=== PATIENT | male | born 1930 | race Caucasian/White ===

== ENCOUNTER → 2017-01-28 | Outpatient (CLI) | payer OTHER ==
[~2017-01-28] MED LIST: BND25X PO; CMD5 PO; FRRS300 PO; LATA0.009 OPR; METH4PAK4 PO; OMEG10007 PO; SENN-61 PO; TIMO0.2528 OPR; [UNRECOGNIZED DRUG - CODE] PO
[2017-01-28 18:03] LABS: BLOOD UREA NITROGEN 17 mg/dl (7-18); BUN/CREATININE RATIO 17.7 (10-20); CALCIUM 9.1 mg/dl (8.5-10.1); CARBON DIOXIDE 27 mmol/L (21-32); CHLORIDE 106 mmol/L (98-107); CREATININE 0.94 mg/dl (0.60-1.40); GLUCOSE 117 mg/dl (70-99); POTASSIUM 4.5 mmol/L (3.5-5.1); SODIUM 138 mmol/L (136-145)
== END | disposition home or self-care (01) ==
LOC: C.LABPVFM 12:06
PROVIDERS: ATTEND Family Medicine
DX: I10 Essential (primary) hypertension (principal)

== ENCOUNTER → 2017-08-04 | Outpatient (CLI) | payer OTHER ==
[2017-08-04 13:16] LABS: BLOOD UREA NITROGEN 14 mg/dl (7-18); BUN/CREATININE RATIO 16.2 (10-20); CALCIUM 8.8 mg/dl (8.5-10.1); CARBON DIOXIDE 26 mmol/L (21-32); CHLORIDE 106 mmol/L (98-107); CHOLESTEROL 198 mg/dl (0-200); CREATININE 0.88 mg/dl (0.60-1.40); GLUCOSE 117 mg/dl (70-99); POTASSIUM 4.1 mmol/L (3.5-5.1); SODIUM 140 mmol/L (136-145)
[2017-08-04 13:19] LABS: CHOLESTEROL/HDL RATIO 4.7; HDL CHOLESTEROL 42 mg/dl; LDL CHOLESTEROL CALCULATED 134 mg/dl; TRIGLYCERIDES 110 mg/dl (0-150); VERY LOW DENSITY LIPOPROT CALC 22 mg/dl
== END | disposition home or self-care (01) ==
LOC: C.LABPVFM 08:01
PROVIDERS: ATTEND Family Medicine
DX: Z00.00 Encounter for general adult medical examination without abnormal findings (principal); I10 Essential (primary) hypertension

== ENCOUNTER 2021-03-07 18:46 | Inpatient (IN) ==
[2021-03-07] MEDS ORDERED: OPTIRAY 350 500ml IV ONE (18:53)
--- NOTE | 2021-03-07 18:53 | Emergency Department Note ---
Impression & Plan CVA (cerebrovascular accident), Occlusion of posterior cerebral artery, High serum chloride, Elevated troponin, A-fib ED Provider Note NAME: Micah BROWN AGE: 89 SEX: M : 1930 ARRIVES VIA: Ambulance INFORMANT: Patient, ED PROVIDER(S): Ignacio Mclean DO CHIEF COMPLAINT: Altered mental status HPI: Patient is an 89-year-old male brought in by EMS. He was confused yesterday but this cleared up. [place] He came into the house and the had to help drag him up the steps. He became nearly unresponsive at the table and EMS was called. He was confused and altered. When EMS arrived he was unresponsive with questionable agonal breathing and eventually improved. He denies any pain but is unable to really talk other than answer some intermittent yes/no questions. ROS: See above HPI for pertinent positives & negatives. A total of 10 systems reviewed and were otherwise negative. PAST MEDICAL HISTORY:See Below PAST SURGICAL HISTORY:See Below FAMILY HISTORY:See Below SOCIAL HISTORY:See Below HOME MEDICATIONS:See Below ALLERGIES:See Below VITALS:See Below PHYSICAL EXAMINATION: GENERAL: alert, well appearing, well nourished, no distress, non-toxic HEAD: normal cephalic, atraumatic EYE EXAM: normal conjunctiva, PERRL and EOM's grossly intact OROPHARYNX: no exudate, no erythema, lips, buccal mucosa, and tongue normal and mucous membranes are moist EARS: TMs clear b/l NECK: supple, no nuchal rigidity, no adenopathy, non-tender CHEST: stable to compression anteriorly and posteriorly LUNGS: clear to auscultation. Normal chest wall mechanics HEART: no murmurs, S1 normal and S2 normal ABDOMEN: abdomen soft, non-tender, normo-active bowel sounds, no masses, no rebound or guarding. PELVIS: stable to compression anteriorly and posteriorly UPPER EXTREMITIES: full active and passive range of motion of all joints without tenderness to palpation LOWER EXTREMITIES: full active and passive range of motion of all joints without tenderness to palpation. Abrasions over bilateral shins NEURO EXAM: Awake with a rightward gaze and right-sided facial droop able to answer intermittent yes/no questions, slightly slurred speech, mild weakness with flexion of the left upper extremity. Unable to assess grasp of right extremity due to deformity of hand. Unable to perform drift and [id number]. MEDICAL DECISION MAKING: Patient is an 89-year-old male with a past medical history of A. fib that presents the ER for weakness and confusion. He remembers walking up to the [place] and his legs not working. His drove him up the steps. Upstairs he became unresponsive. EMS brought him in. There is no seizure activity for EMS. IV was established blood work was obtained. Stroke alert was called on my initial evaluation as he did have right-sided facial droop and some slurred speech with confusion. Labs show no significant leukocytosis or anemia. INR was unremarkable. BMP with slightly elevated chloride. Magnesium was elevated. Troponin was elevated 0.071. Covid was negative. CT as well as angios of the head and neck showed an occlusion of the THREAD LASTER with an age-indeterminate infarct as well. CT of the chest abdomen pelvis as he did have bruising on bilateral lower extremities. After discussion on [address] Kaleb Dickson from [facility]. As this gentleman symptoms improved significantly and he was nearly back to baseline able to walk with throughout the room without difficulty elected to hold on giving TPA. Patient was updated bedside. He was admitted to the hospital for further work-up. Triage Nursing notes reviewed. Limited review of prior medical records performed Vital Signs: reviewed and remarkable for no significant abnormalities Differential diagnosis: Differential Diagnosis includes but is not limited to ischemic Stroke, hemorrhagic stroke, bells palsy, mass, neoplasm, migraine headache, seizure, subarachnoid hemorrhage, TIA, and transient global amnesia. ER treatment provided: See below Diagnostics interpreted by me: ECG: A. fib rate of 72 Left axis T wave inversion in lead aVL QTC 427 Cardiac Monitoring: An order was placed for continuous cardiac monitoring. The monitor shows a rate of 70 with sinus rhythm. Laboratory studies: As stated above and show below. Imaging studies: CTs as well as CT angios as discussed above with the THREAD LASTER occlusion and remote infarct Consultation(s): Discussed with Dr. Cardona from [facility] and we elected to hold on TPA This is the hospitalist for further evaluation Procedures: none Critical Care: I have personally spent 40 minutes of critical care time in the direct management of this patient. This includes bedside care, interpretation of diagnostic studies, and testing, discussion with consultants, patient, and family members, and other required patient management activities. This 40 minutes is in excess of all separately billable procedures. Past Med/Surg History Medical History (Updated 03/07/21 @ 22:24 by Ignacio Mclean DO) Ambulatory dysfunction Aortic root dilatation Ataxia Blind left eye Brain aneurysm Brain aneurysm Chronic arterial ischemic stroke, multifocal, multiple vascular territories Chronic diastolic CHF (congestive heart failure) Dizziness Fall Hypertension Hypertensive urgency Prediabetes Surgical History (Updated 04/29/20 @ 09:06 by ANGELICA Herrera) Hx of total knee replacement S/P hernia repair Family History (Updated 04/29/20 @ 09:07 by ANGELICA Herrera) Other Breast cancer Denies family history of Ovarian cancer Prostate cancer Myocardial infarction Colorectal cancer Social History (Updated 04/29/20 @ 09:08 by ANGELICA Herrera) Smoking Status: Never smoker Second Hand Exposure: No; Hx Alcohol Use: No Hx Substance Use: No Preferred Language: Cameroonian Communication Ability: Effective Visual Impairment: No Limitations Manager Life Insurance Required: Yes Beliefs That Will Affect Care: None marital status: Current Living Situation: Spouse current occupational status: retired Feels Safe at Home: Yes caffeine: Yes during the past year weight has: remained stable Dental Care, Regularly: Yes Physical Activity Frequency: 1-2 Times per Week Seatbelt Use: always Sunscreen Use: Yes Assistive Devices: Walker Allergies Allergies Allergy/AdvReac Type Severity Reaction Status Date / Time Penicillins Allergy Unknown UNKNOWN Verified 03/07/21 19:06 morphine AdvReac Severe HALLICINATIONS, Verified 03/07/21 19:06 BEHAVIOR CHANGES Home Meds Home Medications Medication Instructions Recorded Confirmed latanoprost [Xalatan] 1 drp OPR HS 08/02/18 03/07/21 timolol maleate 1 drp OPR QAM 08/02/18 03/07/21 cholecalciferol (vitamin D3) 1,000 unit PO DAILY 08/05/18 03/07/21 [Vitamin D3] Herbal Prostate Suppliment 1 tab PO DAILY 05/18/20 03/07/21 Previous Rx's Medication Instructions Recorded losartan 50 mg tablet 50 mg PO BID #180 tab 03/06/21 ciprofloxacin HCl 500 mg tablet 500 mg PO BID #14 tab 03/07/21 Results & Data (ED) Vital Signs Vital Signs - 24 hr 03/07/21 18:51 03/07/21 19:00 03/07/21 19:16 Temperature 36.6 C Temperature Source Oral Pulse Rate 75 73 Pulse Rate [Right Brachial] Pulse Rate from SpO2 Sensor 75 Pulse Rhythm [Right Brachial] Respiratory Rate 20 14 Respiratory Effort / Characteristics Spontaneous Blood Pressure 159/81 H 144/82 H Blood Pressure [Right Arm] Blood Pressure Mean 107 102 Blood Pressure Mean [Right Arm] Blood Pressure Position [Right Arm] Pulse Oximetry 92 93 94 Oxygen Delivery Method Room Air Room Air Sepsis Recent Fever Within 48 Hours No Sepsis New/Unexplained Change in Mental Status N/A Sepsis Action Taken by Nursing No Action Required 03/07/21 19:20 03/07/21 19:25 03/07/21 19:30 Temperature Temperature Source Pulse Rate 73 74 75 Pulse Rate [Right Brachial] Pulse Rate from SpO2 Sensor 73 75 79 Pulse Rhythm [Right Brachial] Respiratory Rate 25 H 32 H 23 Respiratory Effort / Characteristics Blood Pressure 171/75 H 135/78 122/70 Blood Pressure [Right Arm] Blood Pressure Mean 107 97 87 Blood Pressure Mean [Right Arm] Blood Pressure Position [Right Arm] Pulse Oximetry 94 92 93 Oxygen Delivery Method Sepsis Recent Fever Within 48 Hours Sepsis New/Unexplained Change in Mental Status Sepsis Action Taken by Nursing 03/07/21 19:31 03/07/21 19:41 03/07/21 19:51 Temperature 37 C Temperature Source Oral Pulse Rate 83 76 Pulse Rate [Right Brachial] 75 Pulse Rate from SpO2 Sensor 90 79 Pulse Rhythm [Right Brachial] Irregular Respiratory Rate 16 22 23 Respiratory Effort / Characteristics Blood Pressure 117/91 183/82 H Blood Pressure [Right Arm] 122/70 Blood Pressure Mean 99 115 Blood Pressure Mean [Right Arm] 87 Blood Pressure Position [Right Arm] Pulse Oximetry 92 94 94 Oxygen Delivery Method Room Air Sepsis Recent Fever Within 48 Hours Sepsis New/Unexplained Change in Mental Status Sepsis Action Taken by Nursing 03/07/21 19:56 03/07/21 20:00 03/07/21 21:00 Temperature Temperature Source Pulse Rate 71 75 Pulse Rate [Right Brachial] 69 Pulse Rate from SpO2 Sensor 77 73 Pulse Rhythm [Right Brachial] Irregular Respiratory Rate 26 H 27 H 16 Respiratory Effort / Characteristics Blood Pressure 156/81 H 157/101 H Blood Pressure [Right Arm] 137/65 Blood Pressure Mean 106 119 Blood Pressure Mean [Right Arm] 89 Blood Pressure Position [Right Arm] Lying Pulse Oximetry 94 92 93 Oxygen Delivery Method Room Air Sepsis Recent Fever Within 48 Hours Sepsis New/Unexplained Change in Mental Status Sepsis Action Taken by Nursing Laboratory Data Result diagrams: 03/07/21 18:52 03/07/21 18:52 Lab Results 03/07/21 03/07/21 03/07/21 Range/Units 18:52 18:52 18:52 WBC 9.95 (4.8-10.8) K/uL RBC 4.70 (4.7-6.1) M/uL Hgb 14.1 (14.0-18.0) g/dL Hct 41.0 L (42-52) % MCV 87.2 (80-100) fL MCH 30.0 (25-34) pg MCHC 34.4 (32-36) g/dL RDW Std Deviation 43.7 (36.4-46.3) fL RDW Coeff of Josh 13.5 (11.5-14.5) % Plt Count 147 (130-400) K/uL MPV 9.7 (7.4-10.4) fL Immature Gran % (Auto) 0.4 % Neut % (Auto) 77.9 % Lymph % (Auto) 11.8 % [place] % (Auto) 9.7 % Eos % (Auto) 0.1 % Baso % (Auto) 0.1 % Neut # (Auto) 7.75 H (1.4-6.5) K/uL Lymph # (Auto) 1.17 L (1.2-3.4) K/uL [place] # (Auto) 0.97 H (0.11-0.59) K/uL Eos # (Auto) 0.01 (0-0.5) K/uL Baso # (Auto) 0.01 (0-0.2) K/uL Immature Gran # (Auto) 0.04 H (0.00-0.02) K/uL PT 10.8 (9.0-12.0) Seconds INR 1.1 (0.9-1.1) APTT 21.8 (21.0-31.0) Seconds PTT Ratio 0.8 Sodium (136-145) mmol/L Potassium (3.5-5.1) mmol/L Chloride (98-107) mmol/L Carbon Dioxide (21-32) mmol/L Anion Gap (3-11) BUN (7-18) mg/dl Creatinine (0.6-1.4) mg/dl Est Cr Clr Drug Dosing ml/min Est GFR ( Amer) ml/min Est GFR (Non-Af Amer) ml/min BUN/Creatinine Ratio (10-20) Glucose (70-99) mg/dl POC Glucose (70-99) mg/dl Calcium (8.5-10.1) mg/dl Magnesium (1.8-2.4) mg/dl Total Bilirubin (0.2-1) mg/dl AST (15-37) U/L ALT (12-78) U/L Alkaline Phosphatase (45-117) U/L Troponin I (0-0.045) ng/ml Total Protein (6.4-8.2) gm/dl Albumin (3.4-5.0) gm/dl Globulin (2.5-4.0) gm/dl Albumin/Globulin Ratio (0.9-2) COVID-19 Eval Order SARS-CoV-2 (PCR) (Negative) Blood Type O Positive Antibody Screen NEGATIVE 03/07/21 03/07/21 03/07/21 Range/Units 18:52 19:29 19:44 WBC (4.8-10.8) K/uL RBC (4.7-6.1) M/uL Hgb (14.0-18.0) g/dL Hct (42-52) % MCV (80-100) fL MCH (25-34) pg MCHC (32-36) g/dL RDW Std Deviation (36.4-46.3) fL RDW Coeff of Josh (11.5-14.5) % Plt Count (130-400) K/uL MPV (7.4-10.4) fL Immature Gran % (Auto) % Neut % (Auto) % Lymph % (Auto) % [place] % (Auto) % Eos % (Auto) % Baso % (Auto) % Neut # (Auto) (1.4-6.5) K/uL Lymph # (Auto) (1.2-3.4) K/uL [place] # (Auto) (0.11-0.59) K/uL Eos # (Auto) (0-0.5) K/uL Baso # (Auto) (0-0.2) K/uL Immature Gran # (Auto) (0.00-0.02) K/uL PT (9.0-12.0) Seconds INR (0.9-1.1) APTT (21.0-31.0) Seconds PTT Ratio Sodium 142 (136-145) mmol/L Potassium 3.9 (3.5-5.1) mmol/L Chloride 110 H (98-107) mmol/L Carbon Dioxide 22 (21-32) mmol/L Anion Gap 10.0 (3-11) BUN 17 (7-18) mg/dl Creatinine 1.50 H (0.6-1.4) mg/dl Est Cr Clr Drug Dosing 32.3 ml/min Est GFR ( Amer) 47.2 ml/min Est GFR (Non-Af Amer) 40.7 ml/min BUN/Creatinine Ratio 11.0 (10-20) Glucose 211 H (70-99) mg/dl POC Glucose 182 H (70-99) mg/dl Calcium 8.7 (8.5-10.1) mg/dl Magnesium 2.5 H (1.8-2.4) mg/dl Total Bilirubin 0.6 (0.2-1) mg/dl AST 21 (15-37) U/L ALT 27 (12-78) U/L Alkaline Phosphatase 85 (45-117) U/L Troponin I 0.071 H* (0-0.045) ng/ml Total Protein 6.4 (6.4-8.2) gm/dl Albumin 3.2 L (3.4-5.0) gm/dl Globulin 3.2 (2.5-4.0) gm/dl Albumin/Globulin Ratio 1.0 (0.9-2) COVID-19 Eval Order Covid19 at [facility] SARS-CoV-2 (PCR) (Negative) Blood Type Antibody Screen 03/07/21 Range/Units 19:44 WBC (4.8-10.8) K/uL RBC (4.7-6.1) M/uL Hgb (14.0-18.0) g/dL Hct (42-52) % MCV (80-100) fL MCH (25-34) pg MCHC (32-36) g/dL RDW Std Deviation (36.4-46.3) fL RDW Coeff of Josh (11.5-14.5) % Plt Count (130-400) K/uL MPV (7.4-10.4) fL Immature Gran % (Auto) % Neut % (Auto) % Lymph % (Auto) % [place] % (Auto) % Eos % (Auto) % Baso % (Auto) % Neut # (Auto) (1.4-6.5) K/uL Lymph # (Auto) (1.2-3.4) K/uL [place] # (Auto) (0.11-0.59) K/uL Eos # (Auto) (0-0.5) K/uL Baso # (Auto) (0-0.2) K/uL Immature Gran # (Auto) (0.00-0.02) K/uL PT (9.0-12.0) Seconds INR (0.9-1.1) APTT (21.0-31.0) Seconds PTT Ratio Sodium (136-145) mmol/L Potassium (3.5-5.1) mmol/L Chloride (98-107) mmol/L Carbon Dioxide (21-32) mmol/L Anion Gap (3-11) BUN (7-18) mg/dl Creatinine (0.6-1.4) mg/dl Est Cr Clr Drug Dosing ml/min Est GFR ( Amer) ml/min Est GFR (Non-Af Amer) ml/min BUN/Creatinine Ratio (10-20) Glucose (70-99) mg/dl POC Glucose (70-99) mg/dl Calcium (8.5-10.1) mg/dl Magnesium (1.8-2.4) mg/dl Total Bilirubin (0.2-1) mg/dl AST (15-37) U/L ALT (12-78) U/L Alkaline Phosphatase (45-117) U/L Troponin I (0-0.045) ng/ml Total Protein (6.4-8.2) gm/dl Albumin (3.4-5.0) gm/dl Globulin (2.5-4.0) gm/dl Albumin/Globulin Ratio (0.9-2) COVID-19 Eval Order SARS-CoV-2 (PCR) NEGATIVE (Negative) Blood Type Antibody Screen Administered Medications Discontinued Medications Aspirin (Aspirin Chew 324 Mg) 324 mg PO NOW STA Stop: 03/07/21 20:33 Last Admin: 03/07/21 20:38 Dose: 324 mg Documented by: [id number] Levetiracetam 500 mg/ Sodium (Chloride) 105 mls @ 440 mls/hr IV NOW STA Stop: 03/07/21 20:46 Last Admin: 03/07/21 20:49 Dose: 440 mls/hr Documented by: [id number] Ioversol (Optiray 350 500ml) 105 ml IV ONCE ONE Stop: 03/07/21 18:54 Last Admin: 03/07/21 18:53 Dose: 105 ml Documented by: [id number] Imaging Data Radiologist's Impression: Chest X-Ray 03/07/21 18:50 XR chest 1V portable CLINICAL HISTORY: Stroke Like Symptoms COMPARISON STUDY: Chest radiograph May 18, 2020. FINDINGS: Cardiomegaly is noted. Dilatation of the descending thoracic aorta is noted. There is no pneumothorax or pleural effusion. Old bilateral rib fractures are noted. There is mild interstitial thickening. IMPRESSION: Cardiomegaly with pulmonary vascular congestion. ACT 112: Negative or not required by law. Electronically signed by: Tiago Powell M.D. 03/07/2021 7:[address] 03/07/21 18:50 CT OF THE HEAD WITHOUT CONTRAST CLINICAL HISTORY: Stroke Like Symptoms COMPARISON STUDY: Head CT August 03, 2018. CT DOSE: 614.27 mGy.cm TECHNIQUE: Helical axial images of the head were obtained without IV contrast. Automated exposure control was utilized for the study. A dose lowering technique was utilized adhering to the principles of ALARA. FINDINGS: No acute intracranial hemorrhage is present. Multiple foci of encephalomalacia are unchanged since head CT of August 03, 2018. A 1.3 cm hypodensity within the left insular cortex is new since prior exam but probably old. There is an age indeterminate 1.6 cm hypodensity within the right mendoza radiata/basal ganglia. Otherwise, the appearance of the brain is unchanged. Ventricular system is stable. Right frontal craniotomy is noted. This NASAL bone deformity. No acute calvarial fracture is present. A clip within the right supraclinoid region is noted. IMPRESSION: 1. No acute intracranial hemorrhage. 2. Multiple foci of encephalomalacia which are similar to prior exam. 3. 1.3 cm hypodensity within the right mendoza radiata/basal ganglia. This is new since prior exam. This represents age indeterminate ischemic change. ACT 112: Negative or not required by law. Electronically signed by: Tiago Powell M.D. 03/07/2021 7:05 PM Head CTA 03/07/21 18:50 CTA ANGIOGRAPHY OF THE HEAD CLINICAL HISTORY: Stroke Like Symptoms COMPARISON STUDY: CTA of the head August 12, 2018. TECHNIQUE: Helical axial images of the head were obtained following uneventful intravenous administration of 105 cc of Optiray. Sagittal and coronal reconstructions were viewed as well as maximal intensity projections on an independent 3-D workstation. Automated exposure control was utilized for the study. A dose lowering technique was utilized adhering to the principles of ALARA. FINDINGS: No acute intracranial hemorrhage, midline shift or mass effect is present. Multiple areas of encephalomalacia are again noted. There is a right frontal craniotomy. There is an aneurysm clip within the region of the right clinoid. No intracranial aneurysm is identified on this examination. Moderate multifocal intracranial stenoses are noted. There is occlusion of the right T1 segment. This is new since prior CTA. No additional sites of vessel occlusion are identified on this exam. Moderate atherosclerotic plaque is noted within the intracranial vessels. IMPRESSION: 1. 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 No additional sites of vascular occlusion. 2. Moderate multifocal stenoses within the intracranial vessels. Previous aneurysm clipping. 3. Multifocal encephalomalacia. ACT 112: Negative or not required by law. Electronically signed by: Tiago Powell M.D. 03/07/2021 7:27 PM Neck CTA 03/07/21 18:50 CT ANGIOGRAPHY OF THE NECK WITH CONTRAST CLINICAL HISTORY: Stroke Like Symptoms COMPARISON STUDY: Carotid ultrasound August 03, 2018. Technique: CT angiography of the carotid and vertebral arteries was obtained using Optiray and 3D reconstruction on an independent workstation. NASCET criteria was utilized. Automated exposure control was utilized for the study. A dose lowering technique was utilized adhering to the principles of ALARA. Findings: Bilateral vertebral arteries are patent. There is no significant stenosis within the vertebral arteries. There is moderate plaque within the bilateral carotid bifurcations without significant stenosis. No aneurysm within the neck is noted. Chest CT will be reported separately. There is no acute ce rvical spine fracture. There is no cervical lymphadenopathy. IMPRESSION: Moderate plaque within the bilateral carotid bifurcations without significant stenosis. ACT 112: Negative or not required by law. Electronically signed by: Tiago Powell M.D. 03/07/2021 7:35 PM Abdomen/Pelvis CT 03/07/21 18:55 CT OF THE ABDOMEN AND PELVIS WITH CONTRAST CLINICAL HISTORY: ams ? trauma COMPARISON STUDY: CT of the chest, abdomen and pelvis 04/06/2007. TECHNIQUE: Following IV administration of 105 mL of Optiray, axial images of the abdomen and pelvis were obtained from the lung bases to the proximal femurs. Images were reviewed in the axial, sagittal, and coronal planes. IV contrast was administered without complication. Automated exposure control was utilized for the study. A dose lowering technique was utilized adhering to the principles of ALARA. FINDINGS: No hemoperitoneum or pneumoperitoneum is noted. A few hepatic cysts are noted. There is no evidence for traumatic injury to the liver, spleen, adrenal glands, kidneys or pancreas. Abdominal aorta is ectatic. Prostate is enlarged. There is no hydronephrosis. Note is made of sigmoid diverticulosis without evidence for acute diverticulitis. There is no evidence for a bowel obstruction. No acute lumbar spine or pelvic fractures identified. Mild loss of height of the superior endplate of T12 is chronic. No peripancreatic or pericholecystic infiltration is present. This exam is mildly compromised by motion artifact. IMPRESSION: No acute traumatic findings within the abdomen or pelvis. ACT 112: Negative or not required by law. Electronically signed by: Taigo Powell M.D. 03/07/2021 7:[address] 03/07/21 18:55 CT OF THE CHEST WITH IV CONTRAST CLINICAL HISTORY: trauma COMPARISON STUDY: CT November 19, 2011 and chest radiograph May 18, 2020. TECHNIQUE: Following IV administration of 105 mL of Optiray, helical axial i mages of the chest were obtained. Sagittal and coronal reconstructions were viewed as well as maximal intensity projections on an independent 3-D workstation. Automated exposure control was utilized for the study. A dose lowering technique was utilized adhering to the principles of ALARA. CT DOSE: 1376.53 mGy.cm FINDINGS: There is no evidence for traumatic injury to the thoracic aorta. Descending thoracic aorta is dilated, measuring 3.9 cm. Note is made of moderate cardiomegaly. There is no pericardial effusion. Moderate coronary artery calcification is present. There is no pneumothorax or pulmonary contusion. Lungs are suboptimally assessed due to respiratory motion. Subpleural opacities favor atelectasis. There are multiple old bilateral rib fractures. Mild loss of height of the superior endplate of T12 is likely chronic. IMPRESSION: 1. No acute traumatic findings within the chest. 2. Multiple old bilateral rib fractures. ACT 112: Negative or not required by law. Electronically signed by: Tiago Powell M.D. 03/07/2021 7:39 PM Discharge Plan Visit Data Chief Complaint: Altered Mental Status ED Provider: Ignacio Mclean Discharge Problem: CVA (cerebrovascular accident), Occlusion of posterior cerebral artery, High serum chloride, Elevated troponin, A-fib Forms Stand Alone Forms: [facility] Prescriptions Prescriptions: No Action ciprofloxacin HCl [Cipro] 500 mg tablet 500 mg PO BID Qty: 14 RF: 0 losartan 50 mg tablet 50 mg PO BID Qty: 180 RF: 1 Herbal Prostate Suppliment 1 tab PO DAILY RF: 0 latanoprost [Xalatan] 0.005 % Drops 1 drp OPR HS RF: 0 timolol maleate 0.5 % Drops, Once Daily 1 drp OPR QAM RF: 0 cholecalciferol (vitamin D3) [Vitamin D3] 1,000 unit Capsule 1,000 unit PO DAILY RF: 0 Discharge Problem: CVA (cerebrovascular accident) Qualifiers: CVA mechanism: unspecified Qualified Code(s): I63.9 - Cerebral infarction, unspecified A-fib Qualifiers: Atrial fibrillation type: unspecified Qualified Code(s): I48.91 - Unspecified atrial fibrillation
[2021-03-07 19:05] LABS: Basophils # (auto) 0.01 K/uL (0-0.2); Basophils % (auto) 0.1 %; Eosinophils # (auto) 0.01 K/uL (0-0.5); Eosinophils % (auto) 0.1 %; Hemoglobin 14.1 g/dL (14.0-18.0); Immature Granulocytes # (auto) 0.04 K/uL (0.00-0.02); Immature Granulocytes % (auto) 0.4 %; Lymphocytes # (auto) 1.17 K/uL (1.2-3.4); Lymphocytes % (auto) 11.8 %; Mean Corpuscular Hgb Conc 34.4 g/dL (32-36); Mean Corpuscular Volume 87.2 fL (80-100); Mean Platelet Volume 9.7 fL (7.4-10.4); Monocytes # (auto) 0.97 K/uL (0.11-0.59); Monocytes % (auto) 9.7 %; Neutrophils # (auto) 7.75 K/uL (1.4-6.5); Neutrophils % (auto) 77.9 %; Platelet Count 147 K/uL (130-400); RDW Coefficient of Variation 13.5 % (11.5-14.5); RDW Standard Deviation 43.7 fL (36.4-46.3); White Blood Count 9.95 K/uL (4.8-10.8)
--- NOTE | 2021-03-07 19:07 | CT Scan Report ---
CT OF THE HEAD WITHOUT CONTRAST CLINICAL HISTORY: Stroke Like Symptoms COMPARISON STUDY: Head CT August 03, 2018. CT DOSE: 614.27 mGy.cm TECHNIQUE: Helical axial images of the head were obtained without IV contrast. Automated exposure con trol was utilized for the study. A dose lowering technique was utilized adhering to the principles o f ALARA. FINDINGS: No acute intracranial hemorrhage is present. Multiple foci of encephalomalacia are unchange d since head CT of August 03, 2018. A 1.3 cm hypodensity within the left insular cortex is new since prior exam but probably old. There is an age indeterminate 1.6 cm hypodensity within the right coron a radiata/basal ganglia. Otherwise, the appearance of the brain is unchanged. Ventricular system is s table. Right frontal craniotomy is noted. This NASAL bone deformity. No acute calvarial fracture is p resent. A clip within the right supraclinoid region is noted. IMPRESSION: 1. No acute intracranial hemorrhage. 2. Multiple foci of encephalomalacia which are similar to prior exam. 3. 1.3 cm hypodensity within the right mendoza radiata/basal ganglia. This is new since prior exam. Th is represents age indeterminate ischemic change. ACT 112: Negative or not required by law. Electronically signed by: Tiago Powell M.D. 03/07/2021 7:05 PM
[2021-03-07 19:18] LABS: INR 1.1 (0.9-1.1); Partial Thromboplastin Ratio 0.8; Partial Thromboplastin Time 21.8 Seconds (21.0-31.0); Prothrombin Time 10.8 Seconds (9.0-12.0)
[2021-03-07 19:27] LABS: Albumin Level 3.2 gm/dl (3.4-5.0); Calcium 8.7 mg/dl (8.5-10.1); Creatinine Clr Calc Pharmacy 32.3 ml/min; Est GFR (African American) 47.2 ml/min; Est GFR (Non-African American) 40.7 ml/min; Magnesium 2.5 mg/dl (1.8-2.4); Potassium 3.9 mmol/L (3.5-5.1)
--- NOTE | 2021-03-07 19:29 | CT Scan Report ---
CTA ANGIOGRAPHY OF THE HEAD CLINICAL HISTORY: Stroke Like Symptoms COMPARISON STUDY: CTA of the head August 12, 2018. TECHNIQUE: Helical axial images of the head were obtained following uneventful intravenous administr ation of 105 cc of Optiray. Sagittal and coronal reconstructions were viewed as well as maximal inten sity projections on an independent 3-D workstation. Automated exposure control was utilized for the study. A dose lowering technique was utilized adhering to the principles of ALARA. FINDINGS: No acute intracranial hemorrhage, midline shift or mass effect is present. Multiple areas o f encephalomalacia are again noted. There is a right frontal craniotomy. There is an aneurysm clip wi thin the region of the right clinoid. No intracranial aneurysm is identified on this examination. Mod erate multifocal intracranial stenoses are noted. There is occlusion of the right T1 segment. This is new since prior CTA. No additional sites of vessel occlusion are identified on this exam. Moderate a therosclerotic plaque is noted within the intracranial vessels. IMPRESSION: 1. 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 No additional sites of vascular occlusi on. 2. Moderate multifocal stenoses within the intracranial vessels. Previous aneurysm clipping. 3. Multifocal encephalomalacia. ACT 112: Negative or not required by law. Electronically signed by: Tiago Powell M.D. 03/07/2021 7:27 PM
--- NOTE | 2021-03-07 19:36 | CT Scan Report ---
CT ANGIOGRAPHY OF THE NECK WITH CONTRAST CLINICAL HISTORY: Stroke Like Symptoms COMPARISON STUDY: Carotid ultrasound August 03, 2018. Technique: CT angiography of the carotid and vertebral arteries was obtained using Optiray and 3D rec onstruction on an independent workstation. NASCET criteria was utilized. Automated exposure control was utilized for the study. A dose lowering technique was utilized adhering to the principles of ALA RA. Findings: Bilateral vertebral arteries are patent. There is no significant stenosis within the verteb ral arteries. There is moderate plaque within the bilateral carotid bifurcations without significant stenosis. No aneurysm within the neck is noted. Chest CT will be reported separately. There is no acu te cervical spine fracture. There is no cervical lymphadenopathy. IMPRESSION: Moderate plaque within the bilateral carotid bifurcations without significant stenosis. ACT 112: Negative or not required by law. Electronically signed by: Tiago Powell M.D. 03/07/2021 7:35 PM
--- NOTE | 2021-03-07 19:40 | CT Scan Report ---
CT OF THE CHEST WITH IV CONTRAST CLINICAL HISTORY: trauma COMPARISON STUDY: CT November 19, 2011 and chest radiograph May 18, 2020. TECHNIQUE: Following IV administration of 105 mL of Optiray, helical axial images of the chest were obtained. Sagittal and coronal reconstructions were viewed as well as maximal intensity projections on an independent 3-D workstation. Automated exposure control was utilized for the study. A dose lo wering technique was utilized adhering to the principles of ALARA. CT DOSE: 1376.53 mGy.cm FINDINGS: There is no evidence for traumatic injury to the thoracic aorta. Descending thoracic aorta is dilated, measuring 3.9 cm. Note is made of moderate cardiomegaly. There is no pericardial effusio n. Moderate coronary artery calcification is present. There is no pneumothorax or pulmonary contusion . Lungs are suboptimally assessed due to respiratory motion. Subpleural opacities favor atelectasis. There are multiple old bilateral rib fractures. Mild loss of height of the superior endplate of T12 i s likely chronic. IMPRESSION: 1. No acute traumatic findings within the chest. 2. Multiple old bilateral rib fractures. ACT 112: Negative or not required by law. Electronically signed by: Tiago Powell M.D. 03/07/2021 7:39 PM
--- NOTE | 2021-03-07 19:45 | CT Scan Report ---
CT OF THE ABDOMEN AND PELVIS WITH CONTRAST CLINICAL HISTORY: ams ? trauma COMPARISON STUDY: CT of the chest, abdomen and pelvis 04/06/2007. TECHNIQUE: Following IV administration of 105 mL of Optiray, axial images of the abdomen and pelvis w ere obtained from the lung bases to the proximal femurs. Images were reviewed in the axial, sagittal, and coronal planes. IV contrast was administered without complication. Automated exposure control w as utilized for the study. A dose lowering technique was utilized adhering to the principles of BONY Bowman. FINDINGS: No hemoperitoneum or pneumoperitoneum is noted. A few hepatic cysts are noted. There is no evidence for traumatic injury to the liver, spleen, adrenal glands, kidneys or pancreas. Abdominal ao rta is ectatic. Prostate is enlarged. There is no hydronephrosis. Note is made of sigmoid diverticulo sis without evidence for acute diverticulitis. There is no evidence for a bowel obstruction. No acute lumbar spine or pelvic fractures identified. Mild loss of height of the superior endplate of T12 is chronic. No peripancreatic or pericholecystic infiltration is present. This exam is mildly compromise d by motion artifact. IMPRESSION: No acute traumatic findings within the abdomen or pelvis. ACT 112: Negative or not required by law. Electronically signed by: Tiago Powell M.D. 03/07/2021 7:43 PM
--- NOTE | 2021-03-07 19:50 | XRay Report ---
XR chest 1V portable CLINICAL HISTORY: Stroke Like Symptoms COMPARISON STUDY: Chest radiograph May 18, 2020. FINDINGS: Cardiomegaly is noted. Dilatation of the descending thoracic aorta is noted. There is no pn eumothorax or pleural effusion. Old bilateral rib fractures are noted. There is mild interstitial thi ckening. IMPRESSION: Cardiomegaly with pulmonary vascular congestion. ACT 112: Negative or not required by law. Electronically signed by: Tiago Powell M.D. 03/07/2021 7:49 PM
[2021-03-07 20:00] LABS: Bilirubin,Total 0.6 mg/dl (0.2-1); Globulin 3.2 gm/dl (2.5-4.0); Total Protein 6.4 gm/dl (6.4-8.2); Troponin I 0.071 ng/ml (0-0.045)
[2021-03-07] MEDS ORDERED: ASPIRIN CHEW 324 MG PO STA (20:32)
[2021-03-07] MEDS ORDERED: levETIRAcetam 500 MG in 0.9 % SODIUM CHLORIDE 100 ML IV STA (20:32)
--- NOTE | 2021-03-07 21:38 | History & Physical Report ---
Date of Service March 07, 2021 Assessment & Plan (1) CVA (cerebrovascular accident): 1.3 cm right mendoza radiata and basal ganglia indeterminate age infarct/occlusion proximal right posterior cerebral artery- The patient will be admitted to telemetry for serial cardiac enzymes, serial EKG's, cardiac rhythm monitoring and a 2-D echocardiogram with Dopplers. Stroke without TPA order set Patient was given aspirin 325 mg p.o. in the ED Permissive hypertension Unable to order MRI due to presence of aneurysm clip Consider repeat CT of head in 24 to 48 hours to follow possible evolution of age-indeterminate infarct Consult PT/OT/psychotherapist social worker/neurology Present on Admission?: Yes (2) Occlusion of posterior cerebral artery: See above Present on Admission?: Yes (3) Elevated troponin: Elevated troponin/atrial fibrillation/hypertension- Troponin 0.071 upon admission The patient will be admitted to telemetry for serial cardiac enzymes, serial EKG's, cardiac rhythm monitoring and a 2-D echocardiogram with Dopplers. Continue losartan Present on Admission?: Yes (4) A-fib: See above Present on Admission?: Yes (5) Hyperlipidemia: Place on high-dose atorvastatin 80 mg daily Present on Admission?: Yes (6) Brain aneurysm: Status post clipping negates use of MRI Present on Admission?: Yes (7) Chronic arterial ischemic stroke, multifocal, multiple vascular territories: Given aspirin in the ED, will continue aspirin 81 mg every morning Present on Admission?: Yes (8) Hypertension: See above Present on Admission?: Yes History of Present Illness Chief Complaint: The Patient presents to the emergency department via EMS with complaint of a self-limited episode of confusion that occurred yesterday, and then around 5 PM this evening an episode of weakness and confusion that occurred while at the table Primary Care Provider: Radha Leon MD The patient is an 89-year-old male with a past medical history including atrial fibrillation, diabetes mellitus, hyperlipidemia, hypertensive urgency, aortic root dilatation, chronic HFrEF, chronic multifocal arterial ischemic strokes involving multiple vascular territories, hypertension, and brain aneurysm status post clipping. He presents to the emergency department with symptoms as noted above. Work-up in the emergency department included the following abnormal laboratories: Troponin 0.071, creatinine 1.50, glucose 211 and albumin 3.2 Imaging studies: CT of chest showed old bilateral rib fractures. CT abdomen and pelvis was negative CT of head showed old encephalomalacia, status post right frontal craniotomy. Right mendoza radiata/basal ganglia with 1.3 cm indeterminate age infarct. CTA of head showed occluded proximal right posterior cerebral artery. Moderate multifocal stenoses. Aneurysm clipping. CTA of neck showed no significant stenoses. Allergies Allergy/AdvReac Type Severity Reaction Status Date / Time Penicillins Allergy Unknown UNKNOWN Verified 03/07/21 19:06 morphine AdvReac Severe HALLICINATIONS, Verified 03/07/21 19:06 BEHAVIOR CHANGES Home Medications Medication Instructions Recorded Confirmed Type latanoprost [Xalatan] 1 drp OPR HS 08/02/18 03/07/21 History timolol maleate 1 drp OPR QAM 08/02/18 03/07/21 History cholecalciferol (vitamin D3) 1,000 unit PO DAILY 08/05/18 03/07/21 History [Vitamin D3] Herbal Prostate Suppliment 1 tab PO DAILY 05/18/20 03/07/21 History losartan 50 mg tablet 50 mg PO BID #180 tab 03/06/21 03/07/21 Rx ciprofloxacin HCl 500 mg tablet 500 mg PO BID #14 tab 03/07/21 03/07/21 Rx Past Med/Surg History Medical History (Updated 03/07/21 @ 22:24 by Ignacio Mclean DO) Ambulatory dysfunction Aortic root dilatation Ataxia Blind left eye Brain aneurysm Brain aneurysm Chronic arterial ischemic stroke, multifocal, multiple vascular territories Chronic diastolic CHF (congestive heart failure) Dizziness Fall Hypertension Hypertensive urgency Prediabetes Surgical History (Updated 04/29/20 @ 09:06 by ANGELICA Herrera) Hx of total knee replacement S/P hernia repair Family History (Updated 04/29/20 @ 09:07 by ANGELICA Herrera) Other Breast cancer Denies family history of Ovarian cancer Prostate cancer Myocardial infarction Colorectal cancer Social History (Updated 04/29/20 @ 09:08 by ANGELICA Herrera) Smoking Status: Never smoker Second Hand Exposure: No; Do You Dip or Chew Tobacco: No; Hx Alcohol Use: No Hx Substance Use: No Preferred Language: Lithuanian Communication Ability: Effective Visual Impairment: No Limitations Industrial Arts Teacher Required: No Beliefs That Will Affect Care: None marital status: Current Living Situation: Spouse current occupational status: retired Feels Safe at Home: Yes Safety Concerns: Feels Safe At This Time caffeine: Yes during the past year weight has: remained stable Dental Care, Regularly: Yes Physical Activity Frequency: 1-2 Times per Week Seatbelt Use: always Sunscreen Use: Yes Assistive Devices: Glasses and Hearing Aid - Bilateral Review of Systems Review of Systems: The patient denies chest pain, palpitations, shortness of breath, dyspnea on exertion, cough, lower extremity swelling, sore throat, fevers, chills, sweats, weight change, fatigue, nausea, vomiting, diarrhea , constipation, abdominal pain, pelvic pain, blood in urine or stool, dysuria, urinary frequency or urgency, light rash, abnormal bruising or bleeding, imbalance, focal or generalized weakness, numbness or tingling in arms or legs, generalized arthralgias or myalgias, back or neck pain, or night sweats. The review of systems is otherwise negative other than for that already noted above, and at least 10 systems have been reviewed. Physical Exam Physical Exam: The patient is awake, alert, well developed and well nourished, normocephalic and atraumatic, lying in bed and in no acute distress. HEENT--PERRL, EOMI, mucous membranes and oropharynx normal. Neck--supple. No JVD. No bruits. Thyroid normal, trachea midline, no adenopathy. Heart--normal S1 and S2. No murmurs, rubs or gallops. Lungs--clear bilaterally, no respiratory distress, no accessory muscle use. Abdomen--normal bowel sounds and soft. Nontender. Nondistended, no hernias or masses, no organomegaly. Extremities--no cyanosis or clubbing. No edema. Dermatologic--normal skin turgor, normal color, no abnormal lymph nodes, no rash. Neurologic--cranial nerves II through XII grossly intact. Rheumatologic--normal range of motion. Psychiatric--normal affect. Results & Data Results & Data ([facility]) Vital Signs (Past 12 Hours) Vital Signs Temp Pulse Pulse Resp BP BP Pulse Ox 03/07/21 21:00 69 16 137/65 93 03/07/21 20:00 75 27 H 157/101 H 92 03/07/21 19:56 71 26 H 156/81 H 94 03/07/21 19:51 76 23 183/82 H 94 03/07/21 19:41 83 22 117/91 94 03/07/21 19:31 98.6 F 75 16 122/70 92 03/07/21 19:30 75 23 122/70 93 03/07/21 19:25 74 32 H 135/78 92 03/07/21 19:20 73 25 H 171/75 H 94 03/07/21 19:16 73 14 144/82 H 94 03/07/21 19:00 93 03/07/21 18:51 97.9 F 75 20 159/81 H 92 Laboratory Results Laboratory Results WBC 9.95 K/uL (4.8-10.8) 03/07/21 18:52 RBC 4.70 M/uL (4.7-6.1) 03/07/21 18:52 Hgb 14.1 g/dL (14.0-18.0) 03/07/21 18:52 Hct 41.0 % (42-52) L 03/07/21 18:52 MCV 87.2 fL (80-100) 03/07/21 18:52 MCH 30.0 pg (25-34) 03/07/21 18:52 MCHC 34.4 g/dL (32-36) 03/07/21 18:52 RDW Std Deviation 43.7 fL (36.4-46.3) 03/07/21 18:52 RDW Coeff of Josh 13.5 % (11.5-14.5) 03/07/21 18:52 Plt Count 147 K/uL (130-400) 03/07/21 18:52 MPV 9.7 fL (7.4-10.4) 03/07/21 18:52 Immature Gran % (Auto) 0.4 % 03/07/21 18:52 Neut % (Auto) 77.9 % 03/07/21 18:52 Lymph % (Auto) 11.8 % 03/07/21 18:52 [place] % (Auto) 9.7 % 03/07/21 18:52 Eos % (Auto) 0.1 % 03/07/21 18:52 Baso % (Auto) 0.1 % 03/07/21 18:52 Neut # (Auto) 7.75 K/uL (1.4-6.5) H 03/07/21 18:52 Lymph # (Auto) 1.17 K/uL (1.2-3.4) L 03/07/21 18:52 [place] # (Auto) 0.97 K/uL (0.11-0.59) H 03/07/21 18:52 Eos # (Auto) 0.01 K/uL (0-0.5) 03/07/21 18:52 Baso # (Auto) 0.01 K/uL (0-0.2) 03/07/21 18:52 Immature Gran # (Auto) 0.04 K/uL (0.00-0.02) H 03/07/21 18:52 PT 10.8 Seconds (9.0-12.0) 03/07/21 18:52 INR 1.1 (0.9-1.1) 03/07/21 18:52 APTT 21.8 Seconds (21.0-31.0) 03/07/21 18:52 PTT Ratio 0.8 03/07/21 18:52 Sodium 142 mmol/L (136-145) 03/07/21 18:52 Potassium 3.9 mmol/L (3.5-5.1) 03/07/21 18:52 Chloride 110 mmol/L (98-107) H 03/07/21 18:52 Carbon Dioxide 22 mmol/L (21-32) 03/07/21 18:52 Anion Gap 10.0 (3-11) 03/07/21 18:52 BUN 17 mg/dl (7-18) 03/07/21 18:52 Creatinine 1.50 mg/dl (0.6-1.4) H 03/07/21 18:52 Est Cr Clr Drug Dosing 32.3 ml/min 03/07/21 18:52 Est GFR ( Amer) 47.2 ml/min 03/07/21 18:52 Est GFR (Non-Af Amer) 40.7 ml/min 03/07/21 18:52 BUN/Creatinine Ratio 11.0 (10-20) 03/07/21 18:52 Glucose 211 mg/dl (70-99) H 03/07/21 18:52 POC Glucose 182 mg/dl (70-99) H 03/07/21 19:29 Calcium 8.7 mg/dl (8.5-10.1) 03/07/21 18:52 Magnesium 2.5 mg/dl (1.8-2.4) H 03/07/21 18:52 Total Bilirubin 0.6 mg/dl (0.2-1) 03/07/21 18:52 AST 21 U/L (15-37) 03/07/21 18:52 ALT 27 U/L (12-78) 03/07/21 18:52 Alkaline Phosphatase 85 U/L (45-117) 03/07/21 18:52 Troponin I 0.071 ng/ml (0-0.045) H* 03/07/21 18:52 Total Protein 6.4 gm/dl (6.4-8.2) 03/07/21 18:52 Albumin 3.2 gm/dl (3.4-5.0) L 03/07/21 18:52 Globulin 3.2 gm/dl (2.5-4.0) 03/07/21 18:52 Albumin/Globulin Ratio 1.0 (0.9-2) 03/07/21 18:52 COVID-19 Eval Order Covid19 at [facility] 03/07/21 19:44 SARS-CoV-2 (PCR) NEGATIVE (Negative) 03/07/21 19:44 Blood Type O Positive 03/07/21 18:52 Antibody Screen NEGATIVE 03/07/21 18:52 Impressions Chest X-Ray 03/07/21 18:50 XR chest 1V portable CLINICAL HISTORY: Stroke Like Symptoms COMPARISON STUDY: Chest radiograph May 18, 2020. FINDINGS: Cardiomegaly is noted. Dilatation of the descending thoracic aorta is noted. There is no pneumothorax or pleural effusion. Old bilateral rib fractures are noted. There is mild interstitial thickening. IMPRESSION: Cardiomegaly with pulmonary vascular congestion. ACT 112: Negative or not required by law. Electronically signed by: Tiago Powell M.D. 03/07/2021 7:[address] 03/07/21 18:50 CT OF THE HEAD WITHOUT CONTRAST CLINICAL HISTORY: Stroke Like Symptoms COMPARISON STUDY: Head CT August 03, 2018. CT DOSE: 614.27 mGy.cm TECHNIQUE: Helical axial images of the head were obtained without IV contrast. Automated exposure control was utilized for the study. A dose lowering technique was utilized adhering to the principles of ALARA. FINDINGS: No acute intracranial hemorrhage is present. Multiple foci of encephalomalacia are unchanged since head CT of August 03, 2018. A 1.3 cm hypodensity within the left insular cortex is new since prior exam but probably old. There is an age indeterminate 1.6 cm hypodensity within the right mendoza radiata/basal ganglia. Otherwise, the appearance of the brain is unchanged. Ventricular system is stable. Right frontal craniotomy is noted. This NASAL bone deformity. No acute calvarial fracture is present. A clip within the right supraclinoid region is noted. IMPRESSION: 1. No acute intracranial hemorrhage. 2. Multiple foci of encephalomalacia which are similar to prior exam. 3. 1.3 cm hypodensity within the right mendoza radiata/basal ganglia. This is new since prior exam. This represents age indeterminate ischemic change. ACT 112: Negative or not required by law. Electronically signed by: Tiago Powell M.D. 03/07/2021 7:05 PM Head CTA 03/07/21 18:50 CTA ANGIOGRAPHY OF THE HEAD CLINICAL HISTORY: Stroke Like Symptoms COMPARISON STUDY: CTA of the head August 12, 2018. TECHNIQUE: Helical axial images of the head were obtained following uneventful intravenous administration of 105 cc of Optiray. Sagittal and coronal reconstructions were viewed as well as maximal intensity projections on an independent 3-D workstation. Automated exposure control was utilized for the study. A dose lowering technique was utilized adhering to the principles of ALARA. FINDINGS: No acute intracranial hemorrhage, midline shift or mass effect is present. Multiple areas of encephalomalacia are again noted. There is a right frontal craniotomy. There is an aneurysm clip within the region of the right clinoid. No intracranial aneurysm is identified on this examination. Moderate multifocal intracranial stenoses are noted. There is occlusion of the right T1 segment. This is new since prior CTA. No additional sites of vessel occlusion are identified on this exam. Moderate atherosclerotic plaque is noted within the intracranial vessels. IMPRESSION: 1. 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 No additional sites of vascular occlusion. 2. Moderate multifocal stenoses within the intracranial vessels. Previous aneurysm clipping. 3. Multifocal encephalomalacia. ACT 112: Negative or not required by law. Electronically signed by: Tiago Powell M.D. 03/07/2021 7:27 PM Neck CTA 03/07/21 18:50 CT ANGIOGRAPHY OF THE NECK WITH CONTRAST CLINICAL HISTORY: Stroke Like Symptoms COMPARISON STUDY: Carotid ultrasound August 03, 2018. Technique: CT angiography of the carotid and vertebral arteries was obtained using Optiray and 3D reconstruction on an independent workstation. NASCET criteria was utilized. Automated exposure control was utilized for the study. A dose lowering technique was utilized adhering to the principles of ALARA. Findings: Bilateral vertebral arteries are patent. There is no significant stenosis within the vertebral arteries. There is moderate plaque within the bilateral carotid bifurcations without significant stenosis. No aneurysm within the neck is noted. Chest CT will be reported separately. There is no acute cervical spine fracture. There is no cervical lymphadenopathy. IMPRESSION: Moderate plaque within the bilateral carotid bifurcations without significant stenosis. ACT 112: Negative or not required by law. Electronically signed by: Tiago Powell M.D. 03/07/2021 7:35 PM Abdomen/Pelvis CT 03/07/21 18:55 CT OF THE ABDOMEN AND PELVIS WITH CONTRAST CLINICAL HISTORY: ams ? trauma COMPARISON STUDY: CT of the chest, abdomen and pelvis 04/06/2007. TECHNIQUE: Following IV administration of 105 mL of Optiray, axial images of the abdomen and pelvis were obtained from the lung bases to the proximal femurs. Images were reviewed in the axial, sagittal, and coronal planes. IV contrast was administered without complication. Automated exposure control was utilized for the study. A dose lowering technique was utilized adhering to the principles of ALARA. FINDINGS: No hemoperitoneum or pneumoperitoneum is noted. A few hepatic cysts are noted. There is no evidence for traumatic injury to the liver, spleen, adrenal glands, kidneys or pancreas. Abdominal aorta is ectatic. Prostate is enlarged. There is no hydronephrosis. Note is made of sigmoid diverticulosis without evidence for acute diverticulitis. There is no evidence for a bowel obstruction. No acute lumbar spine or pelvic fractures identified. Mild loss of height of the superior endplate of T12 is chronic. No peripancreatic or pericholecystic infiltration is present. This exam is mildly compromised by motion artifact. IMPRESSION: No acute traumatic findings within the abdomen or pelvis. ACT 112: Negative or not required by law. Electronically signed by: Tiago Powell M.D. 03/07/2021 7:[address] 03/07/21 18:55 CT OF THE CHEST WITH IV CONTRAST CLINICAL HISTORY: trauma COMPARISON STUDY: CT November 19, 2011 and chest radiograph May 18, 2020. TECHNIQUE: Following IV administration of 105 mL of Optiray, helical axial images of the chest were obtained. Sagittal and coronal reconstructions were viewed as well as maximal intensity projections on an independent 3-D workstation. Automated exposure control was utilized for the study. A dose lowering technique was utilized adhering to the principles of ALARA. CT DOSE: 1376.53 mGy.cm FINDINGS: There is no evidence for traumatic injury to the thoracic aorta. Descending thoracic aorta is dilated, measuring 3.9 cm. Note is made of moderate cardiomegaly. There is no pericardial effusion. Moderate coronary artery calcification is present. There is no pneumothorax or pulmonary contusion. Lungs are suboptimally assessed due to respiratory motion. Subpleural opacities favor atelectasis. There are multiple old bilateral rib fractures. Mild loss of height of the superior endplate of T12 is likely chronic. IMPRESSION: 1. No acute traumatic findings within the chest. 2. Multiple old bilateral rib fractures. ACT 112: Negative or not required by law. Electronically signed by: Tiago Powell M.D. 03/07/2021 7:39 PM Code Status & VTE Plan Code Status Full code VTE Prophylaxis Plan VTE Prophylaxis will be ordered: Yes PG Care Time/CCT Total # of Minutes Spent Total Time Spent with Patient: Total time spent is greater than 50% in coordination of care (as documented) at patient's floor/unit and/or counseling patient: Coding Level of Care Code 10868 Initial Inpt Care Lvl 3 Diagnoses CVA (cerebrovascular accident) I63.9 CVA mechanism: unspecified Occlusion of posterior cerebral artery I66.29 Elevated troponin R77.8 A-fib I48.91 Atrial fibrillation type: unspecified Hyperlipidemia E78.5 Brain aneurysm I67.1 Chronic arterial ischemic stroke, multifocal, multiple vascular territories I69.30 Hypertension I10 Hypertension type: essential hypertension (1) CVA (cerebrovascular accident) CVA mechanism: unspecified Qualified Code(s): I63.9 - Cerebral infarction, unspecified (2) A-fib Atrial fibrillation type: unspecified Qualified Code(s): I48.91 - Unspecified atrial fibrillation (3) Hypertension Hypertension type: essential hypertension Qualified Code(s): I10 - Essential (primary) hypertension
[2021-03-08] MEDS ORDERED: ONDANSETRON INJ 2 MG/ML 2 ML VIAL IV PRN (00:49)
[2021-03-08] MEDS ORDERED: GLUCOSE 40% GEL 15 GM TUBE PO PRN (00:49)
[2021-03-08] MEDS ORDERED: GLUCOSE 10 TABS/TUBE PO PRN (00:49)
[2021-03-08] MEDS ORDERED: GLUCAGON FOR INJ 1 MG VIAL SQ PRN (00:49)
[2021-03-08] MEDS ORDERED: DEXTROSE 50% 50 ML SYRINGE IV PRN (00:49)
[2021-03-08] MEDS ORDERED: PHARMACIST DISCHARGE MED REC CONSULT PRN (00:49)
[2021-03-08] MEDS ORDERED: SODIUM CHLORIDE 0.9% 1000ML 1,000 ML IV SCH (00:49)
[2021-03-08] MEDS ORDERED: ACETAMINOPHEN 325 MG TAB PO PRN (00:49)
[2021-03-08] MEDS ORDERED: CARBOHYDRATES FOR HYPOGLYCEMIA PO PRN (00:49)
[2021-03-08] MEDS: INSULIN ASPART 100 UNITS/ML 3 ML PEN SC SCH ×5 (01:31→20:47)
[2021-03-08 06:34] LABS: Basophils # (auto) 0.01 K/uL (0-0.2); Basophils % (auto) 0.1 %; Eosinophils # (auto) 0.01 K/uL (0-0.5); Eosinophils % (auto) 0.1 %; Hematocrit (blood only) 42.5 % (42-52); Hemoglobin 14.8 g/dL (14.0-18.0); Immature Granulocytes # (auto) 0.02 K/uL (0.00-0.02); Immature Granulocytes % (auto) 0.2 %; Lymphocytes # (auto) 1.51 K/uL (1.2-3.4); Lymphocytes % (auto) 14.8 %; Mean Corpuscular Hemoglobin 29.7 pg (25-34); Mean Corpuscular Hgb Conc 34.8 g/dL (32-36); Mean Corpuscular Volume 85.2 fL (80-100); Mean Platelet Volume 9.5 fL (7.4-10.4); Monocytes # (auto) 1.16 K/uL (0.11-0.59); Monocytes % (auto) 11.3 %; Neutrophils # (auto) 7.52 K/uL (1.4-6.5); Neutrophils % (auto) 73.5 %; Platelet Count 149 K/uL (130-400); RDW Coefficient of Variation 13.7 % (11.5-14.5); RDW Standard Deviation 42.3 fL (36.4-46.3); Red Blood Count 4.99 M/uL (4.7-6.1); White Blood Count 10.23 K/uL (4.8-10.8)
[2021-03-08 07:05] LABS: Estimated Average Glucose 128 mg/dl; Hemoglobin A1C 6.1 % (4.5-5.6)
[2021-03-08 07:18] LABS: Albumin Globulin Ratio 1.1 (0.9-2); Albumin Level 3.5 gm/dl (3.4-5.0); BUN Creatinine Ratio 16.8 (10-20); Bilirubin,Total 0.7 mg/dl (0.2-1); Calcium 8.5 mg/dl (8.5-10.1); Creatinine Clr Calc Pharmacy 53.8 ml/min; Est GFR (African American) 87.5 ml/min; Est GFR (Non-African American) 75.5 ml/min; Globulin 3.1 gm/dl (2.5-4.0); Magnesium 2.6 mg/dl (1.8-2.4); Potassium 3.9 mmol/L (3.5-5.1); Total Protein 6.6 gm/dl (6.4-8.2); Troponin I 4.47 ng/ml (0-0.045)
[2021-03-08] MEDS: CHOLECALCIFEROL 1,000 UNITS 25 MCG TAB PO SCH (08:18)
[2021-03-08] MEDS: ATORVASTATIN 40 MG TAB PO SCH (08:18)
[2021-03-08] MEDS: LOSARTAN POTASSIUM 50 MG TAB PO SCH ×2 (08:18→20:48)
[2021-03-08] MEDS: ASPIRIN 81 MG ECTAB PO SCH (08:18)
[2021-03-08] MEDS: TIMOLOL MALEATE 0.5% OP SOLN 5 ML BTL OPR SCH (08:19)
[2021-03-08] MEDS: HEPARIN SOD 5,000 UNIT/0.5 ML VIAL SQ SCH ×2 (08:19→20:46)
--- NOTE | 2021-03-08 09:47 | Neurology Consultation ---
Date of Consultation March 08, 2021 Assessment & Plan (1) CVA (cerebrovascular accident): Age indeterminate infarct within the right mendoza radiata/basal ganglia. Multifocal chronic cerebral infarcts. 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 Multifocal stenoses within the intracranial vessels. No significant occlusive lesion within either internal carotid artery. History of aneurysm clipping within the region of the right clinoid. Reported history of intolerance to aspirin and statins. Patient refuses to take any type of blood thinner, anticoagulant, or statin. Stroke risk factors for this patient include atrial fibrillation, hypertension, and borderline diabetes mellitus. He does not have an obvious hemiplegia at this point in time. However, he did have difficulty with visual field testing and I think he should have an outpatient ophthalmology assessment. I am unable to exclude a visual field deficit, especially in light of the occluded posterior cerebral artery. Unfortunately, he is unable to have an MRI due to remote cerebral aneurysm clipping. Obtain follow-up noncontrast CT of the head tonight or tomorrow morning to further evaluate for possible evolving infarct. 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 Furthermore, he refuses anticoagulation. Also, given his advanced age and probable fall risk, the potential long-term benefit of anticoagulation may be low in this individual. Follow-up with echocardiogram. Continue management of hypertension. Systolic blood pressure goal range 140 to 160 mmHg acutely. PT/OT. Outpatient ophthalmology evaluation for visual mclain as above. History of Present Illness Reason for Consultation: Stroke Requesting Physician: Bakari Herrera MD Attending Physician: Mark Lino MD History of Present Illness The patient is an 89-year-old male who was brought to the emergency department yesterday for further evaluation of confusion and weakness following an unresponsive episode. The patient is extremely hard of hearing and is a difficult historian. There was no witnessed seizure activity. He was observed to have a right facial droop and slurred speech during his assessment in the emergency department. He did have a CT of the head as well as CT angiography of the head and neck completed. The studies revealed multiple chronic infarcts as well as an age indeterminate infarct within the right mendoza radiata/basal ganglia. There is moderate plaque within the bilateral carotid bifurcations. There is occlusion of the proximal right posterior cerebral artery and moderate multifocal stenoses within the intracranial vessels. There is evidence of a previous aneurysm clip within the region of the right clinoid. Patient's blood pressure was 201/74 at the time of presentation, 174/82 this morning. He does not have any specific complaint at this point in time. Past medical history notable for atrial fibrillation, hypertension, prediabetic condition, and remote cerebral aneurysm clipping. I had previously evaluated this patient during a hospitalization in July 2018 for dizziness. He was started on daily low-dose aspirin and atorvastatin at that time although he no longer continues with these medications due to poor tolerance. He also indicates that he will not take an anticoagulant. He was evaluated by his PCP 2 days ago for symptoms potentially suggestive of UTI. It looks like he was started on Cipro at that time. Allergies Allergy/AdvReac Type Severity Reaction Status Date / Time Penicillins Allergy Unknown UNKNOWN Verified 03/07/21 19:06 morphine AdvReac Severe HALLICINATIONS, Verified 03/07/21 19:06 BEHAVIOR CHANGES Home Medications Medication Instructions Recorded Confirmed Type latanoprost [Xalatan] 1 drp OPR HS 08/02/18 03/07/21 History timolol maleate 1 drp OPR QAM 08/02/18 03/07/21 History cholecalciferol (vitamin D3) 1,000 unit PO DAILY 08/05/18 03/07/21 History [Vitamin D3] Herbal Prostate Suppliment 1 tab PO DAILY 05/18/20 03/07/21 History losartan 50 mg tablet 50 mg PO BID #180 tab 03/06/21 03/07/21 Rx ciprofloxacin HCl 500 mg tablet 500 mg PO BID #14 tab 03/07/21 03/07/21 Rx Patient History Medical History Ambulatory dysfunction Aortic root dilatation Ataxia Blind left eye Brain aneurysm Brain aneurysm Chronic arterial ischemic stroke, multifocal, multiple vascular territories Chronic diastolic CHF (congestive heart failure) Dizziness Fall Hypertension Hypertensive urgency Prediabetes Surgical History Hx of total knee replacement S/P hernia repair Family History Other Breast cancer Denies family history of Ovarian cancer Prostate cancer Myocardial infarction Colorectal cancer Social History Smoking Status: Never smoker Second Hand Exposure: No; Do You Dip or Chew Tobacco: No; Hx Alcohol Use: No Hx Substance Use: No Preferred Language: Citizen Of [place] Communication Ability: Effective Visual Impairment: No Limitations 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 Beliefs That Will Affect Care: None marital status: Current Living Situation: Spouse current occupational status: retired Feels Safe at Home: Yes Safety Concerns: Feels Safe At This Time caffeine: Yes during the past year weight has: remained stable Dental Care, Regularly: Yes Physical Activity Frequency: 1-2 Times per Week Seatbelt Use: always Sunscreen Use: Yes Assistive Devices: Glasses and Hearing Aid - Bilateral Review of Systems Constitutional: no fever and no chills Eyes: + worsening vision Ear, Nose, Mouth, Throat: + hearing loss Respiratory: no cough and no dyspnea Cardiovascular: no chest pain and no palpitations Gastrointestinal: no nausea and no vomiting Genitourinary: + dysuria Musculoskeletal: no myalgia Integumentary: no rash and no lesions Neurologic: as per Subjective / HPI, + unsteadiness, + headache(s) and + confusion Psychiatric: no depression and no anxiety Hematologic / Lymphatic: no easy bleeding and no easy bruising Exam (Neuro) Constitutional: well developed and well nourished; no acute distress Eyes: normal visual mclain by confrontation, PERRL, normal accommodation and EOM intact bilaterally; no fundoscopic abnormality, no nystagmus and no papilledema Cardiovascular: Vessels: normal carotid upstroke; no carotid bruit Neurologic: Oriented to:: Person, Place and Time Memory: Short Term Intact and Remote Intact Attention: Span Intact and Concentration Intact Language: Naming Objects and Repeating Phrases Speech Fluency: negative Dysarthria Speech Aphasia: negative Aphasia Fund of Knowledge: Current Events, Past History and Vocabulary Cranial Nerves: Normal III, IV, (Pupils equal round reactive to light and accommodation, eye movements normal), V (Facial sensation intact), VII (There is no facial droop or weakness), VIII (Hearing intact), IX, X (Palate elevates to midline), XI (Shoulder shrug intact) and XII (Tongue protrudes to midline); Abnorm II (Visual mclain full to confrontation, visual acuity reduced. Confrontation testing limited due to poor patient comprehension/cooperation.) Motor Strength: Normal Lower Extremities and Normal Upper Extremities; negative Pronator Drift Motor Tone: Normal Lower Extremities and Normal Upper Extremities Muscle Bulk/Involuntary Movements: No Involuntary Movements; negative Muscle Atrophy Sensation: Light Touch Intact, Pain/Temperature Intact, Vibration Intact and Proprioception Intact Coordination: Normal; negative Limited Balance, Dysdiadochokinesia, Finger-Nose Abnormal and Heel-Macedo Abnormal Deep Tendon Reflexes: Rt Triceps: 2+, Lt Triceps: 2+, Rt Biceps: 2+, Lt Biceps: 2+, Rt Brachioradialis: 2+, Lt Brachioradialis: 2+, Rt Patellar: 2+, Lt Patellar: 2+, Rt Ankle: 1+ and Lt Ankle: 1+ Special Tests: negative Babinski Present Details: 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 Results & Data ([facility]) Vital Signs (Past 12 Hours) Vital Signs Temp Pulse Pulse Pulse Resp BP BP 03/08/21 07:30 36.9 C 60 20 174/82 H 03/08/21 03:39 36.7 C 16 159/71 H 03/08/21 00:50 59 L 03/08/21 00:49 36.3 C L 66 16 189/82 H 03/08/21 00:36 36.3 C L 66 16 03/08/21 00:10 67 16 160/89 H 03/07/21 23:00 78 16 BP Pulse Ox Pulse Ox 03/08/21 07:30 96 03/08/21 03:39 96 03/08/21 00:50 03/08/21 00:49 96 96 03/08/21 00:36 189/82 H 100 03/08/21 00:10 99 03/07/21 23:00 156/78 H 99 Laboratory Results WBC 10.23, hemoglobin 14.8, hematocrit 42.5, platelet count 149, sodium 143, potassium 3.9, BUN 15, creatinine 0.90, glucose 111, hemoglobin A1c 6.1, troponin IV 0.470, triglycerides 61, cholesterol 168, LDL 110, VLDL 12, HDL [address] of the head and CT angiogram of the head and neck reviewed and as described in the history of present illness. I reviewed the images as well as the radiologist's interpretation of these tests. Unable to have MRI given history of remote aneurysm clipping. An electrocardiogram reveals atrial fibrillation, 72 bpm. Coding Level of Care Code 68300 Initial Inpt Care Lvl 3 Diagnoses CVA (cerebrovascular accident) I63.9 CVA mechanism: unspecified (1) CVA (cerebrovascular accident) CVA mechanism: unspecified Qualified Code(s): I63.9 - Cerebral infarction, unspecified
[2021-03-08] MEDS ORDERED: PNEUMOCOCCAL POLYSACCHARIDES 25 MCG/0.5 ML VIAL/SYR IM ONE (15:00)
--- NOTE | 2021-03-08 15:33 | Hospitalist Progress Note ---
Date of Service March 08, 2021 Assessment & Plan (1) CVA (cerebrovascular accident): CT head on admission showed 1.3 cm right mendoza radiata and basal ganglia indeterminate age infarct. - Stroke without TPA order set - Repeat CT head tomorrow morning - Declines ASA, clopidogrel, other anticoagulation, and statin per neurology, though presently on both ASA and statin - Ordered echo - A1c was 6.1%, LDL was 110, total cholesterol was 170. - Consulted PT/OT (2) Occlusion of posterior cerebral artery: CTA head/neck on admission showed occlusion of the proximal right posterior cerebral artery and multifocal stenoses within the intracranial vessels. - As above (3) Elevated troponin: Elevated troponin on admission to 0.071. - Repeat up to 4.4, then down to 3.5. The patient's refusal to take ASA, Plavix, or other anticoagulation makes treatment essentially impossible as he would be ineligible for any stent. - Continue losartan - Will get echo to look for changes. (4) A-fib: In atrial fibrillation on admission. Last EKG in 04/2020 was sinus, so unclear to me when he went into afib. Not mentioned in any prior notes that I see. - Presently rate-controlled (even bradycardic) without any AV cristofer blockade - No anticoagulation as above (5) Brain aneurysm: Status post clipping negates use of MRI. This was done about 20 years ago. - Monitor (6) Hypertension: BP today is 145/75. - Continue home losartan (7) DVT prophylaxis: Heparin 5,000 units SQ Q12h Spoke with daughter and son-in-law on the phone today. Admission and Anticipated Discharge Date Admission Date: March 07, 2021 Subjective Doing well today. No major issues. Specifically asked about any chest pain, chest discomfort, chest soreness, and he replied no to all of them. Reports no fevers/chills, chest pain, shortness of breath, abdominal pain, nausea, or vomiting. Physical Exam Constitutional: WD/WN, vitals as above Eyes: EOM intact bilaterally; no conjunctival abnormality ENMT: external ear and nose normal, oropharynx normal Neck: trachea midline, no thyromegaly normal visual inspection Respiratory: normal respiratory effort, lungs clear to auscultation no respiratory distress Cardiovascular: RRR, no murmur, no edema Gastrointestinal (Abdomen): Inspection/Auscultation: abdomen normal to inspection; abdomen not distended Musculoskeletal: no cyanosis or clubbing, extremities motor strength 5/5 Skin: no rashes, warm and dry Neurologic: moves all extremities and awake Psychiatric: Orientation: alert, oriented to person and cooperative Results & Data Results & Data ([facility]) Vital Signs (Past 12 Hours) Vital Signs Temp Pulse Resp BP Pulse Ox 03/08/21 13:55 97 03/08/21 11:33 36.6 C 57 L 20 144/75 H 97 03/08/21 07:30 36.9 C 60 20 174/82 H 96 03/08/21 03:39 36.7 C 16 159/71 H 96 PG Care Time/CCT Total # of Minutes Spent Total Time Spent with Patient: Total time spent is greater than 50% in coordination of care (as documented) at patient's floor/unit and/or counseling patient: Coding Level of Care Code 99422 Subseq Hosp Care Lvl 3 Diagnoses CVA (cerebrovascular accident) I63.9 CVA mechanism: unspecified Occlusion of posterior cerebral artery I66.29 Elevated troponin R77.8 A-fib I48.91 Atrial fibrillation type: unspecified Brain aneurysm I67.1 Hypertension I10 Hypertension type: essential hypertension DVT prophylaxis Z29.9 (1) A-fib Atrial fibrillation type: unspecified Qualified Code(s): I48.91 - Unspecified atrial fibrillation (2) Hypertension Hypertension type: essential hypertension Qualified Code(s): I10 - Essential (primary) hypertension (3) CVA (cerebrovascular accident) CVA mechanism: unspecified Qualified Code(s): I63.9 - Cerebral infarction, unspecified
--- NOTE | 2021-03-08 16:28 | Electrocardiogram Report ---
Test Reason : Blood Pressure : / mmHG Vent. Rate : 072 BPM Atrial Rate : 057 BPM P-R Int : 000 ms QRS Dur : 092 ms QT Int : 390 ms P-R-T Axes : 000 -13 086 degrees QTc Int : 427 ms Poor data quality, interpretation may be adversely affected Probably atrial fibrillation Minimal voltage criteria for LVH, may be normal variant Possible Anterior infarct (cited on or before 18-MAY-2020) Abnormal ECG When compared with ECG of 18-MAY-2020 19:27, Atrial fibrillation has replaced Sinus rhythm Criteria for Inferior infarct are no longer Present Confirmed by Domingo Fonseca ([id number]) on 03/08/2021 4:27:51 PM Referred By: REFERRED SELF Confirmed By:Raman Fonseca
[2021-03-08] MEDS: LATANOPROST 0.005% OP SOLN 2.5 ML BTL OPR SCH (20:48)
--- NOTE | 2021-03-09 07:33 | CT Scan Report ---
CT OF THE HEAD WITHOUT CONTRAST CLINICAL HISTORY: Cerebrovascular accident. COMPARISON STUDY: Head CT and CTA of the head March 07, 2021. CT DOSE: 994.86 mGycm TECHNIQUE: Helical axial images of the head were obtained without IV contrast. Automated exposure con trol was utilized for the study. A dose lowering technique was utilized adhering to the principles o f ALARA. FINDINGS: Note is made of interval development of hypodensity with loss of bradford-white differentiation within the right occipital lobe since head CT of March 07, 2021. This is consistent with acute infarct . No acute hemorrhage is present. There is no significant mass effect. Multiple old infarcts are agai n noted. Ventricular system is stable. Basilar cisterns are patent. There are no extra-axial collecti ons. Right frontotemporal craniotomy is noted with previous aneurysm clipping. 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 No acute calvarial fracture is present. IMPRESSION: 1. 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 No hemorrhage. No significant mass effect. 2. Numerous old infarcts. ACT 112: Negative or not required by law. Electronically signed by: Tiago Powell M.D. 03/09/2021 7:32 AM
[2021-03-09] MEDS: INSULIN ASPART 100 UNITS/ML 3 ML PEN SC SCH ×4 (07:50→20:31)
[2021-03-09] MEDS: LOSARTAN POTASSIUM 50 MG TAB PO SCH (07:51)
[2021-03-09] MEDS: ASPIRIN 81 MG ECTAB PO SCH (07:51)
[2021-03-09] MEDS: HEPARIN SOD 5,000 UNIT/0.5 ML VIAL SQ SCH ×2 (07:51→20:31)
[2021-03-09] MEDS: ATORVASTATIN 40 MG TAB PO SCH (07:51)
[2021-03-09] MEDS: CHOLECALCIFEROL 1,000 UNITS 25 MCG TAB PO SCH (07:52)
[2021-03-09] MEDS: TIMOLOL MALEATE 0.5% OP SOLN 5 ML BTL OPR SCH (07:52)
[2021-03-09 08:37] LABS: Basophils # (auto) 0.02 K/uL (0-0.2); Basophils % (auto) 0.2 %; Eosinophils # (auto) 0.01 K/uL (0-0.5); Eosinophils % (auto) 0.1 %; Hematocrit (blood only) 43.3 % (42-52); Hemoglobin 15.1 g/dL (14.0-18.0); Immature Granulocytes # (auto) 0.01 K/uL (0.00-0.02); Immature Granulocytes % (auto) 0.1 %; Lymphocytes # (auto) 1.19 K/uL (1.2-3.4); Lymphocytes % (auto) 13.8 %; Mean Corpuscular Hemoglobin 30.8 pg (25-34); Mean Corpuscular Hgb Conc 34.9 g/dL (32-36); Mean Corpuscular Volume 88.2 fL (80-100); Mean Platelet Volume 9.7 fL (7.4-10.4); Monocytes # (auto) 1.06 K/uL (0.11-0.59); Monocytes % (auto) 12.3 %; Neutrophils # (auto) 6.35 K/uL (1.4-6.5); Neutrophils % (auto) 73.5 %; Platelet Count 143 K/uL (130-400); RDW Coefficient of Variation 13.8 % (11.5-14.5); RDW Standard Deviation 44.9 fL (36.4-46.3); Red Blood Count 4.91 M/uL (4.7-6.1); White Blood Count 8.64 K/uL (4.8-10.8)
[2021-03-09 09:11] LABS: Albumin Level 3.2 gm/dl (3.4-5.0); Bilirubin,Total 1.6 mg/dl (0.2-1); Calcium 9.2 mg/dl (8.5-10.1); Creatinine Clr Calc Pharmacy 24.8 ml/min; Est GFR (African American) 34.6 ml/min; Est GFR (Non-African American) 29.8 ml/min; Globulin 3.3 gm/dl (2.5-4.0); Magnesium 2.4 mg/dl (1.8-2.4); Potassium 4.3 mmol/L (3.5-5.1); Total Protein 6.5 gm/dl (6.4-8.2); Troponin I 1.38 ng/ml (0-0.045)
--- NOTE | 2021-03-09 13:08 | Cardiology Progress Note ---
Date of Service March 09, 2021 Assessment & Plan (1) Elevated troponin: Possibly related to an acute coronary syndrome, although his presentation would be atypical for an ACS. Sometimes will see elevations of biomarkers in the setting of acute cerebrovascular accidents as well. Undoubtedly, he has some coronary artery disease based on his other comorbidities. There is a suggestion of an apical wall motion abnormality on his echocardiogram, but not definitively so. In most circumstances we would consider coronary angiography. However, he has been quite consistent and declining any anti-platelet agents or anticoagulation. Additionally, he did not present with symptoms suggestive of coronary insufficiency or angina. I do not think there is a role for angiography as we would not be able to perform any specific intervention in that regard. He has been advised to consider aspirin or other anti-platelet agents which would be advisable for his cerebrovascular disease. However, he has refused. (2) A-fib: While an EKG yesterday was suggestive of atrial fibrillation, review of his telemetry and other EKGs leads me to believe that this was likely a sinus rhythm with atrial ectopy. The irregularity occur due to atrial ectopy and AV conduction disease. There did not appear to be any significant alteration in his overall heart rates which again would suggest this was not atrial fibrillation. I do not think we have definitive evidence that he has atrial fibrillation. As such, I do not believe there is a need for anticoagulation in this respect. The point may be moot, as he will not entertain the use anticoagulants in any regard. (3) Aortic root dilatation: This is not appear markedly dilated on his echocardiogram. CT scan of the chest suggested the descending thoracic aorta measures 3.9 cm but no root dilation or at ascending aneurysm. (4) Bradycardia: He does have periods of bradycardia. He also has some AV cristofer conduction disease. He has some sinus node disease as well. 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 He is a difficult historian, but does not endorse symptoms of dizziness, lightheadedness or significant activity intolerance. I do not believe he has atrial fibrillation or tachy-stanley syndrome. While he did present with some unresponsiveness and altered mentation, his vital signs were relatively normal the time of his evaluation I do not believe this is a good correlation between bradycardia and his symptoms. I do not think he has an indication for permanent pacing at this point. Admission and Anticipated Discharge Date Admission Date: March 07, 2021 Subjective The patient is an 89-year-old gentleman with a history of cerebrovascular disease who was admitted to the hospital after experiencing an episode of unresponsiveness and altered mentation. This was preceded by an episode of confusion the day prior. He was suspected of having a cerebrovascular accident and admitted for observation. During the course of his hospitalization he was also noted to have elevated cardiac biomarkers and periods of bradycardia. The patient provides little insight into his admission. He does recall being told that he had a mini-stroke. However, he cannot recall any specific symptoms leading up to his admission. He denies speech difficulty, visual disturbance or weakness in any of the limbs. He did not report symptoms of dizziness or lightheadedness. He has not been aware of any palpitations. He denies chest pains or breathing difficulty. He states that he is an active individual who can ambulate at his residence. He takes care of a horse and has several cats. He does not do strenuous activity. Review of Systems Review of Systems: Per HPI. He did not volunteer any additional symptoms. Did not endorse any other complaints. Physical Exam Physical Exam: The patient is alert and oriented to person and place. Mood and affect appeared normal. He answered all questions appropriately. HEENT: The sclerae are anicteric. Lungs: Clear to auscultation bilaterally. He has good air movement without use of accessory muscles. No rales wheezes or rhonchi. Cardiac: Heart demonstrates a irregular rhythm. Normal S1 and S2. No murmurs on examination. Extremities: There was no evidence of hypoperfusion. There is no cyanosis or clubbing. There is no edema. Missing 4 digits on the right hand Skin: I did not appreciate any rashes on examination today. Results & Data ([facility]) Vital Signs (Past 12 Hours) Vital Signs Temp Pulse Pulse Resp BP BP Pulse Ox 03/09/21 12:04 36.6 C 50 L 20 163/76 H 94 03/09/21 08:31 202/78 H 03/09/21 08:00 60 03/09/21 07:34 36.4 C L 69 18 204/80 H 220/133 H 97 03/09/21 03:09 37.3 C 84 20 169/91 H 96 Laboratory Results Abnormal Lab Results 03/08/21 03/08/21 03/08/21 12:20 15:59 20:30 WBC RBC Hgb Hct MCV MCH MCHC RDW Std Deviation RDW Coeff of Josh Plt Count MPV Immature Gran % (Auto) Neut % (Auto) Lymph % (Auto) Nicholas % (Auto) Eos % (Auto) Baso % (Auto) Neut # (Auto) Lymph # (Auto) Nicholas # (Auto) Eos # (Auto) Baso # (Auto) Immature Gran # (Auto) Sodium Potassium Chloride Carbon Dioxide Anion Gap BUN Creatinine Est Cr Clr Drug Dosing Est GFR ( Amer) Est GFR (Non-Af Amer) BUN/Creatinine Ratio Glucose POC Glucose 136 H Calcium Magnesium Total Bilirubin AST ALT Alkaline Phosphatase Troponin I 3.450 H* 2.390 H* Total Protein Albumin Globulin Albumin/Globulin Ratio 03/08/21 03/09/21 03/09/21 20:45 07:08 08:20 WBC 8.64 RBC 4.91 Hgb 15.1 Hct 43.3 MCV 88.2 MCH 30.8 MCHC 34.9 RDW Std Deviation 44.9 RDW Coeff of Josh 13.8 Plt Count 143 MPV 9.7 Immature Gran % (Auto) 0.1 Neut % (Auto) 73.5 Lymph % (Auto) 13.8 Nicholas % (Auto) 12.3 Eos % (Auto) 0.1 Baso % (Auto) 0.2 Neut # (Auto) 6.35 Lymph # (Auto) 1.19 L Nicholas # (Auto) 1.06 H Eos # (Auto) 0.01 Baso # (Auto) 0.02 Immature Gran # (Auto) 0.01 Sodium Potassium Chloride Carbon Dioxide Anion Gap BUN Creatinine Est Cr Clr Drug Dosing Est GFR ( Amer) Est GFR (Non-Af Amer) BUN/Creatinine Ratio Glucose POC Glucose 112 H 100 H Calcium Magnesium Total Bilirubin AST ALT Alkaline Phosphatase Troponin I Total Protein Albumin Globulin Albumin/Globulin Ratio 03/09/21 03/09/21 08:20 11:40 WBC RBC Hgb Hct MCV MCH MCHC RDW Std Deviation RDW Coeff of Josh Plt Count MPV Immature Gran % (Auto) Neut % (Auto) Lymph % (Auto) Nicholas % (Auto) Eos % (Auto) Baso % (Auto) Neut # (Auto) Lymph # (Auto) Nicholas # (Auto) Eos # (Auto) Baso # (Auto) Immature Gran # (Auto) Sodium 141 Potassium 4.3 Chloride 111 H Carbon Dioxide 25 Anion Gap 5.0 BUN 25 H D Creatinine 1.94 H D Est Cr Clr Drug Dosing 24.8 Est GFR ( Amer) 34.6 Est GFR (Non-Af Amer) 29.8 BUN/Creatinine Ratio 13.0 Glucose 103 H POC Glucose 115 H Calcium 9.2 Magnesium 2.4 Total Bilirubin 1.6 H D AST 48 H ALT 29 Alkaline Phosphatase 91 Troponin I 1.380 H* Total Protein 6.5 Albumin 3.2 L Globulin 3.3 Albumin/Globulin Ratio 1.0 Diagnostic Findings Echocardiogram performed today revealed overall preserved LV systolic function possible regional wall motion abnormality involving the apical anterior segment. CT scan performed today reveals evidence of an acute infarct involving the right occipital lobe. Chest CT obtained on 03/07/2021 did not reveal any acute fractures or traumatic injury to the chest. There was moderate coronary calcification. PG Care Time/CCT Total # of Minutes Spent Total Time Spent with Patient: Total time spent is greater than 50% in coordination of care (as documented) at patient's floor/unit and/or counseling patient: Coding Level of Care Code 89767 Subseq Hosp Care Lvl 2 Diagnoses Elevated troponin R77.8 A-fib I48.91 Atrial fibrillation type: unspecified Aortic root dilatation I77.810 Bradycardia R00.1 (1) A-fib Atrial fibrillation type: unspecified Qualified Code(s): I48.91 - Unspecified atrial fibrillation
--- NOTE | 2021-03-09 14:01 | Hospitalist Progress Note ---
Date of Service March 09, 2021 Assessment & Plan (1) CVA (cerebrovascular accident): CT head on admission showed 1.3 cm right mendoza radiata and basal ganglia indeterminate age infarct. CTA head showed occlusion of the proximal right posterior cerebral artery which was determined to be acute. - Stroke without TPA order set - Repeat CT head on 03/09 showed a large right occipital infarct which was new from 03/07. - Per reports, he declined ASA, clopidogrel, other anticoagulation, and statin per neurology, though presently on both ASA and statin. For me (on 03/09), he is too tired, but doesn't outright reject the medications. - Echo ordered. - A1c was 6.1%, LDL was 110, total cholesterol was 170. - Consulted PT/OT (2) Occlusion of posterior cerebral artery: CTA head/neck on admission showed occlusion of the proximal right posterior cerebral artery and multifocal stenoses within the intracranial vessels. - As above (3) A-fib: Thought to be in atrial fibrillation on admission. Last EKG in 04/2020 was sinus. EKG on 03/07 read as sinus by computer and confirmed by cardiology, but possibly actually sinus with ectopy. - Presently in sinus bradycardia - No anticoagulation per cardiology (4) Elevated troponin: Elevated troponin on admission to 0.071. - Repeat up to 4.4, then down to 3.5. Per report, he refused to take ASA, Plavix, or other anticoagulation to the neurologist. - Continue losartan - Will get echo to look for changes. - Cardiology consulted -> No indication for coronary catheterization at this time. (5) Brain aneurysm: Status post clipping negates use of MRI. This was done about 20 years ago. - Monitor (6) Hypertension: BP today is 165/75. - Continue home losartan (7) DVT prophylaxis: Heparin 5,000 units SQ Q12h Spoke with two daughters, and on the phone today. Admission and Anticipated Discharge Date Admission Date: March 07, 2021 Subjective No major concerns today. He is more lethargic today due to having a tough night last night due to urinary retention. Reports no fevers/chills, chest pain, shortness of breath, abdominal pain, nausea, or vomiting. Physical Exam Constitutional: WD/WN, vitals as above Eyes: EOM intact bilaterally; no conjunctival abnormality ENMT: external ear and nose normal, oropharynx normal Neck: trachea midline, no thyromegaly normal visual inspection Respiratory: normal respiratory effort, lungs clear to auscultation no respiratory distress Cardiovascular: RRR, no murmur, no edema Gastrointestinal (Abdomen): Inspection/Auscultation: abdomen normal to inspection; abdomen not distended Musculoskeletal: no cyanosis or clubbing, extremities motor strength 5/5 Skin: no rashes, warm and dry Neurologic: moves all extremities and awake Psychiatric: Orientation: alert, oriented to person and cooperative Results & Data Results & Data ([facility]) Vital Signs (Past 12 Hours) Vital Signs Temp Pulse Pulse Resp BP BP Pulse Ox 03/09/21 12:04 36.6 C 50 L 20 163/76 H 94 03/09/21 08:31 202/78 H 03/09/21 08:00 60 03/09/21 07:34 36.4 C L 69 18 204/80 H 220/133 H 97 03/09/21 03:09 37.3 C 84 20 169/91 H 96 PG Care Time/CCT Total # of Minutes Spent Total Time Spent with Patient: Total time spent is greater than 50% in coordination of care (as documented) at patient's floor/unit and/or counseling patient: Coding Level of Care Code 67431 Subseq Hosp Care Lvl 3 Diagnoses CVA (cerebrovascular accident) I63.9 CVA mechanism: unspecified Occlusion of posterior cerebral artery I66.29 A-fib I48.91 Atrial fibrillation type: unspecified Elevated troponin R77.8 Brain aneurysm I67.1 Hypertension I10 Hypertension type: essential hypertension DVT prophylaxis Z29.9 (1) CVA (cerebrovascular accident) CVA mechanism: unspecified Qualified Code(s): I63.9 - Cerebral infarction, unspecified (2) A-fib Atrial fibrillation type: unspecified Qualified Code(s): I48.91 - Unspecified atrial fibrillation (3) Hypertension Hypertension type: essential hypertension Qualified Code(s): I10 - Essential (primary) hypertension
[2021-03-09] MEDS ORDERED: NORMOSOL-R 1,000 ML IV ONE (14:35)
--- NOTE | 2021-03-09 18:54 | Electrocardiogram Report ---
Test Reason : Blood Pressure : / mmHG Vent. Rate : 048 BPM Atrial Rate : 048 BPM P-R Int : 328 ms QRS Dur : 088 ms QT Int : 444 ms P-R-T Axes : 029 -23 094 degrees QTc Int : 396 ms Sinus bradycardia with marked sinus arrhythmia with 1st degree A-V block vs blocked PACs Minimal voltage criteria for LVH, may be normal variant Anterior infarct (cited on or before 18-MAY-2020) T wave abnormality, consider lateral ischemia Abnormal ECG Confirmed by Domingo Fonseca ([id number]) on 03/09/2021 6:53:38 PM Referred By: REFERRED SELF Confirmed By:Raman Fonseca
[2021-03-09] MEDS: LATANOPROST 0.005% OP SOLN 2.5 ML BTL OPR SCH (20:33)
[2021-03-10 07:27] LABS: Hematocrit (blood only) 39.1 % (42-52); Hemoglobin 13.7 g/dL (14.0-18.0); Mean Corpuscular Volume 85.7 fL (80-100); Mean Platelet Volume 9.6 fL (7.4-10.4); Platelet Count 127 K/uL (130-400); RDW Coefficient of Variation 13.5 % (11.5-14.5); RDW Standard Deviation 42.5 fL (36.4-46.3); Red Blood Count 4.56 M/uL (4.7-6.1); White Blood Count 7.66 K/uL (4.8-10.8)
[2021-03-10] MEDS: CHOLECALCIFEROL 1,000 UNITS 25 MCG TAB PO SCH (08:03)
[2021-03-10] MEDS: ASPIRIN 81 MG ECTAB PO SCH (08:04)
[2021-03-10] MEDS: ATORVASTATIN 40 MG TAB PO SCH (08:04)
[2021-03-10] MEDS: HEPARIN SOD 5,000 UNIT/0.5 ML VIAL SQ SCH ×2 (08:05→20:37)
[2021-03-10] MEDS: TIMOLOL MALEATE 0.5% OP SOLN 5 ML BTL OPR SCH (08:05)
[2021-03-10] MEDS: INSULIN ASPART 100 UNITS/ML 3 ML PEN SC SCH ×4 (08:06→20:37)
[2021-03-10 08:09] LABS: Albumin Globulin Ratio 0.9 (0.9-2); Albumin Level 2.9 gm/dl (3.4-5.0); BUN Creatinine Ratio 23.4 (10-20); Bilirubin,Total 1.5 mg/dl (0.2-1); Calcium 9.2 mg/dl (8.5-10.1); Creatinine Clr Calc Pharmacy 59.4 ml/min; Est GFR (African American) 91.3 ml/min; Est GFR (Non-African American) 78.8 ml/min; Globulin 3.2 gm/dl (2.5-4.0); Potassium 4.1 mmol/L (3.5-5.1); Total Protein 6.1 gm/dl (6.4-8.2)
--- NOTE | 2021-03-10 13:44 | Hospitalist Progress Note ---
Date of Service March 10, 2021 Assessment & Plan (1) CVA (cerebrovascular accident): CT head on admission showed 1.3 cm right mendoza radiata and basal ganglia indeterminate age infarct. CTA head showed occlusion of the proximal right posterior cerebral artery which was determined to be acute. - Stroke without TPA order set - Repeat CT head on 03/09 showed a large right occipital infarct which was new from 03/07. - Per reports, he declined ASA, clopidogrel, other anticoagulation, and statin per neurology, though presently on both ASA and statin. He seemed open to the ASA today (03/10) for me. - Echo showed - A1c was 6.1%, LDL was 110, total cholesterol was 170. - Consulted PT/OT -> Plan for rehab. (2) Occlusion of posterior cerebral artery: CTA head/neck on admission showed occlusion of the proximal right posterior cerebral artery and multifocal stenoses within the intracranial vessels. - As above (3) A-fib: Thought to be in atrial fibrillation on admission. Last EKG in 04/2020 was sinus. EKG on 03/07 read as sinus by computer and confirmed by cardiology, but possibly actually sinus with ectopy. - Presently in sinus rhythm/bradycardia - No anticoagulation per cardiology (4) Elevated troponin: Elevated troponin on admission to 0.071. - Repeat up to 4.4, then down to 3.5. Per report, he refused to take ASA, Plavix, or other anticoagulation to the neurologist. - Hold losartan - Will get echo to look for changes. - Cardiology consulted -> No indication for coronary catheterization at this time. (5) Brain aneurysm: Status post clipping negates use of MRI. This was done about 20 years ago. - Monitor (6) Hypertension: BP today is 135/65. - Hold home losartan (7) DVT prophylaxis: Heparin 5,000 units SQ Q12h Spoke with andrea on the phone today. Admission and Anticipated Discharge Date Admission Date: March 07, 2021 Subjective Doing better today. Still with hematuria today. Feeling better otherwise. Reports no fevers/chills, chest pain, shortness of breath, abdominal pain, nausea, or vomiting. Physical Exam Constitutional: WD/WN, vitals as above Eyes: EOM intact bilaterally; no conjunctival abnormality ENMT: external ear and nose normal, oropharynx normal Neck: trachea midline, no thyromegaly normal visual inspection Respiratory: normal respiratory effort, lungs clear to auscultation no respiratory distress Cardiovascular: RRR, no murmur, no edema Gastrointestinal (Abdomen): Inspection/Auscultation: abdomen normal to inspection; abdomen not distended Musculoskeletal: no cyanosis or clubbing, extremities motor strength 5/5 Skin: no rashes, warm and dry Neurologic: moves all extremities and awake Psychiatric: Orientation: alert, oriented to person and cooperative Results & Data Results & Data ([facility]) Vital Signs (Past 12 Hours) Vital Signs Temp Pulse Pulse Resp BP Pulse Ox 03/10/21 11:31 36.3 C L 50 L 18 128/66 95 03/10/21 10:39 71 03/10/21 07:05 36.7 C 66 19 149/75 H 96 PG Care Time/CCT Total # of Minutes Spent Total Time Spent with Patient: Total time spent is greater than 50% in coordinat ion of care (as documented) at patient's floor/unit and/or counseling patient: Coding Level of Care Code 15065 Subseq Hosp Care Lvl 2 Diagnoses CVA (cerebrovascular accident) I63.9 CVA mechanism: unspecified Occlusion of posterior cerebral artery I66.29 A-fib I48.91 Atrial fibrillation type: unspecified Elevated troponin R77.8 Brain aneurysm I67.1 Hypertension I10 Hypertension type: essential hypertension DVT prophylaxis Z29.9 (1) CVA (cerebrovascular accident) CVA mechanism: unspecified Qualified Code(s): I63.9 - Cerebral infarction, unspecified (2) A-fib Atrial fibrillation type: unspecified Qualified Code(s): I48.91 - Unspecified atrial fibrillation (3) Hypertension Hypertension type: essential hypertension Qualified Code(s): I10 - Essential (primary) hypertension
[2021-03-10] MEDS: LATANOPROST 0.005% OP SOLN 2.5 ML BTL OPR SCH (20:38)
[2021-03-11 07:44] LABS: Hematocrit (blood only) 37.9 % (42-52); Hemoglobin 13.3 g/dL (14.0-18.0); Mean Corpuscular Hgb Conc 35.1 g/dL (32-36); Mean Corpuscular Volume 85.4 fL (80-100); Mean Platelet Volume 9.6 fL (7.4-10.4); Platelet Count 125 K/uL (130-400); RDW Coefficient of Variation 13.3 % (11.5-14.5); RDW Standard Deviation 41.5 fL (36.4-46.3); Red Blood Count 4.44 M/uL (4.7-6.1); White Blood Count 6.17 K/uL (4.8-10.8)
[2021-03-11 08:12] LABS: Calcium 8.8 mg/dl (8.5-10.1); Creatinine Clr Calc Pharmacy 65.2 ml/min; Est GFR (Non-African American) 83.7 ml/min; Potassium 3.9 mmol/L (3.5-5.1)
[2021-03-11] MEDS: HEPARIN SOD 5,000 UNIT/0.5 ML VIAL SQ SCH (08:23)
[2021-03-11] MEDS: INSULIN ASPART 100 UNITS/ML 3 ML PEN SC SCH ×2 (08:23→12:20)
[2021-03-11] MEDS: ASPIRIN 81 MG ECTAB PO SCH (08:24)
[2021-03-11] MEDS: ATORVASTATIN 40 MG TAB PO SCH (08:24)
[2021-03-11] MEDS: CHOLECALCIFEROL 1,000 UNITS 25 MCG TAB PO SCH (08:24)
[2021-03-11] MEDS: TIMOLOL MALEATE 0.5% OP SOLN 5 ML BTL OPR SCH (08:25)
[2021-03-11] MEDS ORDERED: STROKE PATIENT DISCHARGE STA (14:47)
[2021-03-11 15:50] LABS: Albumin Level 2.9 gm/dl (3.4-5.0); Bilirubin Direct 0.3 mg/dl (0-0.2); Bilirubin,Total 1.1 mg/dl (0.2-1)
--- NOTE | 2021-03-11 16:46 | Discharge Summary ---
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 He presents to the emergency department with symptoms as noted above. Work-up in the emergency department included the following abnormal laboratories: Troponin 0.071, creatinine 1.50, glucose 211 and albumin 3.2 Imaging studies: CT of chest showed old bilateral rib fractures. CT abdomen and pelvis was negative CT of head showed old encephalomalacia, status post right frontal craniotomy. Right mendoza radiata/basal ganglia with 1.3 cm indeterminate age infarct. CTA of head showed occluded proximal right posterior cerebral artery. Moderate multifocal stenoses. Aneurysm clipping. CTA of neck showed no significant stenoses. Principal Diagnosis Left posterior/occipital lobe stroke Discharge Exam Constitutional WD/WN, vitals as above Eyes EOM intact bilaterally; no conjunctival abnormality ENMT external ear and nose normal, oropharynx normal Neck trachea midline, no thyromegaly normal visual inspection Respiratory normal respiratory effort, lungs clear to auscultation no respiratory distress Cardiovascular RRR, no murmur, no edema Gastrointestinal (Abdomen) Inspection/Auscultation: abdomen normal to inspection; abdomen not distended Musculoskeletal no cyanosis or clubbing, extremities motor strength 5/5 Skin no rashes, warm and dry Neurologic moves all extremities and awake Psychiatric Orientation: alert, oriented to person and cooperative Discharge Data Allergies Allergy/AdvReac Type Severity Reaction Status Date / Time Penicillins Allergy Unknown UNKNOWN Verified 03/07/21 19:06 morphine AdvReac Severe HALLICINATIONS, Verified 03/07/21 19:06 BEHAVIOR CHANGES Consultations 03/07/21 20:29 ED Decision to Admit Stat 03/08/21 00:49 Consult Neurology Routine 03/09/21 10:02 Consult Cardiology Routine Ordered Studies 03/07/21 18:50 CT angio head w con Stat CT angio neck with con Stat CT head/brain wo con Stat 03/07/21 18:55 CT abd pelvis IV con only Stat CT chest diagnostic w con Stat 03/09/21 07:00 CT head/brain wo con Routine Hospital Course (1) CVA (cerebrovascular accident): CT head on admission showed 1.3 cm right mendoza radiata and basal ganglia indeterminate age infarct. CTA head showed occlusion of the proximal right posterior cerebral artery which was determined to be acute. - Stroke without TPA order set - Repeat CT head on 03/09 showed a large right occipital infarct which was new from 03/07. - Per reports, he declined ASA, clopidogrel, other anticoagulation, and statin to neurology, though presently on both ASA and statin. He seemed open to the ASA today (03/10) for me. - Echo showed normal LV function and no PFO. - A1c was 6.1%, LDL was 110, total cholesterol was 170. - Consulted PT/OT -> Plan for rehab. - He was willing to take ASA and statin for me after family encouragement. Discharged to [facility] for rehab. (2) Occlusion of posterior cerebral artery: CTA head/neck on admission showed occlusion of the proximal right posterior cerebral artery and multifocal stenoses within the intracranial vessels. - As above (3) A-fib: Thought to be in atrial fibrillation on admission. Last EKG in 04/2020 was sinus. EKG on 03/07 read as sinus by computer and confirmed by cardiology, but possibly actually sinus with ectopy. - Presently in sinus rhythm/bradycardia - No anticoagulation per cardiology - Did hold timolol on discharge as he had significant bradycardia, though he was always able to bring his rate up with activity and never had low blood pressure. (4) Urinary retention: Had >1L of urinary retention while in the hospital. Unfortunately had a traumatic straight cath with resulting bleeding. - Mancuso placed when he re-retained another liter. Discharged with Mancuso in place. Still having some hematuria, but improving daily. - Can do voiding trial at [facility] vs. allow time to heal and send to [facility] for follow-up. (5) Elevated troponin: Elevated troponin on admission to 0.071. - Repeat up to 4.4, then down to 3.5. He was not interested in catheterization in discussion with the musical instrument maker or repairer. - Echo showed normal LV function with possible anterior apical wall motion abnormality that was only seen with some views. - Given desire to avoid procedures and the known brain aneurysm with clips, went with conservative medical management with ASA 81 mg and statin. (6) Brain aneurysm: Status post clipping negates use of MRI. This was done about 20 years ago. - Monitor (7) Hypertension: BP today is 135/65. - Continue home losartan on discharge. (8) DVT prophylaxis: Heparin 5,000 units SQ Q12h Total Time Total Time Spent Total Time Spent (In Minutes): 35 Discharge Plan Discharge Items Patient Disposition: Transfer Inpatient Rehab Fac Reason For Visit: CVA, INCREASED TROPONIN Discharge Diagnosis: Stroke Activity: Resume your previous activity Non-emergency contact: Primary Care Provider and Neurologist Call non-emergency contact if: your symptoms worsen Follow-up/Referrals: Dave Rubin MD [Physician] - (Please see Dr. Rubin or another neurology provider in 2-3 weeks.) Radha Leon MD [Primary Care Provider] - Mariana Brewster CRNP [Nurse Practitioner] - (Please see a provider at [facility] if [facility] is not able to remove the Mancuso or it needs to be replaced while at [facility].) Diet: Heart Healthy Addtl Attending Provider Instructions: Mr. Madrid, You were admitted to the hospital for a fall at home. This was a result of a stroke that occurred in the posterior part of your brain. Initially, we were concerned that an abnormal heart rhythm had caused this, but the musical instrument maker or repairer didn't feel this was the case after all. We are sending you out on aspirin and a cholesterol medication to try to prevent this from occurring again. We are holding your glaucoma drop (timolol) as it can sometimes play a role in slow heart rates. You had significant urinary retention (>1L), and we placed a Mancuso catheter. Please follow up with the [facility] team to follow up on this. [facility] could also do a "voiding trial," though we want to be careful because the Mancuso caused some injury to your prostate and we want to allow that to heal. We started a medication called tamsulosin which can help you void more easily. Pending Studies at Discharge: No Stand-Alone Forms: My [facility] Skilled Items Patient informed of condition?: Yes DNR: No Discharge Level of Care: Acute rehab Communicable Disease: No Discharge Prognosis: Improving Lines: None Urinary Catheter: Yes Medications and DC Order Prescriptions: New atorvastatin 40 mg Tablet 80 mg PO QAM Qty: 0 RF: 0 aspirin 81 mg Tablet,Delayed Release (Dr/Ec) 81 mg PO QAM Qty: 0 RF: 0 tamsulosin 0.4 mg capsule 0.4 mg PO HS Qty: 1 RF: 0 Continued losartan 50 mg tablet 50 mg PO BID Qty: 180 RF: 1 Herbal Prostate Suppliment 1 tab PO DAILY RF: 0 latanoprost [Xalatan] 0.005 % Drops 1 drp OPR HS RF: 0 cholecalciferol (vitamin D3) [Vitamin D3] 1,000 unit Capsule 1,000 unit PO DAILY RF: 0 Discontinued ciprofloxacin HCl [Cipro] 500 mg tablet 500 mg PO BID Qty: 14 RF: 0 timolol maleate 0.5 % Drops, Once Daily 1 drp OPR QAM RF: 0 Discharge Orders: Discharge Order (Routine); Ordered 03/11/21 Ordered By: Mark Gupta/Other Patient Handouts: A1C Admission Data Admit Date/Time: 03/07/21 22:06 Attending Provider: Mark Lino Admit Provider: Bakari Herrera Primary Care Provider: Radha Leon Other Providers: Dave Rubin ; Ian Fonseca ; [facility] Other Interventions: Discharge Summary Assessment (RN) Last Done: 03/11/21 17:05 Coding Level of Care Code D/C Day Management >30 mins Diagnoses CVA (cerebrovascular accident) I63.9 CVA mechanism: unspecified Occlusion of posterior cerebral artery I66.29 A-fib I48.91 Atrial fibrillation type: unspecified Urinary retention R33.9 Elevated troponin R77.8 Brain aneurysm I67.1 Hypertension I10 Hypertension type: essential hypertension DVT prophylaxis Z29.9
== END 2021-03-11 17:15 | DRG 65 ==
LOC: ED 18:46 → 2S 22:06 → SUATTDRO 22:06 → 2S 03-08 00:10

== ENCOUNTER 2021-03-26 16:26 | Inpatient (IN) ==
[2021-03-26 17:11] LABS: Basophils # (auto) 0.01 K/uL (0-0.2); Basophils % (auto) 0.1 %; Eosinophils # (auto) 0.01 K/uL (0-0.5); Eosinophils % (auto) 0.1 %; Hematocrit (blood only) 39.6 % (42-52); Hemoglobin 13.7 g/dL (14.0-18.0); Immature Granulocytes # (auto) 0.03 K/uL (0.00-0.02); Immature Granulocytes % (auto) 0.3 %; Lymphocytes # (auto) 0.97 K/uL (1.2-3.4); Lymphocytes % (auto) 10.8 %; Mean Corpuscular Hemoglobin 29.9 pg (25-34); Mean Corpuscular Hgb Conc 34.6 g/dL (32-36); Mean Corpuscular Volume 86.5 fL (80-100); Mean Platelet Volume 9.7 fL (7.4-10.4); Monocytes # (auto) 0.99 K/uL (0.11-0.59); Neutrophils # (auto) 7.01 K/uL (1.4-6.5); Neutrophils % (auto) 77.7 %; Platelet Count 212 K/uL (130-400); RDW Coefficient of Variation 13.4 % (11.5-14.5); RDW Standard Deviation 42.3 fL (36.4-46.3); Red Blood Count 4.58 M/uL (4.7-6.1); White Blood Count 9.02 K/uL (4.8-10.8)
[2021-03-26 17:17] LABS: iSTAT Creatinine 1.1 mg/dl (0.6-1.3); iSTAT Hemoglobin 13.3 g/dl (14.0-18.0); iSTAT Ionized Calcium 1.23 mmol/l (1.12-1.32); iSTAT Potassium 4.7 mmol/L (3.3-5.0)
[2021-03-26 17:21] LABS: INR 1.1 (0.9-1.1); Partial Thromboplastin Ratio 1.1; Partial Thromboplastin Time 29.1 Seconds (21.0-31.0); Prothrombin Time 10.8 Seconds (9.0-12.0)
[2021-03-26 17:29] LABS: Alanine Aminotransferase 60 U/L (12-78); Albumin Level 3.1 gm/dl (3.4-5.0); Aspartate Aminotransferase 38 U/L (15-37); BUN Creatinine Ratio 32.2 (10-20); Bilirubin Direct 0.2 mg/dl (0-0.2); Blood Urea Nitrogen 33 mg/dl (7-18); Calcium 9.2 mg/dl (8.5-10.1); Carbon Dioxide 24 mmol/L (21-32); Chloride 104 mmol/L (98-107); Est GFR (African American) 74.3 ml/min; Est GFR (Non-African American) 64.1 ml/min; Glucose 109 mg/dl (70-99); Lipase 193 U/L (73-393); Magnesium 2.3 mg/dl (1.8-2.4); Potassium 4.6 mmol/L (3.5-5.1); Sodium 135 mmol/L (136-145)
--- NOTE | 2021-03-26 17:30 | XRay Report ---
XR chest 1V portable HISTORY: 89 years-old Male sob syncope acute shortness of breath with syncope COMPARISON: None TECHNIQUE: Portable AP view the chest FINDINGS: Cardiac silhouette is enlarged. Calcified plaque the thoracic aorta. No pneumothorax, large pleural e ffusion or overt pulmonary edema. Moderate hemidiaphragmatic elevation. Extrapulmonary opacity of the lateral mid right hemithorax measures up to approximately 6.5 cm in length.. Degenerative changes of the shoulders and spine. IMPRESSION: 1. Cardiomegaly without acute process. 2. 6.5 cm opacity of the lateral right hemithorax may be projectional or represent a pleural-based le russell. Correlation with the ordered CTA chest study of same day recommended. ACT 112: Negative or not required by law. The above report was generated using voice recognition software. It may contain grammatical, syntax o r spelling errors. Electronically signed by: Rashid Vu M.D. 03/26/2021 5:29 PM
[2021-03-26 17:34] LABS: Alkaline Phosphatase 87 U/L (45-117); Bilirubin,Total 0.6 mg/dl (0.2-1); NT Pro B Type Natriuretic Pept 234 pg/ml (0-1800); Total Protein 6.8 gm/dl (6.4-8.2); Troponin I < 0.015 ng/ml (0-0.045)
[2021-03-26 17:36] LABS: Base Excess VBG 2.4 mEq/L; HCO3 VBG 29 mmol/L; Oxygen Saturation VBG < 60.0 %; PCO2 VBG 50 mmHg (38-50); PO2 VBG 19 mmHg; pH VBG 7.37 (7.36-7.41)
--- NOTE | 2021-03-26 18:15 | Emergency Department Note ---
History of Present Illness General Chief complaint: Confusion Stated complaint: Unresponsive episode now lethargic Time Seen by Provider: 03/26/21 16:57 Source: patient and family History of Present Illness Provider complaint: Syncope and lethargy Onset (ago): day(s) 1 Associated symptoms: + syncope and + weakness; no chest pain, no cough, no headaches and no nausea/vomiting 89-year-old male presents emergency department with his for syncope and unresponsiveness. Per the she went to go visit the patient [facility] rehab and the patient became unresponsive. She states he has been increasingly weak. Patient reports no pain at this time. He states he does not remember the episode. Patient is in [facility] for rehab for recent stroke. Home Medications Medication Instructions Recorded Confirmed Type latanoprost [Xalatan] 1 drp OPR HS 08/02/18 03/07/21 History cholecalciferol (vitamin D3) 1,000 unit PO DAILY 08/05/18 03/07/21 History [Vitamin D3] Herbal Prostate Suppliment 1 tab PO DAILY 05/18/20 03/07/21 History losartan 50 mg tablet 50 mg PO BID #180 tab 03/06/21 03/07/21 Rx aspirin 81 mg PO QAM #0 tab 03/11/21 Rx atorvastatin 80 mg PO QAM #0 tab 03/11/21 Rx tamsulosin 0.4 mg PO HS #1 cap 03/11/21 Rx acetaminophen 650 mg PO Q4 PRN 03/26/21 03/26/21 History aspirin [Aspirin Low Dose] 81 mg PO DAILY 03/26/21 03/26/21 History atorvastatin 80 mg PO QAM 03/26/21 03/26/21 History cholecalciferol (vitamin D3) 25 mcg PO DAILY 03/26/21 03/26/21 History [Vitamin D3] docusate sodium 100 mg PO BID 03/26/21 03/26/21 History escitalopram oxalate [Lexapro] 5 mg PO DAILY 03/26/21 03/26/21 History fluticasone propionate [Flonase] 2 spray INTRANASAL DAILY 03/26/21 03/26/21 History heparin (porcine) 5,000 unit SUBCUT Q12H 03/26/21 03/26/21 History latanoprost 1 drp OPR HS 03/26/21 03/26/21 History losartan 50 mg PO Q12 03/26/21 03/26/21 History polyethylene glycol 3350 [Miralax] 17 g PO . Q LUNCH PRN 03/26/21 03/26/21 History sennosides-docusate sodium 1 tab-cap PO .Q LUNCH PRN 03/26/21 03/26/21 History [Senokot-S] tamsulosin 0.4 mg PO HS 03/26/21 03/26/21 History Allergies Allergy/AdvReac Type Severity Reaction Status Date / Time Penicillins Allergy Unknown UNKNOWN Verified 03/26/21 18:17 morphine AdvReac Severe HALLICINATIONS, Verified 03/26/21 18:17 BEHAVIOR CHANGES Past Med/Surg History Medical History Ambulatory dysfunction Aortic root dilatation Ataxia Blind left eye Brain aneurysm Brain aneurysm Chronic arterial ischemic stroke, multifocal, multiple vascular territories Chronic diastolic CHF (congestive heart failure) Dizziness Fall Hypertension Hypertensive urgency Prediabetes Surgical History Hx of total knee replacement S/P hernia repair Family History Other Breast cancer Denies family history of Ovarian cancer Prostate cancer Myocardial infarction Colorectal cancer Social History Smoking Status: Never smoker Second Hand Exposure: No; Hx Alcohol Use: No Hx Substance Use: No Preferred Language: Thai Communication Ability: Effective Visual Impairment: No Limitations Top Icer Required: No Beliefs That Will Affect Care: None marital status: Current Living Situation: Spouse current occupational status: retired Feels Safe at Home: Yes caffeine: Yes during the past year weight has: remained stable Dental Care, Regularly: Yes Physical Activity Frequency: 1-2 Times per Week Seatbelt Use: always Sunscreen Use: Yes Assistive Devices: Walker Review of Systems A total of 10 systems reviewed and were otherwise negative Physical Exam Vital Signs Vital Signs - 24 hr 03/26/21 16:34 03/26/21 18:35 03/26/21 19:30 Temperature 36.5 C Temperature Source Oral Pulse Rate 40 L 41 L Pulse Rate [Left Apical] 43 L Pulse Rate from SpO2 Sensor 55 L Respiratory Rate 16 20 14 Respiratory Effort / Characteristics Non-Labored Spontaneous Non-Labored Spontaneous Respiratory Depth Normal Normal Respiratory Pattern Regular Regular Blood Pressure 149/57 H Blood Pressure [Right Arm] 149/57 H Blood Pressure Mean 87 Blood Pressure Mean [Right Arm] 87 Blood Pressure Position [Right Arm] Lying Pulse Oximetry 88 L 93 95 Oxygen Delivery Method Room Air Room Air Sepsis Recent Fever Within 48 Hours No Sepsis New/Unexplained Change in Mental Status N/A Sepsis Action Taken by Nursing No Action Required Physical Exam GENERAL: He is oriented to person, place, and time. He appears well-developed and well-nourished. He does not appear distressed. HENT: Exam performed. - Head: Normocephalic and atraumatic. - Right Ear: External ear normal. No mastoid tenderness. - Left Ear: External ear normal. No mastoid tenderness. - Mouth/Throat: The oropharynx is clear and moist. No trismus in the jaw. No dental abscesses or uvula swelling. No oropharyngeal exudate or tonsillar absces ses. EYES: Conjunctivae and EOM are normal. Pupils are equal, round, and reactive to light. Right eye exhibits no discharge. Left eye exhibits no discharge. No scleral icterus. NECK: Normal range of motion. Neck supple. No JVD present. No spinous process tenderness present. No carotid bruit present. No rigidity. No tracheal deviation and normal range of motion present. No Brudzinski's sign and no Kernig's sign noted. CV: Bradycardic rate, regular rhythm, normal heart sounds and intact distal pul ses. There is no peripheral edema. Palpable radial pulses bue. PULM/CHEST: Effort normal and breath sounds normal. No respiratory distress. No stridor. He has no wheezes. He has no rales. - Chest Wall: He exhibits no tenderness. ABD: The abdomen is soft. Bowel sounds are normal. He has no distension. No mass is present. There is no tenderness. There is no rebound, no guarding, no Giles's sign and no tenderness at McBurney's point. Rovsig negative. MUSC/SKEL: Normal range of motion. There is no peripheral edema, tenderness or deformity. LYMPH: No cervical adenopathy. NEURO: Right-sided weakness at baseline. Patient missing fingers on the right upper extremity baseline. PSYCH: He has a normal mood and affect. Behavior is normal. Judgment and thought content normal. Course Course 1656: The patient was evaluated in room B2. A complete history and physical exam was performed Cardiac monitoring: An order was placed for continuous cardiac monitoring. The monitor shows a rate of 50 with sinus rhythm Paperwork from rehab center reviewed. 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 Patient has been reluctant to use anticoagulation. Patient does have a history of atrial fibrillation. Mancuso catheter was placed due to patient's urinary retention. 1859: Vital signs stable. Labs and imaging are at baseline. There is no history of the patient having an echo done recently. Given the patient's history of syncope and recent stroke [facility]. Administered Medications Discontinued Medications Ioversol (Optiray 320 150ml) 120 ml IV ONCE ONE Stop: 03/26/21 18:17 Last Admin: 03/26/21 18:16 Dose: 120 ml Documented by: [id number] Medical Decision Making Laboratory Data Result diagrams: 03/26/21 16:55 03/26/21 16:55 Lab Results 03/26/21 03/26/21 03/26/21 Range/Units 16:55 16:55 16:55 WBC 9.02 (4.8-10.8) K/uL RBC 4.58 L (4.7-6.1) M/uL Hgb 13.7 L (14.0-18.0) g/dL POC Hgb (14.0-18.0) g/dl Hct 39.6 L (42-52) % POC Hct (42-52) % MCV 86.5 (80-100) fL MCH 29.9 (25-34) pg MCHC 34.6 (32-36) g/dL RDW Std Deviation 42.3 (36.4-46.3) fL RDW Coeff of Josh 13.4 (11.5-14.5) % Plt Count 212 (130-400) K/uL MPV 9.7 (7.4-10.4) fL Immature Gran % (Auto) 0.3 % Neut % (Auto) 77.7 % Lymph % (Auto) 10.8 % [place] % (Auto) 11.0 % Eos % (Auto) 0.1 % Baso % (Auto) 0.1 % Neut # (Auto) 7.01 H (1.4-6.5) K/uL Lymph # (Auto) 0.97 L (1.2-3.4) K/uL [place] # (Auto) 0.99 H (0.11-0.59) K/uL Eos # (Auto) 0.01 (0-0.5) K/uL Baso # (Auto) 0.01 (0-0.2) K/uL Immature Gran # (Auto) 0.03 H (0.00-0.02) K/uL PT 10.8 (9.0-12.0) Seconds INR 1.1 (0.9-1.1) APTT 29.1 (21.0-31.0) Seconds PTT Ratio 1.1 VBG pH (7.36-7.41) VBG pCO2 (38-50) mmHg VBG pO2 mmHg VBG HCO3 mmol/L VBG O2 Saturation % VBG Base Excess mEq/L Barometric Pressure mm/Hg POC Sodium (135-144) mmol/L Sodium 135 L (136-145) mmol/L POC Potassium (3.3-5.0) mmol/L Potassium 4.6 (3.5-5.1) mmol/L POC Chloride (101-112) mmol/L Chloride 104 (98-107) mmol/L Carbon Dioxide 24 (21-32) mmol/L POC Total CO2 (24-31) mmol/L Anion Gap 7.0 (3-11) POC Anion Gap (16-25) mmol/L POC BUN (7-18) mg/dl BUN 33 H (7-18) mg/dl Creatinine 1.03 (0.6-1.4) mg/dl POC Creatinine (0.6-1.3) mg/dl Est Cr Clr Drug Dosing 47.0 ml/min Est GFR ( Amer) 74.3 ml/min Est GFR (Non-Af Amer) 64.1 ml/min BUN/Creatinine Ratio 32.2 H (10-20) Glucose 109 H (70-99) mg/dl POC Glucose (other) (70-99) mg/dl Lactate (0.4-2.0) mmol/L Calcium 9.2 (8.5-10.1) mg/dl POC Ioniz Calcium Marlyn (1.12-1.32) mmol/l Magnesium 2.3 (1.8-2.4) mg/dl Total Bilirubin 0.6 (0.2-1) mg/dl Direct Bilirubin 0.2 (0-0.2) mg/dl AST 38 H (15-37) U/L ALT 60 (12-78) U/L Alkaline Phosphatase 87 (45-117) U/L Troponin I < 0.015 (0-0.045) ng/ml NT-Pro-B Natriuret Pep 234 (0-1800) pg/ml Total Protein 6.8 (6.4-8.2) gm/dl Albumin 3.1 L (3.4-5.0) gm/dl Lipase 193 (73-393) U/L Urine Color Urine Appearance (Clear) Urine pH (4.5-7.5) Ur Specific [place] (1.000-1.030) Urine Protein (Negative) Urine Glucose (UA) (Negative) Urine Ketones (Negative) Urine Blood (Negative) Urine Nitrite (Negative) Urine Bilirubin (Negative) Urine Urobilinogen (Negative) Ur Leukocyte Esterase (Negative) Urine WBC (Auto) (0-5) /hpf Urine RBC (Auto) (0-4) /hpf U Hyaline Cast (Auto) (0-5) /lpf U Epithel Cells (Auto) (0-5) /lpf Urine Bacteria (Auto) (Negative) COVID-19 Eval Order SARS-CoV-2 (PCR) (Negative) 03/26/21 03/26/21 03/26/21 Range/Units 17:04 17:14 17:14 WBC (4.8-10.8) K/uL RBC (4.7-6.1) M/uL Hgb (14.0-18.0) g/dL POC Hgb 13.3 L (14.0-18.0) g/dl Hct (42-52) % POC Hct 39 L (42-52) % MCV (80-100) fL MCH (25-34) pg MCHC (32-36) g/dL RDW Std Deviation (36.4-46.3) fL RDW Coeff of Josh (11.5-14.5) % Plt Count (130-400) K/uL MPV (7.4-10.4) fL Immature Gran % (Auto) % Neut % (Auto) % Lymph % (Auto) % [place] % (Auto) % Eos % (Auto) % Baso % (Auto) % Neut # (Auto) (1.4-6.5) K/uL Lymph # (Auto) (1.2-3.4) K/uL [place] # (Auto) (0.11-0.59) K/uL Eos # (Auto) (0-0.5) K/uL Baso # (Auto) (0-0.2) K/uL Immature Gran # (Auto) (0.00-0.02) K/uL PT (9.0-12.0) Seconds INR (0.9-1.1) APTT (21.0-31.0) Seconds PTT Ratio VBG pH (7.36-7.41) VBG pCO2 (38-50) mmHg VBG pO2 mmHg VBG HCO3 mmol/L VBG O2 Saturation % VBG Base Excess mEq/L Barometric Pressure mm/Hg POC Sodium 136 (135-144) mmol/L Sodium (136-145) mmol/L POC Potassium 4.7 (3.3-5.0) mmol/L Potassium (3.5-5.1) mmol/L POC Chloride 101 (101-112) mmol/L Chloride (98-107) mmol/L Carbon Dioxide (21-32) mmol/L POC Total CO2 25 (24-31) mmol/L Anion Gap (3-11) POC Anion Gap 16.0 (16-25) mmol/L POC BUN 30 H (7-18) mg/dl BUN (7-18) mg/dl Creatinine (0.6-1.4) mg/dl POC Creatinine 1.1 (0.6-1.3) mg/dl Est Cr Clr Drug Dosing ml/min Est GFR ( Amer) ml/min Est GFR (Non-Af Amer) ml/min BUN/Creatinine Ratio (10-20) Glucose (70-99) mg/dl POC Glucose (other) 108 H (70-99) mg/dl Lactate (0.4-2.0) mmol/L Calcium (8.5-10.1) mg/dl POC Ioniz Calcium Marlyn 1.23 (1.12-1.32) mmol/l Magnesium (1.8-2.4) mg/dl Total Bilirubin (0.2-1) mg/dl Direct Bilirubin (0-0.2) mg/dl AST (15-37) U/L ALT (12-78) U/L Alkaline Phosphatase (45-117) U/L Troponin I (0-0.045) ng/ml NT-Pro-B Natriuret Pep (0-1800) pg/ml Total Protein (6.4-8.2) gm/dl Albumin (3.4-5.0) gm/dl Lipase (73-393) U/L Urine Color Urine Appearance (Clear) Urine pH (4.5-7.5) Ur Specific [place] (1.000-1.030) Urine Protein (Negative) Urine Glucose (UA) (Negative) Urine Ketones (Negative) Urine Blood (Negative) Urine Nitrite (Negative) Urine Bilirubin (Negative) Urine Urobilinogen (Negative) Ur Leukocyte Esterase (Negative) Urine WBC (Auto) (0-5) /hpf Urine RBC (Auto) (0-4) /hpf U Hyaline Cast (Auto) (0-5) /lpf U Epithel Cells (Auto) (0-5) /lpf Urine Bacteria (Auto) (Negative) COVID-19 Eval Order Covid19 at [facility] SARS-CoV-2 (PCR) NEGATIVE (Negative) 03/26/21 03/26/21 03/26/21 Range/Units 17:16 17:16 18:30 WBC (4.8-10.8) K/uL RBC (4.7-6.1) M/uL Hgb (14.0-18.0) g/dL POC Hgb (14.0-18.0) g/dl Hct (42-52) % POC Hct (42-52) % MCV (80-100) fL MCH (25-34) pg MCHC (32-36) g/dL RDW Std Deviation (36.4-46.3) fL RDW Coeff of Josh (11.5-14.5) % Plt Count (130-400) K/uL MPV (7.4-10.4) fL Immature Gran % (Auto) % Neut % (Auto) % Lymph % (Auto) % [place] % (Auto) % Eos % (Auto) % Baso % (Auto) % Neut # (Auto) (1.4-6.5) K/uL Lymph # (Auto) (1.2-3.4) K/uL [place] # (Auto) (0.11-0.59) K/uL Eos # (Auto) (0-0.5) K/uL Baso # (Auto) (0-0.2) K/uL Immature Gran # (Auto) (0.00-0.02) K/uL PT (9.0-12.0) Seconds INR (0.9-1.1) APTT (21.0-31.0) Seconds PTT Ratio VBG pH 7.37 (7.36-7.41) VBG pCO2 50 (38-50) mmHg VBG pO2 19 mmHg VBG HCO3 29 mmol/L VBG O2 Saturation < 60.0 % VBG Base Excess 2.4 mEq/L Barometric Pressure 734.8 mm/Hg POC Sodium (135-144) mmol/L Sodium (136-145) mmol/L POC Potassium (3.3-5.0) mmol/L Potassium (3.5-5.1) mmol/L POC Chloride (101-112) mmol/L Chloride (98-107) mmol/L Carbon Dioxide (21-32) mmol/L POC Total CO2 (24-31) mmol/L Anion Gap (3-11) POC Anion Gap (16-25) mmol/L POC BUN (7-18) mg/dl BUN (7-18) mg/dl Creatinine (0.6-1.4) mg/dl POC Creatinine (0.6-1.3) mg/dl Est Cr Clr Drug Dosing ml/min Est GFR ( Amer) ml/min Est GFR (Non-Af Amer) ml/min BUN/Creatinine Ratio (10-20) Glucose (70-99) mg/dl POC Glucose (other) (70-99) mg/dl Lactate 1.3 (0.4-2.0) mmol/L Calcium (8.5-10.1) mg/dl POC Ioniz Calcium Marlyn (1.12-1.32) mmol/l Magnesium (1.8-2.4) mg/dl Total Bilirubin (0.2-1) mg/dl Direct Bilirubin (0-0.2) mg/dl AST (15-37) U/L ALT (12-78) U/L Alkaline Phosphatase (45-117) U/L Troponin I (0-0.045) ng/ml NT-Pro-B Natriuret Pep (0-1800) pg/ml Total Protein (6.4-8.2) gm/dl Albumin (3.4-5.0) gm/dl Lipase (73-393) U/L Urine Color Dark Yellow Urine Appearance Clear (Clear) Urine pH 5.0 (4.5-7.5) Ur Specific [place] 1.023 (1.000-1.030) Urine Protein Trace H (Negative) Urine Glucose (UA) Negative (Negative) Urine Ketones Trace H (Negative) Urine Blood 3+ H (Negative) Urine Nitrite Negative (Negative) Urine Bilirubin Negative (Negative) Urine Urobilinogen Negative (Negative) Ur Leukocyte Esterase Trace H (Negative) Urine WBC (Auto) 10-30 H (0-5) /hpf Urine RBC (Auto) >30 H (0-4) /hpf U Hyaline Cast (Auto) >30 H (0-5) /lpf U Epithel Cells (Auto) 10-20 H (0-5) /lpf Urine Bacteria (Auto) Negative (Negative) COVID-19 Eval Order SARS-CoV-2 (PCR) (Negative) Imaging Data Radiologist's Impression: Chest CTA 03/26/21 16:58 CT ANGIOGRAM OF THE CHEST CLINICAL HISTORY: Syncope. Hypoxia. COMPARISON STUDY: Chest x-ray dated 03/26/2021. Chest CT dated 03/07/2021. TECHNIQUE: Following the IV administration of 120 cc of Optiray 320, CT a ngiogram of the chest was performed from the upper abdomen to the thoracic inlet utilizing the pulmonary embolus protocol. Images are reviewed in the axial, sagittal, and coronal planes. 3-D MIPS images are created and assessed. IV contrast was administered without complication. A dose lowering technique was utilized adhering to the principles of ALARA. There is motion artifact, as well as streak artifact from the arms which could not be elevated above the chest. FINDINGS: Thyroid: Imaged portions of the thyroid gland are normal in size and attenuation. Thoracic aorta: There is advanced atherosclerotic calcification of the thoracic aorta. There is aneurysmal dilatation of the descending thoracic aorta just above the esophageal hiatus. This measures up to 4.2 cm seen on image #32. The remainder of the thoracic aorta Is normal in caliber, and the arch demonstrates bovine variant anatomy. No dissection is seen. Pulmonary vasculature: The pulmonary trunk is normal in caliber. There are no filling defects identified in main, lobar, or proximal segmental pulmonary branches to suggest pulmonary embolus. Evaluation of the peripheral branches is degraded by motion artifact. Foci of parenchymal scarring are scattered throughout both lungs. Heart: The heart is enlarged and and without pericardial effusion. The coronary arteries are densely calcified. Lungs and pleural spaces: Evaluation of the lung parenchyma is compromised by motion artifact. Secretions are noted in the trachea. There is no airspace consolidation typical for pneumonia or pleural effusion. Scattered calcified granulomas are observed. Mediastinum: There is no mediastinal lymphadenopathy. There are calcified subcarinal nodes. Evelin: Clear. Axillae: There is no axillary lymphadenopathy. Upper abdomen: There is a 1.4 cm right lobe hepatic cyst. A tiny hiatal hernia is noted. Skeletal structures: The skeletal structures are osteopenic. Degenerative change is noted in the shoulders and thoracic spine. There are numerous healed bi lateral rib fractures. No lytic or blastic bony lesions are seen. There is a chronic compression deformity of T12. IMPRESSION: 1. Streak and motion degraded examination. 2. There is no evidence of pulmonary embolus in the main, lobar, or proximal segmental pulmonary arteries. 3. Cardiomegaly. 4. There is no airspace consolidation or pleural effusion. 5. Additional findings as above. ACT 112: Negative or not required by law. Electronically signed by: Vinay Castillo M.D. 03/26/2021 6:44 PM Chest X-Ray 03/26/21 16:58 XR chest 1V portable HISTORY: 89 years-old Male sob syncope acute shortness of breath with syncope COMPARISON: None TECHNIQUE: Portable AP view the chest FINDINGS: Cardiac silhouette is enlarged. Calcified plaque the thoracic aorta. No pneumothorax, large pleural effusion or overt pulmonary edema. Moderate hemidiaphragmatic elevation. Extrapulmonary opacity of the lateral mid right hemithorax measures up to approximately 6.5 cm in length.. Degenerative changes of the shoulders and spine. IMPRESSION: 1. Cardiomegaly without acute process. 2. 6.5 cm opacity of the lateral right hemithorax may be projectional or represent a pleural-based lesion. Correlation with the ordered CTA chest study of same day recommended. ACT 112: Negative or not required by law. The above report was generated using voice recognition software. It may contain grammatical, syntax or spelling errors. Electronically signed by: Rashid Vu M.D. 03/26/2021 5:[address] 03/26/21 16:58 CT SCAN OF THE BRAIN WITHOUT IV CONTRAST CLINICAL HISTORY: Syncope. COMPARISON STUDY: CT of the brain dated 03/09/2021. TECHNIQUE: Unenhanced axial CT scan of the brain is performed from the vertex to the skull base. A dose lowering technique was utilized adhering to the principles of ALARA. CT DOSE: 1108.93 mGy.cm FINDINGS: Brain parenchyma: Loss of bradford-white matter differentiation is again seen in the right occipital lobe consistent with an evolving infarct. There are age-related involutional changes noting moderate to advanced subcortical and periventricular microangiopathic change. Foci of bifrontal and right parieto- occipital encephalomalacia are unchanged and consistent with remote insults. A chronic lacunar infarct is noted in the right basal ganglia. Chronic infarcts are also noted in both cerebellar hemispheres. Postoperative change is noted in the anterior right temporal fossa. There is no hemorrhage, mass effect, or evidence of acute territorial ischemia by CT criteria. No extra-axial fluid collection is seen. Ventricles, sulci, cisterns: Prominent secondary to involutional change. Intracranial vasculature: There is atherosclerotic calcification of the cavernous carotid and vertebral arteries. Calvarium: There is postoperative change from right-sided craniotomy. No destructive calvarial lesion is identified. Sinuses and mastoids: The paranasal sinuses are clear. The mastoid air cells are well pneumatized. Orbits: The bony orbits are grossly intact. IMPRESSION: 1. There is a subacute/evolving right occipital lobe infarct. This was also seen on 03/09/2021 2. Additional chronic and postoperative changes as above with no hemorrhage, mass effect, or evidence of acute territorial ischemia by CT criteria. ACT 112: Negative or not required by law. Electronically signed by: Vinay Castillo M.D. 03/26/2021 6:35 PM ECG Data Indication: + syncope Rate (beats per minute): 46 Rhythm: + sinus bradycardia ECG Intervals/blocks: + First degree AV block and + Normal QRS ECG ST segments: + Normal ST segments ECG Findings: + [facility] Narrative 1657: The patient was evaluated in room B2. A complete history and physical exam was performed Cardiac monitoring: An order was placed for continuous cardiac monitoring. The monitor shows a rate of 50 with sinus rhythm Paperwork from rehab center reviewed. 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 Patient has been reluctant to use antico agulation. Patient does have a history of atrial fibrillation. Mancuso catheter was placed due to patient's urinary retention. 1859: Vital signs stable. Labs and imaging are at baseline. There is no history of the patient having an echo done recently. Given the patient's history of syncope and recent stroke will admit to the [facility] hospitalist team for syncope work-up. Impression & Plan Syncope Discharge Plan Visit Data Chief Complaint: Confusion Stated Complaint: Unresponsive episode now lethargic ED Provider: Gabe Calderón Discharge Problem: Syncope Patient Disposition: Being Evaluated by Hospitalist Forms Stand Alone Forms: [facility] Prescriptions Prescriptions: No Action losartan 50 mg tablet 50 mg PO BID Qty: 180 RF: 1 Herbal Prostate Suppliment 1 tab PO DAILY RF: 0 latanoprost [Xalatan] 0.005 % Drops 1 drp OPR HS RF: 0 cholecalciferol (vitamin D3) [Vitamin D3] 1,000 unit Capsule 1,000 unit PO DAILY RF: 0 atorvastatin 40 mg Tablet 80 mg PO QAM Qty: 0 RF: 0 aspirin 81 mg Tablet,Delayed Release (Dr/Ec) 81 mg PO QAM Qty: 0 RF: 0 tamsulosin 0.4 mg capsule 0.4 mg PO HS Qty: 1 RF: 0 losartan 50 mg tablet 50 mg PO Q12 RF: 0 latanoprost 0.005 % Drops 1 drp OPR HS RF: 0 atorvastatin 80 mg Tablet 80 mg PO QAM RF: 0 aspirin [Aspirin Low Dose] 81 mg Tablet,Delayed Release (Dr/Ec) 81 mg PO DAILY RF: 0 tamsulosin 0.4 mg Capsule 0.4 mg PO HS RF: 0 cholecalciferol (vitamin D3) [Vitamin D3] 25 mcg (1,000 unit) Tablet 25 mcg PO DAILY RF: 0 acetaminophen 325 mg Tablet 650 mg PO Q4 PRN (Reason: Pain) RF: 0 sennosides-docusate sodium [Senokot-S] 8.6-50 mg Tablet 1 tab-cap PO .Q LUNCH PRN (Reason: Constipation) RF: 0 docusate sodium 100 mg Capsule 100 mg PO BID RF: 0 polyethylene glycol 3350 [Miralax] 17 gram/dose Powder 17 g PO . Q LUNCH PRN (Reason: Constipation) RF: 0 fluticasone propionate [Flonase] 50 mcg/actuation [place],Suspension 2 spray INTRANASAL DAILY RF: 0 heparin (porcine) 5,000 unit/mL Solution 5,000 unit SUBCUT Q12H RF: 0 escitalopram oxalate [Lexapro] 5 mg Tablet 5 mg PO DAILY RF: 0 Referrals Referrals: Radha Leon MD [Primary Care Provider] - Discharge Problem: Syncope Qualifiers: Syncope type: unspecified Qualified Code(s): R55 - Syncope and collapse
[2021-03-26] MEDS ORDERED: OPTIRAY 320 150ml IV ONE (18:16)
--- NOTE | 2021-03-26 18:36 | CT Scan Report ---
CT SCAN OF THE BRAIN WITHOUT IV CONTRAST CLINICAL HISTORY: Syncope. COMPARISON STUDY: CT of the brain dated 03/09/2021. TECHNIQUE: Unenhanced axial CT scan of the brain is performed from the vertex to the skull base. A do se lowering technique was utilized adhering to the principles of ALARA. CT DOSE: 1108.93 mGy.cm FINDINGS: Brain parenchyma: Loss of bradford-white matter differentiation is again seen in the right occipital lobe consistent with an evolving infarct. There are age-related involutional changes noting moderate to advanced subcortical and periventricular microangiopathic change. Foci of bifrontal and right parieto -occipital encephalomalacia are unchanged and consistent with remote insults. A chronic lacunar infar ct is noted in the right basal ganglia. Chronic infarcts are also noted in both cerebellar hemisphere s. Postoperative change is noted in the anterior right temporal fossa. There is no hemorrhage, mass e ffect, or evidence of acute territorial ischemia by CT criteria. No extra-axial fluid collection is s een. Ventricles, sulci, cisterns: Prominent secondary to involutional change. Intracranial vasculature: There is atherosclerotic calcification of the cavernous carotid and vertebr al arteries. Calvarium: There is postoperative change from right-sided craniotomy. No destructive calvarial lesion is identified. Sinuses and mastoids: The paranasal sinuses are clear. The mastoid air cells are well pneumatized. Orbits: The bony orbits are grossly intact. IMPRESSION: 1. There is a subacute/evolving right occipital lobe infarct. This was also seen on 03/09/2021 2. Additional chronic and postoperative changes as above with no hemorrhage, mass effect, or evidence of acute territorial ischemia by CT criteria. ACT 112: Negative or not required by law. Electronically signed by: Vinay Castillo M.D. 03/26/2021 6:35 PM
[2021-03-26 18:44] LABS: Appearance Urine Clear (Clear); Bacteria Urine Automated Negative (Negative); Bilirubin Urine Negative (Negative); Blood Urine 3+ (Negative); Color Urine Dark Yellow; Glucose Urine UA Negative (Negative); Ketones Urine Trace (Negative); Leukocyte Esterase Urine Trace (Negative); Nitrite Urine Negative (Negative); Protein Urine Trace (Negative); RBC Urine Automated >30 /hpf (0-4); Specific Gravity Urine 1.023 (1.000-1.030); Urobilinogen Urine Negative (Negative)
--- NOTE | 2021-03-26 18:45 | CT Scan Report ---
CT ANGIOGRAM OF THE CHEST CLINICAL HISTORY: Syncope. Hypoxia. COMPARISON STUDY: Chest x-ray dated 03/26/2021. Chest CT dated 03/07/2021. TECHNIQUE: Following the IV administration of 120 cc of Optiray 320, CT angiogram of the chest was pe rformed from the upper abdomen to the thoracic inlet utilizing the pulmonary embolus protocol. Images are reviewed in the axial, sagittal, and coronal planes. 3-D MIPS images are created and assessed. I V contrast was administered without complication. A dose lowering technique was utilized adhering to the principles of ALARA. There is motion artifact, as well as streak artifact from the arms which co uld not be elevated above the chest. FINDINGS: Thyroid: Imaged portions of the thyroid gland are normal in size and attenuation. Thoracic aorta: There is advanced atherosclerotic calcification of the thoracic aorta. There is aneur ysmal dilatation of the descending thoracic aorta just above the esophageal hiatus. This measures up to 4.2 cm seen on image #32. The remainder of the thoracic aorta Is normal in caliber, and the arch d emonstrates bovine variant anatomy. No dissection is seen. Pulmonary vasculature: The pulmonary trunk is normal in caliber. There are no filling defects identif ied in main, lobar, or proximal segmental pulmonary branches to suggest pulmonary embolus. Evaluation of the peripheral branches is degraded by motion artifact. Foci of parenchymal scarring are scattere d throughout both lungs. Heart: The heart is enlarged and and without pericardial effusion. The coronary arteries are densely calcified. Lungs and pleural spaces: Evaluation of the lung parenchyma is compromised by motion artifact. Secret ions are noted in the trachea. There is no airspace consolidation typical for pneumonia or pleural ef fusion. Scattered calcified granulomas are observed. Mediastinum: There is no mediastinal lymphadenopathy. There are calcified subcarinal nodes. Evelin: Clear. Axillae: There is no axillary lymphadenopathy. Upper abdomen: There is a 1.4 cm right lobe hepatic cyst. A tiny hiatal hernia is noted. Skeletal structures: The skeletal structures are osteopenic. Degenerative change is noted in the shou lders and thoracic spine. There are numerous healed bilateral rib fractures. No lytic or blastic bony lesions are seen. There is a chronic compression deformity of T12. IMPRESSION: 1. Streak and motion degraded examination. 2. There is no evidence of pulmonary embolus in the main, lobar, or proximal segmental pulmonary shania bryant. 3. Cardiomegaly. 4. There is no airspace consolidation or pleural effusion. 5. Additional findings as above. ACT 112: Negative or not required by law. Electronically signed by: Vinay Castillo M.D. 03/26/2021 6:44 PM
[2021-03-26 18:54] LABS: Cast Urine Automated >30 /lpf (0-5)
--- NOTE | 2021-03-26 19:15 | History & Physical Report ---
Date of Service March 26, 2021 Assessment & Plan (1) Syncope: Stevan Madrid is an 89 yo male with PMHx significant for recent R MAP COMPILER CVA (admitted from 03/07-03/11 at [facility] for this), h/o brain aneurysm (s/p clipping ~20 years ago), chronic diastolic CHF, atrial fibrillation (was on Timolol but held at discharge on 03/11 for bradycardia, no anti-coagulation), urinary retention (discharged with henry in place), HTN and HLD who presented to [facility] on 03/26 for syncope. Syncope Unresponsive for several seconds, reportedly had irregular rhythm before presentation at ED, bradycardic to 40s, EKG showed sinus bradycardia with 1st degree AV block --> suspect cardiogenic syncope 11/26 bradycardia +/- dysrhythmia. - admitted to tele, TTE ordered - consulted Cardiology - appreciate recs - TSH ordered in the AM Right Occipital CVA - subacute, occurred earlier in February with admission from 03/07 - 03/11, patient appears to be at chronic baseline - continue home baby Aspirin and Atorvastatin 80mg PO QAM Atrial Fibrillation - Timolol held at discharge on 03/11 due to bradycardia, Cardiology consult as mentioned above HTN - continue home Losartan 50mg PO Q12H Constipation - continue home Colace 100mg PO BID and PRN regimen BPH/Chronic Urinary Retention - continue home Flomax 0.4mg PO QHS Depression - continue home Escitalopram 5mg PO daily FEN/GI: heart-healthy, NSS @80cc/hr x1 bag DVT Prophylaxis: Heparin 5000 units SQ Q12H Code Status: Full code Disposition: med/surg with tele (2) Bradycardia: (3) A-fib: (4) Chronic diastolic CHF (congestive heart failure): (5) Urinary retention: (6) CVA (cerebrovascular accident): (7) Hyperlipidemia: (8) Hypertension: History of Present Illness Chief Complaint: unresponsiveness Primary Care Provider: Radha Leon MD Stevan Madrid is an 89 yo male with PMHx significant for recent R MAP COMPILER CVA (admitted from 03/07-03/11 at [facility] for this), h/o brain aneurysm (s/p clipping ~20 years ago), chronic diastolic CHF, atrial fibrillation (was on Timolol but held at discharge on 03/11 for bradycardia, no anti-coagulation), urinary retention (discharged with henry in place), HTN and HLD who presented to [facility] on 03/26 for unresponsiveness for several seconds. Patient's came to visit him at [facility] and reports that he became confused and lethargic, and then "passed out" for a few seconds. I spoke with the patient's daughter, Geovanna Rucker, who was also present during the patient's event - she reports that the patient has been at baseline confusion since his CVA and was not more confused before today's event. She says that he closed his eyes and remained unresponsive to name or touch for several minutes, and his extremities became cold. Nursing staff came in and, per patient's daughter's report, found that the patient had an irregular heart beat. Patient's daughter denies seizure-like activity and says patient had quick return to baseline after event. In the ED, the patient was bradycardic to the 40s but otherwise hemodynamically stable on RA. Laboratory evaluation with CBC, CMP, Troponin, Lipase and D-dimer was largely unremarkable other than elevated D-dimer at 1600 - f/u CTA chest without evidence for PE or pulmonary abnormalities. CT head w/o contrast showed subacute/evolving right occipital lobe infarct which was also seen on 03/09/2021 (consistent with recent CVA). Allergies Allergy/AdvReac Type Severity Reaction Status Date / Time Penicillins Allergy Unknown UNKNOWN Verified 03/26/21 18:17 morphine AdvReac Severe HALLICINATIONS, Verified 03/26/21 18:17 BEHAVIOR CHANGES Home Medications Medication Instructions Recorded Confirmed Type latanoprost [Xalatan] 1 drp OPR HS 08/02/18 03/07/21 History cholecalciferol (vitamin D3) 1,000 unit PO DAILY 08/05/18 03/07/21 History [Vitamin D3] Herbal Prostate Suppliment 1 tab PO DAILY 05/18/20 03/07/21 History losartan 50 mg tablet 50 mg PO BID #180 tab 03/06/21 03/07/21 Rx aspirin 81 mg PO QAM #0 tab 03/11/21 Rx atorvastatin 80 mg PO QAM #0 tab 03/11/21 Rx tamsulosin 0.4 mg PO HS #1 cap 03/11/21 Rx acetaminophen 650 mg PO Q4 PRN 03/26/21 03/26/21 History aspirin [Aspirin Low Dose] 81 mg PO DAILY 03/26/21 03/26/21 History atorvastatin 80 mg PO QAM 03/26/21 03/26/21 History cholecalciferol (vitamin D3) 25 mcg PO DAILY 03/26/21 03/26/21 History [Vitamin D3] docusate sodium 100 mg PO BID 03/26/21 03/26/21 History escitalopram oxalate [Lexapro] 5 mg PO DAILY 03/26/21 03/26/21 History fluticasone propionate [Flonase] 2 spray INTRANASAL DAILY 03/26/21 03/26/21 History heparin (porcine) 5,000 unit SUBCUT Q12H 03/26/21 03/26/21 History latanoprost 1 drp OPR HS 03/26/21 03/26/21 History losartan 50 mg PO Q12 03/26/21 03/26/21 History polyethylene glycol 3350 [Miralax] 17 g PO . Q LUNCH PRN 03/26/21 03/26/21 History sennosides-docusate sodium 1 tab-cap PO .Q LUNCH PRN 03/26/21 03/26/21 History [Senokot-S] tamsulosin 0.4 mg PO HS 03/26/21 03/26/21 History Past Med/Surg History Medical History Ambulatory dysfunction Aortic root dilatation Ataxia Blind left eye Brain aneurysm Chronic arterial ischemic stroke, multifocal, multiple vascular territories Chronic diastolic CHF (congestive heart failure) Dizziness Fall Hypertension Hypertensive urgency Prediabetes Surgical History Hx of total knee replacement S/P hernia repair Family History Other Breast cancer Denies family history of Ovarian cancer Prostate cancer Myocardial infarction Colorectal cancer Social History Smoking Status: Never smoker Second Hand Exposure: No; Do You Dip or Chew Tobacco: No; Tobacco Cessation Education Requested by Patient: No Hx Alcohol Use: No Hx Substance Use: No Preferred Language: Bulgarian Communication Ability: Effective Visual Impairment: No Limitations Waxer Floor Required: No Beliefs That Will Affect Care: None marital status: Current Living Situation: Spouse current occupational status: retired Other Information That Helps Us Care for You: No Feels Safe at Home: Yes Safety Concerns: Feels Safe At This Time caffeine: Yes during the past year weight has: remained stable Dental Care, Regularly: Yes Physical Activity Frequency: 1-2 Times per Week Seatbelt Use: always Sunscreen Use: Yes Assistive Devices: Glasses and Hearing Aid - Bilateral Review of Systems Review of Systems: All systems reviewed & are unremarkable except as noted in HPI & below Physical Exam Constitutional: WD/WN, vitals as above Eyes: PERRL, left homonomous hemianopsia Neck: trachea midline, no thyromegaly Respiratory: normal respiratory effort, lungs clear to auscultation Cardiovascular: Rate/Rhythm: regular rhythm and + bradycardic Heart Sounds: normal S1 and normal S2; no murmur Extremities: no edema lower extremities cold but capillary refill <2 seconds, appears well perfused Gastrointestinal (Abdomen): normal bowel sounds, soft, nontender, no hepatosplenomegaly Musculoskeletal: no cyanosis or clubbing, extremities motor strength 5/5 Skin: no rashes, warm and dry Neurologic: patellar DTR's 2+ bilat, sensation intact normal touch/pain/proprioception Speech / Cognition: normal speech Motor/Sensory: no tremor and normal movement Coordination: normal [id number] test Psychiatric: Orientation: alert and oriented to person; + not oriented to place and + not oriented to time appears slightly confused and slow to respond, although hard of hearing Results & Data Results & Data ([facility]) Vital Signs (Past 12 Hours) Vital Signs Temp Pulse Pulse Resp BP BP Pulse Ox 03/26/21 18:35 43 L 20 149/57 H 93 03/26/21 16:34 36.5 C 40 L 16 149/57 H 88 L Code Status & VTE Plan Code Status Full code VTE Prophylaxis Plan VTE Prophylaxis will be ordered: Yes Supervising Physician Co-Signing Physician Notes Patient seen and examined, chart reviewed, case discussed with Dr. Matthews and I agree with his assessment and plan as above. Briefly, patient is an 89yo male with prior CVA presenting with episode of unresponsiveness, ?syncope. Patient noted to have cold extremities as well as irregular heart rhythm during the event. In ER he is bradycardic with 1st degree AV block No complaints Bradycardic, hypertensive AA&O x 3, answering questions appropriately and following commands Skin - no rash HEENT - NC/AT, PERRL, MMM, Neck supple, no JVD Heart- + S1/S2, regular, no m/r/g Lungs -CTA Abd - +BS, soft, NT/ND Ext - No edema, cool to touch with palpable pulses Labs and images reviewed. Of note, admission EKG is in MUSE, however under WRONG (Listed as 08/31/21 rather than 08/28/21). SR with 1st degree AV block, ?dropped beat, rate 46 Assessment/Plan - concern for symptomatic bradycardia, cardiac syncope as cause for event -Check Lyme, TSH -Telemetry monitoring -Check 2D echo -Cardiology consultation appreciated -Remainder of plan as above Resident Activity Tracking Resident Involvement: Resident Care Provided Care Provided: Adult Hospital Medicine (1) A-fib Atrial fibrillation type: unspecified Qualified Code(s): I48.91 - Unspecified atrial fibrillation (2) Syncope Syncope type: unspecified Qualified Code(s): R55 - Syncope and collapse (3) Hypertension Hypertension type: essential hypertension Qualified Code(s): I10 - Essential (primary) hypertension (4) CVA (cerebrovascular accident) CVA mechanism: unspecified Qualified Code(s): I63.9 - Cerebral infarction, unspecified
[2021-03-26] MEDS ORDERED: SODIUM CHLORIDE 0.9% 1000ML 1,000 ML IV SCH (20:34)
[2021-03-26] MEDS ORDERED: POLYETHYLENE (MIRALAX) 17 GM PACK PO PRN (23:56)
[2021-03-26] MEDS ORDERED: ACETAMINOPHEN 325 MG TAB PO PRN (23:56)
[2021-03-26] MEDS ORDERED: DOCUSATE SODIUM/SENNA 50/8.6MG TAB PO PRN (23:56)
[2021-03-27] MEDS: LOSARTAN POTASSIUM 50 MG TAB PO SCH ×3 (00:43→20:49)
[2021-03-27] MEDS: HEPARIN SOD 5,000 UNIT/0.5 ML VIAL SQ SCH ×3 (00:43→20:50)
[2021-03-27] MEDS: TAMSULOSIN HCL 0.4 MG CAP PO SCH ×2 (00:44→20:49)
[2021-03-27] MEDS: DOCUSATE SODIUM 100 MG CAP PO SCH ×3 (00:45→20:49)
--- NOTE | 2021-03-27 04:33 | Billing Data ---
Date of Service March 26, 2021 Coding Level of Care Code 66664 OBS Care - Level 3
[2021-03-27 07:57] LABS: Basophils # (auto) 0.01 K/uL (0-0.2); Basophils % (auto) 0.1 %; Eosinophils # (auto) 0.03 K/uL (0-0.5); Eosinophils % (auto) 0.4 %; Hematocrit (blood only) 40.9 % (42-52); Hemoglobin 14.3 g/dL (14.0-18.0); Immature Granulocytes # (auto) 0.03 K/uL (0.00-0.02); Immature Granulocytes % (auto) 0.4 %; Lymphocytes # (auto) 1.27 K/uL (1.2-3.4); Lymphocytes % (auto) 17.3 %; Mean Corpuscular Hemoglobin 30.3 pg (25-34); Mean Corpuscular Volume 86.7 fL (80-100); Mean Platelet Volume 9.4 fL (7.4-10.4); Monocytes # (auto) 0.75 K/uL (0.11-0.59); Monocytes % (auto) 10.2 %; Neutrophils # (auto) 5.23 K/uL (1.4-6.5); Neutrophils % (auto) 71.6 %; Platelet Count 194 K/uL (130-400); RDW Coefficient of Variation 13.2 % (11.5-14.5); RDW Standard Deviation 42.2 fL (36.4-46.3); Red Blood Count 4.72 M/uL (4.7-6.1); White Blood Count 7.32 K/uL (4.8-10.8)
[2021-03-27] MEDS ORDERED: PNEUMOCOCCAL POLYSACCHARIDES 25 MCG/0.5 ML VIAL/SYR IM ONE (08:00)
[2021-03-27 08:41] LABS: Lyme Ab IgG w/WB Rflx Negative (Negative)
[2021-03-27 08:42] LABS: BUN Creatinine Ratio 30.6 (10-20); Calcium 8.9 mg/dl (8.5-10.1); Creatinine Clr Calc Pharmacy 61.6 ml/min; Est GFR (African American) 92.8 ml/min; Magnesium 2.3 mg/dl (1.8-2.4); Potassium 4.3 mmol/L (3.5-5.1)
[2021-03-27 08:43] LABS: Lyme Ab IgM w/WB Rflx Negative (Negative)
[2021-03-27 08:50] LABS: Albumin Globulin Ratio 0.8 (0.9-2); Bilirubin,Total 0.7 mg/dl (0.2-1); Globulin 3.9 gm/dl (2.5-4.0); Phosphorus 3.1 mg/dl (2.5-4.9); T4 Free Thyroxine 1.13 ng/dl (0.8-1.6); Thyroid Stimulating Hormone 7.94 uIu/ml (0.300-4.500); Total Protein 6.9 gm/dl (6.4-8.2)
[2021-03-27] MEDS: ATORVASTATIN 40 MG TAB PO SCH (10:19)
[2021-03-27] MEDS: ESCITALOPRAM OXALATE 10 MG TAB PO SCH (10:19)
[2021-03-27] MEDS: CHOLECALCIFEROL 1,000 UNITS 25 MCG TAB PO SCH (10:19)
[2021-03-27] MEDS: FLUTICASONE PROPIONATE NA SPR 16 GM BTL SCH (10:20)
[2021-03-27] MEDS: ASPIRIN 81 MG ECTAB PO SCH (10:20)
[2021-03-27] MEDS: LEVOTHYROXINE SODIUM 25 MCG TABLET PO SCH (11:26)
--- NOTE | 2021-03-27 12:23 | Cardiology Consultation ---
Date of Consultation March 27, 2021 Assessment & Plan (1) Bradycardia: He certainly has bradycardia with 1st degree AV block. No evidence of higher degree AV block. Possibly blocked PACs resulting in brief periods of ventricular asystole or sinus node dysfunction. The correlation between his bradycardia and episodes is not well established. He would certainly be plausible given the description of his event. I did have an extensive discussion with the patient and his daughter over the course of the day and we discussed the potential benefit of a pacemaker. However, I was very clear that a correlation between the episodes and bradycardia has not been well established and he certainly could have additional episodes subsequent to pacemaker implant if the 2 are not related. 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 I did discuss the risks associated with the procedure with the patient and his daughter. (2) Syncope: Unclear if this was syncope or neurologic event. It seems that the patient was in bed at the time. He was unresponsive. There is no documentation of vital signs at that time. This seems similar to the episode he had in February. It is plausible this is related to symptomatic bradycardia. Other etiologies would include neurologic event especially given his history of cerebral infarction. As noted above it seems reasonable to implant a pacemaker given the documented bradycardia, conduction disease and the presence of these episodes. History of Present Illness Reason for Consultation: Bradycardia, syncope Requesting Physician: Renny Attending Physician: Felice Lawson History of Present Illness The patient is an 89-year-old gentleman with a known history of conduction d isease and bradycardia who had been admitted last month with symptoms concerning for stroke. At that time he was noted to have had an episode of unresponsiveness. The etiology was unclear but likely related to a cerebrovascular accident. The patient had been discharged to a rehabilitation facility and was noted yesterday to have another episode of unresponsiveness. According to the nursing staff this also involved an element of irregularity in his pulse and perhaps bradycardia. When he was transported to the emergency room he was noted to be bradycardic. The patient does not have any recollection of the event. He claims to be participating in rehab and ambulating without difficulty. He denies symptoms of dizziness or lightheadedness. He has not been aware of any palpitations. He did not recall having an episode of unresponsiveness yesterday. Allergies Allergy/AdvReac Type Severity Reaction Status Date / Time Penicillins Allergy Unknown UNKNOWN Verified 03/26/21 18:17 morphine AdvReac Severe HALLICINATIONS, Verified 03/26/21 18:17 BEHAVIOR CHANGES Home Medications Medication Instructions Recorded Confirmed Type latanoprost [Xalatan] 1 drp OPR HS 08/02/18 03/07/21 History cholecalciferol (vitamin D3) 1,000 unit PO DAILY 08/05/18 03/07/21 History [Vitamin D3] Herbal Prostate Suppliment 1 tab PO DAILY 05/18/20 03/07/21 History losartan 50 mg tablet 50 mg PO BID #180 tab 03/06/21 03/07/21 Rx aspirin 81 mg PO QAM #0 tab 03/11/21 Rx atorvastatin 80 mg PO QAM #0 tab 03/11/21 Rx tamsulosin 0.4 mg PO HS #1 cap 03/11/21 Rx acetaminophen 650 mg PO Q4 PRN 03/26/21 03/26/21 History aspirin [Aspirin Low Dose] 81 mg PO DAILY 03/26/21 03/26/21 History atorvastatin 80 mg PO QAM 03/26/21 03/26/21 History cholecalciferol (vitamin D3) 25 mcg PO DAILY 03/26/21 03/26/21 History [Vitamin D3] docusate sodium 100 mg PO BID 03/26/21 03/26/21 History escitalopram oxalate [Lexapro] 5 mg PO DAILY 03/26/21 03/26/21 History fluticasone propionate [Flonase] 2 spray INTRANASAL DAILY 03/26/21 03/26/21 Hi story heparin (porcine) 5,000 unit SUBCUT Q12H 03/26/21 03/26/21 History latanoprost 1 drp OPR HS 03/26/21 03/26/21 History losartan 50 mg PO Q12 03/26/21 03/26/21 History polyethylene glycol 3350 [Miralax] 17 g PO . Q LUNCH PRN 03/26/21 03/26/21 History sennosides-docusate sodium 1 tab-cap PO .Q LUNCH PRN 03/26/21 03/26/21 History [Senokot-S] tamsulosin 0.4 mg PO HS 03/26/21 03/26/21 History Patient History Medical History Ambulatory dysfunction Aortic root dilatation Ataxia Blind left eye Brain aneurysm Chronic arterial ischemic stroke, multifocal, multiple vascular territories Chronic diastolic CHF (congestive heart failure) Dizziness Fall Hypertension Hypertensive urgency Prediabetes Surgical History Hx of total knee replacement S/P hernia repair Family History Other Breast cancer Denies family history of Ovarian cancer Prostate cancer Myocardial infarction Colorectal cancer Social History Smoking Status: Never smoker Second Hand Exposure: No; Do You Dip or Chew Tobacco: No; Tobacco Cessation Education Requested by Patient: No Hx Alcohol Use: No Hx Substance Use: No Preferred Language: Armenian Communication Ability: Effective Visual Impairment: No Limitations Slubber Frame Changer Required: No Beliefs That Will Affect Care: None marital status: Current Living Situation: Spouse current occupational status: retired Other Information That Helps Us Care for You: No Feels Safe at Home: Yes Safety Concerns: Feels Safe At This Time caffeine: Yes during the past year weight has: remained stable Dental Care, Regularly: Yes Physical Activity Frequency: 1-2 Times per Week Seatbelt Use: always Sunscreen Use: Yes Assistive Devices: Hearing Aid - Bilateral Review of Systems Review of Systems: Per HPI. No recent symptoms of dyspnea or chest discomfort. Physical Exam Physical Exam: The patient is alert and oriented. Mood and affect appeared normal. He answered all questions appropriately. Mildly hard of hearing HEENT: Left pupil slightly more dilated than the right. Extraocular movements are intact. The sclerae are anicteric. Neuro: Cranial nerves intact Neck: Patient's neck is supple. He has palpable carotid pulses bilaterally without bruits on auscultation. There is no evidence of jugular venous distention. The thyroid is not enlarged. Lungs: Clear to auscultation bilaterally. He has good air movement without use of accessory muscles. No rales wheezes or rhonchi. Cardiac: Heart demonstrates a normal rate with some irregularity. Normal S1 and S2. No murmurs on examination. Pulses: The patient has palpable radial pulses bilaterally that are equal in intensity Extremities: There was no evidence of hypoperfusion. There is no cyanosis or clubbing. There is no edema. 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 Atrial fibrillation Results & Data ([facility]) Vital Signs (Past 12 Hours) Vital Signs Temp Pulse Pulse Resp BP Pulse Ox 03/27/21 11:02 36.5 C 51 L 26 H 139/69 94 03/27/21 10:34 39 L 03/27/21 07:42 36.7 C 49 L 15 159/78 H 95 03/27/21 04:10 49 L Laboratory Results Abnormal Lab Results 03/26/21 03/26/21 03/26/21 16:55 16:55 16:55 WBC 9.02 RBC 4.58 L Hgb 13.7 L POC Hgb Hct 39.6 L POC Hct MCV 86.5 MCH 29.9 MCHC 34.6 RDW Std Deviation 42.3 RDW Coeff of Josh 13.4 Plt Count 212 MPV 9.7 Immature Gran % (Auto) 0.3 Neut % (Auto) 77.7 Lymph % (Auto) 10.8 [place] % (Auto) 11.0 Eos % (Auto) 0.1 Baso % (Auto) 0.1 Neut # (Auto) 7.01 H Lymph # (Auto) 0.97 L [place] # (Auto) 0.99 H Eos # (Auto) 0.01 Baso # (Auto) 0.01 Immature Gran # (Auto) 0.03 H PT 10.8 INR 1.1 APTT 29.1 PTT Ratio 1.1 VBG pH VBG pCO2 VBG pO2 VBG HCO3 VBG O2 Saturation VBG Base Excess Barometric Pressure POC Sodium Sodium 135 L POC Potassium Potassium 4.6 POC Chloride Chloride 104 Carbon Dioxide 24 POC Total CO2 Anion Gap 7.0 POC Anion Gap POC BUN BUN 33 H Creatinine 1.03 POC Creatinine Est Cr Clr Drug Dosing 47.0 Est GFR ( Amer) 74.3 Est GFR (Non-Af Amer) 64.1 BUN/Creatinine Ratio 32.2 H Glucose 109 H POC Glucose (other) Lactate Calcium 9.2 POC Ioniz Calcium Marlyn Phosphorus Magnesium 2.3 Total Bilirubin 0.6 Direct Bilirubin 0.2 AST 38 H ALT 60 Alkaline Phosphatase 87 Troponin I < 0.015 NT-Pro-B Natriuret Pep 234 Total Protein 6.8 Albumin 3.1 L Globulin Albumin/Globulin Ratio Lipase 193 TSH Free T4 Urine Color Urine Appearance Urine pH Ur Specific [place] Urine Protein Urine Glucose (UA) Urine Ketones Urine Blood Urine Nitrite Urine Bilirubin Urine Urobilinogen Ur Leukocyte Esterase Urine WBC (Auto) Urine RBC (Auto) U Hyaline Cast (Auto) U Epithel Cells (Auto) Urine Bacteria (Auto) Lyme Disease IgG Ab Lyme Disease IgM Ab COVID-19 Eval Order SARS-CoV-2 (PCR) 03/26/21 03/26/21 03/26/21 17:04 17:14 17:14 WBC RBC Hgb POC Hgb 13.3 L Hct POC Hct 39 L MCV MCH MCHC RDW Std Deviation RDW Coeff of Josh Plt Count MPV Immature Gran % (Auto) Neut % (Auto) Lymph % (Auto) [place] % (Auto) Eos % (Auto) Baso % (Auto) Neut # (Auto) Lymph # (Auto) [place] # (Auto) Eos # (Auto) Baso # (Auto) Immature Gran # (Auto) PT INR APTT PTT Ratio VBG pH VBG pCO2 VBG pO2 VBG HCO3 VBG O2 Saturation VBG Base Excess Barometric Pressure POC Sodium 136 Sodium POC Potassium 4.7 Potassium POC Chloride 101 Chloride Carbon Dioxide POC Total CO2 25 Anion Gap POC Anion Gap 16.0 POC BUN 30 H BUN Creatinine POC Creatinine 1.1 Est Cr Clr Drug Dosing Est GFR ( Amer) Est GFR (Non-Af Amer) BUN/Creatinine Ratio Glucose POC Glucose (other) 108 H Lactate Calcium POC Ioniz Calcium Marlyn 1.23 Phosphorus Magnesium Total Bilirubin Direct Bilirubin AST ALT Alkaline Phosphatase Troponin I NT-Pro-B Natriuret Pep Total Protein Albumin Globulin Albumin/Globulin Ratio Lipase TSH Free T4 Urine Color Urine Appearance Urine pH Ur Specific [place] Urine Protein Urine Glucose (UA) Urine Ketones Urine Blood Urine Nitrite Urine Bilirubin Urine Urobilinogen Ur Leukocyte Esterase Urine WBC (Auto) Urine RBC (Auto) U Hyaline Cast (Auto) U Epithel Cells (Auto) Urine Bacteria (Auto) Lyme Disease IgG Ab Lyme Disease IgM Ab COVID-19 Eval Order Covid19 at [facility] SARS-CoV-2 (PCR) NEGATIVE 03/26/21 03/26/21 03/26/21 17:16 17:16 18:30 WBC RBC Hgb POC Hgb Hct POC Hct MCV MCH MCHC RDW Std Deviation RDW Coeff of Josh Plt Count MPV Immature Gran % (Auto) Neut % (Auto) Lymph % (Auto) [place] % (Auto) Eos % (Auto) Baso % (Auto) Neut # (Auto) Lymph # (Auto) [place] # (Auto) Eos # (Auto) Baso # (Auto) Immature Gran # (Auto) PT INR APTT PTT Ratio VBG pH 7.37 VBG pCO2 50 VBG pO2 19 VBG HCO3 29 VBG O2 Saturation < 60.0 VBG Base Excess 2.4 Barometric Pressure 734.8 POC Sodium Sodium POC Potassium Potassium POC Chloride Chloride Carbon Dioxide POC Total CO2 Anion Gap POC Anion Gap POC BUN BUN Creatinine POC Creatinine Est Cr Clr Drug Dosing Est GFR ( Amer) Est GFR (Non-Af Amer) BUN/Creatinine Ratio Glucose POC Glucose (other) Lactate 1.3 Calcium POC Ioniz Calcium Marlyn Phosphorus Magnesium Total Bilirubin Direct Bilirubin AST ALT Alkaline Phosphatase Troponin I NT-Pro-B Natriuret Pep Total Protein Albumin Globulin Albumin/Globulin Ratio Lipase TSH Free T4 Urine Color Dark Yellow Urine Appearance Clear Urine pH 5.0 Ur Specific [place] 1.023 Urine Protein Trace H Urine Glucose (UA) Negative Urine Ketones Trace H Urine Blood 3+ H Urine Nitrite Negative Urine Bilirubin Negative Urine Urobilinogen Negative Ur Leukocyte Esterase Trace H Urine WBC (Auto) 10-30 H Urine RBC (Auto) >30 H U Hyaline Cast (Auto) >30 H U Epithel Cells (Auto) 10-20 H Urine Bacteria (Auto) Negative Lyme Disease IgG Ab Lyme Disease IgM Ab COVID-19 Eval Order SARS-CoV-2 (PCR) 03/27/21 03/27/21 03/27/21 07:35 07:35 07:35 WBC 7.32 RBC 4.72 Hgb 14.3 POC Hgb Hct 40.9 L POC Hct MCV 86.7 MCH 30.3 MCHC 35.0 RDW Std Deviation 42.2 RDW Coeff of Josh 13.2 Plt Count 194 MPV 9.4 Immature Gran % (Auto) 0.4 Neut % (Auto) 71.6 Lymph % (Auto) 17.3 [place] % (Auto) 10.2 Eos % (Auto) 0.4 Baso % (Auto) 0.1 Neut # (Auto) 5.23 Lymph # (Auto) 1.27 [place] # (Auto) 0.75 H Eos # (Auto) 0.03 Baso # (Auto) 0.01 Immature Gran # (Auto) 0.03 H PT INR APTT PTT Ratio VBG pH VBG pCO2 VBG pO2 VBG HCO3 VBG O2 Saturation VBG Base Excess Barometric Pressure POC Sodium Sodium 138 POC Potassium Potassium 4.3 POC Chloride Chloride 105 Carbon Dioxide 27 POC Total CO2 Anion Gap 6.0 POC Anion Gap POC BUN BUN 24 H Creatinine 0.78 POC Creatinine Est Cr Clr Drug Dosing 61.6 Est GFR ( Amer) 92.8 Est GFR (Non-Af Amer) 80.0 BUN/Creatinine Ratio 30.6 H Glucose 94 POC Glucose (other) Lactate Calcium 8.9 POC Ioniz Calcium Marlyn Phosphorus 3.1 Magnesium 2.3 Total Bilirubin 0.7 Direct Bilirubin AST 34 ALT 55 Alkaline Phosphatase 92 Troponin I NT-Pro-B Natriuret Pep Total Protein 6.9 Albumin 3.0 L Globulin 3.9 Albumin/Globulin Ratio 0.8 L Lipase TSH 7.940 H Free T4 1.13 Urine Color Urine Appearance Urine pH Ur Specific [place] Urine Protein Urine Glucose (UA) Urine Ketones Urine Blood Urine Nitrite Urine Bilirubin Urine Urobilinogen Ur Leukocyte Esterase Urine WBC (Auto) Urine RBC (Auto) U Hyaline Cast (Auto) U Epithel Cells (Auto) Urine Bacteria (Auto) Lyme Disease IgG Ab Negative Lyme Disease IgM Ab Negative COVID-19 Eval Order SARS-CoV-2 (PCR) Diagnostic Findings Echocardiogram performed in February 2021 revealed preserved LV systolic function. Head CT obtained the time admission revealed involving occipital infarct, previously documented Chest x-ray demonstrated cardiomegaly but no acute process. No evidence lung lesion on CTA. No pulmonary embolus. Incidental note of a hepatic cyst. ECG Additional Comments: EKG obtained at the time of admission revealed sinus bradycardia with first-degree AV block and sinus arrhythmia. No evidence of higher degree AV block. PG Care Time/CCT Total # of Minutes Spent Total Time Spent with Patient: Total time spent is greater than 50% in coordination of care (as documented) at patient's floor/unit and/or counseling patient: Coding Level of Care Code 04341 Initial Inpt Care Lvl 3 Diagnoses Bradycardia R00.1 Syncope R55 Syncope type: unspecified (1) Syncope Syncope type: unspecified Qualified Code(s): R55 - Syncope and collapse
[2021-03-27] MEDS ORDERED: LIDOCAINE 1% LOCAL 20 ML VIAL ONE (12:36)
[2021-03-27] MEDS ORDERED: MIDAZOLAM HCL 5 MG/ML 1 ML VIAL ONE (12:36)
[2021-03-27] MEDS ORDERED: fentaNYL citrate 100 MCG/2 ML VIAL ONE (12:37)
[2021-03-27] MEDS ORDERED: CLINDAMYCIN PHOS 300 MG/2 ML VIAL ONE (12:38)
--- NOTE | 2021-03-27 12:42 | Electrocardiogram Report ---
Test Reason : Blood Pressure : / mmHG Vent. Rate : 046 BPM Atrial Rate : 046 BPM P-R Int : 342 ms QRS Dur : 092 ms QT Int : 468 ms P-R-T Axes : 026 -27 032 degrees QTc Int : 409 ms Poor data quality, interpretation may be adversely affected Sinus bradycardia with 1st degree A-V block with blocked PAC Left ventricular hypertrophy Nonspecific T wave abnormality Lateral leads Abnormal ECG When compared with ECG of 09-MAR-2021 11:10, Criteria for Anterior infarct no longer present Otherwise no significant change Confirmed by Charles Alejandre ([id number]) on 03/27/2021 12:41:38 PM Referred By: REFERRED SELF Confirmed By:Charles Alejandre
[2021-03-27] MEDS ORDERED: VANCOMYCIN HCL 1000MG/20ML VIAL ONE (12:53)
[2021-03-27] MEDS ORDERED: BUPIVACAINE 0.25% 30 ML VIAL ONE (12:53)
[2021-03-27] MEDS ORDERED: WATER, STERILE FOR INJ 10 ML VIAL ONE (12:53)
--- NOTE | 2021-03-27 13:41 | Pre Anesthesia Assessment ---
Date of Service March 27, 2021 Pre Sedation Assessment Vital Signs Temp Pulse Pulse Resp BP BP Pulse Ox 03/27/21 11:02 36.5 C 51 L 26 H 139/69 94 03/27/21 10:34 39 L 03/27/21 07:42 36.7 C 49 L 15 159/78 H 95 03/27/21 04:10 49 L 03/26/21 23:56 36.7 C 40 L 18 190/76 H 98 03/26/21 23:53 36.7 C 44 L 16 185/87 H 99 03/26/21 23:02 45 L 21 152/72 H 94 03/26/21 22:30 18 177/74 H 94 03/26/21 22:00 45 L 18 184/65 H 96 03/26/21 21:30 46 L 19 163/73 H 97 03/26/21 21:00 50 L 32 H 177/72 H 96 03/26/21 20:30 42 L 17 195/70 H 95 03/26/21 20:00 49 L 19 177/74 H 92 03/26/21 19:54 49 L 4 L 177/64 H 96 03/26/21 19:30 41 L 14 95 03/26/21 18:35 43 L 20 149/57 H 93 03/26/21 16:34 36.5 C 40 L 16 149/57 H 88 L Cardiovascular + regular rate and + regular rhythm Respiratory + respiratory effort normal Pre-Sedation Airway Assessment Smoking Status: Never smoker Hx Sleep Apnea: No Hx Difficult Intubation: No Short, Thick Neck: No Thyromental Distance: > or= 3.5 Finger Breadths Oral Cavity: + Dentures Mallampati Class: III ASA: ASA3 NPO Status Date of Last Intake of Fluids: 03/27/21 Time of Last Intake of Fluids: 08:00 Date of Last Intake of Solid Food: 03/27/21 Time of Last Intake of Solid Foods: 08:00 Procedure Planning Contraindications for Sedation: none Current Medications Reviewed: Yes Notes The planned sedation has been discussed with the patient. Informed Consent was obtained. I have identified the patient, determined the appropriateness of sedation and have assessed the patient immediately prior to the procedure. All medicine(s) and interventions are by my order.
[2021-03-27] MEDS ORDERED: oxyCODONE HCL IR 5 MG TAB (IMMEDIATE RELEASE) PO PRN (14:35)
--- NOTE | 2021-03-27 14:35 | Post Anesthesia Assessment ---
Date of Service March 27, 2021 Post Sedation Assessment Vital Signs Temp Pulse Pulse Resp BP BP Pulse Ox 03/27/21 11:02 36.5 C 51 L 26 H 139/69 94 03/27/21 10:34 39 L 03/27/21 07:42 36.7 C 49 L 15 159/78 H 95 03/27/21 04:10 49 L 03/26/21 23:56 36.7 C 40 L 18 190/76 H 98 03/26/21 23:53 36.7 C 44 L 16 185/87 H 99 03/26/21 23:02 45 L 21 152/72 H 94 03/26/21 22:30 18 177/74 H 94 03/26/21 22:00 45 L 18 184/65 H 96 03/26/21 21:30 46 L 19 163/73 H 97 03/26/21 21:00 50 L 32 H 177/72 H 96 03/26/21 20:30 42 L 17 195/70 H 95 03/26/21 20:00 49 L 19 177/74 H 92 03/26/21 19:54 49 L 4 L 177/64 H 96 03/26/21 19:30 41 L 14 95 03/26/21 18:35 43 L 20 149/57 H 93 03/26/21 16:34 36.5 C 40 L 16 149/57 H 88 L Recovery Score Activity: Moves 4 extremities Respiration: Deep Breath/Cough Circulation: +/-20% PreAnes Value Consciousness: Arouseable (by name) Oxygen Saturation: > 92% On Room Air Discharge Sedation Level of Care: Fast Track Phase II Post Sedation Plan On clinical assessment, the patient appears to have tolerated the sedation without complications. Patient is recovering as anticipated. Patient will continue to be monitored by nursing and may be discharged when sedation discharge criteria are met per below protocol. Upon Completions of procedure up to 15 minutes continue every 5 minute vital signs and the P.A.R. score; then discharge to a Phase I or Fast Track to Phase II per the following guidelines: * Discharge Patient to appropriate Phase II area if PAR is 8 or greater or return to pre- procedure baseline. The post - procedure orders will be as directed. * If PAR score is less than 8 or not return to pre-procedure baseline then patient will follow Phase I monitoring till PAR is reached for Phase II. The Phase I may be done in procedure room or may call to secure a Phase I area. * If naloxone or flumazenil are used for reversal, hold in Phase I for continued monitoring from when last reversal dose was given for a minimum of 60 minutes or longer pending the nurse and/or physician discretion of patient condition before discharge to Phase II. Please call the Sedation Physician to re-evaluate and complete post-note for discharge to Phase II area. Do NOT discharge from procedure sedation or Phase 1 until post- sedation eval uation note is complete by procedure /sedation MD Sedation Discharge Instructions to be given to the patient at discharge to home.
--- NOTE | 2021-03-27 14:35 | Electrophysiology Report ---
Date of Service March 27, 2021 Electrophysiology Procedure Electrophysiology Procedure Report Procedure performed: Implantation of dual-chamber permanent pacemaker Staff husbandry person: Domingo Fonseca MD Indication: The patient is an 89-year-old gentleman with a history of syncope and conduction disease who presented to the hospital with bradycardia. Based on his symptoms and conduction disease is felt to be a good candidate for a pacemaker due to symptomatic nonreversible sinus node dysfunction. Dual-chamber device was selected as the patient is currently in sinus rhythm and wished to maintain AV synchrony. Procedure in detail: The patient was informed of the risks benefits and alternatives to the intended procedure and she wished to proceed. He was taken to the electrophysiology suite in a fasting state. A preoperative antibiotic had been administered. The patient was monitored electrocardiographically throughout today's procedure and conscious sedation was administered per protocol. The left upper pectoral area is prepped and draped in usual sterile fashion. This area was anesthetized using subcutaneous administration of a xylocaine solution. An incision was made at this site and carried down to the prepectoralis fascia using sharp dissection. Electrocautery was also employed for dissection as well as for hemostasis. A device pocket was fashioned tissues above the pectoralis muscle. Subsequent to this maneuver the left axillary vein was accessed using modified Seldinger technique. Sheaths were placed over guidewires at this site and used to facilitate passage of the pacing leads to the respective chambers under fluoroscopic guidance. This included right atrial and right ventricular leads. Adequate sensing and threshold parameters were obtained prior to Active fixation of the leads to the endocardial surface. The proximal portion leads were then sutured the prepectoral fascia using nonabsorbable suture. The device pocket was irrigated with antibiotic solution. The leads were then attached to the device. The device and leads were then placed in the pocket and pocket was closed in 3 layers of absorbable suture. Steri-Strips and sterile dressing were applied. The device was tested noninvasively prior to conclusion the procedure. The patient tolerated procedure well there no immediate complications. Equipment used: New pulse generator: Photovoltaic Solar Cell [employer]. Model number: [id number] serial number [id number] Right atrial lead: Photovoltaic Solar Cell [employer]er [employer]. Model number: 5076 serial number [id number] Right ventricular lead: Photovoltaic Solar Cell Designer [employer]. Model number: 5076 serial number [id number] Measured data: Right atrial lead: P waves measured 2.5 mV. Pacing threshold 1.5 V at 0.4 ms with a pacing impedance of 680 ohms Right ventricular lead: R waves measured 15 mV. Pacing threshold was 0.7 V at 0.4 ms with a pacing impedance of 1294 ohms Impression: Successful implantation of dual-chamber permanent pacemaker [facility] Electrophysiology codes Pacing Procedure 1: Pacin Insert/Replace Pacer A & V PG Moderate Sedation Codes Moderate Sedation Codes Procedure 1: Sedation/Anesthesia: 46871 Mod Sedation by the same physician;Init15 Min Child Age 5 & Up Procedure 2: Sedation/Anesthesia: 49959 Mod Sedation by the same physician; Ea [id number] Minutes
[2021-03-27] MEDS: ceFAZolin 1000MG 1,000 MG/7.5 ML SYR IV SCH (21:53)
--- NOTE | 2021-03-27 22:41 | Hospitalist Progress Note ---
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 Significant bradycardia at [facility] when episode happened, and additional bradycardia on tele overnight. Dr Fonseca saw in consult - plan is permanent pacemaker placement. TSH mildly high but not the cause of bradycardia. Lyme test negative. (2) Syncope: Likely due to above. (3) Bradycardia: SA node dysfunction. Plan - pacer today. (4) A-fib: During hospital stay in February there was concern for PAF. However, Dr Fonseca consulted then and felt he was having sinus bradycardia with atrial ectopy. Thus, anticoagulation deferred. Continue telemetry. (5) Chronic diastolic CHF (congestive heart failure): Compensated at this time. 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 on today's exam also right basal ganglia CVA during same admission left-sided weakness 2nd to such PT, OT cont asa for secondary prevention (8) Hyperlipidemia: cont statin (9) Hypertension: acceptable readings at this time (10) Hypothyroidism: TSH 04/2020 and this admission both high c/w hypothyroidism in light of bradycardia, his age, etc he would benefit from replacement start 25mcg of synthroid recheck TSH 6 weeks (11) DVT prophylaxis: heparin 5000 BID updated pt's daughter by phone this evening questions answered Admission and Anticipated Discharge Date Admission Date: March 26, 2021 Subjective patient resting comfortably in bed during the visit he offered no symptoms or complaints of dizziness at rest or pre-syncope tele overnight - HR dropped to as low as 29 he denies palpitations no dyspnea no chest pain he initially told me he was not having any visual issues, but on exam he has a dense left-sided homonymous hemianopsia Review of Systems Constitutional: + weakness Respiratory: no cough Gastrointestinal: no abdominal pain, no nausea and no vomiting Physical Exam Constitutional: + altered mental status and + frail appearing; no acute distress Eyes: with direct confrontation visual field testing - left sided homonymous hemianopsia ENMT: external ear and nose normal, oropharynx normal Respiratory: normal respiratory effort, lungs clear to auscultation Cardiovascular: Rate/Rhythm: + bradycardic Heart Sounds: normal S1 and normal S2; no murmur Vessels: posterior tibial pulses present and dorsalis pedis pulses present; no JVD Extremities: no edema Gastrointestinal (Abdomen): normal bowel sounds, soft, nontender, no hepatosplenomegaly Musculoskeletal: hand deformity right - chronic, congenital Neurologic: slight weakness left arm/leg leg vs right arm/leg Psychiatric: Orientation: alert, oriented to person and oriented to place Results & Data Results & Data ([facility]) Vital Signs (Past 12 Hours) Vital Signs Temp Pulse Resp BP BP Pulse Ox 03/27/21 20:06 36.6 C 58 L 18 143/67 H 96 03/27/21 18:21 36.4 C L 59 L 18 144/67 H 95 03/27/21 17:00 67 18 128/94 97 03/27/21 16:30 61 18 145/76 H 96 03/27/21 16:21 60 18 96/53 L 94 03/27/21 15:51 60 18 132/65 94 03/27/21 15:19 36.4 C L 60 19 139/68 92 03/27/21 15:06 36.4 C L 60 18 132/64 92 03/27/21 14:48 60 16 144/78 H 98 03/27/21 14:33 60 16 143/84 H 98 03/27/21 11:02 36.5 C 51 L 26 H 139/69 94 Laboratory Results Laboratory Results - last 24 hr 03/27/21 03/27/21 03/27/21 07:35 07:35 07:35 WBC 7.32 RBC 4.72 Hgb 14.3 Hct 40.9 L MCV 86.7 MCH 30.3 MCHC 35.0 RDW Std Deviation 42.2 RDW Coeff of Josh 13.2 Plt Count 194 MPV 9.4 Immature Gran % (Auto) 0.4 Neut % (Auto) 71.6 Lymph % (Auto) 17.3 Howard % (Auto) 10.2 Eos % (Auto) 0.4 Baso % (Auto) 0.1 Neut # (Auto) 5.23 Lymph # (Auto) 1.27 Howard # (Auto) 0.75 H Eos # (Auto) 0.03 Baso # (Auto) 0.01 Immature Gran # (Auto) 0.03 H Sodium 138 Potassium 4.3 Chloride 105 Carbon Dioxide 27 Anion Gap 6.0 BUN 24 H Creatinine 0.78 Est Cr Clr Drug Dosing 61.6 Est GFR ( Amer) 92.8 Est GFR (Non-Af Amer) 80.0 BUN/Creatinine Ratio 30.6 H Glucose 94 Calcium 8.9 Phosphorus 3.1 Magnesium 2.3 Total Bilirubin 0.7 AST 34 ALT 55 Alkaline Phosphatase 92 Total Protein 6.9 Albumin 3.0 L Globulin 3.9 Albumin/Globulin Ratio 0.8 L TSH 7.940 H Free T4 1.13 Lyme Disease IgG Ab Negative Lyme Disease IgM Ab Negative PG Care Time/CCT Total # of Minutes Spent Total Time Spent with Patient: Total time spent is greater than 50% in coordination of care (as documented) at patient's floor/unit and/or counseling patient: Coding Level of Care Code 98935 Subseq Hosp Care Lvl 3 Diagnoses 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 I49.5 Syncope R55 Syncope type: unspecified Bradycardia R00.1 A-fib I48.91 Atrial fibrillation type: unspecified Chronic diastolic CHF (congestive heart failure) I50.32 Urinary retention R33.9 CVA (cerebrovascular accident) I63.9 CVA mechanism: unspecified Hyperlipidemia E78.5 Hypertension I10 Hypertension type: essential hypertension Hypothyroidism E03.9 DVT prophylaxis Z29.9 (1) A-fib Atrial fibrillation type: unspecified Qualified Code(s): I48.91 - Unspecified atrial fibrillation (2) Syncope Syncope type: unspecified Qualified Code(s): R55 - Syncope and collapse (3) Hypertension Hypertension type: essential hypertension Qualified Code(s): I10 - Essential (primary) hypertension (4) CVA (cerebrovascular accident) CVA mechanism: unspecified Qualified Code(s): I63.9 - Cerebral infarction, unspecified
[2021-03-28] MEDS: ceFAZolin 1000MG 1,000 MG/7.5 ML SYR IV SCH ×2 (06:08→14:56)
[2021-03-28] MEDS: LEVOTHYROXINE SODIUM 25 MCG TABLET PO SCH (06:13)
[2021-03-28 07:06] LABS: BUN Creatinine Ratio 29.5 (10-20); Calcium 8.4 mg/dl (8.5-10.1); Creatinine Clr Calc Pharmacy 67.8 ml/min; Est GFR (Non-African American) 83.7 ml/min; Potassium 4.4 mmol/L (3.5-5.1)
[2021-03-28 07:16] LABS: Lyme Ab IgG w/WB Rflx Negative (Negative); Lyme Ab IgM w/WB Rflx Negative (Negative)
[2021-03-28] MEDS: DOCUSATE SODIUM 100 MG CAP PO SCH ×2 (08:14→21:13)
[2021-03-28] MEDS: ATORVASTATIN 40 MG TAB PO SCH (08:14)
[2021-03-28] MEDS: ASPIRIN 81 MG ECTAB PO SCH (08:14)
[2021-03-28] MEDS: CHOLECALCIFEROL 1,000 UNITS 25 MCG TAB PO SCH (08:14)
[2021-03-28] MEDS: ESCITALOPRAM OXALATE 10 MG TAB PO SCH (08:15)
[2021-03-28] MEDS: FLUTICASONE PROPIONATE NA SPR 16 GM BTL SCH (08:15)
[2021-03-28] MEDS: LOSARTAN POTASSIUM 50 MG TAB PO SCH ×2 (08:15→21:13)
[2021-03-28] MEDS: HEPARIN SOD 5,000 UNIT/0.5 ML VIAL SQ SCH ×2 (08:15→21:13)
--- NOTE | 2021-03-28 09:19 | Cardiology Progress Note ---
Date of Service March 28, 2021 Assessment & Plan (1) Bradycardia: Successful implantation of dual-chamber permanent pacemaker yesterday without evident complication. From the standpoint he would be stable for discharge. He should keep the wound dry in the Steri-Strips intact for 5 days. I will schedule him an appointment in our clinic for wound evaluation around that time. He should refrain from lifting right arm above the shoulder behind the neck for 6 weeks. Admission and Anticipated Discharge Date Admission Date: March 27, 2021 Subjective This morning the patient claims to be feeling well . He describes minimal discomfort at the implant site. No sense of palpitations. Review of Systems Review of Systems: Per HPI Physical Exam Physical Exam: Evaluation of the device implant site revealed some mild ecchymosis. No significant hematoma. No drainage or significant erythema. Results & Data ([facility]) Vital Signs (Past 12 Hours) Vital Signs Temp Pulse Resp BP Pulse Ox 03/28/21 07:49 36.3 C L 60 18 157/72 H 98 03/28/21 04:00 36.4 C L 62 16 149/91 H 93 03/28/21 00:00 36.6 C 60 18 128/63 97 Laboratory Results Abnormal Lab Results 03/28/21 03/28/21 05:59 05:59 Sodium 137 Potassium 4.4 Chloride 105 Carbon Dioxide 26 Anion Gap 6.0 BUN 21 H Creatinine 0.70 Est Cr Clr Drug Dosing 67.8 Est GFR ( Amer) 97.0 Est GFR (Non-Af Amer) 83.7 BUN/Creatinine Ratio 29.5 H Glucose 83 Calcium 8.4 L Lyme Disease IgG Ab Negative Lyme Disease IgM Ab Negative Diagnostic Findings Chest x-ray demonstrates stable lead position without pneumothorax I performed a complete device interrogation which revealed normal device function on both atrial and ventricular leads.
--- NOTE | 2021-03-28 09:19 | XRay Report ---
TWO VIEW CHEST CLINICAL HISTORY: Pacemaker implantation. FINDINGS: PA and lateral chest radiographs are compared to chest x-ray and chest CT dated 03/26/2021. T he PA view is degraded by patient rotation. A 2-lead cardiac pacemaker has been placed and partially obscures the right upper chest. Leads project over the right atrial appendage and the right ventricle . The heart is enlarged noting atherosclerotic calcification and uncoiling of the thoracic aorta. The pulmonary vasculature is noncongested. Chronic interstitial thickening is similar to previous. There is elevation of the right hemidiaphragm with bibasilar scarring/atelectasis. No airspace consolidati on or large pleural effusion is identified. No pneumothorax is seen. The skeletal structures are oste openic. There are numerous healed bilateral rib fractures. Degenerative change is seen throughout the thoracic spine. IMPRESSION: 1. A 2-lead cardiac pacemaker has been placed as above. No pneumothorax is identified post procedure. 2. Cardiomegaly without radiographic evidence of congestive failure. 3. No airspace consolidation or large pleural effusion is identified. ACT 112: Negative or not required by law. Electronically signed by: Vinay Castillo M.D. 03/28/2021 9:18 AM
--- NOTE | 2021-03-28 20:37 | Hospitalist Progress Note ---
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 SSS / SA node dysfunction likely cause of syncopal episode. TSH mildly high but not the cause of bradycardia. Lyme test negative. No near-syncope or syncope since admission. CXR today w/o pneumothorax or infiltrates. (2) Syncope: Likely due to above. (3) Bradycardia: s/p pacer resolved (4) A-fib: During hospital stay in February there was concern for PAF. However, Dr Fonseca consulted then and felt he was having sinus bradycardia with atrial ectopy. Was not felt to be having a.fib. Thus, anticoagulation deferred. Continue telemetry. (5) Chronic diastolic CHF (congestive heart failure): Compensated at this time. 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 on yesterday's exam also right basal ganglia CVA during same admission left-sided weakness 2nd to such PT, OT cont asa for secondary prevention (8) Hyperlipidemia: cont statin (9) Hypertension: acceptable readings at this time (10) Hypothyroidism: TSH 04/2020 and this admission both high c/w hypothyroidism in light of bradycardia, his age, etc he would benefit from replacement started 25mcg of synthroid recheck TSH 6 weeks (11) DVT prophylaxis: heparin 5000 BID updated pt's daughter by phone this evening again d/c to [facility] tomorrow if stable Admission and Anticipated Discharge Date Admission Date: March 27, 2021 Subjective no events overnight eating well minimal discomfort over pacer site no bleeding from pacer site henry remains in place patient w/o complaints during the visit he recalls having gotten the pacemaker tele overnight - mainly pacing; otherwise NSR or SB Review of Systems Respiratory: no cough and no dyspnea Cardiovascular: no chest pain Gastrointestinal: no abdominal pain, no nausea and no vomiting Physical Exam Constitutional: + altered mental status (mild) and + frail appearing; no acute distress hearing impaired ENMT: external ear and nose normal, oropharynx normal Respiratory: normal respiratory effort, lungs clear to auscultation Cardiovascular: Rate/Rhythm: regular rate and regular rhythm Heart Sounds: normal S1 and normal S2; no murmur Vessels: posterior tibial pulses present and dorsalis pedis pulses present; no JVD Extremities: no edema Gastrointestinal (Abdomen): normal bowel sounds, soft, nontender, no hepatosplenomegaly Musculoskeletal: hand deformity right hand - congenital Neurologic: strength LUE/LLE - about 4-5/5; RUE/RLE - 5/5; speech clear Psychiatric: Orientation: alert, oriented to person and oriented to place; + not oriented to time Results & Data Results & Data ([facility]) Vital Signs (Past 12 Hours) Vital Signs Temp Pulse Resp BP Pulse Ox 03/28/21 19:28 36.4 C L 59 L 19 149/64 H 96 03/28/21 14:59 36.7 C 61 16 137/66 95 03/28/21 11:15 36.4 C L 62 16 131/61 96 Laboratory Results Laboratory Results - last 24 hr 03/28/21 03/28/21 05:59 05:59 Sodium 137 Potassium 4.4 Chloride 105 Carbon Dioxide 26 Anion Gap 6.0 BUN 21 H Creatinine 0.70 Est Cr Clr Drug Dosing 67.8 Est GFR ( Amer) 97.0 Est GFR (Non-Af Amer) 83.7 BUN/Creatinine Ratio 29.5 H Glucose 83 Calcium 8.4 L Lyme Disease IgG Ab Negative Lyme Disease IgM Ab Negative urine cx negative from admission PG Care Time/CCT Total # of Minutes Spent Total Time Spent with Patient: Total time spent is greater than 50% in coordination of care (as documented) at patient's floor/unit and/or counseling patient: Coding Level of Care Code 15461 Subseq Hosp Care Lvl 2 Diagnoses 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 I49.5 Syncope R55 Syncope type: unspecified Bradycardia R00.1 A-fib I48.91 Atrial fibrillation type: unspecified Chronic diastolic CHF (congestive heart failure) I50.32 Urinary retention R33.9 CVA (cerebrovascular accident) I63.9 CVA mechanism: unspecified Hyperlipidemia E78.5 Hypertension I10 Hypertension type: essential hypertension Hypothyroidism E03.9 DVT prophylaxis Z29.9 (1) A-fib Atrial fibrillation type: unspecified Qualified Code(s): I48.91 - Unspecified atrial fibrillation (2) Syncope Syncope type: unspecified Qualified Code(s): R55 - Syncope and collapse (3) Hypertension Hypertension type: essential hypertension Qualified Code(s): I10 - Essential (primary) hypertension (4) CVA (cerebrovascular accident) CVA mechanism: unspecified Qualified Code(s): I63.9 - Cerebral infarction, unspecified
[2021-03-28] MEDS: TAMSULOSIN HCL 0.4 MG CAP PO SCH (21:13)
[2021-03-29] MEDS: LEVOTHYROXINE SODIUM 25 MCG TABLET PO SCH (05:19)
[2021-03-29] MEDS: HEPARIN SOD 5,000 UNIT/0.5 ML VIAL SQ SCH (10:23)
[2021-03-29] MEDS: DOCUSATE SODIUM 100 MG CAP PO SCH (10:24)
[2021-03-29] MEDS: CHOLECALCIFEROL 1,000 UNITS 25 MCG TAB PO SCH (10:25)
[2021-03-29] MEDS: ASPIRIN 81 MG ECTAB PO SCH (10:25)
[2021-03-29] MEDS: FLUTICASONE PROPIONATE NA SPR 16 GM BTL SCH (10:25)
[2021-03-29] MEDS: ESCITALOPRAM OXALATE 10 MG TAB PO SCH (10:25)
[2021-03-29] MEDS: ATORVASTATIN 40 MG TAB PO SCH (10:25)
[2021-03-29] MEDS: LOSARTAN POTASSIUM 50 MG TAB PO SCH (10:26)
--- NOTE | 2021-03-29 13:09 | Discharge Summary ---
Date of Service date of admission - March 27, 2021 date of discharge - March 29, 2021 Admission HPI Per Admitting Provider Stevan Madrid is an 89 yo male with PMHx significant for recent R RHEUMATOLOGY NURSE CVA (admitted from 03/07-03/11 at [facility] for this), h/o brain aneurysm (s/p clipping ~20 years ago), chronic diastolic CHF, atrial fibrillation (was on Timolol but held at discharge on 03/11 for bradycardia, no anti-coagulation), urinary retention (discharged with henry in place), HTN and HLD who presented to [facility] on 03/26 for unresponsiveness for several seconds. Patient's came to visit him at [facility] rehab and reports that he became confused and lethargic, and then "passed out" for a few seconds. I spoke with the patient's daughter, Geovanna Rucker, who was also present during the patient's event - she reports that the patient has been at baseline confusion since his CVA and was not more confused before today's event. She says that he closed his eyes and remained unresponsive to name or touch for several minutes, and his extremities became cold. Nursing staff came in and, per ivette jackson's daughter's report, found that the patient had an irregular heart beat. Patient's daughter denies seizure-like activity and says patient had quick return to baseline after event. In the ED, the patient was bradycardic to the 40s but otherwise hemodynamically stable on RA. Laboratory evaluation with CBC, CMP, Troponin, Lipase and D-dimer was largely unremarkable other than elevated D-dimer at 1600 - f/u CTA chest without evidence for PE or pulmonary abnormalities. CT head w/o contrast showed subacute/evolving right occipital lobe infarct which was also seen on 03/09/2021 (consistent with recent CVA). Principal Diagnosis SSS / Sinoatrial dysfunction leading to syncope - s/p pacemaker placement Discharge Exam Constitutional + altered mental status and + frail appearing; no acute distress ENMT external ear and nose normal, oropharynx normal Respiratory normal respiratory effort, lungs clear to auscultation Cardiovascular Rate/Rhythm: regular rate and regular rhythm Heart Sounds: normal S1 and normal S2; no murmur Vessels: posterior tibial pulses present and dorsalis pedis pulses present; no JVD Extremities: no edema Gastrointestinal (Abdomen) normal bowel sounds, soft, nontender, no hepatosplenomegaly Skin pacemaker site upper chest clean/dry/no pocket hematoma; steri strips intact Neurologic large visual field cut on left; mild left-sided weakness Psychiatric Orientation: alert and oriented to person; + not oriented to place and + not oriented to time Discharge Data Allergies Allergy/AdvReac Type Severity Reaction Status Date / Time Penicillins Allergy Unknown UNKNOWN Verified 03/26/21 18:17 morphine AdvReac Severe HALLICINATIONS, Verified 03/26/21 18:17 BEHAVIOR CHANGES Consultations [facility] Procedures Performed Operation Date: 03/27/21 13:30 Actual Procedures p Pacer with A/V Leads (Dual) - Domingo Fonseca MD Ordered Studies Chest CTA 03/26/21 16:58 CT ANGIOGRAM OF THE CHEST CLINICAL HISTORY: Syncope. Hypoxia. COMPARISON STUDY: Chest x-ray dated 03/26/2021. Chest CT dated 03/07/2021. TECHNIQUE: Following the IV administration of 120 cc of Optiray 320, CT angiogram of the chest was performed from the upper abdomen to the thoracic inlet utilizing the pulmonary embolus protocol. Images are reviewed in the axial, sagittal, and coronal planes. 3-D MIPS images are created and assessed. IV contrast was administered without complication. A dose lowering technique was utilized adhering to the principles of ALARA. There is motion artifact, as well as streak artifact from the arms which could not be elevated above the chest. FINDINGS: Thyroid: Imaged portions of the thyroid gland are normal in size and attenuation. Thoracic aorta: There is advanced atherosclerotic calcification of the thoracic aorta. There is aneurysmal dilatation of the descending thoracic aorta just above the esophageal hiatus. This measures up to 4.2 cm seen on image #32. The remainder of the thoracic aorta Is normal in caliber, and the arch demonstrates bovine variant anatomy. No dissection is seen. Pulmonary vasculature: The pulmonary trunk is normal in caliber. There are no filling defects identified in main, lobar, or proximal segmental pulmonary branches to suggest pulmonary embolus. Evaluation of the peripheral branches is degraded by motion artifact. Foci of parenchymal scarring are scattered throughout both lungs. Heart: The heart is enlarged and and without pericardial effusion. The coronary arteries are densely calcified. Lungs and pleural spaces: Evaluation of the lung parenchyma is compromised by motion artifact. Secretions are noted in the trachea. There is no airspace consolidation typical for pneumonia or pleural effusion. Scattered calcified granulomas are observed. Mediastinum: There is no mediastinal lymphadenopathy. There are calcified subcarinal nodes. Evelin: Clear. Axillae: There is no axillary lymphadenopathy. Upper abdomen: There is a 1.4 cm right lobe hepatic cyst. A tiny hiatal hernia is noted. Skeletal structures: The skeletal structures are osteopenic. Degenerative change is noted in the shoulders and thoracic spine. There are numerous healed bilateral rib fractures. No lytic or blastic bony lesions are seen. There is a chronic compression deformity of T12. IMPRESSION: 1. Streak and motion degraded examination. 2. There is no evidence of pulmonary embolus in the main, lobar, or proximal segmental pulmonary arteries. 3. Cardiomegaly. 4. There is no airspace consolidation or pleural effusion. 5. Additional findings as above. ACT 112: Negative or not required by law. Electronically signed by: Vinay Castillo M.D. 03/26/2021 6:44 PM Chest X-Ray 03/26/21 16:58 XR chest 1V portable HISTORY: 89 years-old Male sob syncope acute shortness of breath with syncope COMPARISON: None TECHNIQUE: Portable AP view the chest FINDINGS: Cardiac silhouette is enlarged. Calcified plaque the thoracic aorta. No pneum othorax, large pleural effusion or overt pulmonary edema. Moderate hemidiaphragmatic elevation. Extrapulmonary opacity of the lateral mid right hemithorax measures up to approximately 6.5 cm in length.. Degenerative changes of the shoulders and spine. IMPRESSION: 1. Cardiomegaly without acute process. 2. 6.5 cm opacity of the lateral right hemithorax may be projectional or represent a pleural-based lesion. Correlation with the ordered CTA chest study of same day recommended. ACT 112: Negative or not required by law. The above report was generated using voice recognition software. It may contain grammatical, syntax or spelling errors. Electronically signed by: Rashid Vu M.D. 03/26/2021 5:[address] 03/26/21 16:58 CT SCAN OF THE BRAIN WITHOUT IV CONTRAST CLINICAL HISTORY: Syncope. COMPARISON STUDY: CT of the brain dated 03/09/2021. TECHNIQUE: Unenhanced axial CT scan of the brain is performed from the vertex to the skull base. A dose lowering technique was utilized adhering to the principles of ALARA. CT DOSE: 1108.93 mGy.cm FINDINGS: Brain parenchyma: Loss of bradford-white matter differentiation is again seen in the right occipital lobe consistent with an evolving infarct. There are age-related involutional changes noting moderate to advanced subcortical and periventricular microangiopathic change. Foci of bifrontal and right parieto- occipital encephalomalacia are unchanged and consistent with remote insults. A chronic lacunar infarct is noted in the right basal ganglia. Chronic infarcts are also noted in both cerebellar hemispheres. Postoperative change is noted in the anterior right temporal fossa. There is no hemorrhage, mass effect, or evidence of acute territorial ischemia by CT criteria. No extra-axial fluid collection is seen. Ventricles, sulci, cisterns: Prominent secondary to involutional change. Intracranial vasculature: There is atherosclerotic calcification of the cavernous carotid and vertebral arteries. Calvarium: There is postoperative change from right-sided craniotomy. No destructive calvarial lesion is identified. Sinuses and mastoids: The paranasal sinuses are clear. The mastoid air cells are well pneumatized. Orbits: The bony orbits are grossly intact. IMPRESSION: 1. There is a subacute/evolving right occipital lobe infarct. This was also seen on 03/09/2021 2. Additional chronic and postoperative changes as above with no hemorrhage, mass effect, or evidence of acute territorial ischemia by CT criteria. ACT 112: Negative or not required by law. Electronically signed by: Vinay Castillo M.D. 03/26/2021 6:35 PM Chest X-Ray 03/28/21 07:00 TWO VIEW CHEST CLINICAL HISTORY: Pacemaker implantation. FINDINGS: PA and lateral chest radiographs are compared to chest x-ray and chest CT dated 03/26/2021. The PA view is degraded by patient rotation. A 2-lead cardiac pacemaker has been placed and partially obscures the right upper chest. Leads project over the right atrial appendage and the right ventricle. The heart is enlarged noting atherosclerotic calcification and uncoiling of the thoracic aorta. The pulmonary vasculature is noncongested. Chronic interstitial thickening is similar to previous. There is elevation of the right hemidiaphragm with bibasilar scarring/atelectasis. No airspace consolidation or large pleural effusion is identified. No pneumothorax is seen. The skeletal structures are osteopenic. There are numerous healed bilateral rib fractures. Degenerative change is seen throughout the thoracic spine. IMPRESSION: 1. A 2-lead cardiac pacemaker has been placed as above. No pneumothorax is identified post procedure. 2. Cardiomegaly without radiographic evidence of congestive failure. 3. No airspace consolidation or large pleural effusion is identified. ACT 112: Negative or not required by law. Electronically signed by: Vinay Castillo M.D. 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 Significant bradycardia was documented at [facility] when the syncopal episode happened, and additional bradycardia was seen on telemetry at [facility] upon admission. Dr Domingo Fonseca saw patient in consult. s/p Permanent pacemaker placement - 03/27/2021. Procedure was completed without pneumothorax or other incident. TSH mildly high but very unlikely to be the cause of his bradycardia. Lyme test was negative. Following pacemaker placement he was paced much of the time on monitoring. Operative site is clean/dry at time of discharge. He will f/u with Dr Fonseca in the EP clinic within a week of hospital discharge for pacer check. (2) Syncope: Likely due to above. (3) Bradycardia: SA node dysfunction. s/p permanent pacemaker placement this admission. See above. (4) A-fib: During hospital stay in February when he had had a stroke there was concern for PAF. However, Dr Domingo Fonseca was consulted then and he felt that he was having sinus bradycardia with atrial ectopy rather than a.fib. Thus, anticoagulation deferred. Telemetry this admission failed to showed a.fib either. (5) Chronic diastolic CHF (congestive heart failure): Compensated during the admission. (6) Urinary retention: no issues while here. patient had had a henry placed in February during his admission for stroke. (henry placed 03/09/21) henry has been in place since then. he remains on flomax certainly flomax can cause orthostasis, but the pt's syncopal episode was at rest; thus, doubt orthostasis (or flomax indirectly) induced his syncope. he will need a spontaneous voiding trial within 2-3 days upon return to [facility]. if voiding is unsuccessful then refer to [facility] [place] for management. 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 for ongoing rehabbing (8) Hyperlipidemia: cont statin (9) Hypertension: acceptable readings during the hospital stay with low-dose losartan (10) Hypothyroidism: TSH 04/2020 and this admission both high c/w hypothyroidism in light of bradycardia, his age, etc he would benefit from replacement started 25mcg of synthroid this admission recheck TSH 6 weeks as outpatient (11) Encephalopathy acute: mild confusion noted intermittently during the hospitalization apparently has had such since his stroke in February continue supportive care Total Time Total Time Spent Total Time Spent (In Minutes): 40 Total Time Includes: Examination of the Patient, Discharge Planning and Medication Reconciliation Discharge Plan Discharge Items Patient Disposition: Transfer Inpatient Rehab Fac Reason For Visit: Episode of syncope Discharge Diagnosis: 1. episode of syncope/passing out/unresponsiveness - likely due to severe bradycardia from sick sinus syndrome/SA node dysfunction s/p pacemaker insertion 03/27/[address] Domingo Fonseca 2. recent stroke x 2 (right occipital lobe, and right mendoza radiata/basal ganglia) 3. left-sided visual field deficits due to his right occipital lobe stroke 4. recent urinary retention during prior hospital stay in February - s/p henry insertion 03/09/21; recommend trial of spontaneous voiding at [facility] within 2- 3 days. If still unable to void spontaneously then place new henry and advise UROLOGY referral with [facility] 5. newly diagnosed mild hypothyroidism Activity: Per Instructions section Non-emergency contact: Primary Care Provider and Test Conductor Call non-emergency contact if: you have any medication questions, your wound has increased redness, your wound has increased drainage and your wound pain has increased Follow-up/Referrals: Dave Rubin MD [Physician] - (2 weeks; Dr Rubin or any of his partners; lamin gnosis - recent multiple strokes) Ian Fonseca MD [Physician] - (see Dr Fonseca in 3-4 days for pacemaker check ) Radha Leon MD [Primary Care Provider] - (within 1 week of discharge from [facility] ) Edwin Finnegan MD [Physician] - (due to the nature of his recent right- sided occipital lobe stroke he needs full eye exam - first available appointment please ) Diet: Heart Healthy Addtl Attending Provider Instructions: 1. CBC, BMP in 2-3 days for stability. 2. TSH in 6 weeks due to newly diagnosed hypothyroidism. 3. see below re: pacemaker instructions. Addtl Template Cutter Provider Instructions: ACTIVITY RECOMMENDATIONS following pacemaker insertion - * Do not raise the RIGHT arm over head, behind the neck, or behind the back for 6 weeks. SPECIAL CARE INSTRUCTIONS: * If bleeding occurs, apply direct pressure to area for 5 minutes. * Call your doctor if you have severe pain, fever, drainage or bleeding at site. * Keep steri strips in place until seen by Dr Fonseca * Keep any scheduled doctor's appointment. * Implant Card - hand held device with website information given. * Sponge baths only until seen by Dr Fonseca; keep pacemaker site area clean, dry SKIN IRRITATION: * You may experience some redness and/or swelling in the area where radiation was administered. If any skin irritation occurs, please contact your family physician. FOLLOW UP VISIT: Keep any scheduled doctor appointments. Pending Studies at Discharge: No Stand-Alone Forms: My [facility] Skilled Items Patient informed of condition?: Yes DNR: No Discharge Level of Care: Acute rehab Communicable Disease: No Discharge Prognosis: Stable Lines: None Urinary Catheter: Yes Medications and DC Order Prescriptions: New levothyroxine [Synthroid] 25 mcg Tablet 25 mcg PO DAILYBB Qty: 30 RF: 2 Continued Herbal Prostate Suppliment 1 tab PO DAILY RF: 0 tamsulosin 0.4 mg capsule 0.4 mg PO HS Qty: 1 RF: 0 losartan 50 mg tablet 50 mg PO Q12 RF: 0 latanoprost 0.005 % Drops 1 drp OPR HS RF: 0 atorvastatin 80 mg Tablet 80 mg PO QAM RF: 0 aspirin [Aspirin Low Dose] 81 mg Tablet,Delayed Release (Dr/Ec) 81 mg PO DAILY RF: 0 cholecalciferol (vitamin D3) [Vitamin D3] 25 mcg (1,000 unit) Tablet 25 mcg PO DAILY RF: 0 acetaminophen 325 mg Tablet 650 mg PO Q4 PRN (Reason: Pain) RF: 0 sennosides-docusate sodium [Senokot-S] 8.6-50 mg Tablet 1 tab-cap PO .Q LUNCH PRN (Reason: Constipation) RF: 0 docusate sodium 100 mg Capsule 100 mg PO BID RF: 0 polyethylene glycol 3350 [Miralax] 17 gram/dose Powder 17 g PO . Q LUNCH PRN (Reason: Constipation) RF: 0 fluticasone propionate 50 mcg/actuation [place],Suspension 2 spray INTRANASAL DAILY RF: 0 heparin (porcine) 5,000 unit/mL Solution 5,000 unit SUBCUT Q12H RF: 0 escitalopram oxalate [Lexapro] 5 mg Tablet 5 mg PO DAILY RF: 0 Discharge Orders: Discharge Order (Routine); Ordered 03/29/21 Ordered By: Felice Lawson Admission Data Admit Date/Time: 03/27/21 16:59 Attending Provider: Felice Lawson Admit Provider: Ry Matthews Primary Care Provider: Radha Leon Other Providers: Bakari Herrera ; Ian Fonseca ; [facility] Other Interventions: Discharge Summary Assessment (RN) Last Done: 03/29/21 13:13 Coding Level of Care Code D/C Day Management >30 mins Diagnoses 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
== END 2021-03-29 13:40 | DRG 243 ==
LOC: EDBD → ED 16:26 → MERGE 16:26 → 2S 16:26 → SUATTDRO 20:39 → 2S 23:02

== ENCOUNTER 2021-04-11 09:03 | Inpatient (IN) ==
--- NOTE | 2021-04-11 09:13 | Emergency Department Note ---
Impression & Plan Syncope, Altered mental status, Acute UTI ED Provider Note NAME: WADE BROWN AGE: 89 SEX: M : 1930 ARRIVES VIA: Ambulance INFORMANT: Patient, EMS, family ED PROVIDER(S): Tyson Moseley MD CHIEF COMPLAINT: syncope, altered mental status HPI: This is an 89-year-old male who presents emergency department complaining of altered mental status. The patient has had a complicated recent medical history of a CVA along with a pacemaker placed approximately 2 weeks ago. EMS reports that the patient was on the toilet today when he had a sudden vasovagal episode. EMS then attempted to ambulate the patient however the patient syncopized yet again. Patient was lowered to the ground by family as well as EMS and everyone denies the patient hitting his head. EMS reports that the patient was originally hypotensive. They gave 500 cc normal saline bolus in route. On arrival to the emergency department the patient arrives on a Duran letter and is in no distress. The patient denies any pain. The syncopal episode was less than 1 h ago. Patient knows that he is in the hospital however does not know the day of the week. ROS: See above HPI for pertinent positives & negatives. A total of 10 systems reviewed and were otherwise negative. PAST MEDICAL HISTORY: See Below PAST SURGICAL HISTORY: See Below FAMILY HISTORY: See Below SOCIAL HISTORY: See Below HOME MEDICATIONS: See Below ALLERGIES: See Below VITALS: See Below PHYSICAL EXAMINATION: VITAL SIGNS - Vital signs and nursing notes were reviewed. GENERAL - 89-year-old male appearing stated age who is in no acute distress. Knows he is in the hospital however does not know the day or the day of the week SKIN - Without rashes. HEAD - NC/AT. EYES - PERRL with EOMI bilaterally. Sclera anicteric. Palpebral conjunctiva pink and moist with no injection noted. EARS - No deformities of external structures noted on gross examination bilaterally. NOSE - Midline and without cyanosis. No epistaxis or purulent drainage noted. Septum midline without deviation or septal hematoma noted. MOUTH/OROPHARYNX - Without perioral cyanosis. Buccal mucosa pink and moist and without leukoplakia. Tongue midline with equal elevation of palate bilaterally. No tonsillar hypertrophy, erythema, or exudates noted. NECK - Neck with FROM. Supple to palpation. No nuchal rigidity. LUNGS - Chest wall symmetric without accessory muscle use, intercostals retractions, or central cyanosis. Normal vesicular breath sounds CTA B/L. No wheezes, rales, or rhonchi appreciated. CARDIAC - RRR with S1/S2. No murmur, rubs, or gallops appreciated. ABDOMEN - Abdominal contour without pulsations or visible masses. BS normoactive all four quadrants. No tenderness, palpable masses, hepatosplenomegaly, or ascites noted. 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 Sensory intact to light touch throughout. MEDICAL DECISION MAKING: Patient was seen and evaluated as above in room A3. Review was performed of nursing notes and vital signs. I did review pertinent previous visits and patient history. After obtaining a thorough history and physical examination the above work up was performed. This is 89-year-old male who passed out multiple times today. In addition the patient is also somewhat hypotensive when he arrives to the emergency department. He was given a normal saline bolus here in the emergency department and started on Rocephin for urinary tract infection. He was sent for CAT scan of the head which is showing multiple old infarcts. Chest x-ray does not show any evidence of pneumonia. Patient himself does not have an elevation in his white blood cell count. Due to the patient's weakness I did discuss the case with the hospitalist service who did agree to admit the patient. An order was placed for continuous cardiac monitoring. The monitor shows a rate of 89 with paced rhythm. The patient was evaluated during a period of high volume and high acuity during the global COVID-19 pandemic, and that diagnosis was suspected/considered upon their initial presentation. Their evaluation, treatment and testing was consistent with current guidelines for patients who present with complaints or symptoms that may be related to COVID-19. Patient was seen while provider was wearing PPE. Triage Nursing notes reviewed. Prior medical records reviewed Vital Signs: reviewed and remarkable for no significant abnormalities Differential diagnosis: Vasovagal event, dehydration, infection, hypoglycemia, electrolyte abnormalities, cardiac sources, intracerebral event, pulmonary embolism, seizure, toxicologic, neurologic, as well as other pathologies. ER treatment provided: See below Diagnostics interpreted by me: ECG: Sinus rhythm with first-degree AV block with occasional PVC possible anterior infarct no ST elevation or depression QTC is 450 ventricular rate of 68 EKG is compared to 03/26/2021 PVCs are now present Laboratory studies: As stated above and show below. Imaging studies: See below Consultation(s): Internal Medicine Past Med/Surg History Medical History Ambulatory dysfunction Aortic root dilatation Ataxia Blind left eye Brain aneurysm Chronic arterial ischemic stroke, multifocal, multiple vascular territories CVA (cerebrovascular accident) Dizziness Fall Hyperlipidemia Hypertension Hypertensive urgency Prediabetes Syncope Surgical History Hx of total knee replacement S/P hernia repair Family History Other Breast cancer Denies family history of Ovarian cancer Prostate cancer Myocardial infarction Colorectal cancer Social History Smoking Status: Never smoker Second Hand Exposure: No; Hx Alcohol Use: No Hx Substance Use: No Preferred Language: Uzbek Communication Ability: Effective Visual Impairment: No Limitations 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 Art Required: No Beliefs That Will Affect Care: None marital status: Current Living Situation: Spouse current occupational status: retired Feels Safe at Home: Yes caffeine: Yes during the past year weight has: remained stable Dental Care, Regularly: Yes Physical Activity Frequency: 1-2 Times per Week Seatbelt Use: always Sunscreen Use: Yes Gender Identity: Male Assistive Devices: Hearing Aid - Bilateral and Walker Allergies Allergies Allergy/AdvReac Type Severity Reaction Status Date / Time Penicillins Allergy Unknown UNKNOWN Verified 04/11/21 10:11 morphine AdvReac Severe HALLICINATIONS, Verified 04/11/21 10:11 BEHAVIOR CHANGES Home Meds Home Medications Medication Instructions Recorded Confirmed acetaminophen 650 mg PO Q4 PRN 03/26/21 04/11/21 aspirin [Aspirin Low Dose] 81 mg PO QAM 03/26/21 04/11/21 atorvastatin 80 mg PO QAM 03/26/21 04/11/21 cholecalciferol (vitamin D3) 25 mcg PO QAM 03/26/21 04/11/21 [Vitamin D3] docusate sodium 100 mg PO BID 03/26/21 04/11/21 escitalopram oxalate [Lexapro] 5 mg PO QAM 03/26/21 04/11/21 fluticasone propionate 2 spray INTRANASAL QAM 03/26/21 04/11/21 latanoprost 1 drp OPR HS 03/26/21 04/11/21 losartan 50 mg PO Q12 03/26/21 04/11/21 nystatin 1 applic TOPICAL DAILY PRN 04/11/21 04/11/21 sulfamethoxazole-trimethoprim 1 tab PO BID 04/11/21 04/11/21 [Bactrim DS] Previous Rx's Medication Instructions Recorded tamsulosin 0.4 mg PO HS #1 cap 03/11/21 levothyroxine [Synthroid] 25 mcg PO DAILYBB #30 tab 03/29/21 Results & Data (ED) Vital Signs Vital Signs - 24 hr 04/11/21 09:03 04/11/21 09:05 04/11/21 09:10 Temperature 36.5 C Temperature Source Oral Pulse Rate 70 Pulse Rate [Right Finger] Pulse Rate from SpO2 Sensor Respiratory Rate 14 Respiratory Effort / Characteristics Non-Labored Respiratory Depth Normal Blood Pressure 145/59 H Blood Pressure [Right Arm] Blood Pressure Mean 87 Blood Pressure Mean [Right Arm] Pulse Oximetry 91 88 L Oxygen Delivery Method Room Air Nasal Cannula Nasal Cannula Oxygen Flow Rate 2 2 Sepsis Recent Fever Within 48 Hours No Sepsis New/Unexplained Change in Mental Status N/A Sepsis Action Taken by Nursing No Action Required Pulse Oximetry Post Tiitration 92 04/11/21 09:13 04/11/21 09:17 04/11/21 09:37 Temperature Temperature Source Pulse Rate 70 60 Pulse Rate [Right Finger] 64 Pulse Rate from SpO2 Sensor 60 Respiratory Rate 14 20 20 Respiratory Effort / Characteristics Respiratory Depth Blood Pressure 141/61 H Blood Pressure [Right Arm] 157/76 H Blood Pressure Mean 87 Blood Pressure Mean [Right Arm] 103 Pulse Oximetry 91 93 96 Oxygen Delivery Method Room Air Nasal Cannula Oxygen Flow Rate 2 Sepsis Recent Fever Within 48 Hours Sepsis New/Unexplained Change in Mental Status Sepsis Action Taken by Nursing Pulse Oximetry Post Tiitration 04/11/21 09:41 04/11/21 09:45 04/11/21 10:01 Temperature Temperature Source Pulse Rate 60 60 60 Pulse Rate [Right Finger] Pulse Rate from SpO2 Sensor 60 60 60 Respiratory Rate 20 19 16 Respiratory Effort / Characteristics Respiratory Depth Blood Pressure 143/75 H 120/51 L 141/63 H Blood Pressure [Right Arm] Blood Pressure Mean 97 74 89 Blood Pressure Mean [Right Arm] Pulse Oximetry 95 96 97 Oxygen Delivery Method Oxygen Flow Rate Sepsis Recent Fever Within 48 Hours Sepsis New/Unexplained Change in Mental Status Sepsis Action Taken by Nursing Pulse Oximetry Post Tiitration 04/11/21 10:15 04/11/21 10:30 04/11/21 10:31 Temperature Temperature Source Pulse Rate 63 61 Pulse Rate [Right Finger] 60 61 Pulse Rate from SpO2 Sensor 66 61 Respiratory Rate 19 14 15 Respiratory Effort / Characteristics Non-Labored Respiratory Depth Normal Normal Blood Pressure 107/56 L 131/51 L Blood Pressure [Right Arm] 107/56 L 131/57 L Blood Pressure Mean 73 77 Blood Pressure Mean [Right Arm] 73 81 Pulse Oximetry 98 96 97 Oxygen Delivery Method Nasal Cannula Nasal Cannula Oxygen Flow Rate 2 2 Sepsis Recent Fever Within 48 Hours Sepsis New/Unexplained Change in Mental Status Sepsis Action Taken by Nursing Pulse Oximetry Post Tiitration 04/11/21 10:45 04/11/21 11:00 04/11/21 11:30 Temperature Temperature Source Pulse Rate 60 60 64 Pulse Rate [Right Finger] Pulse Rate from SpO2 Sensor 60 60 65 Respiratory Rate 18 22 18 Respiratory Effort / Characteristics Respiratory Depth Blood Pressure 153/60 H 139/56 L 109/52 L Blood Pressure [Right Arm] Blood Pressure Mean 91 83 71 Blood Pressure Mean [Right Arm] Pulse Oximetry 98 98 99 Oxygen Delivery Method Oxygen Flow Rate Sepsis Recent Fever Within 48 Hours Sepsis New/Unexplained Change in Mental Status Sepsis Action Taken by Nursing Pulse Oximetry Post Tiitration 04/11/21 11:46 04/11/21 12:01 04/11/21 12:15 Temperature Temperature Source Pulse Rate 64 60 64 Pulse Rate [Right Finger] Pulse Rate from SpO2 Sensor 64 60 64 Respiratory Rate 20 19 19 Respiratory Effort / Characteristics Respiratory Depth Blood Pressure 105/54 L 149/59 H 101/51 L Blood Pressure [Right Arm] Blood Pressure Mean 71 89 67 Blood Pressure Mean [Right Arm] Pulse Oximetry 99 98 99 Oxygen Delivery Method Oxygen Flow Rate Sepsis Recent Fever Within 48 Hours Sepsis New/Unexplained Change in Mental Status Sepsis Action Taken by Nursing Pulse Oximetry Post Tiitration 04/11/21 12:30 Temperature Temperature Source Pulse Rate 63 Pulse Rate [Right Finger] Pulse Rate from SpO2 Sensor 63 Respiratory Rate 19 Respiratory Effort / Characteristics Respiratory Depth Blood Pressure 105/54 L Blood Pressure [Right Arm] Blood Pressure Mean 71 Blood Pressure Mean [Right Arm] Pulse Oximetry 98 Oxygen Delivery Method Oxygen Flow Rate Sepsis Recent Fever Within 48 Hours Sepsis New/Unexplained Change in Mental Status Sepsis Action Taken by Nursing Pulse Oximetry Post Tiitration Home Medications Current Medication List: was personally reviewed by me Laboratory Data Attestation: I reviewed the patient's lab results. Result diagrams: 04/11/21 09:00 04/11/21 09:00 Lab Results 04/11/21 04/11/21 04/11/21 Range/Units 09:00 09:00 09:00 WBC 7.85 (4.8-10.8) K/uL RBC 3.96 L (4.7-6.1) M/uL Hgb 12.2 L (14.0-18.0) g/dL Hct 34.9 L (42-52) % MCV 88.1 (80-100) fL MCH 30.8 (25-34) pg MCHC 35.0 (32-36) g/dL RDW Std Deviation 43.3 (36.4-46.3) fL RDW Coeff of Josh 13.4 (11.5-14.5) % Plt Count 134 (130-400) K/uL MPV 9.1 (7.4-10.4) fL Immature Gran % (Auto) 0.5 % Neut % (Auto) 81.5 % Lymph % (Auto) 8.4 % Hill % (Auto) 8.8 % Eos % (Auto) 0.5 % Baso % (Auto) 0.3 % Neut # (Auto) 6.40 (1.4-6.5) K/uL Lymph # (Auto) 0.66 L (1.2-3.4) K/uL Hill # (Auto) 0.69 H (0.11-0.59) K/uL Eos # (Auto) 0.04 (0-0.5) K/uL Baso # (Auto) 0.02 (0-0.2) K/uL Immature Gran # (Auto) 0.04 H (0.00-0.02) K/uL PT 11.1 (9.0-12.0) Seconds INR 1.1 (0.9-1.1) APTT 26.1 (21.0-31.0) Seconds PTT Ratio 1.0 VBG pH (7.36-7.41) VBG pCO2 (38-50) mmHg VBG pO2 mmHg VBG HCO3 mmol/L VBG O2 Saturation % VBG Base Excess mEq/L Barometric Pressure mm/Hg Sodium 130 L (136-145) mmol/L Potassium 4.2 (3.5-5.1) mmol/L Chloride 99 (98-107) mmol/L Carbon Dioxide 23 (21-32) mmol/L Anion Gap 8.0 (3-11) BUN 30 H (7-18) mg/dl Creatinine 1.38 (0.6-1.4) mg/dl Est Cr Clr Drug Dosing Not Reportable Est GFR ( Amer) 52.2 ml/min Est GFR (Non-Af Amer) 45.0 ml/min BUN/Creatinine Ratio 22.0 H (10-20) Glucose 136 H (70-99) mg/dl Lactate (0.4-2.0) mmol/L Calcium 8.1 L (8.5-10.1) mg/dl Total Bilirubin 0.9 (0.2-1) mg/dl AST 26 (15-37) U/L ALT 43 (12-78) U/L Alkaline Phosphatase 93 (45-117) U/L Total Creatine Kinase 60 (39-308) U/L Troponin I < 0.015 (0-0.045) ng/ml C-Reactive Protein (0-0.29) mg/dl Total Protein 6.4 (6.4-8.2) gm/dl Albumin 3.1 L (3.4-5.0) gm/dl Globulin 3.3 (2.5-4.0) gm/dl Albumin/Globulin Ratio 0.9 (0.9-2) TSH 8.690 H (0.300-4.500) uIu/ml Free T4 1.14 (0.8-1.6) ng/dl Random Cortisol mcg/dl Urine Color Urine Appearance (Clear) Urine pH (4.5-7.5) Ur Specific [place] (1.000-1.030) Urine Protein (Negative) Urine Glucose (UA) (Negative) Urine Ketones (Negative) Urine Blood (Negative) Urine Nitrite (Negative) Urine Bilirubin (Negative) Urine Urobilinogen (Negative) Ur Leukocyte Esterase (Negative) Urine WBC (Auto) (0-5) /hpf Urine RBC (Auto) (0-4) /hpf U Hyaline Cast (Auto) (0-5) /lpf U Epithel Cells (Auto) (0-5) /lpf Urine Bacteria (Auto) (Negative) Urine Yeast (None Prsent) COVID-19 Eval Order SARS-CoV-2 (PCR) (Negative) 04/11/21 04/11/21 04/11/21 Range/Units 09:00 09:39 09:39 WBC (4.8-10.8) K/uL RBC (4.7-6.1) M/uL Hgb (14.0-18.0) g/dL Hct (42-52) % MCV (80-100) fL MCH (25-34) pg MCHC (32-36) g/dL RDW Std Deviation (36.4-46.3) fL RDW Coeff of Josh (11.5-14.5) % Plt Count (130-400) K/uL MPV (7.4-10.4) fL Immature Gran % (Auto) % Neut % (Auto) % Lymph % (Auto) % Hill % (Auto) % Eos % (Auto) % Baso % (Auto) % Neut # (Auto) (1.4-6.5) K/uL Lymph # (Auto) (1.2-3.4) K/uL Hill # (Auto) (0.11-0.59) K/uL Eos # (Auto) (0-0.5) K/uL Baso # (Auto) (0-0.2) K/uL Immature Gran # (Auto) (0.00-0.02) K/uL PT (9.0-12.0) Seconds INR (0.9-1.1) APTT (21.0-31.0) Seconds PTT Ratio VBG pH (7.36-7.41) VBG pCO2 (38-50) mmHg VBG pO2 mmHg VBG HCO3 mmol/L VBG O2 Saturation % VBG Base Excess mEq/L Barometric Pressure mm/Hg Sodium (136-145) mmol/L Potassium (3.5-5.1) mmol/L Chloride (98-107) mmol/L Carbon Dioxide (21-32) mmol/L Anion Gap (3-11) BUN (7-18) mg/dl Creatinine (0.6-1.4) mg/dl Est Cr Clr Drug Dosing Est GFR ( Amer) ml/min Est GFR (Non-Af Amer) ml/min BUN/Creatinine Ratio (10-20) Glucose (70-99) mg/dl Lactate (0.4-2.0) mmol/L Calcium (8.5-10.1) mg/dl Total Bilirubin (0.2-1) mg/dl AST (15-37) U/L ALT (12-78) U/L Alkaline Phosphatase (45-117) U/L Total Creatine Kinase (39-308) U/L Troponin I (0-0.045) ng/ml C-Reactive Protein (0-0.29) mg/dl Total Protein (6.4-8.2) gm/dl Albumin (3.4-5.0) gm/dl Globulin (2.5-4.0) gm/dl Albumin/Globulin Ratio (0.9-2) TSH (0.300-4.500) uIu/ml Free T4 (0.8-1.6) ng/dl Random Cortisol 29.07 mcg/dl Urine Color Urine Appearance (Clear) Urine pH (4.5-7.5) Ur Specific [place] (1.000-1.030) Urine Protein (Negative) Urine Glucose (UA) (Negative) Urine Ketones (Negative) Urine Blood (Negative) Urine Nitrite (Negative) Urine Bilirubin (Negative) Urine Urobilinogen (Negative) Ur Leukocyte Esterase (Negative) Urine WBC (Auto) (0-5) /hpf Urine RBC (Auto) (0-4) /hpf U Hyaline Cast (Auto) (0-5) /lpf U Epithel Cells (Auto) (0-5) /lpf Urine Bacteria (Auto) (Negative) Urine Yeast (None Prsent) COVID-19 Eval Order Covid19 at [facility] SARS-CoV-2 (PCR) NEGATIVE (Negative) 04/11/21 04/11/21 04/11/21 Range/Units 10:35 11:24 11:24 WBC (4.8-10.8) K/uL RBC (4.7-6.1) M/uL Hgb (14.0-18.0) g/dL Hct (42-52) % MCV (80-100) fL MCH (25-34) pg MCHC (32-36) g/dL RDW Std Deviation (36.4-46.3) fL RDW Coeff of Josh (11.5-14.5) % Plt Count (130-400) K/uL MPV (7.4-10.4) fL Immature Gran % (Auto) % Neut % (Auto) % Lymph % (Auto) % Hill % (Auto) % Eos % (Auto) % Baso % (Auto) % Neut # (Auto) (1.4-6.5) K/uL Lymph # (Auto) (1.2-3.4) K/uL Hill # (Auto) (0.11-0.59) K/uL Eos # (Auto) (0-0.5) K/uL Baso # (Auto) (0-0.2) K/uL Immature Gran # (Auto) (0.00-0.02) K/uL PT (9.0-12.0) Seconds INR (0.9-1.1) APTT (21.0-31.0) Seconds PTT Ratio VBG pH (7.36-7.41) VBG pCO2 (38-50) mmHg VBG pO2 mmHg VBG HCO3 mmol/L VBG O2 Saturation % VBG Base Excess mEq/L Barometric Pressure mm/Hg Sodium (136-145) mmol/L Potassium (3.5-5.1) mmol/L Chloride (98-107) mmol/L Carbon Dioxide (21-32) mmol/L Anion Gap (3-11) BUN (7-18) mg/dl Creatinine (0.6-1.4) mg/dl Est Cr Clr Drug Dosing Est GFR ( Amer) ml/min Est GFR (Non-Af Amer) ml/min BUN/Creatinine Ratio (10-20) Glucose (70-99) mg/dl Lactate 1.3 (0.4-2.0) mmol/L Calcium (8.5-10.1) mg/dl Total Bilirubin (0.2-1) mg/dl AST (15-37) U/L ALT (12-78) U/L Alkaline Phosphatase (45-117) U/L Total Creatine Kinase (39-308) U/L Troponin I (0-0.045) ng/ml C-Reactive Protein 1.30 H (0-0.29) mg/dl Total Protein (6.4-8.2) gm/dl Albumin (3.4-5.0) gm/dl Globulin (2.5-4.0) gm/dl Albumin/Globulin Ratio (0.9-2) TSH (0.300-4.500) uIu/ml Free T4 (0.8-1.6) ng/dl Random Cortisol mcg/dl Urine Color Yellow Urine Appearance Clear (Clear) Urine pH 6.5 (4.5-7.5) Ur Specific [place] 1.020 (1.000-1.030) Urine Protein Trace H (Negative) Urine Glucose (UA) Negative (Negative) Urine Ketones Trace H (Negative) Urine Blood 3+ H (Negative) Urine Nitrite Negative (Negative) Urine Bilirubin Negative (Negative) Urine Urobilinogen Negative (Negative) Ur Leukocyte Esterase 2+ H (Negative) Urine WBC (Auto) 10-30 H (0-5) /hpf Urine RBC (Auto) >30 H (0-4) /hpf U Hyaline Cast (Auto) 5-10 H (0-5) /lpf U Epithel Cells (Auto) 20-30 H (0-5) /lpf Urine Bacteria (Auto) Negative (Negative) Urine Yeast Budding A (None Prsent) COVID-19 Eval Order SARS-CoV-2 (PCR) (Negative) 04/11/21 Range/Units 11:36 WBC (4.8-10.8) K/uL RBC (4.7-6.1) M/uL Hgb (14.0-18.0) g/dL Hct (42-52) % MCV (80-100) fL MCH (25-34) pg MCHC (32-36) g/dL RDW Std Deviation (36.4-46.3) fL RDW Coeff of Josh (11.5-14.5) % Plt Count (130-400) K/uL MPV (7.4-10.4) fL Immature Gran % (Auto) % Neut % (Auto) % Lymph % (Auto) % Hill % (Auto) % Eos % (Auto) % Baso % (Auto) % Neut # (Auto) (1.4-6.5) K/uL Lymph # (Auto) (1.2-3.4) K/uL Hill # (Auto) (0.11-0.59) K/uL Eos # (Auto) (0-0.5) K/uL Baso # (Auto) (0-0.2) K/uL Immature Gran # (Auto) (0.00-0.02) K/uL PT (9.0-12.0) Seconds INR (0.9-1.1) APTT (21.0-31.0) Seconds PTT Ratio VBG pH 7.36 (7.36-7.41) VBG pCO2 42 (38-50) mmHg VBG pO2 37 mmHg VBG HCO3 23 mmol/L VBG O2 Saturation 68.6 % VBG Base Excess -2.0 mEq/L Barometric Pressure 732.3 mm/Hg Sodium (136-145) mmol/L Potassium (3.5-5.1) mmol/L Chloride (98-107) mmol/L Carbon Dioxide (21-32) mmol/L Anion Gap (3-11) BUN (7-18) mg/dl Creatinine (0.6-1.4) mg/dl Est Cr Clr Drug Dosing Est GFR ( Amer) ml/min Est GFR (Non-Af Amer) ml/min BUN/Creatinine Ratio (10-20) Glucose (70-99) mg/dl Lactate (0.4-2.0) mmol/L Calcium (8.5-10.1) mg/dl Total Bilirubin (0.2-1) mg/dl AST (15-37) U/L ALT (12-78) U/L Alkaline Phosphatase (45-117) U/L Total Creatine Kinase (39-308) U/L Troponin I (0-0.045) ng/ml C-Reactive Protein (0-0.29) mg/dl Total Protein (6.4-8.2) gm/dl Albumin (3.4-5.0) gm/dl Globulin (2.5-4.0) gm/dl Albumin/Globulin Ratio (0.9-2) TSH (0.300-4.500) uIu/ml Free T4 (0.8-1.6) ng/dl Random Cortisol mcg/dl Urine Color Urine Appearance (Clear) Urine pH (4.5-7.5) Ur Specific [place] (1.000-1.030) Urine Protein (Negative) Urine Glucose (UA) (Negative) Urine Ketones (Negative) Urine Blood (Negative) Urine Nitrite (Negative) Urine Bilirubin (Negative) Urine Urobilinogen (Negative) Ur Leukocyte Esterase (Negative) Urine WBC (Auto) (0-5) /hpf Urine RBC (Auto) (0-4) /hpf U Hyaline Cast (Auto) (0-5) /lpf U Epithel Cells (Auto) (0-5) /lpf Urine Bacteria (Auto) (Negative) Urine Yeast (None Prsent) COVID-19 Eval Order SARS-CoV-2 (PCR) (Negative) Administered Medications Discontinued Medications Sodium Chloride (Nss) 500 mls @ 999 mls/hr IV .[id number] ETHAN Stop: 04/11/21 09:45 Last Infusion: 04/11/21 10:25 Dose: 0 mls/hr Documented by: [id number] Admin: 04/11/21 09:36 Dose: 999 mls/hr Documented by: [id number] Ceftriaxone Sodium (Rocephin) 2,000 mg in 70 mls @ 140 mls/hr IV NOW STA Stop: 04/11/21 10:33 Last Infusion: 04/11/21 11:00 Dose: 0 mls/hr Documented by: [id number] Admin: 04/11/21 10:17 Dose: 140 mls/hr Documented by: [id number] Ceftriaxone Sodium 2 mg/ (Dextrose) 50 mls @ 100 mls/hr IV Q24H ETHAN; Protocol Stop: 04/21/21 11:14 Last Admin: 04/11/21 11:26 Dose: Not Given Documented by: [id number] Ceftriaxone Sodium 2,000 mg/ (Dextrose) 50 mls @ 100 mls/hr IV Q24H ETHAN; Protocol Stop: 04/21/21 11:21 Last Admin: 04/11/21 12:19 Dose: Not Given Documented by: [id number] Ondansetron HCl (Ondansetron Inj 2 Mg/Ml 2 Ml Vial) 4 mg IV NOW STA Stop: 04/11/21 09:44 Last Admin: 04/11/21 10:17 Dose: 4 mg Documented by: [id number] Imaging Data Attestation: I personally reviewed and interpreted this imaging study as follows: Radiologist's Impression: Chest X-Ray 04/11/21 09:05 XR chest 1V portable CLINICAL HISTORY: weakness COMPARISON STUDY: March 28, 2021 FINDINGS: No pneumothorax. No pleural effusion. No large infiltrates or consolidative lesions are seen. Minimal atelectasis at the left base is improved since prior study. Cardiomediastinal silhouette silhouette is within upper limits of normal and stable since prior. No significant pulmonary vascular congestion.. Aorta is tortuous and calcified. Osseous structures: Mild osteopenia, degenerative changes of the spine. Healed fracture deformity of the left clavicle and the right rib cage. IMPRESSION: 1. Interval improvement of small atelectasis at the left base. 2. Atherosclerosis. ACT 112: Negative or not required by law. The above report was generated using voice recognition software. It may contain grammatical, syntax or spelling errors. Electronically signed by: Larissa Rodriguez DO 04/11/2021 9:[address] 04/11/21 09:11 CT OF THE HEAD WITHOUT CONTRAST CLINICAL HISTORY: Altered mental status. COMPARISON STUDY: Head CT March 26, 2021. CT DOSE: 537.48 mGy.cm TECHNIQUE: Helical axial images of the head were obtained without IV contrast. Automated exposure control was utilized for the study. A dose lowering technique was utilized adhering to the principles of ALARA. FINDINGS: No acute intracranial hemorrhage, midline shift or mass effect is pre sent. Tip is mildly compromised by motion artifact. Ventricular system is stable. The basal cisterns are patent. There are no extra axial collections. Multiple old infarcts are noted, including an old infarct within the right basal ganglia and right frontal lobe as well as the anterior left frontal lobe. There has been expected location of the previously described right NURSE ORTHO distribution infarct. There is an old infarct within left cerebellar hemisphere. There are no findings to suggest acute dural sinus thrombosis or acute territorial infarct. Right-sided craniotomy is noted. Old nasal bone fractures are present. IMPRESSION: 1. No acute intracranial findings. 2. Numerous old infarcts. Expected evolution of the right NURSE ORTHO distribution infarct shown on head CT of March 26, 2021. ACT 112: Negative or not required by law. Electronically signed by: Tiago Powell M.D. 04/11/2021 9:49 AM Discharge Plan Visit Data Chief Complaint: Confusion Stated Complaint: CONFUSION ED Provider: Tyson Moseley Discharge Problem: Syncope, Altered mental status, Acute UTI Forms Stand Alone Forms: My [facility] [employer] Prescriptions Prescriptions: No Action tamsulosin 0.4 mg capsule 0.4 mg PO HS Qty: 1 RF: 0 losartan 50 mg tablet 50 mg PO Q12 RF: 0 latanoprost 0.005 % Drops 1 drp OPR HS RF: 0 atorvastatin 80 mg Tablet 80 mg PO QAM RF: 0 aspirin [Aspirin Low Dose] 81 mg Tablet,Delayed Release (Dr/Ec) 81 mg PO QAM RF: 0 cholecalciferol (vitamin D3) [Vitamin D3] 25 mcg (1,000 unit) Tablet 25 mcg PO QAM RF: 0 acetaminophen 325 mg Tablet 650 mg PO Q4 PRN (Reason: Pain) RF: 0 docusate sodium 100 mg Capsule 100 mg PO BID RF: 0 fluticasone propionate 50 mcg/actuation Eldridge,Suspension 2 spray INTRANASAL QAM RF: 0 escitalopram oxalate [Lexapro] 5 mg Tablet 5 mg PO QAM RF: 0 levothyroxine [Synthroid] 25 mcg Tablet 25 mcg PO DAILYBB Qty: 30 RF: 2 sulfamethoxazole-trimethoprim [Bactrim DS] 800-160 mg Tablet 1 tab PO BID RF: 0 nystatin 100,000 unit/gram Powder 1 applic TOPICAL DAILY PRN (Reason: groin redness) RF: 0 Referrals Referrals: Radha Leon MD [Primary Care Provider] - Discharge Problem: Syncope Qualifiers: Syncope type: unspecified Qualified Code(s): R55 - Syncope and collapse Altered mental status Qualifiers: Altered mental status type: unspecified Qualified Code(s): R41.82 - Altered mental status, unspecified
[2021-04-11] MEDS ORDERED: SODIUM CHLORIDE 0.9% 500 ML IV SCH (09:15)
[2021-04-11 09:24] LABS: Basophils # (auto) 0.02 K/uL (0-0.2); Basophils % (auto) 0.3 %; Eosinophils # (auto) 0.04 K/uL (0-0.5); Eosinophils % (auto) 0.5 %; Hematocrit (blood only) 34.9 % (42-52); Hemoglobin 12.2 g/dL (14.0-18.0); Immature Granulocytes # (auto) 0.04 K/uL (0.00-0.02); Immature Granulocytes % (auto) 0.5 %; Lymphocytes # (auto) 0.66 K/uL (1.2-3.4); Lymphocytes % (auto) 8.4 %; Mean Corpuscular Hemoglobin 30.8 pg (25-34); Mean Corpuscular Volume 88.1 fL (80-100); Mean Platelet Volume 9.1 fL (7.4-10.4); Monocytes # (auto) 0.69 K/uL (0.11-0.59); Monocytes % (auto) 8.8 %; Neutrophils % (auto) 81.5 %; Platelet Count 134 K/uL (130-400); RDW Coefficient of Variation 13.4 % (11.5-14.5); RDW Standard Deviation 43.3 fL (36.4-46.3); Red Blood Count 3.96 M/uL (4.7-6.1); White Blood Count 7.85 K/uL (4.8-10.8)
[2021-04-11 09:33] LABS: INR 1.1 (0.9-1.1); Partial Thromboplastin Time 26.1 Seconds (21.0-31.0); Prothrombin Time 11.1 Seconds (9.0-12.0)
[2021-04-11] MEDS ORDERED: ONDANSETRON INJ 2 MG/ML 2 ML VIAL IV STA (09:43)
[2021-04-11 09:44] LABS: Alanine Aminotransferase 43 U/L (12-78); Albumin Level 3.1 gm/dl (3.4-5.0); Aspartate Aminotransferase 26 U/L (15-37); Blood Urea Nitrogen 30 mg/dl (7-18); Calcium 8.1 mg/dl (8.5-10.1); Carbon Dioxide 23 mmol/L (21-32); Chloride 99 mmol/L (98-107); Est GFR (African American) 52.2 ml/min; Glucose 136 mg/dl (70-99); Potassium 4.2 mmol/L (3.5-5.1); Sodium 130 mmol/L (136-145)
--- NOTE | 2021-04-11 09:51 | CT Scan Report ---
CT OF THE HEAD WITHOUT CONTRAST CLINICAL HISTORY: Altered mental status. COMPARISON STUDY: Head CT March 26, 2021. CT DOSE: 537.48 mGy.cm TECHNIQUE: Helical axial images of the head were obtained without IV contrast. Automated exposure con trol was utilized for the study. A dose lowering technique was utilized adhering to the principles o f ALARA. FINDINGS: No acute intracranial hemorrhage, midline shift or mass effect is present. Tip is mildly co mpromised by motion artifact. Ventricular system is stable. The basal cisterns are patent. There are no extra axial collections. Multiple old infarcts are noted, including an old infarct within the righ t basal ganglia and right frontal lobe as well as the anterior left frontal lobe. There has been expe cted location of the previously described right RN UTILIZATION MANAGEMENT UM distribution infarct. There is an old infarct wit hin left cerebellar hemisphere. There are no findings to suggest acute dural sinus thrombosis or acut e territorial infarct. Right-sided craniotomy is noted. Old nasal bone fractures are present. IMPRESSION: 1. No acute intracranial findings. 2. Numerous old infarcts. Expected evolution of the right RN UTILIZATION MANAGEMENT UM distribution infarct shown on head CT o f March 26, 2021. ACT 112: Negative or not required by law. Electronically signed by: Tiago Powell M.D. 04/11/2021 9:49 AM
[2021-04-11 09:54] LABS: Albumin Globulin Ratio 0.9 (0.9-2); Alkaline Phosphatase 93 U/L (45-117); Bilirubin,Total 0.9 mg/dl (0.2-1); Creatine Kinase 60 U/L (39-308); Globulin 3.3 gm/dl (2.5-4.0); Total Protein 6.4 gm/dl (6.4-8.2); Troponin I < 0.015 ng/ml (0-0.045)
--- NOTE | 2021-04-11 09:58 | XRay Report ---
XR chest 1V portable CLINICAL HISTORY: weakness COMPARISON STUDY: March 28, 2021 FINDINGS: No pneumothorax. No pleural effusion. No large infiltrates or consolidative lesions are seen. Minimal atelectasis at the left base is impro roberto since prior study. Cardiomediastinal silhouette silhouette is within upper limits of normal and stable since prior. No significant pulmonary vascular congestion.. Aorta is tortuous and calcified. Osseous structures: Mild osteopenia, degenerative changes of the spine. Healed fracture deformity of the left clavicle and the right rib cage. IMPRESSION: 1. Interval improvement of small atelectasis at the left base. 2. Atherosclerosis. ACT 112: Negative or not required by law. The above report was generated using voice recognition software. It may contain grammatical, syntax o r spelling errors. Electronically signed by: Larissa Rodriguez DO 04/11/2021 9:57 AM
[2021-04-11] MEDS ORDERED: cefTRIAXone SODIUM 2,000 MG/70 ML BAG IV STA (10:04)
[2021-04-11 10:07] LABS: T4 Free Thyroxine 1.14 ng/dl (0.8-1.6)
[2021-04-11 10:56] LABS: Appearance Urine Clear (Clear); Bacteria Urine Automated Negative (Negative); Bilirubin Urine Negative (Negative); Blood Urine 3+ (Negative); Color Urine Yellow; Epithelial Cell Urine Auto 20-30 /lpf (0-5); Glucose Urine UA Negative (Negative); Ketones Urine Trace (Negative); Leukocyte Esterase Urine 2+ (Negative); Nitrite Urine Negative (Negative); Protein Urine Trace (Negative); RBC Urine Automated >30 /hpf (0-4); Urobilinogen Urine Negative (Negative); pH Urine 6.5 (4.5-7.5)
[2021-04-11] MEDS ORDERED: cefTRIAXone SODIUM 2 MG in DEXTROSE 5% 50 ML IV SCH (11:15)
--- NOTE | 2021-04-11 11:15 | History & Physical Report ---
Date of Service April 11, 2021 Assessment & Plan (1) Syncope: Patient with syncope this morning x2 - No neurological deficits from his baseline appreciated - Telemetry/ECG reviewed- WA 380- occasional A-pace with change to DDD. HR 60- 62 even with stimulation - pacemaker interrogated- Will consult cardiology for benefit of changing mode or increasing rate. - BP stable no evidence of shock at this time - TSH 8- see below - Cortisol pending - Normal PH normal HCO3, normal PCo2 (2) Acute UTI: Acute on chronic UTI? - Requesting cultures from [facility]- Patient was on Bactrim and was to continue until 04/13 - UA here with casts, + LE, + WBC- negative bacteria, + budding yeast - Yeast may be cross contaminate from groin- however will place on Diflucan 200 mg daily - RBC >30- will follow with resend in morning- removal and placement of Henry done in EMD - Change to Zosyn- awaiting cultures from [facility]- ? report of pseudomonas (3) Hypovolemia: Continue with replacing intravascular volume - mild OLY with casts in urine - Normosol at 90ml - lactate 1.3 (4) Altered mental status: Mulotiple etiologies as above - metabolic vs. UTI vs. hypovolemia vs low output - ABX, replete intravascular volume, cards to evaluate pacemaker - Repeat CXR in morning and UA (5) Hypothyroid: TSH 8 today- was just started on 25mcg synthroid at beginning of MARCH 2021 - Free T4 1.4 (6) HLD (hyperlipidemia): Continue atorvastatin 80mg daily (7) Hyponatremia: Decreased intake- hypovolemia likely- BUN elevated to 30 pre renal - received sodium chloride in the EMD- will hold on urinary sodium and osmo - random cortisol sent (8) Alda rash of groin: Continue nystatin (9) Urinary symptom or sign: With retention was on Tamsulosin- Will hold while he has henry catheter as well as for this syncope - Once hemodynamics are stabilized and trended - consider restarting or discontinuing altogether (10) Hypertension: Will hold ARB at this time- as above ensure intravascular volume is euvolemic- - Trace protein in urine as well History of Present Illness Primary Care Provider: Radha Loen MD 89 YOM with past medical history of: Sick sinus syndrome (s/p dual chamber AAI-->DDD pacer/ Low [id number]) afib, Chronic UTI, chronic Henry, 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 Patient went to [facility] rehab following his pacer placement, he was also sent there with indwelling Henry catheter. He was on Bactrim when he went home on Wednesday and was to finish on April 13. Patient was doing well at home per the daughter up until this morning. He got up to go to the bathroom this morning, while daughter was helping him she noticed he had blank stare and got cool and clammy to his forehead. She called 911 and he was less arousable and reported hypotensive at that time. In the EMD he got 500 ml of saline, replaced his Henry, Urine repeated today. He was started on Rocephin in the [facility]. He will be [facility] continue to work up his cause of syncope and support. Pacer interrogated. Daughter reports that even while he was at [facility], she would get reports of him sleeping most of the day and not participating in physical therapy or care. He is severely hard of hearing but is appropriate when he is awake and has no focal deficits on exam. His CT of the head shows no acute concerns. Will draw blood cultures, inflammatory markers. Allergies Allergy/AdvReac Type Severity Reaction Status Date / Time Penicillins Allergy Unknown UNKNOWN Verified 04/11/21 10:11 morphine AdvReac Severe HALLICINATIONS, Verified 04/11/21 10:11 BEHAVIOR CHANGES Home Medications Medication Instructions Recorded Confirmed Type tamsulosin 0.4 mg PO HS #1 cap 03/11/21 04/11/21 Rx acetaminophen 650 mg PO Q4 PRN 03/26/21 04/11/21 History aspirin [Aspirin Low Dose] 81 mg PO QAM 03/26/21 04/11/21 History atorvastatin 80 mg PO QAM 03/26/21 04/11/21 History cholecalciferol (vitamin D3) 25 mcg PO QAM 03/26/21 04/11/21 History [Vitamin D3] docusate sodium 100 mg PO BID 03/26/21 04/11/21 History escitalopram oxalate [Lexapro] 5 mg PO QAM 03/26/21 04/11/21 History fluticasone propionate 2 spray INTRANASAL QAM 03/26/21 04/11/21 History latanoprost 1 drp OPR HS 03/26/21 04/11/21 History losartan 50 mg PO Q12 03/26/21 04/11/21 History levothyroxine [Synthroid] 25 mcg PO DAILYBB #30 tab 03/29/21 04/11/21 Rx nystatin 1 applic TOPICAL DAILY PRN 04/11/21 04/11/21 History sulfamethoxazole-trimethoprim 1 tab PO BID 04/11/21 04/11/21 History [Bactrim DS] Past Med/Surg History Medical History Ambulatory dysfunction Aortic root dilatation Ataxia Blind left eye Brain aneurysm Chronic arterial ischemic stroke, multifocal, multiple vascular territories CVA (cerebrovascular accident) Dizziness Fall Hyperlipidemia Hypertension Hypertensive urgency Prediabetes Syncope Surgical History Hx of total knee replacement S/P hernia repair Family History Other Breast cancer Denies family history of Ovarian cancer Prostate cancer Myocardial infarction Colorectal cancer Social History Smoking Status: Unknown if ever smoked Second Hand Exposure: No; Hx Substance Use: No Preferred Language: Martiniquais Communication Ability: Effective Visual Impairment: No Limitations Chemist Water Purification Required: No Beliefs That Will Affect Care: None marital status: Current Living Situation: Family current occupational status: retired Other Information That Helps Us Care for You: No Feels Safe at Home: Yes caffeine: Yes during the past year weight has: remained stable Dental Care, Regularly: Yes Physical Activity Frequency: 1-2 Times per Week Seatbelt Use: always Sunscreen Use: Yes Gender Identity: Male Assistive Devices: Walker Review of Systems Review of Systems: REVIEW OF SYSTEMS: Constitutional: No fever, sweats or chills Eyes: (+) blindness, poor baseline vision ENT: (+) difficulty hearing, no trouble swallowing Respiratory: No cough, sputum, dyspnea at rest or on exertion Cardiovascular: No chest pain, tightness or palpitations Abdomen: (+) constipation, No pain, nausea, vomiting, diarrhea : (+) chronic indwelling Henry Musculoskeletal: (+) ambulation Neurologic: (+) weakness, numbness/tingling, or balance problems Psychiatric: No anxiety or depression Skin: (+) groin excoriation (-) itch Physical Exam Physical Exam: PHYSICAL EXAM: General: arousable- hard of hearing alert, no apparent distress Head: Normocephalic, atraumatic ENT: PERRLA, EOMI, no pharyngeal exudate, mucous membranes dry Neuro: AAO x 2, speech clear, hemianopsia, strength intact bilaterally 5/5, sensation intact and equal all extremities and dermatomes, no pronator drift Chest: equal rise and fall of the chest, no accessory muscle use, no heaves or thrills, Clear to auscultation, on room air, Cardiac: Regular rate and rhythm, telemetry reviewed- 1 degree av block- appropriate a pace, with appropriate change to DDD and appropriate fire and capture,- HR low 60s, skin warm dry, cap refill <3 seconds, peripheral pulses +2 no JVD, no murmur, no edema GI: NABS x 4 quadrants, soft, nontender to palpation, tympanic, no rebound, guarding or tenderness : Henry to gravity, changed in the EMD, no pain, no CVA tenderness, Extremities: scratch to right abel, groin excoriation- chronic on nystatin, no peripheral edema, calfs nontender to palpation Psych: Normal mood and affect Skin: as above Results & Data Results & Data ([facility]) Vital Signs (Past 12 Hours) Vital Signs Temp Pulse Pulse Resp BP BP Pulse Ox 04/11/21 10:30 61 14 131/57 L 96 04/11/21 10:15 60 12 107/56 L 04/11/21 09:37 64 20 157/76 H 96 04/11/21 09:13 70 14 91 04/11/21 09:05 88 L 04/11/21 09:03 36.5 C 70 14 145/59 H 91 Laboratory Results Abnormal lab results 04/11/21 04/11/21 04/11/21 Range/Units 09:00 09:00 10:35 RBC 3.96 L (4.7-6.1) M/uL Hgb 12.2 L (14.0-18.0) g/dL Hct 34.9 L (42-52) % Lymph # (Auto) 0.66 L (1.2-3.4) K/uL Douglas # (Auto) 0.69 H (0.11-0.59) K/uL Immature Gran # (Auto) 0.04 H (0.00-0.02) K/uL Sodium 130 L (136-145) mmol/L BUN 30 H (7-18) mg/dl BUN/Creatinine Ratio 22.0 H (10-20) Glucose 136 H (70-99) mg/dl Calcium 8.1 L (8.5-10.1) mg/dl Albumin 3.1 L (3.4-5.0) gm/dl TSH 8.690 H (0.300-4.500) uIu/ml Urine Protein Trace H (Negative) Urine Ketones Trace H (Negative) Urine Blood 3+ H (Negative) Ur Leukocyte Esterase 2+ H (Negative) Urine WBC (Auto) 10-30 H (0-5) /hpf Urine RBC (Auto) >30 H (0-4) /hpf U Hyaline Cast (Auto) 5-10 H (0-5) /lpf U Epithel Cells (Auto) 20-30 H (0-5) /lpf Urine Yeast Budding A (None Prsent) Diagnostic Findings Chest X-Ray 04/11/21 09:05 XR chest 1V portable CLINICAL HISTORY: weakness COMPARISON STUDY: March 28, 2021 FINDINGS: No pneumothorax. No pleural effusion. No large infiltrates or consolidative lesions are seen. Minimal atelectasis at the left base is improved since prior study. Cardiomediastinal silhouette silhouette is within upper limits of normal and stable since prior. No significant pulmonary vascular congestion.. Aorta is tortuous and calcified. Osseous structures: Mild osteopenia, degenerative changes of the spine. Healed fracture deformity of the left clavicle and the right rib cage. IMPRESSION: 1. Interval improvement of small atelectasis at the left base. 2. Atherosclerosis. Electronically signed by: Larissa Rodriguez DO 04/11/2021 9:[address] 04/11/21 09:11 CT OF THE HEAD WITHOUT CONTRAST CLINICAL HISTORY: Altered mental status. COMPARISON STUDY: Head CT March 26, 2021. CT DOSE: 537.48 mGy.cm TECHNIQUE: Helical axial images of the head were obtained without IV contrast. Automated exposure control was utilized for the study. A dose lowering technique was utilized adhering to the principles of ALARA. FINDINGS: No acute intracranial hemorrhage, midline shift or mass effect is present. Tip is mildly compromised by motion artifact. Ventricular system is stable. The basal cisterns are patent. There are no extra axial collections. Multiple old infarcts are noted, including an old infarct within the right basal ganglia and right frontal lobe as well as the anterior left frontal lobe. There has been expected location of the previously described right MERCERIZER MACHINE OPERATOR distribution infarct. There is an old infarct within left cerebellar hemisphere. There are no findings to suggest acute dural sinus thrombosis or acute territorial infarct. Right-sided craniotomy is noted. Old nasal bone fractures are present. IMPRESSION: 1. No acute intracranial findings. 2. Numerous old infarcts. Expected evolution of the right MERCERIZER MACHINE OPERATOR distribution infarct shown on head CT of March 26, 2021. Electronically signed by: Tiago Powell M.D. 04/11/2021 9:49 AM Medications Administered Discontinued Medications Sodium Chloride (Nss) 500 mls @ 999 mls/hr IV .Q31M ETHAN Stop: 04/11/21 09:45 Last Infusion: 04/11/21 10:25 Dose: 0 mls/hr Documented by: [id number] Admin: 04/11/21 09:36 Dose: 999 mls/hr Documented by: [id number] Ceftriaxone Sodium (Rocephin) 2,000 mg in 70 mls @ 140 mls/hr IV NOW STA Stop: 04/11/21 10:33 Last Infusion: 04/11/21 11:00 Dose: 0 mls/hr Documented by: [id number] Admin: 04/11/21 10:17 Dose: 140 mls/hr Documented by: [id number] Ceftriaxone Sodium 2 mg/ (Dextrose) 50 mls @ 100 mls/hr IV Q24H ETHAN; Protocol Stop: 04/21/21 11:14 Last Admin: 04/11/21 11:26 Dose: Not Given Documented by: [id number] Ondansetron HCl (Ondansetron Inj 2 Mg/Ml 2 Ml Vial) 4 mg IV NOW STA Stop: 04/11/21 09:44 Last Admin: 04/11/21 10:17 Dose: 4 mg Documented by: [id number] ECG Additional Comments: Sinus rhythm with 1st degree A-V block with occasional Premature ventricular complexes Possible Anterior infarct , age undetermined Abnormal ECG When compared with ECG of 26-MAR-2021 16:30, Premature ventricular complexes are now Present Vent. rate has increased BY 22 BPM. Code Status & VTE Plan Code Status CODE: FULL VTE: SCD's, Lovenox 40mg SQ daily VTE Prophylaxis Plan VTE Prophylaxis will be ordered: Yes Supervising Physician Co-Signing Physician Notes Attending Attestation and Admission Note: Pt seen/examined, chart reviewed, care plan d/w HERBERTH Jan Horton. I agree w/ the sawyer components of his documentation. 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 Prior to that had had 2 strokes in February 2021. He has had a henry since the February 2021 admission due to urinary retention. Apparently he failed a voiding trial while at [facility] and had UTI. Mr Horton and I requested his urine culture result - this showed pseudomonas & serratia. Was on bactrim at time of discharge from [facility]. This am at home he had syncope while using the bathroom. This was witnessed by his daughter. During my bedside assessment his daughter was present. She reports that since he was d/c from [facility] he has had "good days and bad days." On good days he is awake, alert, more oriented, decent appetite. On bad days he is sleepy, is confused, and eats poorly. PMH, PSH, allergies, meds, sochx, famhx -- reviewed VSS, afebrile gen - altered, ill-appearing, frail eyes - PERRL mouth - MM dry skin - turgor poor; mild candidal rash groin; right upper chest - pacer site clean/dry/intact heart - RRR, s1 s2, 2/6 systolic murmur LSB lungs - decreased BS bases, o/w CTA b/l abd - soft NT ext - no edema, pulses <1-2+ b/l labs reviewed - Na 130 ua - budding yeast on microscopy CT head - evolving OLD stroke right MERCERIZER MACHINE OPERATOR distribution, no acute cva cxr - left basilar infiltrate A/P: 1. encephalopathy - suspect metabolic - due to hyponatremia, UTI, etc. Treat UTI. Hydrate. serial BMP. consider repeat cxr in am - re-eval the left basilar findings. 2. syncope - 2nd to volume depletion/orthostasis? bradycardia? Isotonic fluids. Cardiology to see whether pacer adjustments are needed. Pacer interrogation completed. stop flomax - could be exacerbating tendency towards syncope. 3. catheter-associated/complicated UTI - pseudomonas was NEVER treated adequately before this hospital stay. Thus, IV zosyn - this will cover pseudomonas and any other new gram negative pathogen. Diflucan for yeast in urine today. Follow new culture. 4. pacemaker status. 5. h/o strokes - aspirin. Felice Lawson MD PG Care Time/CCT Total # of Minutes Spent Total Time Spent with Patient: Total time spent is greater than 50% in coordination of care (as documented) at patient's floor/unit and/or counseling patient: Coding Level of Care Code 13406 Initial Inpt Care Lvl 3 Diagnoses Syncope R55 Syncope type: unspecified Acute UTI N39.0 Hypovolemia E86.1 Altered mental status R41.82 Altered mental status type: unspecified Hypothyroid E03.9 Hypothyroidism type: unspecified HLD (hyperlipidemia) E78.5 Hyperlipidemia type: unspecified Hyponatremia E87.1 Alda rash of groin B37.89 Urinary symptom or sign R39.9 Hypertension I10 Hypertension type: essential hypertension (1) HLD (hyperlipidemia) Hyperlipidemia type: unspecified Qualified Code(s): E78.5 - Hyperlipidemia, unspecified (2) Hypothyroid Hypothyroidism type: unspecified Qualified Code(s): E03.9 - Hypothyroidism, unspecified (3) Syncope Syncope type: unspecified Qualified Code(s): R55 - Syncope and collapse (4) Altered mental status Altered mental status type: unspecified Qualified Code(s): R41.82 - Altered mental status, unspecified (5) Hypertension Hypertension type: essential hypertension Qualified Code(s): I10 - Essential (primary) hypertension
[2021-04-11] MEDS ORDERED: cefTRIAXone SODIUM 2,000 MG in DEXTROSE 5% 50 ML IV SCH (11:22)
[2021-04-11 11:53] LABS: Oxygen Saturation VBG 68.6 %; pH VBG 7.36 (7.36-7.41)
[2021-04-11] MEDS ORDERED: PIPERACILL/TAZOBAC CONSULT ACTIVE PRN (12:10)
[2021-04-11] MEDS ORDERED: PIPERACILLIN/TAZOBACTAM 4.5 GM/120 ML BAG IV ONE (13:15)
[2021-04-11] MEDS ORDERED: ACETAMINOPHEN 325 MG TAB PO PRN (15:49)
[2021-04-11] MEDS ORDERED: MAGNESIUM HYDROXIDE SUSP 30 ML UDC PO PRN (15:49)
[2021-04-11] MEDS ORDERED: NYSTATIN POWDER 15GM BTL EXT PRN (15:49)
[2021-04-11] MEDS ORDERED: CARBOHYDRATES FOR HYPOGLYCEMIA PO PRN (15:49)
[2021-04-11] MEDS ORDERED: GLUCOSE 10 TABS/TUBE PO PRN (15:49)
[2021-04-11] MEDS ORDERED: ONDANSETRON INJ 2 MG/ML 2 ML VIAL IV PRN (15:49)
[2021-04-11] MEDS ORDERED: GLUCAGON FOR INJ 1 MG VIAL SQ PRN (15:49)
[2021-04-11] MEDS ORDERED: POLYETHYLENE (MIRALAX) 17 GM PACK PO PRN (15:49)
[2021-04-11] MEDS ORDERED: GLUCOSE 40% GEL 15 GM TUBE PO PRN (15:49)
[2021-04-11] MEDS ORDERED: DEXTROSE 50% 50 ML SYRINGE IV PRN (15:49)
[2021-04-11] MEDS ORDERED: PATIENT'S HEIGHT AND/OR WEIGHT NEEDED SCH (16:15)
--- NOTE | 2021-04-11 17:01 | Electrocardiogram Report ---
Test Reason : Blood Pressure : / mmHG Vent. Rate : 068 BPM Atrial Rate : 068 BPM P-R Int : 358 ms QRS Dur : 112 ms QT Int : 424 ms P-R-T Axes : 016 -17 061 degrees QTc Int : 450 ms Sinus rhythm with 1st degree A-V block with occasional Premature ventricular complexes Poor R wave progression, consider anterior MD vs. lead placement vs. LVH Nonspecific ST abnormality Abnormal ECG When compared with ECG of 26-MAR-2021 16:30, Premature ventricular complexes are now Present Vent. rate has increased BY 22 BPM Questionable change in QRS duration Borderline criteria for Anterior infarct are now Present Confirmed by Domingo Fonseca ([id number]) on 04/11/2021 5:00:42 PM Referred By: Confirmed By:Raman Fonseca
[2021-04-11] MEDS: NORMOSOL-R 1,000 ML IV SCH (17:45)
[2021-04-11] MEDS: PIPERACILLIN/TAZOBACTAM 3.375 GM in DEXTROSE 5% 100 ML IV SCH (17:45)
[2021-04-11] MEDS: FLUCONAZOLE 100 MG TAB PO SCH (17:46)
[2021-04-11] MEDS: ENOXAPARIN INJ 40 MG/0.4 ML SYR SQ SCH (17:46)
[2021-04-11] MEDS: DOCUSATE SODIUM 100 MG CAP PO SCH (20:24)
[2021-04-11] MEDS: LATANOPROST 0.005% OP SOLN 2.5 ML BTL OPR SCH (20:25)
[2021-04-12] MEDS: PIPERACILLIN/TAZOBACTAM 3.375 GM in DEXTROSE 5% 100 ML IV SCH ×3 (02:10→17:05)
[2021-04-12] MEDS: NORMOSOL-R 1,000 ML IV SCH ×2 (04:28→15:50)
[2021-04-12] MEDS: LEVOTHYROXINE SODIUM 25 MCG TABLET PO SCH (06:17)
[2021-04-12 07:44] LABS: Basophils # (auto) 0.02 K/uL (0-0.2); Basophils % (auto) 0.3 %; Eosinophils # (auto) 0.06 K/uL (0-0.5); Eosinophils % (auto) 0.9 %; Hematocrit (blood only) 35.8 % (42-52); Hemoglobin 12.2 g/dL (14.0-18.0); Immature Granulocytes # (auto) 0.01 K/uL (0.00-0.02); Immature Granulocytes % (auto) 0.2 %; Lymphocytes # (auto) 0.98 K/uL (1.2-3.4); Lymphocytes % (auto) 14.9 %; Mean Corpuscular Hgb Conc 34.1 g/dL (32-36); Mean Platelet Volume 8.9 fL (7.4-10.4); Monocytes # (auto) 0.56 K/uL (0.11-0.59); Monocytes % (auto) 8.5 %; Neutrophils # (auto) 4.96 K/uL (1.4-6.5); Neutrophils % (auto) 75.2 %; Platelet Count 136 K/uL (130-400); RDW Coefficient of Variation 13.5 % (11.5-14.5); RDW Standard Deviation 43.5 fL (36.4-46.3); Red Blood Count 4.07 M/uL (4.7-6.1); White Blood Count 6.59 K/uL (4.8-10.8)
[2021-04-12 08:20] LABS: BUN Creatinine Ratio 18.3 (10-20); Calcium 8.6 mg/dl (8.5-10.1); Creatinine Clr Calc Pharmacy 47.1 ml/min; Est GFR (African American) 80.9 ml/min; Est GFR (Non-African American) 69.8 ml/min; Magnesium 2.3 mg/dl (1.8-2.4); Potassium 4.4 mmol/L (3.5-5.1)
[2021-04-12] MEDS: DOCUSATE SODIUM 100 MG CAP PO SCH ×2 (08:49→20:45)
[2021-04-12] MEDS: FLUTICASONE PROPIONATE NA SPR 16 GM BTL SCH (08:49)
[2021-04-12] MEDS: ASPIRIN 81 MG ECTAB PO SCH (08:49)
[2021-04-12] MEDS: FLUCONAZOLE 100 MG TAB PO SCH (08:49)
[2021-04-12] MEDS: ESCITALOPRAM OXALATE 10 MG TAB PO SCH (08:49)
[2021-04-12] MEDS: ATORVASTATIN 40 MG TAB PO SCH (08:49)
--- NOTE | 2021-04-12 08:51 | Hospitalist Progress Note ---
Date of Service April 12, 2021 Assessment & Plan (1) Syncope: Patient with syncope x2 -- at home while up to use restroom/urinate and with EMS when getting up to stand. Presented with confusion/encephalopathy 2nd to pseudomonas/serratia UTI and hyponatremia (Of note, prior admission February 2021 with stroke x 2, Henry insertion Mat 2020 due to retention failing voiding trial at [facility] and had UTI. 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 Recent negative Lyme. 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 Bactrim from [facility] for UTI with pseudomonas/serratia which did not cover Pseudomonas to be completed on 04/13 Zosyn while inpatient UA -- casts, + LE, + WBC- negative bacteria, + budding yeast Cx -- preliminary with lucita albicans/dubliniensis Started on Diflucan Henry replacement in ED and will need Urology follow up IVF for dehydration on admission with BUN 30 and Cr elevated to 1.38 Repeat BUN/cr is 18/0.96 IVF discontinued Will have RN obtain orthostatic VS, continue if needed Flomax was stopped as could be exacerbating tendency towards syncope (3) Hypovolemia: On admission -- continuous IVF through today. Appears euvolemic on examination and OLY resolved with resolution in elevation of BUN Lactic 1.3 Discontinued IVF Will obtain orthostatic VS as above -- additional fluids as needed based on results Continue to monitor (4) Hyponatremia: Combination of dehydration/poor PO intake, ARB therapy, as well as hypothyroidism (recently started 25mcg daily levothyroxine) BUN 30/Cr 1.38 on admission received sodium chloride in the EMD- will hold on urinary sodium and osmo random cortisol sent, pending IVF as above, d/c this afternoon BMP in AM (5) Altered mental status: Improving as tx as above (6) Hypothyroid: TSH 8 today- was just started on 25mcg synthroid at beginning of MARCH 2021 Free T4 1.4 repeat TFT as outpatient 4-6wks (7) Lucita rash of groin: Continue nystatin (8) Urinary symptom or sign: With retention was on Tamsulosin- Will hold while he has henry catheter as well as for this syncope Once hemodynamics are stabilized and trended - consider restarting or discontinuing altogether Would continue henry at discharge and will need Urology outpatient follow up (9) Hypertension: Will hold ARB at this time- as above ensure intravascular volume is euvolemic- Trace protein in urine as well BP stable 125/70 Continue to hold ARB for now, resume if BP elevated given recent CVA as abvoe Continue to monitor (10) CVA (cerebrovascular accident): Hx of in February No BB due to bradycardia/SSS s/p pacemaker, ARB on hold as above Continues on ASA 81mg, Lipitor 80mg daily CT Head with evolving OLD CVA as above, no acute (11) HLD (hyperlipidemia): Atorvastatin 80mg daily DVT Prophylaxis Lovenox Dispo: continued inpatient stay PT/OT recs for return home with 24 hour care -- arranging and will have CM confirm Updated daughter at bedside this afternoon Possible d/c tomorrow Admission and Anticipated Discharge Date Admission Date: April 11, 2021 Supervising Physician Co-Signing Physician Notes PA Supervision Note: I did not personally see or examine the patient today, but I verified all sawyer points of MAGDALENA Patel's assessment and plan with the following exceptions/additions: None Subjective Patient evaluated this morning and repeated stop in afternoon to update daughter at bedside. Discussed vasovagal vs possible orthostatic hypotension and will have nursing obtain orthostatic VS after discontinuing the IV this afternoon. Discussed Dr Fonseca made some adjustments to the pacer but likely at very least a combination of things including dehydration which has improved and vasovagal given he was attempting to get up and urinate and became symptomatic and had syncopal episode. No further cp/sob, CP, dizziness, syncope or other repeat episodes. Held his lisinopril this morning and discussed will monitor BP and possibly restart this medication at lower dose to prevent worsening dehydration. Monitoring overnight. Therapy recs for home if 24h care can be provided. Per daughter, she believes her mom is working on this information. Will have CM ensure this and possible d/c home tomorrow if asymptomatic and BP stable if so. Questions/concerns addressed at this time. Review of Systems Review of Systems: All systems reviewed & are unremarkable except as noted in HPI & below Physical Exam Constitutional: well developed, + frail appearing, cooperative and comfortable; no acute distress Eyes: + anicteric sclerae and PERRL ENMT: Ears: + hearing impairment mmm Neck: trachea midline Respiratory: normal respiratory effort; no labored breathing, no cough and not tachypneic Auscultation: lungs clear to auscultation bilaterally Cardiovascular: Rate/Rhythm: regular rhythm and + bradycardic Heart Sounds: + murmur (systolic) Vessels: no JVD Extremities: no calf tenderness and no edema Chest (Breasts): Additional Comments: Pacemaker to R chest -- site c/d/i Gastrointestinal (Abdomen): normal bowel sounds, soft, nontender, no hepatosplenomegaly Musculoskeletal: Head/Neck/Chest: normocephalic and head atraumatic Skin: cool, dry Neurologic: patellar DTR's 2+ bilat, sensation intact Genitourinary: henry draining yellow urine Results & Data Results & Data ([facility]) Vital Signs (Past 12 Hours) Vital Signs Temp Pulse Pulse Resp BP Pulse Ox 04/12/21 08:40 37.0 C 77 20 107/62 91 04/12/21 04:00 36.8 C 74 18 119/70 93 04/12/21 03:36 67 04/11/21 23:40 37.0 C 61 18 110/60 95 Laboratory Results 04/12/21 04/12/21 04/11/21 Range/Units 07:20 07:20 11:36 WBC 6.59 (4.8-10.8) K/uL RBC 4.07 L (4.7-6.1) M/uL Hgb 12.2 L (14.0-18.0) g/dL Hct 35.8 L (42-52) % MCV 88.0 (80-100) fL MCH 30.0 (25-34) pg MCHC 34.1 (32-36) g/dL RDW Std Deviation 43.5 (36.4-46.3) fL RDW Coeff of Josh 13.5 (11.5-14.5) % Plt Count 136 (130-400) K/uL MPV 8.9 (7.4-10.4) fL Immature Gran % (Auto) 0.2 % Neut % (Auto) 75.2 % Lymph % (Auto) 14.9 % Liberty % (Auto) 8.5 % Eos % (Auto) 0.9 % Baso % (Auto) 0.3 % Neut # (Auto) 4.96 (1.4-6.5) K/uL Lymph # (Auto) 0.98 L (1.2-3.4) K/uL Liberty # (Auto) 0.56 (0.11-0.59) K/uL Eos # (Auto) 0.06 (0-0.5) K/uL Baso # (Auto) 0.02 (0-0.2) K/uL Immature Gran # (Auto) 0.01 (0.00-0.02) K/uL PT (9.0-12.0) Seconds INR (0.9-1.1) APTT (21.0-31.0) Seconds PTT Ratio VBG pH 7.36 (7.36-7.41) VBG pCO2 42 (38-50) mmHg VBG pO2 37 mmHg VBG HCO3 23 mmol/L VBG O2 Saturation 68.6 % VBG Base Excess -2.0 mEq/L Barometric Pressure 732.3 mm/Hg Sodium 135 L (136-145) mmol/L Potassium 4.4 (3.5-5.1) mmol/L Chloride 103 (98-107) mmol/L Carbon Dioxide 27 (21-32) mmol/L Anion Gap 5.0 (3-11) BUN 18 (7-18) mg/dl Creatinine 0.96 D (0.6-1.4) mg/dl Est Cr Clr Drug Dosing 47.1 Est GFR ( Amer) 80.9 ml/min Est GFR (Non-Af Amer) 69.8 ml/min BUN/Creatinine Ratio 18.3 (10-20) Glucose 89 (70-99) mg/dl Lactate (0.4-2.0) mmol/L Calcium 8.6 (8.5-10.1) mg/dl Magnesium 2.3 (1.8-2.4) mg/dl Total Bilirubin (0.2-1) mg/dl AST (15-37) U/L ALT (12-78) U/L Alkaline Phosphatase (45-117) U/L Total Creatine Kinase (39-308) U/L Troponin I (0-0.045) ng/ml C-Reactive Protein (0-0.29) mg/dl Total Protein (6.4-8.2) gm/dl Albumin (3.4-5.0) gm/dl Globulin (2.5-4.0) gm/dl Albumin/Globulin Ratio (0.9-2) TSH (0.300-4.500) uIu/ml Free T4 (0.8-1.6) ng/dl Random Cortisol mcg/dl Urine Color Urine Appearance (Clear) Urine pH (4.5-7.5) Ur Specific [place] (1.000-1.030) Urine Protein (Negative) Urine Glucose (UA) (Negative) Urine Ketones (Negative) Urine Blood (Negative) Urine Nitrite (Negative) Urine Bilirubin (Negative) Urine Urobilinogen (Negative) Ur Leukocyte Esterase (Negative) Urine WBC (Auto) (0-5) /hpf Urine RBC (Auto) (0-4) /hpf U Hyaline Cast (Auto) (0-5) /lpf U Epithel Cells (Auto) (0-5) /lpf Urine Bacteria (Auto) (Negative) Urine Yeast (None Prsent) COVID-19 Eval Order SARS-CoV-2 (PCR) (Negative) 04/11/21 04/11/21 04/11/21 Range/Units 11:24 11:24 10:35 WBC (4.8-10.8) K/uL RBC (4.7-6.1) M/uL Hgb (14.0-18.0) g/dL Hct (42-52) % MCV (80-100) fL MCH (25-34) pg MCHC (32-36) g/dL RDW Std Deviation (36.4-46.3) fL RDW Coeff of Josh (11.5-14.5) % Plt Count (130-400) K/uL MPV (7.4-10.4) fL Immature Gran % (Auto) % Neut % (Auto) % Lymph % (Auto) % Liberty % (Auto) % Eos % (Auto) % Baso % (Auto) % Neut # (Auto) (1.4-6.5) K/uL Lymph # (Auto) (1.2-3.4) K/uL Liberty # (Auto) (0.11-0.59) K/uL Eos # (Auto) (0-0.5) K/uL Baso # (Auto) (0-0.2) K/uL Immature Gran # (Auto) (0.00-0.02) K/uL PT (9.0-12.0) Seconds INR (0.9-1.1) APTT (21.0-31.0) Seconds PTT Ratio VBG pH (7.36-7.41) VBG pCO2 (38-50) mmHg VBG pO2 mmHg VBG HCO3 mmol/L VBG O2 Saturation % VBG Base Excess mEq/L Barometric Pressure mm/Hg Sodium (136-145) mmol/L Potassium (3.5-5.1) mmol/L Chloride (98-107) mmol/L Carbon Dioxide (21-32) mmol/L Anion Gap (3-11) BUN (7-18) mg/dl Creatinine (0.6-1.4) mg/dl Est Cr Clr Drug Dosing Est GFR ( Amer) ml/min Est GFR (Non-Af Amer) ml/min BUN/Creatinine Ratio (10-20) Glucose (70-99) mg/dl Lactate 1.3 (0.4-2.0) mmol/L Calcium (8.5-10.1) mg/dl Magnesium (1.8-2.4) mg/dl Total Bilirubin (0.2-1) mg/dl AST (15-37) U/L ALT (12-78) U/L Alkaline Phosphatase (45-117) U/L Total Creatine Kinase (39-308) U/L Troponin I (0-0.045) ng/ml C-Reactive Protein 1.30 H (0-0.29) mg/dl Total Protein (6.4-8.2) gm/dl Albumin (3.4-5.0) gm/dl Globulin (2.5-4.0) gm/dl Albumin/Globulin Ratio (0.9-2) TSH (0.300-4.500) uIu/ml Free T4 (0.8-1.6) ng/dl Random Cortisol mcg/dl Urine Color Yellow Urine Appearance Clear (Clear) Urine pH 6.5 (4.5-7.5) Ur Specific [place] 1.020 (1.000-1.030) Urine Protein Trace H (Negative) Urine Glucose (UA) Negative (Negative) Urine Ketones Trace H (Negative) Urine Blood 3+ H (Negative) Urine Nitrite Negative (Negative) Urine Bilirubin Negative (Negative) Urine Urobilinogen Negative (Negative) Ur Leukocyte Esterase 2+ H (Negative) Urine WBC (Auto) 10-30 H (0-5) /hpf Urine RBC (Auto) >30 H (0-4) /hpf U Hyaline Cast (Auto) 5-10 H (0-5) /lpf U Epithel Cells (Auto) 20-30 H (0-5) /lpf Urine Bacteria (Auto) Negative (Negative) Urine Yeast Budding A (None Prsent) COVID-19 Eval Order SARS-CoV-2 (PCR) (Negative) 04/11/21 04/11/21 04/11/21 Range/Units 09:39 09:39 09:00 WBC (4.8-10.8) K/uL RBC (4.7-6.1) M/uL Hgb (14.0-18.0) g/dL Hct (42-52) % MCV (80-100) fL MCH (25-34) pg MCHC (32-36) g/dL RDW Std Deviation (36.4-46.3) fL RDW Coeff of Josh (11.5-14.5) % Plt Count (130-400) K/uL MPV (7.4-10.4) fL Immature Gran % (Auto) % Neut % (Auto) % Lymph % (Auto) % Liberty % (Auto) % Eos % (Auto) % Baso % (Auto) % Neut # (Auto) (1.4-6.5) K/uL Lymph # (Auto) (1.2-3.4) K/uL Liberty # (Auto) (0.11-0.59) K/uL Eos # (Auto) (0-0.5) K/uL Baso # (Auto) (0-0.2) K/uL Immature Gran # (Auto) (0.00-0.02) K/uL PT (9.0-12.0) Seconds INR (0.9-1.1) APTT (21.0-31.0) Seconds PTT Ratio VBG pH (7.36-7.41) VBG pCO2 (38-50) mmHg VBG pO2 mmHg VBG HCO3 mmol/L VBG O2 Saturation % VBG Base Excess mEq/L Barometric Pressure mm/Hg Sodium (136-145) mmol/L Potassium (3.5-5.1) mmol/L Chloride (98-107) mmol/L Carbon Dioxide (21-32) mmol/L Anion Gap (3-11) BUN (7-18) mg/dl Creatinine (0.6-1.4) mg/dl Est Cr Clr Drug Dosing Est GFR ( Amer) ml/min Est GFR (Non-Af Amer) ml/min BUN/Creatinine Ratio (10-20) Glucose (70-99) mg/dl Lactate (0.4-2.0) mmol/L Calcium (8.5-10.1) mg/dl Magnesium (1.8-2.4) mg/dl Total Bilirubin (0.2-1) mg/dl AST (15-37) U/L ALT (12-78) U/L Alkaline Phosphatase (45-117) U/L Total Creatine Kinase (39-308) U/L Troponin I (0-0.045) ng/ml C-Reactive Protein (0-0.29) mg/dl Total Protein (6.4-8.2) gm/dl Albumin (3.4-5.0) gm/dl Globulin (2.5-4.0) gm/dl Albumin/Globulin Ratio (0.9-2) TSH (0.300-4.500) uIu/ml Free T4 (0.8-1.6) ng/dl Random Cortisol 29.07 mcg/dl Urine Color Urine Appearance (Clear) Urine pH (4.5-7.5) Ur Specific [place] (1.000-1.030) Urine Protein (Negative) Urine Glucose (UA) (Negative) Urine Ketones (Negative) Urine Blood (Negative) Urine Nitrite (Negative) Urine Bilirubin (Negative) Urine Urobilinogen (Negative) Ur Leukocyte Esterase (Negative) Urine WBC (Auto) (0-5) /hpf Urine RBC (Auto) (0-4) /hpf U Hyaline Cast (Auto) (0-5) /lpf U Epithel Cells (Auto) (0-5) /lpf Urine Bacteria (Auto) (Negative) Urine Yeast (None Prsent) COVID-19 Eval Order Covid19 at [facility] SARS-CoV-2 (PCR) NEGATIVE (Negative) 04/11/21 04/11/21 04/11/21 Range/Units 09:00 09:00 09:00 WBC 7.85 (4.8-10.8) K/uL RBC 3.96 L (4.7-6.1) M/uL Hgb 12.2 L (14.0-18.0) g/dL Hct 34.9 L (42-52) % MCV 88.1 (80-100) fL MCH 30.8 (25-34) pg MCHC 35.0 (32-36) g/dL RDW Std Deviation 43.3 (36.4-46.3) fL RDW Coeff of Josh 13.4 (11.5-14.5) % Plt Count 134 (130-400) K/uL MPV 9.1 (7.4-10.4) fL Immature Gran % (Auto) 0.5 % Neut % (Auto) 81.5 % Lymph % (Auto) 8.4 % Liberty % (Auto) 8.8 % Eos % (Auto) 0.5 % Baso % (Auto) 0.3 % Neut # (Auto) 6.40 (1.4-6.5) K/uL Lymph # (Auto) 0.66 L (1.2-3.4) K/uL Liberty # (Auto) 0.69 H (0.11-0.59) K/uL Eos # (Auto) 0.04 (0-0.5) K/uL Baso # (Auto) 0.02 (0-0.2) K/uL Immature Gran # (Auto) 0.04 H (0.00-0.02) K/uL PT 11.1 (9.0-12.0) Seconds INR 1.1 (0.9-1.1) APTT 26.1 (21.0-31.0) Seconds PTT Ratio 1.0 VBG pH (7.36-7.41) VBG pCO2 (38-50) mmHg VBG pO2 mmHg VBG HCO3 mmol/L VBG O2 Saturation % VBG Base Excess mEq/L Barometric Pressure mm/Hg Sodium 130 L (136-145) mmol/L Potassium 4.2 (3.5-5.1) mmol/L Chloride 99 (98-107) mmol/L Carbon Dioxide 23 (21-32) mmol/L Anion Gap 8.0 (3-11) BUN 30 H (7-18) mg/dl Creatinine 1.38 (0.6-1.4) mg/dl Est Cr Clr Drug Dosing Not Reportable Est GFR ( Amer) 52.2 ml/min Est GFR (Non-Af Amer) 45.0 ml/min BUN/Creatinine Ratio 22.0 H (10-20) Glucose 136 H (70-99) mg/dl Lactate (0.4-2.0) mmol/L Calcium 8.1 L (8.5-10.1) mg/dl Magnesium (1.8-2.4) mg/dl Total Bilirubin 0.9 (0.2-1) mg/dl AST 26 (15-37) U/L ALT 43 (12-78) U/L Alkaline Phosphatase 93 (45-117) U/L Total Creatine Kinase 60 (39-308) U/L Troponin I < 0.015 (0-0.045) ng/ml C-Reactive Protein (0-0.29) mg/dl Total Protein 6.4 (6.4-8.2) gm/dl Albumin 3.1 L (3.4-5.0) gm/dl Globulin 3.3 (2.5-4.0) gm/dl Albumin/Globulin Ratio 0.9 (0.9-2) TSH 8.690 H (0.300-4.500) uIu/ml Free T4 1.14 (0.8-1.6) ng/dl Random Cortisol mcg/dl Urine Color Urine Appearance (Clear) Urine pH (4.5-7.5) Ur Specific [place] (1.000-1.030) Urine Protein (Negative) Urine Glucose (UA) (Negative) Urine Ketones (Negative) Urine Blood (Negative) Urine Nitrite (Negative) Urine Bilirubin (Negative) Urine Urobilinogen (Negative) Ur Leukocyte Esterase (Negative) Urine WBC (Auto) (0-5) /hpf Urine RBC (Auto) (0-4) /hpf U Hyaline Cast (Auto) (0-5) /lpf U Epithel Cells (Auto) (0-5) /lpf Urine Bacteria (Auto) (Negative) Urine Yeast (None Prsent) COVID-19 Eval Order SARS-CoV-2 (PCR) (Negative) PG Care Time/CCT Total # of Minutes Spent Total Time Spent with Patient: Total time spent is greater than 50% in coordination of care (as documented) at patient's floor/unit and/or counseling patient: Coding Level of Care Code 69748 Subseq Hosp Care Lvl 3 Diagnoses Syncope R55 Syncope type: unspecified Acute UTI N39.0 Hypovolemia E86.1 Hyponatremia E87.1 Altered mental status R41.82 Altered mental status type: unspecified Hypothyroid E03.9 Hypothyroidism type: unspecified Lucita rash of groin B37.89 Urinary symptom or sign R39.9 Hypertension I10 Hypertension type: essential hypertension CVA (cerebrovascular accident) I63.9 HLD (hyperlipidemia) E78.5 Hyperlipidemia type: unspecified (1) HLD (hyperlipidemia) Hyperlipidemia type: unspecified Qualified Code(s): E78.5 - Hyperlipidemia, unspecified (2) Hypothyroid Hypothyroidism type: unspecified Qualified Code(s): E03.9 - Hypothyroidism, unspecified (3) Syncope Syncope type: unspecified Qualified Code(s): R55 - Syncope and collapse (4) Altered mental status Altered mental status type: unspecified Qualified Code(s): R41.82 - Altered mental status, unspecified (5) Hypertension Hypertension type: essential hypertension Qualified Code(s): I10 - Essential (primary) hypertension
[2021-04-12 09:19] LABS: Appearance Urine Cloudy (Clear); Bilirubin Urine Negative (Negative); Blood Urine 2+ (Negative); Color Urine Yellow; Glucose Urine UA Negative (Negative); Ketones Urine Negative (Negative); Leukocyte Esterase Urine 2+ (Negative); Nitrite Urine Negative (Negative); Protein Urine 1+ (Negative); Specific Gravity Urine 1.021 (1.000-1.030); Urobilinogen Urine Negative (Negative); WBC Urine Automated >30 /hpf (0-5); pH Urine 5.5 (4.5-7.5)
[2021-04-12 09:52] LABS: Bacteria Urine Automated 1+ (Negative)
--- NOTE | 2021-04-12 10:02 | Cardiology Consultation ---
Date of Consultation April 12, 2021 Assessment & Plan (1) Syncope: The patient has little recollection of the event in question. He felt that he was eating breakfast when this happened although reports by a family member suggest this was associated with using the bathroom. Based on the desc ription of the events I suspect this was vagally mediated. There was some debate during his last admission regarding the mechanism of his syncope and concerns that a pacemaker would not eliminate additional episodes. I suspect a component of his event involves significant hypotension (i.e. vasodepressor response) which cannot be adequately treated by a pacemaker. I did activate the rate drop feature of his device which can occasionally attenuate symptoms associated with high vagal tone. However, in order to avoid additional episodes will need to employ standard therapies which include ma intaining good hydration, possibly compression stockings and recognizing symptoms in order to employee abortive maneuvers. We can monitor his blood pressure closely and decide if a repeat dose reduction in his losartan would be reasonable. (2) Pacemaker: Normally functioning dual-chamber permanent pacemaker. (3) Aortic root dilatation: History of Present Illness Reason for Consultation: Syncope Requesting Physician: Víctor Attending Physician: Rosaura Renee MD History of Present Illness The patient is an 89-year-old gentleman who was evaluated earlier this month after an episode of unresponsiveness. During that admission he was noted to have significant bradycardia and prolonged AV conduction. He did undergo implantation of a dual-chamber permanent pacemaker in the hopes that this would attenuate further episodes of syncope. The patient was discharged to a rehabilitation facility and eventually home. He was witnessed by his daughter to have suffered another syncopal episode. A description of the event by the daughter seems to have involved the patient being somewhat cold and clammy. He was noted to be hypotensive at the time EMS evaluated him. He was brought to the hospital and admitted for observation. Patient did not have much recollection of this event. He did recall eating breakfast and feeling nauseated. He states that the next thing he remembered was being at the hospital. He claims to have done well at rehab and reports walking regularly. 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 Allergies Allergy/AdvReac Type Severity Reaction Status Date / Time Penicillins Allergy Unknown UNKNOWN Verified 04/11/21 10:11 morphine AdvReac Severe HALLICINATIONS, Verified 04/11/21 10:11 BEHAVIOR CHANGES Home Medications Medication Instructions Recorded Confirmed Type tamsulosin 0.4 mg PO HS #1 cap 03/11/21 04/11/21 Rx acetaminophen 650 mg PO Q4 PRN 03/26/21 04/11/21 History aspirin [Aspirin Low Dose] 81 mg PO QAM 03/26/21 04/11/21 History atorvastatin 80 mg PO QAM 03/26/21 04/11/21 History cholecalciferol (vitamin D3) 25 mcg PO QAM 03/26/21 04/11/21 History [Vitamin D3] docusate sodium 100 mg PO BID 03/26/21 04/11/21 History escitalopram oxalate [Lexapro] 5 mg PO QAM 03/26/21 04/11/21 History fluticasone propionate 2 spray INTRANASAL QAM 03/26/21 04/11/21 History latanoprost 1 drp OPR HS 03/26/21 04/11/21 History losartan 50 mg PO Q12 03/26/21 04/11/21 History levothyroxine [Synthroid] 25 mcg PO DAILYBB #30 tab 03/29/21 04/11/21 Rx nystatin 1 applic TOPICAL DAILY PRN 04/11/21 04/11/21 History sulfamethoxazole-trimethoprim 1 tab PO BID 04/11/21 04/11/21 History [Bactrim DS] Patient History Medical History Ambulatory dysfunction Aortic root dilatation Ataxia Blind left eye Brain aneurysm Chronic arterial ischemic stroke, multifocal, multiple vascular territories CVA (cerebrovascular accident) Dizziness Fall Hyperlipidemia Hypertension Hypertensive urgency Prediabetes Syncope Surgical History Hx of total knee replacement S/P hernia repair Family History Other Breast cancer Denies family history of Ovarian cancer Prostate cancer Myocardial infarction Colorectal cancer Social History Smoking Status: Unknown if ever smoked Second Hand Exposure: No; Hx Substance Use: No Preferred Language: Malian Communication Ability: Effective Visual Impairment: No Limitations 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 He did not report palpitations. He is not having chest pain. Some mild back discomfort this morning. Physical Exam Physical Exam: The patient is alert and oriented. Mood and affect appeared normal. He answered all questions appropriately. New he was in the hospital. He answered questions appropriately although some of his answers appeared to be fabricated. Sclera anicteric Neuro: Cranial nerves intact Lungs: Clear to auscultation bilaterally. He has good air movement without use of accessory muscles. No rales wheezes or rhonchi. Cardiac: Heart demonstrates a regular rate and rhythm. Normal S1 and S2. Systolic murmur Chest: Device implant site well healed without erythema, drainage. Resolving ecchymosis. Pulses: The patient has palpable radial pulses bilaterally that are equal in intensity Extremities: There was no evidence of hypoperfusion. There is no cyanosis or clubbing. There is no edema. Skin: I did not appreciate any rashes on examination today. Results & Data ([facility]) Vital Signs (Past 12 Hours) Vital Signs Temp Pulse Pulse Resp BP Pulse Ox 04/12/21 08:40 37.0 C 77 20 107/62 91 04/12/21 04:00 36.8 C 74 18 119/70 93 04/12/21 03:36 67 04/11/21 23:40 37.0 C 61 18 110/60 95 Laboratory Results Abnormal Lab Results 04/11/21 04/11/21 04/11/21 09:00 09:00 09:39 WBC RBC Hgb Hct MCV MCH MCHC RDW Std Deviation RDW Coeff of Josh Plt Count MPV Immature Gran % (Auto) Neut % (Auto) Lymph % (Auto) Prairie % (Auto) Eos % (Auto) Baso % (Auto) Neut # (Auto) Lymph # (Auto) [place]irie # (Auto) Eos # (Auto) Baso # (Auto) Immature Gran # (Auto) VBG pH VBG pCO2 VBG pO2 VBG HCO3 VBG O2 Saturation VBG Base Excess Barometric Pressure Sodium Potassium Chloride Carbon Dioxide Anion Gap BUN Creatinine Est Cr Clr Drug Dosing Est GFR ( Amer) Est GFR (Non-Af Amer) BUN/Creatinine Ratio Glucose Lactate Calcium Magnesium C-Reactive Protein Free T4 1.14 Random Cortisol 29.07 Urine Color Urine Appearance Urine pH Ur Specific Johnston Urine Protein Urine Glucose (UA) Urine Ketones Urine Blood Urine Nitrite Urine Bilirubin Urine Urobilinogen Ur Leukocyte Esterase Urine WBC (Auto) Urine RBC (Auto) U Hyaline Cast (Auto) U Epithel Cells (Auto) Urine Bacteria (Auto) Urine Yeast SARS-CoV-2 (PCR) NEGATIVE 04/11/21 04/11/21 04/11/21 10:35 11:24 11:24 WBC RBC Hgb Hct MCV MCH MCHC RDW Std Deviation RDW Coeff of Josh Plt Count MPV Immature Gran % (Auto) Neut % (Auto) Lymph % (Auto) Prairie % (Auto) Eos % (Auto) Baso % (Auto) Neut # (Auto) Lymph # (Auto) [place] # (Auto) Eos # (Auto) Baso # (Auto) Immature Gran # (Auto) VBG pH VBG pCO2 VBG pO2 VBG HCO3 VBG O2 Saturation VBG Base Excess Barometric Pressure Sodium Potassium Chloride Carbon Dioxide Anion Gap BUN Creatinine Est Cr Clr Drug Dosing Est GFR ( Amer) Est GFR (Non-Af Amer) BUN/Creatinine Ratio Glucose Lactate 1.3 Calcium Magnesium C-Reactive Protein 1.30 H Free T4 Random Cortisol Urine Color Yellow Urine Appearance Clear Urine pH 6.5 Ur Specific Johnston 1.020 Urine Protein Trace H Urine Glucose (UA) Negative Urine Ketones Trace H Urine Blood 3+ H Urine Nitrite Negative Urine Bilirubin Negative Urine Urobilinogen Negative Ur Leukocyte Esterase 2+ H Urine WBC (Auto) 10-30 H Urine RBC (Auto) >30 H U Hyaline Cast (Auto) 5-10 H U Epithel Cells (Auto) 20-30 H Urine Bacteria (Auto) Negative Urine Yeast Budding A SARS-CoV-2 (PCR) 04/11/21 04/12/21 04/12/21 11:36 07:20 07:20 WBC 6.59 RBC 4.07 L Hgb 12.2 L Hct 35.8 L MCV 88.0 MCH 30.0 MCHC 34.1 RDW Std Deviation 43.5 RDW Coeff of Josh 13.5 Plt Count 136 MPV 8.9 Immature Gran % (Auto) 0.2 Neut % (Auto) 75.2 Lymph % (Auto) 14.9 Prairie % (Auto) 8.5 Eos % (Auto) 0.9 Baso % (Auto) 0.3 Neut # (Auto) 4.96 Lymph # (Auto) 0.98 L Prairie # (Auto) 0.56 Eos # (Auto) 0.06 Baso # (Auto) 0.02 Immature Gran # (Auto) 0.01 VBG pH 7.36 VBG pCO2 42 VBG pO2 37 VBG HCO3 23 VBG O2 Saturation 68.6 VBG Base Excess -2.0 Barometric Pressure 732.3 Sodium 135 L Potassium 4.4 Chloride 103 Carbon Dioxide 27 Anion Gap 5.0 BUN 18 Creatinine 0.96 D Est Cr Clr Drug Dosing 47.1 Est GFR ( Amer) 80.9 Est GFR (Non-Af Amer) 69.8 BUN/Creatinine Ratio 18.3 Glucose 89 Lactate Calcium 8.6 Magnesium 2.3 C-Reactive Protein Free T4 Random Cortisol Urine Color Urine Appearance Urine pH Ur Specific Johnston Urine Protein Urine Glucose (UA) Urine Ketones Urine Blood Urine Nitrite Urine Bilirubin Urine Urobilinogen Ur Leukocyte Esterase Urine WBC (Auto) Urine RBC (Auto) U Hyaline Cast (Auto) U Epithel Cells (Auto) Urine Bacteria (Auto) Urine Yeast SARS-CoV-2 (PCR) 04/12/21 09:00 WBC RBC Hgb Hct MCV MCH MCHC RDW Std Deviation RDW Coeff of Josh Plt Count MPV Immature Gran % (Auto) Neut % (Auto) Lymph % (Auto) Prairie % (Auto) Eos % (Auto) Baso % (Auto) Neut # (Auto) Lymph # (Auto) [place] # (Auto) Eos # (Auto) Baso # (Auto) Immature Gran # (Auto) VBG pH VBG pCO2 VBG pO2 VBG HCO3 VBG O2 Saturation VBG Base Excess Barometric Pressure Sodium Potassium Chloride Carbon Dioxide Anion Gap BUN Creatinine Est Cr Clr Drug Dosing Est GFR ( Amer) Est GFR (Non-Af Amer) BUN/Creatinine Ratio Glucose Lactate Calcium Magnesium C-Reactive Protein Free T4 Random Cortisol Urine Color Yellow Urine Appearance Cloudy A Urine pH 5.5 Ur Specific Johnston 1.021 Urine Protein 1+ H Urine Glucose (UA) Negative Urine Ketones Negative Urine Blood 2+ H Urine Nitrite Negative Urine Bilirubin Negative Urine Urobilinogen Negative Ur Leukocyte Esterase 2+ H Urine WBC (Auto) >30 H Urine RBC (Auto) 10-30 H U Hyaline Cast (Auto) 1-5 U Epithel Cells (Auto) 5-10 H Urine Bacteria (Auto) 1+ H Urine Yeast Budding w/ Hyphae A SARS-CoV-2 (PCR) Diagnostic Findings Echocardiogram performed in February 2021 revealed preserved LV systolic function. Head CT obtained the time of previous admission revealed involving occipital infarct, previously documented. Reveals evolution of the posterior cerebral artery distribution infarct Chest x-ray at the time of admission did not reveal any acute cardiopulmonary process. I performed a complete device interrogation of a dual-chamber permanent pacemaker. Normal function with the atrial ventricular leads. No recorded arrhythmias. PG Care Time/CCT Total # of Minutes Spent Total Time Spent with Patient: Total time spent is greater than 50% in coordination of care (as documented) at patient's floor/unit and/or counseling patient: Coding Level of Care Code 86482 Initial Inpt Care Lvl 3 Diagnoses Syncope R55 Syncope type: unspecified Pacemaker Z95.0 Aortic root dilatation I77.810 (1) Syncope Syncope type: unspecified Qualified Code(s): R55 - Syncope and collapse
--- NOTE | 2021-04-12 11:05 | Electrocardiogram Report ---
Test Reason : Blood Pressure : / mmHG Vent. Rate : 071 BPM Atrial Rate : 070 BPM P-R Int : 000 ms QRS Dur : 102 ms QT Int : 390 ms P-R-T Axes : 000 -09 041 degrees QTc Int : 423 ms Sinus rhythm with 1st degree AV block Nonspecific T wave abnormality Abnormal ECG When compared with ECG of 11-APR-2021 09:08, Nonspecific T wave abnormality, worse in Lateral leads Confirmed by Domingo Fonseca ([id number]) on 04/12/2021 11:04:34 AM Referred By: REFERRED SELF Confirmed By:Raman Fonseca
--- NOTE | 2021-04-12 11:58 | XRay Report ---
XR chest 1V portable CLINICAL HISTORY: Shortness of breath. Evaluate for atelectasis/effusion/infiltrate. COMPARISON STUDY: Chest CT March 26, 2021. Chest radiograph April 11, 2021. FINDINGS: Tortuosity/mild dilatation of the thoracic aorta is unchanged. This is accentuated by rotat ion. Old right rib fractures are noted. Dual lead right subclavian pacemaker is in place. There is no pneumothorax or pleural effusion. There is no evidence for pulmonary edema. IMPRESSION: No acute cardiopulmonary findings. No change in appearance of the chest. ACT 112: Negative or not required by law. Electronically signed by: Tiago Powell M.D. 04/12/2021 11:56 AM
[2021-04-12] MEDS: ENOXAPARIN INJ 40 MG/0.4 ML SYR SQ SCH (18:02)
[2021-04-12] MEDS: LATANOPROST 0.005% OP SOLN 2.5 ML BTL OPR SCH (20:47)
[2021-04-13] MEDS: PIPERACILLIN/TAZOBACTAM 3.375 GM in DEXTROSE 5% 100 ML IV SCH ×2 (02:20→09:29)
[2021-04-13 06:36] LABS: Basophils # (auto) 0.03 K/uL (0-0.2); Basophils % (auto) 0.5 %; Eosinophils # (auto) 0.07 K/uL (0-0.5); Eosinophils % (auto) 1.1 %; Hematocrit (blood only) 35.5 % (42-52); Hemoglobin 12.2 g/dL (14.0-18.0); Immature Granulocytes # (auto) 0.03 K/uL (0.00-0.02); Immature Granulocytes % (auto) 0.5 %; Lymphocytes # (auto) 1.29 K/uL (1.2-3.4); Lymphocytes % (auto) 20.5 %; Mean Corpuscular Hgb Conc 34.4 g/dL (32-36); Mean Corpuscular Volume 87.2 fL (80-100); Mean Platelet Volume 9.2 fL (7.4-10.4); Monocytes # (auto) 0.59 K/uL (0.11-0.59); Monocytes % (auto) 9.4 %; Neutrophils # (auto) 4.28 K/uL (1.4-6.5); Platelet Count 149 K/uL (130-400); RDW Coefficient of Variation 13.4 % (11.5-14.5); RDW Standard Deviation 42.9 fL (36.4-46.3); Red Blood Count 4.07 M/uL (4.7-6.1); White Blood Count 6.29 K/uL (4.8-10.8)
[2021-04-13 07:03] LABS: BUN Creatinine Ratio 20.8 (10-20); Calcium 8.6 mg/dl (8.5-10.1); Creatinine Clr Calc Pharmacy 54.4 ml/min; Est GFR (African American) 90.4 ml/min; Magnesium 2.3 mg/dl (1.8-2.4); Potassium 4.5 mmol/L (3.5-5.1)
[2021-04-13] MEDS: LEVOTHYROXINE SODIUM 25 MCG TABLET PO SCH (07:08)
[2021-04-13] MEDS: DOCUSATE SODIUM 100 MG CAP PO SCH (08:20)
[2021-04-13] MEDS: FLUTICASONE PROPIONATE NA SPR 16 GM BTL SCH (08:20)
[2021-04-13] MEDS: ATORVASTATIN 40 MG TAB PO SCH (08:21)
[2021-04-13] MEDS: FLUCONAZOLE 100 MG TAB PO SCH (08:21)
[2021-04-13] MEDS: ASPIRIN 81 MG ECTAB PO SCH (08:21)
[2021-04-13] MEDS: ESCITALOPRAM OXALATE 10 MG TAB PO SCH (08:21)
[2021-04-13] MEDS ORDERED: LOSARTAN POTASSIUM 25 MG TAB PO SCH (09:00)
[2021-04-13] MEDS ORDERED: CIPROFLOXACIN 250 MG TAB PO SCH (12:00)
--- NOTE | 2021-04-13 12:00 | Discharge Summary ---
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 Patient went to [facility] rehab following his pacer placement, he was also sent there with indwelling Henry catheter. He was on Bactrim when he went home on Wednesday and was to finish on April 13. Patient was doing well at home per the daughter up until this morning. He got up to go to the bathroom this morning, while daughter was helping him she noticed he had blank stare and got cool and clammy to his forehead. She called 911 and he was less arousable and reported hypotensive at that time. In the EMD he got 500 ml of saline, replaced his Henry, Urine repeated today. He was started on Rocephin in the EMD. [facility] to work up his cause of syncope and support. Pacer interrogated. Daughter reports that even while he was at [facility], she would get reports of him sleeping most of the day and not participating in physical therapy or care. He is severely hard of hearing but is appropriate when he is awake and has no focal deficits on exam. His CT of the head shows no acute concerns. Will draw blood cultures, inflammatory markers. Admission Exam Per Admitting Provider PHYSICAL EXAM: General: arousable- hard of hearing alert, no apparent distress Head: Normocephalic, atraumatic ENT: PERRLA, EOMI, no pharyngeal exudate, mucous membranes dry Neuro: AAO x 2, speech clear, hemianopsia, strength intact bilaterally 5/5, sensation intact and equal all extremities and dermatomes, no pronator drift Chest: equal rise and fall of the chest, no accessory muscle use, no heaves or thrills, Clear to auscultation, on room air, Cardiac: Regular rate and rhythm, telemetry reviewed- 1 degree av block- appropriate a pace, with appropriate change to DDD and appropriate fire and capture,- HR low 60s, skin warm dry, cap refill <3 seconds, peripheral pulses +2 no JVD, no murmur, no edema GI: NABS x 4 quadrants, soft, nontender to palpation, tympanic, no rebound, guarding or tenderness : Henry to gravity, changed in the EMD, no pain, no CVA tenderness, Extremities: scratch to right abel, groin excoriation- chronic on nystatin, no peripheral edema, calfs nontender to palpation Psych: Normal mood and affect Skin: as above Principal Diagnosis Syncope, Dehydration, UTI, OLY Discharge Exam Constitutional well developed, + frail appearing, cooperative and comfortable; no acute distress Eyes + anicteric sclerae and PERRL ENMT Ears: + hearing impairment Neck trachea midline Respiratory normal respiratory effort; no labored breathing, no cough and not tachypneic Auscultation: lungs clear to auscultation bilaterally Cardiovascular Rate/Rhythm: regular rhythm and + bradycardic Heart Sounds: + murmur (systolic) Vessels: no JVD Extremities: no calf tenderness and no edema Chest (Breasts) Additional Comments: R sided pacemaker - site c/d/i Gastrointestinal (Abdomen) normal bowel sounds, soft, nontender, no hepatosplenomegaly Musculoskeletal Head/Neck/Chest: normocephalic and 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 Skin improved turgor, decreased redness to groin Neurologic patellar DTR's 2+ bilat, sensation intact Psychiatric Orientation: alert, oriented to person, oriented to place and oriented to time (easily reoriented) Genitourinary henry draining yellow urine Discharge Data Allergies Allergy/AdvReac Type Severity Reaction Status Date / Time Penicillins Allergy Unknown UNKNOWN Verified 04/15/21 10:46 morphine AdvReac Severe HALLICINATIONS, Verified 04/15/21 10:46 BEHAVIOR CHANGES sulfor AdvReac Unknown Uncoded 04/15/21 11:17 Consultations 04/11/21 10:22 ED Decision to Admit Stat 04/11/21 15:49 Consult Cardiology Routine Ordered Studies Chest X-Ray 04/11/21 09:05 XR chest 1V portable CLINICAL HISTORY: weakness COMPARISON STUDY: March 28, 2021 FINDINGS: No pneumothorax. No pleural effusion. No large infiltrates or consolidative lesions are seen. Minimal atelectasis at the left base is improved since prior study. Cardiomediastinal silhouette silhouette is within upper limits of normal and stable since prior. No significant pulmonary vascular congestion.. Aorta is tortuous and calcified. Osseous structures: Mild osteopenia, degenerative changes of the spine. Healed fracture deformity of the left clavicle and the right rib cage. IMPRESSION: 1. Interval improvement of small atelectasis at the left base. 2. Atherosclerosis. ACT 112: Negative or not required by law. The above report was generated using voice recognition software. It may contain grammatical, syntax or spelling errors. Electronically signed by: Larissa Rodriguez DO 04/11/2021 9:[address] 04/11/21 09:11 CT OF THE HEAD WITHOUT CONTRAST CLINICAL HISTORY: Altered mental status. COMPARISON STUDY: Head CT March 26, 2021. CT DOSE: 537.48 mGy.cm TECHNIQUE: Helical axial images of the head were obtained without IV contrast. Automated exposure control was utilized for the study. A dose lowering technique was utilized adhering to the principles of ALARA. FINDINGS: No acute intracranial hemorrhage, midline shift or mass effect is present. Tip is mildly compromised by motion artifact. Ventricular system is stable. The basal cisterns are patent. There are no extra axial collections. Multiple old infarcts are noted, including an old infarct within the right basal ganglia and right frontal lobe as well as the anterior left frontal lobe. There has been expected location of the previously described right POOL LIFEGUARD distribution infarct. There is an old infarct within left cerebellar hemisphere. There are no findings to suggest acute dural sinus thrombosis or acute territorial infarct. Right-sided craniotomy is noted. Old nasal bone fractures are present. IMPRESSION: 1. No acute intracranial findings. 2. Numerous old infarcts. Expected evolution of the right POOL LIFEGUARD distribution infa rct shown on head CT of March 26, 2021. ACT 112: Negative or not required by law. Electronically signed by: Tiago Powell M.D. 04/11/2021 9:49 AM Chest X-Ray 04/12/21 05:02 XR chest 1V portable CLINICAL HISTORY: Shortness of breath. Evaluate for atelectasis/effusion/infiltrate. COMPARISON STUDY: Chest CT March 26, 2021. Chest radiograph April 11, 2021. FINDINGS: Tortuosity/mild dilatation of the thoracic aorta is unchanged. This is accentuated by rotation. Old right rib fractures are noted. Dual lead right subclavian pacemaker is in place. There is no pneumothorax or pleural effusion. There is no evidence for pulmonary edema. IMPRESSION: No acute cardiopulmonary findings. No change in appearance of the chest. ACT 112: Negative or not required by law. Electronically signed by: Tiago Powell M.D. 04/12/2021 11:56 AM Hospital Course (1) Syncope: Patient with syncope x2 -- at home while up to use restroom/urinate and with EMS when getting up to stand. Presented with confusion/encephalopathy 2nd to pseudomonas/serratia UTI and hyponatremia (Of note, prior admission February 2021 with stroke x 2, Henry insertion February 2021 due to retention failing voiding trial at [facility] and had UTI. Subsequently symptomatic bradycardia/SA node dysfunction and underwent permanent pacemaker) CT head with OLD evolving stroke R POOL LIFEGUARD distribution but without acute CVA. No neurological deficits from baseline CXR improving L infiltrate --> repeat without acute finding Tele -- 1st degree, bradycardic to low 50s. Recent negative Lyme. 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 Restarted but lowered to 25mg once daily after discussion with cardiology for once daily dosing and patient and family to have BPs checked at home and alert PCP if elevated to consider additional dose vs alternative medication as BB/CCB not options given bradycardia/1st degree and would like to avoid HCTZ to prevent worsening dehydration BP 118/65 after reduced dose this morning but eating/drinking better Discontinued his Flomax (was new for urinary retention) and catheter exchanged in ER. F/u appt with Urology for Wednesday this week --> Prior UTI at [facility] with Pseudomonas and serratia but was sent on course of Bactrim, inadequately covering for the pseudomonas Urine cx on admission with lucita --> Placed on Zosyn and IVF for dehydration with elevated BUN/cr on admission. Transitioned to Ciprofloxacin (verified sensitivities) at discharge and continued Diflucan to complete course abx Blood cultures NGTD PT/OT recs with return home with 24 hour care -- arranged by /family/siblings NO FURTHER SYMPTOMS DURING HOSPITALIZATION (2) Acute UTI: ?Acute on chronic UTI Bactrim from [facility] for UTI with pseudomonas/serratia which did not cover Pseudomonas to be completed on 04/13 Zosyn while inpatient, IVF for dehydration UA during admission also with budding yeast. Flomax stopped given orthostatic hypotension Henry replacement in ER and Urology f/u for this coming Wednesday Sent on PO Ciprofloxacin and Diflucan as above to complete course-confirmed with [facility] Urine cx-Pseudomonas sensitive to FQs (3) Hypovolemia: On admission -- elevated BUN/Cr and hyponatremia/hypotension IVF, Tx of UTI, and discontinuation of flomax along with reduction in losartan as above Lactic 1.3 Improved -- encouraged oral intake (4) Hyponatremia: Na 130 on admission Combination of dehydration/poor PO intake, ARB therapy, as well as hypothyroidism (recently started 25mcg daily levothyroxine) BUN 30/Cr 1.38 on admission IVF as above, levothyroxine recently started, and decreased dose of losartan Na 133 prior to discharge, asymptomatic (5) Altered mental status: Improving as tx as above (6) Hypothyroid: TSH 8 - was just started on 25mcg synthroid at beginning of MARCH 2021 which was continued and should help with the hyponatremia as well Free T4 1.4 repeat TFT as outpatient 4-6wks (7) Lucita rash of groin: Continued nystatin (8) Urinary symptom or sign: With retention, was on Tamsulosin- Will hold while he has henry catheter as well as for this syncope Changed Henry in ER and continued at d/c. F/u Urology Wednesday as above Discontinued Flomax as above (9) Hypertension: Hx of Held ARB on admission for hypotension/hyponatremia/dehydration as above BP improved with tx as above -- BP morning of d/c 159/72 and restarted losartan but at ONCE DAILY reduced dose of 25MG given recent CVA February BP 118/65 prior to d/c and patient remained asymptomatic F/u PCP for further management/adjustments as they monitor his BPs at home (10) CVA (cerebrovascular accident): Hx of in February No BB due to bradycardia/SSS s/p pacemaker, ARB adjusted as above Continued on ASA 81mg, Lipitor 80mg daily CT Head with evolving OLD CVA as above, no acute (11) HLD (hyperlipidemia): Atorvastatin 80mg daily DVT Prophylaxis Lovenox while inpatient Confirmed with /daughters and CM that this is in place and patient was discharged with family with 24h care as recommended by therapy during admission. Total Time Total Time Spent Total Time Spent (In Minutes): 60 Discharge Plan Discharge Items Patient Disposition: Home - Home Health Services Reason For Visit: SYNCOPE, UTI Discharge Diagnosis: Syncope, Vasovagal, UTI Goals: You have been hospitalized for an acute medical problem. During your stay at [facility], we have made an effort to correct the problem that brought you to the hospital while keeping you as comfortable as possible. Medications were used to bring your condition under control and your discharge instructions will include directions for any medications you should take after leaving the hospital. Please make sure you see your Primary Care Provider as part of your follow up plan. Activity: Resume your previous activity Non-emergency contact: Primary Care Provider, Valve Inspector and Urologist Call non-emergency contact if: you have any medication questions, your symptoms worsen and you have a fever Follow-up/Referrals: Ian Lees MD [Physician] - Ina Fonseca MD [Physician] - Radha Leon MD [Primary Care Provider] - 04/21/21 11:30 am Mara Harvey CRNP [Nurse Practitioner] - 04/15/21 10:45 am Diet: Heart Healthy Addtl Attending Provider Instructions: You have been hospitalized for syncope. Imaging was negative for acute process. CT did not show any new stroke. Pacemaker was reviewed and Dr Fonseca (cardiology) made adjustments to your pacer but it was felt this was partially "vasovagally" mediated which means related to you feeling you had to urinate. This can also be due to UTI which was not adequately treated with the Bactrim and you are being sent with a prescription for: * Ciprofloxacin 250mg by mouth TWICE daily for another 5 days * Diflucan 200mg by mouth ONCE daily for another 2 days You will have follow up with Urology on Wednesday regarding possible voiding trial. Your flomax was stopped as this can also contribute to hypotension and contribute to symptoms. Your blood pressure medication was decreased to losartan 25mg by mouth ONCE daily but you should continue to monitor your blood pressures at home and if top number greater than 160 or bottom number higher than 90 you should call your primary care provider about taking another dose or adding an additional medication that does not work like a diuretic, as low sodium levels can also contribute to confusion. You were evaluated by therapy and decision was made to discharge home with 24hour care from family. Please follow up with PCP and Urology, cardiology as needed. Please return to the emergency department with any symptoms that are concerning for you. It has been a pleasure being a part of the medical team providing for you while you have been in the hospital. Take care! Pending Studies at Discharge: No Stand-Alone Forms: My [facility], Smoking Cessation Medications and DC Order Prescriptions: New fluconazole 100 mg Tablet 200 mg PO QAM Qty: 2 RF: 0 ciprofloxacin HCl 250 mg Tablet 250 mg PO BID Qty: 9 RF: 0 losartan 25 mg Tablet 25 mg PO QAM Qty: 30 RF: 0 Continued latanoprost 0.005 % Drops 1 drp OPR HS RF: 0 atorvastatin 80 mg Tablet 80 mg PO QAM RF: 0 aspirin [Aspirin Low Dose] 81 mg Tablet,Delayed Release (Dr/Ec) 81 mg PO QAM RF: 0 cholecalciferol (vitamin D3) [Vitamin D3] 25 mcg (1,000 unit) Tablet 25 mcg PO QAM RF: 0 acetaminophen 325 mg Tablet 650 mg PO Q4 PRN (Reason: Pain) RF: 0 docusate sodium 100 mg Capsule 100 mg PO BID RF: 0 fluticasone propionate 50 mcg/actuation Satin,Suspension 2 spray INTRANASAL QAM RF: 0 escitalopram oxalate [Lexapro] 5 mg Tablet 5 mg PO QAM RF: 0 levothyroxine [Synthroid] 25 mcg Tablet 25 mcg PO DAILYBB Qty: 30 RF: 2 nystatin 100,000 unit/gram Powder 1 applic TOPICAL DAILY PRN (Reason: groin redness) RF: 0 Discontinued tamsulosin 0.4 mg capsule 0.4 mg PO HS Qty: 1 RF: 0 losartan 50 mg tablet 50 mg PO Q12 RF: 0 sulfamethoxazole-trimethoprim [Bactrim DS] 800-160 mg Tablet 1 tab PO BID RF: 0 Discharge Orders: Discharge Order (Routine); Ordered 04/13/21 Ordered By: Gina Patel Admission Data Admit Date/Time: 04/11/21 11:06 Attending Provider: Rosaura Renee Admit Provider: Felice Lawson Primary Care Provider: Radha Leon Other Providers: Rosaura Renee ; Ian Fonseca ; [facility] Other Interventions: Discharge Summary Assessment (RN) Last Done: 04/13/21 13:58 Supervising Physician Co-Signing Physician Notes PA Supervision Note: I personally saw and examined the patient. I verified all sawyer points and agree with MAGDALENA Patle with the following exceptions and/or additions: S-Pt severely hard of hearing but voices no complaints, is OOB to chair and dressed and ready to go home. Is jovial in conversation, oswaldo po, no concerns. Henry remains in place. Daughter at bedside has no questions.I discussed his case with Cardiology O- Vitals reviewed Gen: [AAOriented, NAD] HEENT: [anicteric sclerae, EOMI, LAC COURTE OREILLES] CV: [RRR no mgr nl S1S2] Pulm: [CTAB no wcr] Abd: [+BS soft NT ND no masses or hernias] Ext: [no edema,Henry in place with clear yellow urine] Skin: [no rashes, warm/dry] Neuro: [full strength throughout] A/P-89 yo male with history as above, here with syncope, Henry-catheter associated UTI, likely vasovagal syncope. Much improved Stable for dc with changes as above Coding Level of Care Code D/C Day Management >30 mins Diagnoses Syncope R55 Syncope type: unspecified Acute UTI N39.0 Hypovolemia E86.1 Hyponatremia E87.1 Altered mental status R41.82 Altered mental status type: unspecified Hypothyroid E03.9 Hypothyroidism type: unspecified Lucita rash of groin B37.89 Urinary symptom or sign R39.9 Hypertension I10 Hypertension type: essential hypertension CVA (cerebrovascular accident) I63.9 HLD (hyperlipidemia) E78.5 Hyperlipidemia type: unspecified
--- NOTE | 2021-04-13 13:07 | Electrocardiogram Report ---
Test Reason : Blood Pressure : / mmHG Vent. Rate : 061 BPM Atrial Rate : 061 BPM P-R Int : 384 ms QRS Dur : 102 ms QT Int : 400 ms P-R-T Axes : 105 -08 039 degrees QTc Int : 402 ms Sinus rhythm with 1st degree A-V block Nonspecific T wave abnormality Abnormal ECG Confirmed by Domingo Fonseca ([id number]) on 04/13/2021 1:07:12 PM Referred By: REFERRED SELF Confirmed By:Raman Fonseca
== END 2021-04-13 14:35 | disposition home health service (06) | DRG 698 ==
LOC: ED 09:03 → SUATTDRO 11:06 → 2N 11:06

== ENCOUNTER 2021-05-09 16:49 | Inpatient (IN) ==
[2021-05-09 16:04] LABS: Basophils # (auto) 0.01 K/uL (0-0.2); Basophils % (auto) 0.2 %; Eosinophils # (auto) 0.02 K/uL (0-0.5); Eosinophils % (auto) 0.3 %; Hematocrit (blood only) 34.7 % (42-52); Hemoglobin 11.7 g/dL (14.0-18.0); Immature Granulocytes # (auto) 0.02 K/uL (0.00-0.02); Immature Granulocytes % (auto) 0.3 %; Lymphocytes % (auto) 25.7 %; Mean Corpuscular Hemoglobin 29.5 pg (25-34); Mean Corpuscular Hgb Conc 33.7 g/dL (32-36); Mean Corpuscular Volume 87.6 fL (80-100); Mean Platelet Volume 9.4 fL (7.4-10.4); Monocytes % (auto) 10.3 %; Neutrophils # (auto) 3.68 K/uL (1.4-6.5); Neutrophils % (auto) 63.2 %; Platelet Count 151 K/uL (130-400); RDW Coefficient of Variation 13.9 % (11.5-14.5); RDW Standard Deviation 44.7 fL (36.4-46.3); Red Blood Count 3.96 M/uL (4.7-6.1); White Blood Count 5.83 K/uL (4.8-10.8)
[2021-05-09 16:09] LABS: iSTAT Creatinine 1.1 mg/dl (0.6-1.3); iSTAT Hemoglobin 11.6 g/dl (14.0-18.0); iSTAT Ionized Calcium 1.14 mmol/l (1.12-1.32); iSTAT Potassium 4.7 mmol/L (3.3-5.0)
[2021-05-09 16:14] LABS: Base Excess VBG -0.4 mEq/L; Oxygen Saturation VBG 89.2 %; pH VBG 7.42 (7.36-7.41)
[2021-05-09 16:17] LABS: INR 1.1 (0.9-1.1); Partial Thromboplastin Ratio 0.9; Partial Thromboplastin Time 24.1 Seconds (21.0-31.0); Prothrombin Time 11.1 Seconds (9.0-12.0)
[2021-05-09 16:21] LABS: Alanine Aminotransferase 50 U/L (12-78); Aspartate Aminotransferase 28 U/L (15-37); BUN Creatinine Ratio 15.5 (10-20); Bilirubin Direct 0.2 mg/dl (0-0.2); Blood Urea Nitrogen 15 mg/dl (7-18); Calcium 8.5 mg/dl (8.5-10.1); Carbon Dioxide 28 mmol/L (21-32); Chloride 112 mmol/L (98-107); Creatinine Clr Calc Pharmacy 65.9 ml/min; Est GFR (African American) 88.9 ml/min; Est GFR (Non-African American) 76.7 ml/min; Glucose 130 mg/dl (70-99); Lipase 107 U/L (73-393); Magnesium 1.9 mg/dl (1.8-2.4); Potassium 4.7 mmol/L (3.5-5.1); Sodium 142 mmol/L (136-145)
--- NOTE | 2021-05-09 16:25 | XRay Report ---
XR chest 1V portable CLINICAL HISTORY: SEPSIS COMPARISON STUDY: No previous studies for comparison. FINDINGS: Dual lead right pacemaker is in place. Multiple right-sided rib deformities are likely old. There is no pneumothorax or pleural effusion. Note is made of cardiomegaly. There is dilatation vers us tortuosity of the thoracic aorta. No evidence for pulmonary edema. No consolidation is noted. IMPRESSION: 1. No acute cardiopulmonary findings. 2. Tortuosity vs dilatation of the thoracic aorta which can be assessed on chest CT which has been or dered. 3. Cardiomegaly without evidence for pulmonary edema. 4. Multiple right-sided rib deformities, probably old. ACT 112: Negative or not required by law. Electronically signed by: Tiago Powell M.D. 05/09/2021 4:24 PM
[2021-05-09 16:30] LABS: Alkaline Phosphatase 152 U/L (45-117); Bilirubin,Total 0.7 mg/dl (0.2-1); Creatine Kinase 40 U/L (39-308); Globulin 3.1 gm/dl (2.5-4.0); Phosphorus 3.5 mg/dl (2.5-4.9); Total Protein 6.1 gm/dl (6.4-8.2); Troponin I < 0.015 ng/ml (0-0.045)
[~2021-05-09 16:49] MED LIST changes: -BND25X PO; -CMD5 PO; -FRRS300 PO; -LATA0.009 OPR; -METH4PAK4 PO; -OMEG10007 PO; -SENN-61 PO; -TIMO0.2528 OPR; -[UNRECOGNIZED DRUG - CODE] PO; +cefTRIAXone SODIUM 2000MG/70ML D5W IV ONE
[2021-05-09] MEDS ORDERED: OPTIRAY 320 125ml IV ONE (17:22)
[2021-05-09 17:31] LABS: Appearance Urine Cloudy (Clear); Bacteria Urine Automated 1+ (Negative); Bilirubin Urine Negative (Negative); Blood Urine 2+ (Negative); Color Urine Yellow; Glucose Urine UA Negative (Negative); Ketones Urine Negative (Negative); Leukocyte Esterase Urine 3+ (Negative); Nitrite Urine Negative (Negative); Protein Urine Negative (Negative); Urobilinogen Urine Negative (Negative); WBC Urine Automated >30 /hpf (0-5); pH Urine 7.5 (4.5-7.5)
--- NOTE | 2021-05-09 17:42 | CT Scan Report ---
CT OF THE HEAD WITHOUT CONTRAST CLINICAL HISTORY: sepsis, AMS, syncope, h/o aneurysm, cva COMPARISON STUDY: Head CT April 11, 2021. CT DOSE: 1700.28 mGy.cm TECHNIQUE: Helical axial images of the head were obtained without IV contrast. Automated exposure con trol was utilized for the study. A dose lowering technique was utilized adhering to the principles o f ALARA. FINDINGS: No acute intracranial hemorrhage, midline shift or mass effect is present. Ventricular syst em is stable. Basal cisterns are patent. There are no extra-axial collections. A right sided cranioto my is noted with aneurysm clip adjacent to the right clinoid process. Multiple old infarcts are uncha nged since head CT of April 11, 2021. Appearance of the brain is unchanged. No acute intracranial hemo rrhage, midline shift or mass effect is present. There is no acute calvarial fracture. IMPRESSION: No acute intracranial findings. No change in appearance of the brain with numerous old i nfarcts. ACT 112: Negative or not required by law. Electronically signed by: Tiago Powell M.D. 05/09/2021 5:40 PM
--- NOTE | 2021-05-09 17:49 | CT Scan Report ---
CT ANGIOGRAPHY OF THE CHEST, PULMONARY EMBOLUS PROTOCOL CLINICAL HISTORY: sepsis, AMS, syncope, hypoxia, PE COMPARISON STUDY: Chest CT March 26, 2021. Chest radiograph 04/12/2021. TECHNIQUE: Following IV administration of 116 mL of Optiray, helical axial images of the chest were o btained utilizing the pulmonary embolus protocol. Maximal intensity projections and sagittal and cor onal reformats were viewed on an independent 3D workstation. IV contrast was administered without co mplication. Automated exposure control was utilized for the study. A dose lowering technique was ut ilized adhering to the principles of ALARA. FINDINGS: No pulmonary emboli are identified. There is no thoracic aortic dissection. Note is made o f moderate cardiomegaly. A dual lead right pacemaker is in place. Mild dilatation of the descending t horacic aorta measuring 3.8 cm is unchanged. There are numerous old bilateral rib fractures. No acute rib fractures are identified. There are mild groundglass opacities within the right lower lobe. Ther e is minimal right middle lobe irregular opacity which may reflect scarring. This is unchanged. There are secretions within the trachea. No pneumothorax or pleural effusion is noted. Calcified mediastin al lymph nodes are incidentally noted. IMPRESSION: 1. No pulmonary emboli identified. 2. Mild groundglass opacities within the right lower lobe which favor a mild infectious process. ACT 112: Negative or not required by law. Electronically signed by: Tiago Powell M.D. 05/09/2021 5:48 PM
--- NOTE | 2021-05-09 17:53 | CT Scan Report ---
CT OF THE ABDOMEN AND PELVIS WITH CONTRAST CLINICAL HISTORY: sepsis, AMS, syncope, henry cath COMPARISON STUDY: CT of the abdomen and pelvis March 07, 2021. TECHNIQUE: Following IV administration of 116 mL of Optiray, axial images of the abdomen and pelvis w ere obtained from the lung bases to the proximal femurs. Images were reviewed in the axial, sagittal, and coronal planes. IV contrast was administered without complication. Automated exposure control w as utilized for the study. A dose lowering technique was utilized adhering to the principles of BONY Bowman. FINDINGS: Please note that the chest CT will be reported separately. Numerous old bilateral rib fract ures are noted. No pneumatosis, free air or portal venous gas is present. Right hepatic lobe cyst is unchanged. The spleen, adrenal glands, kidneys and pancreas are unremarkable with exception of a 2 mm calculus within lower pole of the right kidney. The abdominal aorta is ectatic. There is no evidence for a bowel obstruction. Colonic diverticulosis is noted without evidence for acute diverticulitis. Prostate gland is markedly enlarged. Henry balloon is present within the bladder. There is bladder wa ll thickening. No acute lumbar spine or pelvic fractures identified. There is no lymphadenopathy. IMPRESSION: 1. No bowel obstruction. No bowel wall thickening. 2. Bladder wall thickening which could be correlated with urinalysis. Marked enlargement of the prost ate. ACT 112: Negative or not required by law. Electronically signed by: Tiago Powell M.D. 05/09/2021 5:52 PM
--- NOTE | 2021-05-09 17:57 | CT Scan Report ---
CT ANGIOGRAPHY OF THE NECK WITH CONTRAST CLINICAL HISTORY: sepsis, AMS, syncope, h/o aneurysm, cva COMPARISON STUDY: CTA of the neck March 07, 2021. Technique: CT angiography of the carotid and vertebral arteries was obtained using Optiray and 3D rec onstruction on an independent workstation. NASCET criteria was utilized. Automated exposure control was utilized for the study. A dose lowering technique was utilized adhering to the principles of ALA RA. Findings: No acute cervical spine fracture is noted. There is moderate plaque within the bilateral ca rotid bifurcations without significant stenosis. The bilateral vertebral tracer patent. There is no d issection within the major vessels of the neck. CTA of the head will be reported separately. IMPRESSION: Moderate plaque within the bilateral carotid bifurcations. No significant stenosis within the major v essels of the neck. ACT 112: Negative or not required by law. Electronically signed by: Tiago Powell M.D. 05/09/2021 5:56 PM
--- NOTE | 2021-05-09 17:57 | Emergency Department Note ---
Impression & Plan Syncope, Acute UTI, Hypotension, Hypoxia, Indwelling Henry catheter present ED Provider Note NAME: Micah BROWN AGE: 89 SEX: M ARRIVES VIA: Ambulance INFORMANT: Patient, ED PROVIDER(S): Russell Villegas MD CHIEF COMPLAINT: Syncope / AMS. 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 EMS arrived and per report he had been confused and minimally responsive for approximately an hour prior to arrival. The patient did have a nasal trumpet placed and he was briefly manually ventilated until transition to oxygen mask. He was also noted to be hypotensive with systolic blood pressure in the 70s that did respond to IV fluid hydration. Per EMS report the patient was hypothermic on axillary measurement with a temperature of 35.0. On arrival the patient had improved and was alert to self and would follow commands. His rectal temperature was 36.2. Blood pressure had improved and was hypertensive 160-180s/90s. His breathing was unlabored and was ultimately able to be weaned off oxygen and was 96% on room air. On exam the patient appears clinically dry. He has generalized weakness in all extremities without focal extremity weakness. He does appear to have mild aphasia and left-sided neglect which upon discussion with the patient's family he did arrive to the bedside that this was present after his most recent stroke though they feel it is more severe and his confusion has been more severe. EKG is paced without overt acute ischemia. WBC and platelets within normal limits. H/H 11.7/34.7. Chemistry without metabolic acidosis. Electrolytes and LFTs unremarkable. Troponin negative/undetectable. Lipase not elevated. Procalcitonin is not elevated. TSH is elevated at 7.0. VBG was unremarkable. UA is suspicious for infection with WBCs and bacteria albeit taken from indwelling Henry catheter. CT of the head without evidence of ICH or acute ischemia. CTA of the head and neck also negative for acute findings. 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 CTA of the chest negative for PE though with mild groundglass opacities within the right lower lobe. CT of the abdomen pelvis with suspicion for cystitis which is consistent with patient's urine analysis. Patient and family at bedside updated on results. They agree with plan for admission for further management. Case was discussed [place]. Herrera, [facility] [place], who will evaluate the patient for admission. Of note, patient initially incorrectly registered with incorrect name. Transfer of results prior to correct chart generation is pending. Triage Nursing notes reviewed and agree them. Prior medical records reviewed Vital Signs: reviewed and remarkable for hypoxia and hypotension RESIDENT SERVICES DIRECTOR. Differential diagnosis: Infection, dehydration, metabolic abnormality, hypo/hyperglycemia, electrolyte disturbance, anemia, hypoxia, cardiac sources, intracerebral event, toxicologic, neurologic, as well as other pathologies. ER treatment provided: Vasovagal event, dehydration, infection, hypoglycemia, electrolyte abnormalities, cardiac sources, intracerebral event, pulmonary embolism, seizure, toxicologic, neurologic, as well as other pathologies. Diagnostics interpreted by me: Cardiac Monitoring: An order for continuous cardiac monitoring was placed and demonstrated Laboratory studies: See below Imaging studies: See below Consultation(s): Case was discussed with Dr. Herrera, [facility] [place], who will evaluate the patient for admission. 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 EMS arrived and per report he had been confused and minimally responsive for approximately an hour prior to arrival. The patient did have a nasal trumpet placed and he was briefly manually ventilated until transition to oxygen mask. He was also noted to be hypotensive with systolic blood pressure in the 70s that did respond to IV fluid hydration. Per EMS report the patient was hypothermic on axillary measurement with a temperature of 35.0. ROS: See above HPI for pertinent positives & negatives. A total of 10 systems reviewed and were otherwise negative. PAST MEDICAL HISTORY:See Below PAST SURGICAL HISTORY:See Below FAMILY HISTORY:See Below SOCIAL HISTORY:See Below HOME MEDICATIONS:See Below ALLERGIES:See Below VITALS:See Below PHYSICAL EXAMINATION: GENERAL: Awake, alert, oriented to self, follows commands, fatigued/ill- appearing, in no distress HENT: Normocephalic, atraumatic. Oropharynx with dry mucous membranes and otherwise unremarkable. EYES: Normal conjunctiva. Sclera non-icteric. NECK: Supple. No nuchal rigidity. FROM. No JVD. RESPIRATORY: Clear to auscultation. CARDIAC: Regular rate, normal rhythm. Extremities warm and well perfused. Pulses equal. ABDOMEN: Soft, non-distended. No tenderness to palpation. No rebound or guarding. No masses. RECTAL: Deferred. MUSCULOSKELETAL: Chest examination reveals no tenderness. The back is symmetrical on inspection without obvious abnormality. There is no CVA tenderness to palpation. No joint edema. LOWER EXTREMITIES: Calves are equal size bilaterally and non-tender. No edema. No discoloration. NEURO: Oriented to self, follows commands, moves all extremities equally with generalized weakness with 3/5 strength. Mild aphasia and suspected left-sided neglect. SKIN: No rash or jaundice noted. ED COURSE: Critical Care: I have personally spent greater than 35 minutes of critical care time in the direct management of this patient. This includes bedside care, interpretation of diagnostic studies, and testing, discussion with consultants, patient, and family members, and other required patient management activities. This 35 minutes is in excess of all separately billable procedures. Russell Villegas MD Past Med/Surg History Medical History Ambulatory dysfunction Aortic root dilatation Ataxia Blind left eye Brain aneurysm Chronic arterial ischemic stroke, multifocal, multiple vascular territories CVA (cerebrovascular accident) Dizziness Fall Hyperlipidemia Hypertension Hypertensive urgency Prediabetes Syncope Surgical History Hx of total knee replacement S/P hernia repair Family History Other Breast cancer Denies family history of Ovarian cancer Prostate cancer Myocardial infarction Colorectal cancer Social History Smoking Status: Unknown if ever smoked Second Hand Exposure: No; Hx Alcohol Use: No Hx Substance Use: No Preferred Language: Croatian Communication Ability: Effective Visual Impairment: No Limitations Skip Locator Required: No Beliefs That Will Affect Care: Mormon Mormon Beliefs: [facility] at [facility]. marital status: Current Living Situation: Spouse and Family current occupational status: retired Other Information That Helps Us Care for You: No Feels Safe at Home: Yes Safety Concerns: Feels Safe At This Time caffeine: Yes during the past year weight has: remained stable Dental Care, Regularly: Yes Physical Activity Frequency: 1-2 Times per Week Seatbelt Use: always Sunscreen Use: Yes Gender Identity: Male Assistive Devices: Walker and Wheelchair Allergies Allergies Allergy/AdvReac Type Severity Reaction Status Date / Time Penicillins Allergy Unknown UNKNOWN Verified 05/09/21 19:47 morphine AdvReac Severe HALLICINATIONS, Verified 05/09/21 19:47 BEHAVIOR CHANGES sulfor AdvReac Unknown Unknown Uncoded 05/09/21 19:47 Home Meds Home Medications Medication Instructions Recorded Confirmed cholecalciferol (vitamin D3) 25 25 mcg PO QAM 03/26/21 05/09/21 mcg (1,000 unit) tablet (Vitamin D3) docusate sodium 100 mg capsule 100 mg PO BID PRN 03/26/21 05/09/21 latanoprost 0.005 % eye drops 1 drp OPR HS 03/26/21 05/09/21 nystatin 100,000 unit/gram topical 1 applic TOPICAL BID PRN 04/11/21 05/09/21 powder fluticasone propionate 50 2 spray INTRANASAL QAM PRN 04/21/21 05/09/21 mcg/actuation nasal spray,suspension acetaminophen 500 mg tablet 1,000 mg PO Q8H PRN 05/09/21 05/09/21 (Tylenol Extra Strength) Previous Rx's Medication Instructions Recorded aspirin 81 mg tablet,delayed 81 mg PO QAM #90 tab 05/02/21 release (Aspirin Low Dose) atorvastatin 80 mg tablet 80 mg PO QAM #90 tab 05/02/21 escitalopram oxalate 5 mg tablet 5 mg PO QAM #90 tab 05/02/21 (Lexapro) levothyroxine 25 mcg tablet 25 mcg PO DAILYBB #90 tab 05/02/21 (Synthroid) losartan 25 mg tablet 25 mg PO QAM #90 tab 05/02/21 Results & Data (ED) Vital Signs Vital Signs - 24 hr 05/09/21 17:02 05/09/21 17:11 05/09/21 17:40 Temperature 36.2 C L Temperature Source Rectal Pulse Rate 61 95 H Pulse Rate [Apical] Pulse Rate from SpO2 Sensor 59 L 95 H Respiratory Rate 20 17 Respiratory Effort / Characteristics Respiratory Depth Blood Pressure 187/72 H 161/94 H Blood Pressure [Right Arm] Blood Pressure Mean 110 116 Blood Pressure Mean [Right Arm] Pulse Oximetry 95 96 Oxygen Delivery Method Room Air Sepsis Recent Fever Within 48 Hours No Sepsis New/Unexplained Change in Mental Status Yes Sepsis Action Taken by Nursing No Action Required 05/09/21 17:50 05/09/21 18:00 05/09/21 18:11 Temperature Temperature Source Pulse Rate 55 L 53 L 50 L Pulse Rate [Apical] Pulse Rate from SpO2 Sensor 51 L 51 L 47 L Respiratory Rate 24 13 14 Respiratory Effort / Characteristics Respiratory Depth Blood Pressure 150/69 H 182/72 H 167/72 H Blood Pressure [Right Arm] Blood Pressure Mean 96 108 103 Blood Pressure Mean [Right Arm] Pulse Oximetry 93 93 92 Oxygen Delivery Method Sepsis Recent Fever Within 48 Hours Sepsis New/Unexplained Change in Mental Status Sepsis Action Taken by Nursing 05/09/21 18:20 05/09/21 18:30 05/09/21 18:40 Temperature Temperature Source Pulse Rate 65 54 L 51 L Pulse Rate [Apical] Pulse Rate from SpO2 Sensor Respiratory Rate 15 21 19 Respiratory Effort / Characteristics Respiratory Depth Blood Pressure 188/78 H 172/76 H 158/71 H Blood Pressure [Right Arm] Blood Pressure Mean 114 108 100 Blood Pressure Mean [Right Arm] Pulse Oximetry 93 93 94 Oxygen Delivery Method Sepsis Recent Fever Within 48 Hours Sepsis New/Unexplained Change in Mental Status Sepsis Action Taken by Nursing 05/09/21 18:50 05/09/21 19:00 05/09/21 20:00 Temperature Temperature Source Pulse Rate 100 H 59 L Pulse Rate [Apical] 67 Pulse Rate from SpO2 Sensor Respiratory Rate 17 18 16 Respiratory Effort / Characteristics Non-Labored Respiratory Depth Normal Blood Pressure 164/101 H 179/79 H Blood Pressure [Right Arm] 180/72 H Blood Pressure Mean 122 112 Blood Pressure Mean [Right Arm] 108 Pulse Oximetry 95 96 95 Oxygen Delivery Method Room Air Sepsis Recent Fever Within 48 Hours Sepsis New/Unexplained Change in Mental Status Sepsis Action Taken by Nursing Laboratory Data Attestation: I reviewed the patient's lab results. Lab Results 05/09/21 05/09/21 05/09/21 Range/Units 17:00 17:00 17:10 Urine Color Yellow Urine Appearance Cloudy A (Clear) Urine pH 7.5 (4.5-7.5) Ur Specific Vanderbilt 1.010 (1.000-1.030) Urine Protein Negative (Negative) Urine Glucose (UA) Negative (Negative) Urine Ketones Negative (Negative) Urine Blood 2+ H (Negative) Urine Nitrite Negative (Negative) Urine Bilirubin Negative (Negative) Urine Urobilinogen Negative (Negative) Ur Leukocyte Esterase 3+ H (Negative) Urine WBC (Auto) >30 H (0-5) /hpf Urine RBC (Auto) 10-30 H (0-4) /hpf U Hyaline Cast (Auto) 1-5 (0-5) /lpf U Epithel Cells (Auto) 5-10 H (0-5) /lpf Urine Bacteria (Auto) 1+ H (Negative) Urine Yeast Not Reportable COVID-19 Eval Order Covid19 at [facility] SARS-CoV-2 (PCR) NEGATIVE (Negative) Administered Medications Heparin Sodium (Porcine) (Heparin Sod 5,000 Unit/0.5 Ml Vial) 5,000 units SQ Q12 ETHAN Stop: 06/08/21 22:14 Last Admin: 05/09/21 23:30 Dose: 5,000 units Documented by: [id number] Sodium Chloride (Nss 1000ml) 1,000 mls @ 80 mls/hr IV .[id number] ETHAN Stop: 05/10/21 10:44 Last Admin: 05/09/21 23:35 Dose: 80 mls/hr Documented by: [id number] Latanoprost (Latanoprost 0.005% Op Soln 2.5 Ml Btl) 1 drops OPR HS ETHAN Stop: 06/08/21 22:14 Last Admin: 05/09/21 23:29 Dose: 1 drops Documented by: [id number] Discontinued Medications Ioversol (Optiray 320 125ml) 116 ml IV ONCE ONE Stop: 05/09/21 17:23 Last Admin: 05/09/21 17:22 Dose: 116 ml Documented by: [id number] Imaging Data Radiologist's Impression: Abdomen/Pelvis CT 05/09/21 16:55 CT OF THE ABDOMEN AND PELVIS WITH CONTRAST CLINICAL HISTORY: sepsis, AMS, syncope, henry cath COMPARISON STUDY: CT of the abdomen and pelvis March 07, 2021. TECHNIQUE: Following IV administration of 116 mL of Optiray, axial images of the abdomen and pelvis were obtained from the lung bases to the proximal femurs. Images were reviewed in the axial, sagittal, and coronal planes. IV contrast was administered without complication. Automated exposure control was utilized for the study. A dose lowering technique was utilized adhering to the principles of ALARA. FINDINGS: Please note that the chest CT will be reported separately. Numerous old bilateral rib fractures are noted. No pneumatosis, free air or portal venous gas is present. Right hepatic lobe cyst is unchanged. The spleen, adrenal glands, kidneys and pancreas are unremarkable with exception of a 2 mm calculus within lower pole of the right kidney. The abdominal aorta is ectatic. There is no evidence for a bowel obstruction. Colonic diverticulosis is noted without evidence for acute diverticulitis. Prostate gland is markedly enlarged. Henry balloon is present within the bladder. There is bladder wall thickening. No acute lumbar spine or pelvic fractures identified. There is no lymphadenopathy. IMPRESSION: 1. No bowel obstruction. No bowel wall thickening. 2. Bladder wall thickening which could be correlated with urinalysis. Marked enlargement of the prostate. ACT 112: Negative or not required by law. Electronically signed by: Tiago Powell M.D. 05/09/2021 5:52 PM Chest CTA 05/09/21 16:55 CT ANGIOGRAPHY OF THE CHEST, PULMONARY EMBOLUS PROTOCOL CLINICAL HISTORY: sepsis, AMS, syncope, hypoxia, PE COMPARISON STUDY: Chest CT March 26, 2021. Chest radiograph 04/12/2021. TECHNIQUE: Following IV administration of 116 mL of Optiray, helical axial images of the chest were obtained utilizing the pulmonary embolus protocol. Maximal intensity projections and sagittal and coronal reformats were viewed on an independent 3D workstation. IV contrast was administered without complication. Automated exposure control was utilized for the study. A dose lowering technique was utilized adhering to the principles of ALARA. FINDINGS: No pulmonary emboli are identified. There is no thoracic aortic dissection. Note is made of moderate cardiomegaly. A dual lead right pacemaker is in place. 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 There are numerous old bilateral rib fractures. No acute rib fractures are identified. There are mild groundglass opacities within the right lower lobe. There is minimal right middle lobe irregular opacity which may reflect scarring. This is unchanged. There are secretions within the trachea. No pneumothorax or pleural effusion is noted. Calcified mediastinal lymph nodes are incidentally noted. IMPRESSION: 1. No pulmonary emboli identified. 2. Mild groundglass opacities within the right lower lobe which favor a mild infectious process. ACT 112: Negative or not required by law. Electronically signed by: Tiago Powell M.D. 05/09/2021 5:[address] 05/09/21 16:55 CT OF THE HEAD WITHOUT CONTRAST CLINICAL HISTORY: sepsis, AMS, syncope, h/o aneurysm, cva COMPARISON STUDY: Head CT April 11, 2021. CT DOSE: 1700.28 mGy.cm TECHNIQUE: Helical axial images of the head were obtained without IV contrast. Automated exposure control was utilized for the study. A dose lowering technique was utilized adhering to the principles of ALARA. FINDINGS: No acute intracranial hemorrhage, midline shift or mass effect is present. Ventricular system is stable. Basal cisterns are patent. There are no extra-axial collections. A right sided craniotomy is noted with aneurysm clip adjacent to the right clinoid process. Multiple old infarcts are unchanged since head CT of April 11, 2021. Appearance of the brain is unchanged. No acute intracranial hemorrhage, midline shift or mass effect is present. There is no acute calvarial fracture. IMPRESSION: No acute intracranial findings. No change in appearance of the brain with numerous old infarcts. ACT 112: Negative or not required by law. Electronically signed by: Tiago Powell M.D. 05/09/2021 5:40 PM Head CTA 05/09/21 16:55 CTA ANGIOGRAPHY OF THE HEAD CLINICAL HISTORY: sepsis, AMS, syncope, h/o aneurysm, cva COMPARISON STUDY: CTA of the head March 07, 2021. TECHNIQUE: Helical axial images of the head were obtained following uneventful intravenous administration of 116 cc of Optiray. Sagittal and coronal reconstructions were viewed as well as maximal intensity projections on an independent 3-D workstation. Automated exposure control was utilized for the study. A dose lowering technique was utilized adhering to the principles of ALARA. FINDINGS: A right-sided craniotomy is noted with aneurysm clip adjacent to the right clinoid process. The appearance is unchanged and CTA of March 07, 2021. There is moderate plaque within the bilateral cavernous carotids. Occlusion of the proximal right posterior cerebral artery is unchanged. No additional sites of vessel occlusion are identified on this exam. There is mild stenosis of the distal right vertebral artery. There is no intracranial aneurysm. The appearance is unchanged since prior CTA of March 07, 2021. Multifocal encephalomalacia is again noted. IMPRESSION: 1. No change since CTA of March 07, 2021. 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 2. Moderate plaque within the intracranial vessels with multifocal stenoses, as described above. 3. Previous aneurysm clipping. 4. Multifocal encephalomalacia. ACT 112: Negative or not required by law. Electronically signed by: Tiago Powell M.D. 05/09/2021 6:04 PM Neck CTA 05/09/21 16:55 CT ANGIOGRAPHY OF THE NECK WITH CONTRAST CLINICAL HISTORY: sepsis, AMS, syncope, h/o aneurysm, cva COMPARISON STUDY: CTA of the neck March 07, 2021. Technique: CT angiography of the carotid and vertebral arteries was obtained using Optiray and 3D reconstruction on an independent workstation. NASCET criteria was utilized. Automated exposure control was utilized for the study. A dose lowering technique was utilized adhering to the principles of ALARA. Findings: No acute cervical spine fracture is noted. There is moderate plaque within the bilateral carotid bifurcations without significant stenosis. The bilateral vertebral tracer patent. There is no dissection within the major vessels of the neck. CTA of the head will be reported separately. IMPRESSION: Moderate plaque within the bilateral carotid bifurcations. No significant stenosis within the major vessels of the neck. ACT 112: Negative or not required by law. Electronically signed by: Tiago Powell M.D. 05/09/2021 5:56 PM Discharge Plan Visit Data Chief Complaint: Illness Stated Complaint: ILLNESS ED Provider: Russell Villegas Discharge Problem: Syncope, Acute UTI, Hypotension, Hypoxia, Indwelling Henry catheter present Patient Disposition: Admitted As Inpatient Discharge Instructions Interventions: ED Discharge Assessment Last Done: 05/09/21 21:52
--- NOTE | 2021-05-09 18:06 | CT Scan Report ---
CTA ANGIOGRAPHY OF THE HEAD CLINICAL HISTORY: sepsis, AMS, syncope, h/o aneurysm, cva COMPARISON STUDY: CTA of the head March 07, 2021. TECHNIQUE: Helical axial images of the head were obtained following uneventful intravenous administr ation of 116 cc of Optiray. Sagittal and coronal reconstructions were viewed as well as maximal inten sity projections on an independent 3-D workstation. Automated exposure control was utilized for the study. A dose lowering technique was utilized adhering to the principles of ALARA. FINDINGS: A right-sided craniotomy is noted with aneurysm clip adjacent to the right clinoid process. The appearance is unchanged and CTA of March 07, 2021. There is moderate plaque within the bilateral c avernous carotids. Occlusion of the proximal right posterior cerebral artery is unchanged. No additio nal sites of vessel occlusion are identified on this exam. There is mild stenosis of the distal right vertebral artery. There is no intracranial aneurysm. The appearance is unchanged since prior CTA of March 07, 2021. Multifocal encephalomalacia is again noted. IMPRESSION: 1. No change since CTA of March 07, 2021. 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 2. Moderate plaque within the intracranial vessels with multifocal stenoses, as described above. 3. Previous aneurysm clipping. 4. Multifocal encephalomalacia. ACT 112: Negative or not required by law. Electronically signed by: Tiago Powell M.D. 05/09/2021 6:04 PM
--- NOTE | 2021-05-09 20:22 | History & Physical Report ---
Date of Service May 09, 2021 Assessment & Plan (1) Stroke-like symptoms: Plan: Admit to monitored bed. Admit with stroke without TPA protocol order set Consult PT/OT/social media marketer/neurology (2) Chronic arterial ischemic stroke, multifocal, multiple vascular territories: Plan: Stable CT (3) Occlusion of posterior cerebral artery: Plan: Stable CTA (4) Indwelling Henry catheter present: Plan: Follow urine culture and sensitivity. Received ceftriaxone 1 g IV from the ED, and will continue daily (5) Acute UTI: Plan: See above (6) Pneumonia: Plan: Small right lower lobe infiltrate noted on imaging. Patient without any overt symptoms, although difficult to tell for sure. Ceftriaxone as noted above (7) High cholesterol: Plan: Continue atorvastatin 80 mg daily, aspirin 81 mg daily (8) Hypertension: Plan: Continue losartan 25 mg daily (9) Depression: Plan: Continue Lexapro 5 mg daily (10) Hypothyroid: Plan: Continue levothyroxine 25 mcg daily History of Present Illness Chief Complaint: The patient is referred to the emergency department via EMS after an acute syncopal episode that occurred shortly after a walk with his aide outside, and upon returning inside and sitting down to eat, he was shortly thereafter found with his head down and unresponsive Primary Care Provider: Radha Leon MD The patient is a 10-year-old male with a past medical history including hypertensive urgency, diabetes mellitus, occlusion the posterior cerebral artery, elevated troponin, acute encephalopathy, cardiac dysrhythmia, pacemaker, syncope, acute UTI, hypothyroidism, hypertension, hypercholesterolemia, history of CVA and chronic indwelling Henry catheter. The patient presents to the emergency department with history as noted above, however, upon arrival he had significantly improved and was alert to self and would follow commands. Family notes that his generalized weakness, mild aphasia and left sided neglect that were initially present from his previous stroke, were more severe as was his confusion. The patient himself is unable to contribute significantly to his HPI Allergies Allergy/AdvReac Type Severity Reaction Status Date / Time Penicillins Allergy Unknown UNKNOWN Verified 05/09/21 19:47 morphine AdvReac Severe HALLICINATIONS, Verified 05/09/21 19:47 BEHAVIOR CHANGES sulfor AdvReac Unknown Unknown Uncoded 05/09/21 19:47 Home Medications Medication Instructions Recorded Confirmed Type cholecalciferol (vitamin D3) 25 25 mcg PO QAM 03/26/21 05/09/21 History mcg (1,000 unit) tablet (Vitamin D3) docusate sodium 100 mg capsule 100 mg PO BID PRN 03/26/21 05/09/21 History latanoprost 0.005 % eye drops 1 drp OPR HS 03/26/21 05/09/21 History nystatin 100,000 unit/gram topical 1 applic TOPICAL BID PRN 04/11/21 05/09/21 History powder fluticasone propionate 50 2 spray INTRANASAL QAM PRN 04/21/21 05/09/21 History mcg/actuation nasal spray,suspension aspirin 81 mg tablet,delayed 81 mg PO QAM #90 tab 05/02/21 05/09/21 Rx release (Aspirin Low Dose) atorvastatin 80 mg tablet 80 mg PO QAM #90 tab 05/02/21 05/09/21 Rx escitalopram oxalate 5 mg tablet 5 mg PO QAM #90 tab 05/02/21 05/09/21 Rx (Lexapro) levothyroxine 25 mcg tablet 25 mcg PO DAILYBB #90 tab 05/02/21 05/09/21 Rx (Synthroid) losartan 25 mg tablet 25 mg PO QAM #90 tab 05/02/21 05/09/21 Rx acetaminophen 500 mg tablet 1,000 mg PO Q8H PRN 05/09/21 05/09/21 History (Tylenol Extra Strength) Past Med/Surg History Medical History (Updated 05/10/21 @ 03:37 by Bakari Herrera MD) Ambulatory dysfunction Aortic root dilatation Ataxia Blind left eye Brain aneurysm Chronic arterial ischemic stroke, multifocal, multiple vascular territories CVA (cerebrovascular accident) Depression Dizziness Fall Hyperlipidemia Hypertension Hypertensive urgency Prediabetes Syncope Surgical History Hx of total knee replacement S/P hernia repair Family History Other Breast cancer Denies family history of Ovarian cancer Prostate cancer Myocardial infarction Colorectal cancer Social History Smoking Status: Unknown if ever smoked Second Hand Exposure: No; Hx Alcohol Use: No Hx Substance Use: No Preferred Language: Lithuanian Communication Ability: Effective Visual Impairment: No Limitations Retail Store Associate Required: No Beliefs That Will Affect Care: Uatsdin Uatsdin Beliefs: Norma at [facility]. marital status: Current Living Situation: Spouse and Family current occupational status: retired Other Information That Helps Us Care for You: No Feels Safe at Home: Yes Safety Concerns: Feels Safe At This Time caffeine: Yes during the past year weight has: remained stable Dental Care, Regularly: Yes Physical Activity Frequency: 1-2 Times per Week Seatbelt Use: always Sunscreen Use: Yes Gender Identity: Male Assistive Devices: Walker and Wheelchair Review of Systems Review of Systems: Unobtainable due to cognitive status Physical Exam Physical Exam: The patient is awake, alert, normocephalic and atraumatic, lying in bed and in no acute distress. HEENT--PERRL, EOMI, mucous membranes and oropharynx dry. Neck--supple. No JVD. No bruits. Thyroid normal, trachea midline, no adenopathy. Heart--normal S1 and S2. No murmurs, rubs or gallops. Lungs--clear bilaterally, no respiratory distress, no accessory muscle use. Abdomen--normal bowel sounds and soft. Nontender. Nondistended. Extremities--no cyanosis or clubbing. No edema. Dermatologic--skin is dry Neurologic--cranial nerves II through XII grossly intact. Rheumatologic--normal range of motion. Psychiatric--normal affect. Results & Data Results & Data ([facility]) Vital Signs (Past 12 Hours) Vital Signs Temp Pulse Pulse Resp BP BP Pulse Ox 05/09/21 20:00 67 16 180/72 H 95 05/09/21 19:00 59 L 18 179/79 H 96 05/09/21 18:50 100 H 17 164/101 H 95 05/09/21 18:40 51 L 19 158/71 H 94 05/09/21 18:30 54 L 21 172/76 H 93 05/09/21 18:20 65 15 188/78 H 93 05/09/21 18:11 50 L 14 167/72 H 92 05/09/21 18:00 53 L 13 182/72 H 93 05/09/21 17:50 55 L 24 150/69 H 93 05/09/21 17:40 95 H 17 161/94 H 96 05/09/21 17:11 61 20 187/72 H 95 05/09/21 17:02 97.2 F L Laboratory Results Laboratory Results Troponin I < 0.015 ng/ml (0-0.045) 05/09/21 22:53 Urine Color Yellow 05/09/21 17:10 Urine Appearance Cloudy (Clear) A 05/09/21 17:10 Urine pH 7.5 (4.5-7.5) 05/09/21 17:10 Ur Specific [place] 1.010 (1.000-1.030) 05/09/21 17:10 Urine Protein Negative (Negative) 05/09/21 17:10 Urine Glucose (UA) Negative (Negative) 05/09/21 17:10 Urine Ketones Negative (Negative) 05/09/21 17:10 Urine Blood 2+ (Negative) H 05/09/21 17:10 Urine Nitrite Negative (Negative) 05/09/21 17:10 Urine Bilirubin Negative (Negative) 05/09/21 17:10 Urine Urobilinogen Negative (Negative) 05/09/21 17:10 Ur Leukocyte Esterase 3+ (Negative) H 05/09/21 17:10 Urine WBC (Auto) >30 /hpf (0-5) H 05/09/21 17:10 Urine RBC (Auto) 10-30 /hpf (0-4) H 05/09/21 17:10 U Hyaline Cast (Auto) 1-5 /lpf (0-5) 05/09/21 17:10 U Epithel Cells (Auto) 5-10 /lpf (0-5) H 05/09/21 17:10 Urine Bacteria (Auto) 1+ (Negative) H 05/09/21 17:10 Urine Yeast Not Reportable 05/09/21 17:10 COVID-19 Eval Order Covid19 at [facility] 05/09/21 17:00 SARS-CoV-2 (PCR) NEGATIVE (Negative) 05/09/21 17:00 Impressions Abdomen/Pelvis CT 05/09/21 16:55 CT OF THE ABDOMEN AND PELVIS WITH CONTRAST CLINICAL HISTORY: sepsis, AMS, syncope, henry cath COMPARISON STUDY: CT of the abdomen and pelvis March 07, 2021. TECHNIQUE: Following IV administration of 116 mL of Optiray, axial images of the abdomen and pelvis were obtained from the lung bases to the proximal femurs. Images were reviewed in the axial, sagittal, and coronal planes. IV contrast was administered without complication. Automated exposure control was utilized for the study. A dose lowering technique was utilized adhering to the principles of ALARA. FINDINGS: Please note that the chest CT will be reported separately. Numerous old bilateral rib fractures are noted. No pneumatosis, free air or portal venous gas is present. Right hepatic lobe cyst is unchanged. The spleen, adrenal glands, kidneys and pancreas are unremarkable with exception of a 2 mm calculus within lower pole of the right kidney. The abdominal aorta is ectatic. There is no evidence for a bowel obstruction. Colonic diverticulosis is noted without evidence for acute diverticulitis. Prostate gland is markedly enlarged. Henry balloon is present within the bladder. There is bladder wall thickening. No acute lumbar spine or pelvic fractures identified. There is no lymphadenopathy. IMPRESSION: 1. No bowel obstruction. No bowel wall thickening. 2. Bladder wall thickening which could be correlated with urinalysis. Marked enlargement of the prostate. ACT 112: Negative or not required by law. Electronically signed by: Tiago Powell M.D. 05/09/2021 5:52 PM Chest CTA 05/09/21 16:55 CT ANGIOGRAPHY OF THE CHEST, PULMONARY EMBOLUS PROTOCOL CLINICAL HISTORY: sepsis, AMS, syncope, hypoxia, PE COMPARISON STUDY: Chest CT March 26, 2021. Chest radiograph 04/12/2021. TECHNIQUE: Following IV administration of 116 mL of Optiray, helical axial images of the chest were obtained utilizing the pulmonary embolus protocol. Maximal intensity projections and sagittal and coronal reformats were viewed on an independent 3D workstation. IV contrast was administered without complication. Automated exposure control was utilized for the study. A dose lowering technique was utilized adhering to the principles of ALARA. FINDINGS: No pulmonary emboli are identified. There is no thoracic aortic dissection. Note is made of moderate cardiomegaly. A dual lead right pacemaker is in place. 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 There are numerous old bilateral rib fractures. No acute rib fractures are identified. There are mild groundglass opacities within the right lower lobe. There is minimal right middle lobe irregular opacity which may reflect scarring. This is unchanged. There are secretions within the trachea. No pneumothorax or pleural effusion is noted. Calcified mediastinal lymph nodes are incidentally noted. IMPRESSION: 1. No pulmonary emboli identified. 2. Mild groundglass opacities within the right lower lobe which favor a mild infectious process. ACT 112: Negative or not required by law. Electronically signed by: Tiago Powell M.D. 05/09/2021 5:[address] 05/09/21 16:55 CT OF THE HEAD WITHOUT CONTRAST CLINICAL HISTORY: sepsis, AMS, syncope, h/o aneurysm, cva COMPARISON STUDY: Head CT April 11, 2021. CT DOSE: 1700.28 mGy.cm TECHNIQUE: Helical axial images of the head were obtained without IV contrast. Automated exposure control was utilized for the study. A dose lowering technique was utilized adhering to the principles of ALARA. FINDINGS: No acute intracranial hemorrhage, midline shift or mass effect is present. Ventricular system is stable. Basal cisterns are patent. There are no extra-axial collections. A right sided craniotomy is noted with aneurysm clip adjacent to the right clinoid process. Multiple old infarcts are unchanged since head CT of April 11, 2021. Appearance of the brain is unchanged. No acute intracranial hemorrhage, midline shift or mass effect is present. There is no acute calvarial fracture. IMPRESSION: No acute intracranial findings. No change in appearance of the brain with numerous old infarcts. ACT 112: Negative or not required by law. Electronically signed by: Tiago Powell M.D. 05/09/2021 5:40 PM Head CTA 05/09/21 16:55 CTA ANGIOGRAPHY OF THE HEAD CLINICAL HISTORY: sepsis, AMS, syncope, h/o aneurysm, cva COMPARISON STUDY: CTA of the head March 07, 2021. TECHNIQUE: Helical axial images of the head were obtained following uneventful intravenous administration of 116 cc of Optiray. Sagittal and coronal reconstructions were viewed as well as maximal intensity projections on an independent 3-D workstation. Automated exposure control was utilized for the study. A dose lowering technique was utilized adhering to the principles of ALARA. FINDINGS: A right-sided craniotomy is noted with aneurysm clip adjacent to the right clinoid process. The appearance is unchanged and CTA of March 07, 2021. There is moderate plaque within the bilateral cavernous carotids. Occlusion of the proximal right posterior cerebral artery is unchanged. No additional sites of vessel occlusion are identified on this exam. There is mild stenosis of the distal right vertebral artery. There is no intracranial aneurysm. The appearance is unchanged since prior CTA of March 07, 2021. Multifocal encephalomalacia is again noted. IMPRESSION: 1. No change since CTA of March 07, 2021. 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 2. Moderate plaque within the intracranial vessels with multifocal stenoses, as described above. 3. Previous aneurysm clipping. 4. Multifocal encephalomalacia. ACT 112: Negative or not required by law. Electronically signed by: Tiago Powell M.D. 05/09/2021 6:04 PM Neck CTA 05/09/21 16:55 CT ANGIOGRAPHY OF THE NECK WITH CONTRAST CLINICAL HISTORY: sepsis, AMS, syncope, h/o aneurysm, cva COMPARISON STUDY: CTA of the neck March 07, 2021. Technique: CT angiography of the carotid and vertebral arteries was obtained using Optiray and 3D reconstruction on an independent workstation. NASCET criteria was utilized. Automated exposure control was utilized for the study. A dose lowering technique was utilized adhering to the principles of ALARA. Findings: No acute cervical spine fracture is noted. There is moderate plaque within the bilateral carotid bifurcations without significant stenosis. The bilateral vertebral tracer patent. There is no dissection within the major vessels of the neck. CTA of the head will be reported separately. IMPRESSION: Moderate plaque within the bilateral carotid bifurcations. No significant stenosis within the major vessels of the neck. ACT 112: Negative or not required by law. Electronically signed by: Tiago Powell M.D. 05/09/2021 5:56 PM Code Status & VTE Plan Code Status Full code VTE Prophylaxis Plan VTE Prophylaxis will be ordered: Yes PG Care Time/CCT Total # of Minutes Spent Total Time Spent with Patient: Total time spent is greater than 50% in coordination of care (as documented) at patient's floor/unit and/or counseling patient: Coding Level of Care Code 92201 Initial Inpt Care Lvl 3 Diagnoses Chronic arterial ischemic stroke, multifocal, multiple vascular territories I69.30 Occlusion of posterior cerebral artery I66.29 Indwelling Henry catheter present Z97.8 Acute UTI N39.0 Pneumonia J18.9 High cholesterol E78.00 Hypertension I10 Hypertension type: essential hypertension Depression F32.9 Hypothyroid E03.9 Hypothyroidism type: unspecified Stroke-like symptoms R29.90 (1) Hypertension Hypertension type: essential hypertension Qualified Code(s): I10 - Essential (primary) hypertension (2) Hypothyroid Hypothyroidism type: unspecified Qualified Code(s): E03.9 - Hypothyroidism, unspecified
[2021-05-09] MEDS ORDERED: DOCUSATE SODIUM 100 MG CAP PO PRN (22:15)
[2021-05-09] MEDS ORDERED: PHARMACIST DISCHARGE MED REC CONSULT PRN (22:15)
[2021-05-09] MEDS ORDERED: NYSTATIN POWDER 15GM BTL EXT PRN (22:15)
[2021-05-09] MEDS ORDERED: ONDANSETRON INJ 2 MG/ML 2 ML VIAL IV PRN (22:15)
[2021-05-09] MEDS ORDERED: ACETAMINOPHEN 325 MG TAB PO PRN (22:15)
[2021-05-09] MEDS ORDERED: FLUTICASONE PROPIONATE NA SPR 16 GM BTL PRN (22:15)
[2021-05-09] MEDS ORDERED: SODIUM CHLORIDE 0.9% 1000ML 1,000 ML IV SCH (22:15)
[2021-05-09] MEDS: LATANOPROST 0.005% OP SOLN 2.5 ML BTL OPR SCH (23:29)
[2021-05-09] MEDS: HEPARIN SOD 5,000 UNIT/0.5 ML VIAL SQ SCH (23:30)
[2021-05-10] MEDS: cefTRIAXone SODIUM 1,000 MG in DEXTROSE 5% 50 ML IV SCH (05:44)
[2021-05-10] MEDS: LEVOTHYROXINE SODIUM 25 MCG TABLET PO SCH (05:45)
[2021-05-10 07:27] LABS: Basophils # (auto) 0.01 K/uL (0-0.2); Basophils % (auto) 0.1 %; Eosinophils # (auto) 0.02 K/uL (0-0.5); Eosinophils % (auto) 0.2 %; Hematocrit (blood only) 34.7 % (42-52); Hemoglobin 11.8 g/dL (14.0-18.0); Immature Granulocytes # (auto) 0.01 K/uL (0.00-0.02); Immature Granulocytes % (auto) 0.1 %; Lymphocytes # (auto) 1.67 K/uL (1.2-3.4); Lymphocytes % (auto) 20.3 %; Mean Corpuscular Hemoglobin 30.2 pg (25-34); Mean Corpuscular Volume 88.7 fL (80-100); Mean Platelet Volume 9.5 fL (7.4-10.4); Monocytes # (auto) 0.79 K/uL (0.11-0.59); Monocytes % (auto) 9.6 %; Neutrophils # (auto) 5.74 K/uL (1.4-6.5); Neutrophils % (auto) 69.7 %; Platelet Count 143 K/uL (130-400); RDW Coefficient of Variation 13.8 % (11.5-14.5); RDW Standard Deviation 45.4 fL (36.4-46.3); Red Blood Count 3.91 M/uL (4.7-6.1); White Blood Count 8.24 K/uL (4.8-10.8)
[2021-05-10 07:50] LABS: Estimated Average Glucose 120 mg/dl; Hemoglobin A1C 5.8 % (4.5-5.6)
[2021-05-10 08:02] LABS: Albumin Level 2.9 gm/dl (3.4-5.0); BUN Creatinine Ratio 17.8 (10-20); Calcium 8.4 mg/dl (8.5-10.1); Creatinine Clr Calc Pharmacy 67.3 ml/min; Est GFR (African American) 95.9 ml/min; Est GFR (Non-African American) 82.7 ml/min; Potassium 3.9 mmol/L (3.5-5.1)
[2021-05-10 08:05] LABS: Albumin Globulin Ratio 0.9 (0.9-2); Bilirubin,Total 0.8 mg/dl (0.2-1); Globulin 3.2 gm/dl (2.5-4.0); Total Protein 6.1 gm/dl (6.4-8.2); Troponin I 0.022 ng/ml (0-0.045)
--- NOTE | 2021-05-10 08:23 | Hospitalist Progress Note ---
Date of Service May 10, 2021 Assessment & Plan (1) Stroke-like symptoms: Plan: Admit to monitored bed. Admit with stroke without TPA protocol order set. Aspirin and Atorvastatin, maybe cardiogenic sounds to be syncope Head CT : No acute intracranial findings. No change in appearance of the brain with numerous old infarcts. Head CTA 1. No change since CTA of March 07, 2021. 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 2. Moderate plaque within the intracranial vessels with multifocal stenoses, as described above. 3. Previous aneurysm clipping. 4. Multifocal encephalomalacia. Neck CTA Moderate plaque within the bilateral carotid bifurcations. No significant stenosis within the major vessels of the neck. will have pacemaker rechecked and consider if EP would adjust Consult PT/OT/social services assistant/neurology (2) Chronic arterial ischemic stroke, multifocal, multiple vascular territories: Plan: Stable CT (3) Occlusion of posterior cerebral artery: Plan: Stable CTA (4) Indwelling Mancuso catheter present: Plan: Follow urine culture and sensitivity. Received ceftriaxone 1 g IV from the ED, and will continue daily (5) Acute UTI: Plan: CT Abd/Pelvis bladder wall thickening and markedly enlargement of prostate (6) Pneumonia: Plan: Small right lower lobe infiltrate noted on imaging. Patient without any overt symptoms, although difficult to tell for sure. Ceftriaxone CTA 1. No pulmonary emboli identified. 2. Mild groundglass opacities within the right lower lobe which favor a mild infectious process (7) High cholesterol: Plan: Continue atorvastatin 80 mg daily, aspirin 81 mg daily (8) Hypertension: Plan: Continue losartan 25 mg daily (9) Depression: Plan: Continue Lexapro 5 mg daily (10) Hypothyroid: Plan: Continue levothyroxine 25 mcg daily Admission and Anticipated Discharge Date Admission Date: May 09, 2021 Subjective pt is very hard of hearing has no new signs or symptoms at this time Review of Systems Review of Systems: Mild distress and fatigue no headache, no visual changes no speech or swallowing issues no chest pain, pressure or palpitations no shortness of breath, cough or wheezes no abdominal pain, nausea or vomiting, diarrhea or constipation no dysuria, hematuria or frequency no focal joint pain or swelling no back pain, CVA tenderness or radicular pain no bruising, bleeding or rashes no focal signs of weakness or numbness or altered sensation no complaints of anxiety or depression.. Physical Exam Physical Exam: The patient appeared well nourished and normally developed. Vital signs as documented. Head exam is normocephalic atraumatic he is extremely hard of hearing Neck is without JVD, thyromegaly, or carotid bruits. Lungs are clear to auscultation, no focal loss of breath sounds Cardiac exam, Rhythm is regular.. JUSTINA Abdominal exam reveals normal bowel sounds, soft non tender, no masses Extremities are nonedematous and both pedal pulses are present Neurologic exam is alert and oriented, no focal loss of strength or sensation Skin is without bruises or rashes Psychologically is without concerns for anxiety or depression Results & Data Results & Data ([facility]) Vital Signs (Past 12 Hours) Vital Signs Temp Pulse Pulse Pulse Resp BP BP 05/10/21 07:17 98.1 F 54 L 15 159/62 H 05/10/21 04:03 98.8 F 69 16 151/71 H 05/09/21 22:52 98.2 F 82 18 135/89 05/09/21 22:24 76 05/09/21 22:19 97.9 F 100 H 18 133/83 05/09/21 21:52 71 16 162/88 H Pulse Ox 05/10/21 07:17 95 05/10/21 04:03 94 05/09/21 22:52 98 05/09/21 22:24 05/09/21 22:19 98 05/09/21 21:52 95 PG Care Time/CCT Total # of Minutes Spent Total Time Spent with Patient: Total time spent is greater than 50% in coordination of care (as documented) at patient's floor/unit and/or counseling patient: Coding Level of Care Code 77680 Subseq Hosp Care Lvl 3 Diagnoses Stroke-like symptoms R29.90 Chronic arterial ischemic stroke, multifocal, multiple vascular territories I69.30 Occlusion of posterior cerebral artery I66.29 Indwelling Mancuso catheter present Z97.8 Acute UTI N39.0 Pneumonia J18.9 High cholesterol E78.00 Hypertension I10 Hypertension type: essential hypertension Depression F32.9 Hypothyroid E03.9 Hypothyroidism type: unspecified (1) Hypothyroid Hypothyroidism type: unspecified Qualified Code(s): E03.9 - Hypothyroidism, unspecified (2) Hypertension Hypertension type: essential hypertension Qualified Code(s): I10 - Essential (primary) hypertension
[2021-05-10] MEDS: ASPIRIN 81 MG ECTAB PO SCH (09:19)
[2021-05-10] MEDS: CHOLECALCIFEROL 1,000 UNITS 25 MCG TAB PO SCH (09:19)
[2021-05-10] MEDS: ATORVASTATIN 40 MG TAB PO SCH (09:19)
[2021-05-10] MEDS: ESCITALOPRAM OXALATE 10 MG TAB PO SCH (09:19)
[2021-05-10] MEDS: LOSARTAN POTASSIUM 25 MG TAB PO SCH (09:19)
[2021-05-10] MEDS: HEPARIN SOD 5,000 UNIT/0.5 ML VIAL SQ SCH ×2 (09:19→20:04)
[2021-05-10] MEDS ORDERED: LABETALOL HCL IV 5 MG/ML 20ML IV STA (19:08)
[2021-05-10] MEDS ORDERED: hydrALAZINE HCL 20 MG/ML VIAL IV ONE (19:18)
[2021-05-10] MEDS: LATANOPROST 0.005% OP SOLN 2.5 ML BTL OPR SCH (20:04)
[2021-05-10] MEDS ORDERED: ENALAPRILAT 0.625 MG in SYRINGE 9.5 ML IV STA (23:37)
[2021-05-11] MEDS: LEVOTHYROXINE SODIUM 25 MCG TABLET PO SCH (05:46)
[2021-05-11] MEDS: cefTRIAXone SODIUM 1,000 MG in DEXTROSE 5% 50 ML IV SCH (05:46)
[2021-05-11 06:09] LABS: Basophils # (auto) 0.01 K/uL (0-0.2); Basophils % (auto) 0.2 %; Eosinophils # (auto) 0.03 K/uL (0-0.5); Eosinophils % (auto) 0.6 %; Hematocrit (blood only) 36.1 % (42-52); Hemoglobin 12.2 g/dL (14.0-18.0); Immature Granulocytes # (auto) 0.01 K/uL (0.00-0.02); Immature Granulocytes % (auto) 0.2 %; Lymphocytes # (auto) 1.28 K/uL (1.2-3.4); Lymphocytes % (auto) 27.1 %; Mean Corpuscular Hemoglobin 29.6 pg (25-34); Mean Corpuscular Hgb Conc 33.8 g/dL (32-36); Mean Corpuscular Volume 87.6 fL (80-100); Mean Platelet Volume 9.6 fL (7.4-10.4); Monocytes # (auto) 0.58 K/uL (0.11-0.59); Monocytes % (auto) 12.3 %; Neutrophils # (auto) 2.82 K/uL (1.4-6.5); Neutrophils % (auto) 59.6 %; Platelet Count 141 K/uL (130-400); RDW Coefficient of Variation 13.8 % (11.5-14.5); RDW Standard Deviation 44.2 fL (36.4-46.3); Red Blood Count 4.12 M/uL (4.7-6.1); White Blood Count 4.73 K/uL (4.8-10.8)
[2021-05-11 06:56] LABS: Calcium 8.6 mg/dl (8.5-10.1); Creatinine Clr Calc Pharmacy 80.8 ml/min; Est GFR (African American) 103.3 ml/min; Est GFR (Non-African American) 89.1 ml/min; Potassium 3.9 mmol/L (3.5-5.1)
[2021-05-11 06:59] LABS: Albumin Globulin Ratio 0.9 (0.9-2); Bilirubin,Total 1.1 mg/dl (0.2-1); Globulin 3.2 gm/dl (2.5-4.0); Total Protein 6.2 gm/dl (6.4-8.2)
--- NOTE | 2021-05-11 07:21 | Hospitalist Progress Note ---
Date of Service May 11, 2021 Assessment & Plan (1) Stroke-like symptoms: Plan: Admit to monitored bed. Admit with stroke without TPA protocol order set. Aspirin and Atorvastatin, maybe cardiogenic sounds to be syncope Head CT : No acute intracranial findings. No change in appearance of the brain with numerous old infarcts. Head CTA 1. No change since CTA of March 07, 2021. 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 2. Moderate plaque within the intracranial vessels with multifocal stenoses, as described above. 3. Previous aneurysm clipping. 4. Multifocal encephalomalacia. Neck CTA Moderate plaque within the bilateral carotid bifurcations. No significant stenosis within the major vessels of the neck. will have pacemaker rechecked and consider if EP would adjust Consult PT/OT/social economist/neurology (2) Metabolic encephalopathy: Plan: pt with metabolic encephalopathy from enterococcus catheter associated uti poa, changed to daptomycin pending sensitivities (3) Chronic arterial ischemic stroke, multifocal, multiple vascular territories: Plan: Stable CT (4) Occlusion of posterior cerebral artery: Plan: Stable CTA (5) Indwelling Mancuso catheter present: Plan: Follow urine culture and sensitivity. Received ceftriaxone 1 g IV from the ED, and changed to daptomycin (6) Acute UTI: Plan: CT Abd/Pelvis bladder wall thickening and markedly enlargement of prostate, consider prostatitis , may need at least 2 weeks treatment (7) Pneumonia: Plan: Small right lower lobe infiltrate noted on imaging. Patient without any overt symptoms, pneumonia ruled out CTA 1. No pulmonary emboli identified. 2. Mild groundglass opacities within the right lower lobe which favor a mild infectious process, has very little pneumonia sx, so feel infection is urine and pneumonia is ruled out (8) High cholesterol: Plan: Continue atorvastatin 80 mg daily, aspirin 81 mg daily (9) Hypertension: Plan: Continue losartan 25 mg daily (10) Depression: Plan: Continue Lexapro 5 mg daily (11) Hypothyroid: Plan: Continue levothyroxine 25 mcg daily Admission and Anticipated Discharge Date Admission Date: May 09, 2021 Subjective pt is pleasantly confused but has no focal issues, still with some episodes of lower heart rate Review of Systems Review of Systems: Mild distress and fatigue no headache, no visual changes no speech or swallowing issues no chest pain, pressure or palpitations no shortness of breath, cough or wheezes no abdominal pain, nausea or vomiting, diarrhea or constipation no dysuria, hematuria or frequency no focal joint pain or swelling no back pain, CVA tenderness or radicular pain no bruising, bleeding or rashes no focal signs of weakness or numbness or altered sensation no complaints of anxiety or depression.. Physical Exam Physical Exam: The patient appeared well nourished and normally developed. Vital signs as documented. Head exam is normocephalic atraumatic he is extremely hard of hearing Neck is without JVD, thyromegaly, or carotid bruits. Lungs are clear to auscultation, no focal loss of breath sounds Cardiac exam, Rhythm is regular.. JUSTINA Abdominal exam reveals normal bowel sounds, soft non tender, no masses Extremities are nonedematous and both pedal pulses are present Neurologic exam is alert and oriented, no focal loss of strength or sensation Skin is without bruises or rashes Psychologically is without concerns for anxiety or depression Results & Data Results & Data ([facility]) Vital Signs (Past 12 Hours) Vital Signs Temp Pulse Pulse Resp BP BP Pulse Ox 05/11/21 03:06 98.1 F 56 L 18 155/72 H 96 05/11/21 00:03 178/87 H 05/10/21 23:13 97.7 F 58 L 17 201/68 H 96 05/10/21 22:19 54 L PG Care Time/CCT Total # of Minutes Spent Total Time Spent with Patient: Total time spent is greater than 50% in coordination of care (as documented) at patient's floor/unit and/or counseling patient: Coding Level of Care Code 43228 Subseq Hosp Care Lvl 3 Diagnoses Stroke-like symptoms R29.90 Chronic arterial ischemic stroke, multifocal, multiple vascular territories I69.30 Occlusion of posterior cerebral artery I66.29 Indwelling Mancuso catheter present Z97.8 Acute UTI N39.0 Pneumonia J18.9 High cholesterol E78.00 Hypertension I10 Hypertension type: essential hypertension Depression F32.9 Hypothyroid E03.9 Hypothyroidism type: unspecified Metabolic encephalopathy G93.41 (1) Hypothyroid Hypothyroidism type: unspecified Qualified Code(s): E03.9 - Hypothyroidism, unspecified (2) Hypertension Hypertension type: essential hypertension Qualified Code(s): I10 - Essential (primary) hypertension
[2021-05-11] MEDS: ATORVASTATIN 40 MG TAB PO SCH (07:35)
[2021-05-11] MEDS: ASPIRIN 81 MG ECTAB PO SCH (07:35)
[2021-05-11] MEDS: ESCITALOPRAM OXALATE 10 MG TAB PO SCH (07:36)
[2021-05-11] MEDS: LOSARTAN POTASSIUM 25 MG TAB PO SCH (07:36)
[2021-05-11] MEDS: CHOLECALCIFEROL 1,000 UNITS 25 MCG TAB PO SCH (07:36)
[2021-05-11] MEDS: HEPARIN SOD 5,000 UNIT/0.5 ML VIAL SQ SCH ×2 (07:37→19:44)
[2021-05-11] MEDS ORDERED: LOSARTAN POTASSIUM 25 MG TAB PO STA (08:33)
[2021-05-11] MEDS: DAPTOmycin 275 MG in SYRINGE 0 ML IV SCH (12:16)
[2021-05-11] MEDS: LATANOPROST 0.005% OP SOLN 2.5 ML BTL OPR SCH (19:44)
[2021-05-12] MEDS: LEVOTHYROXINE SODIUM 25 MCG TABLET PO SCH (06:07)
[2021-05-12 07:26] LABS: Basophils # (auto) 0.01 K/uL (0-0.2); Basophils % (auto) 0.2 %; Eosinophils # (auto) 0.02 K/uL (0-0.5); Eosinophils % (auto) 0.4 %; Hematocrit (blood only) 36.6 % (42-52); Hemoglobin 12.5 g/dL (14.0-18.0); Immature Granulocytes # (auto) 0.02 K/uL (0.00-0.02); Immature Granulocytes % (auto) 0.4 %; Lymphocytes # (auto) 1.37 K/uL (1.2-3.4); Lymphocytes % (auto) 27.1 %; Mean Corpuscular Hemoglobin 30.3 pg (25-34); Mean Corpuscular Hgb Conc 34.2 g/dL (32-36); Mean Corpuscular Volume 88.6 fL (80-100); Mean Platelet Volume 9.8 fL (7.4-10.4); Monocytes # (auto) 0.66 K/uL (0.11-0.59); Monocytes % (auto) 13.1 %; Neutrophils # (auto) 2.97 K/uL (1.4-6.5); Neutrophils % (auto) 58.8 %; Platelet Count 149 K/uL (130-400); RDW Coefficient of Variation 13.6 % (11.5-14.5); Red Blood Count 4.13 M/uL (4.7-6.1); White Blood Count 5.05 K/uL (4.8-10.8)
[2021-05-12 07:40] LABS: Albumin Level 3.1 gm/dl (3.4-5.0); BUN Creatinine Ratio 26.6 (10-20); Calcium 8.8 mg/dl (8.5-10.1); Creatinine Clr Calc Pharmacy 70.8 ml/min; Est GFR (African American) 98.1 ml/min; Est GFR (Non-African American) 84.7 ml/min; Globulin 3.2 gm/dl (2.5-4.0); Potassium 3.9 mmol/L (3.5-5.1); Total Protein 6.3 gm/dl (6.4-8.2)
[2021-05-12] MEDS: CHOLECALCIFEROL 1,000 UNITS 25 MCG TAB PO SCH (08:01)
[2021-05-12] MEDS: ASPIRIN 81 MG ECTAB PO SCH (08:01)
[2021-05-12] MEDS: ESCITALOPRAM OXALATE 10 MG TAB PO SCH (08:03)
[2021-05-12] MEDS: LOSARTAN POTASSIUM 50 MG TAB PO SCH (08:03)
[2021-05-12] MEDS: HEPARIN SOD 5,000 UNIT/0.5 ML VIAL SQ SCH ×2 (08:05→21:21)
--- NOTE | 2021-05-12 08:07 | Hospitalist Progress Note ---
Date of Service May 12, 2021 Assessment & Plan (1) Stroke-like symptoms: Plan: Admit to monitored bed. Admit with stroke without TPA protocol order set. Aspirin and Atorvastatin, maybe cardiogenic sounds to be syncope Head CT : No acute intracranial findings. No change in appearance of the brain with numerous old infarcts. Head CTA 1. No change since CTA of March 07, 2021. 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 2. Moderate plaque within the intracranial vessels with multifocal stenoses, as described above. 3. Previous aneurysm clipping. 4. Multifocal encephalomalacia. Neck CTA Moderate plaque within the bilateral carotid bifurcations. No significant stenosis within the major vessels of the neck. will have pacemaker rechecked and consider if EP would adjust Consult PT/OT/social media marketing manager/neurology (2) Metabolic encephalopathy: Plan: pt with metabolic encephalopathy from enterococcus catheter associated uti poa, changed to daptomycin pending sensitivities (3) Chronic arterial ischemic stroke, multifocal, multiple vascular territories: Plan: Stable CT (4) Occlusion of posterior cerebral artery: Plan: Stable CTA (5) Indwelling Mancuso catheter present: Plan: Follow urine culture and sensitivity. Received ceftriaxone 1 g IV from the ED, and changed to daptomycin (6) Acute UTI: Plan: CT Abd/Pelvis bladder wall thickening and markedly enlargement of prostate, consider prostatitis , may need at least 2 weeks treatment (7) Pneumonia: Plan: Small right lower lobe infiltrate noted on imaging. Patient without any overt symptoms, pneumonia ruled out CTA 1. No pulmonary emboli identified. 2. Mild groundglass opacities within the right lower lobe which favor a mild infectious process, has very little pneumonia sx, so feel infection is urine and pneumonia is ruled out (8) High cholesterol: Plan: Continue atorvastatin 80 mg daily, aspirin 81 mg daily (9) Hypertension: Plan: Continue losartan 25 mg daily (10) Depression: Plan: Continue Lexapro 5 mg daily (11) Hypothyroid: Plan: Continue levothyroxine 25 mcg daily Admission and Anticipated Discharge Date Admission Date: May 09, 2021 PG Care Time/CCT Total # of Minutes Spent Total Time Spent with Patient: Total time spent is greater than 50% in coordination of care (as documented) at patient's floor/unit and/or counseling patient: Coding Diagnoses Stroke-like symptoms R29.90 Metabolic encephalopathy G93.41 Chronic arterial ischemic stroke, multifocal, multiple vascular territories I69.30 Occlusion of posterior cerebral artery I66.29 Indwelling Mancuso catheter present Z97.8 Acute UTI N39.0 Pneumonia J18.9 High cholesterol E78.00 Hypertension I10 Hypertension type: essential hypertension Depression F32.9 Hypothyroid E03.9 Hypothyroidism type: unspecified (1) Hypertension Hypertension type: essential hypertension Qualified Code(s): I10 - Essential (primary) hypertension (2) Hypothyroid Hypothyroidism type: unspecified Qualified Code(s): E03.9 - Hypothyroidism, unspecified
[2021-05-12] MEDS: DAPTOmycin 275 MG in SYRINGE 0 ML IV SCH (11:32)
[2021-05-12] MEDS: AMPICILLIN 1,000 MG in SODIUM CHLOR 0.9% AD-VAN 50 ML IV SCH ×2 (14:23→21:20)
--- NOTE | 2021-05-12 20:42 | CT Scan Report ---
CT head/brain wo con CLINICAL HISTORY: Fall hit head COMPARISON STUDY: May 09, 2029 TECHNIQUE: Axial CT of the brain is performed from the vertex to the skull base. IV contrast was not administered for this examination. A dose lowering technique was utilized adhering to the principles of ALARA. CT DOSE: 749.40 mGy.cm FINDINGS: No acute intracranial hemorrhage, no midline shift or space occupying lesions are seen. Redemonstration of the patchy areas of encephalomalacia involving right frontal, occipital and tempor al region as well as left inferior frontal lobe. Large old infarct also again seen within left cerebe llar lobe. Large lacunar infarct is again seen within the right basal ganglia. Redemonstration of diffuse atrophic changes within brain parenchyma associated with ex vacuo dilatati on of ventricles. There is no acute depressed skull fracture seen. Redemonstration of right frontal craniotomy and stab le appearance of the aneurysmal clip. Stable deformity of the nasal bone is seen. Visualized paranasa l sinuses and mastoid air cells are patent and well-aerated. IMPRESSION: 1. No acute intracranial hemorrhage, no midline shift or space occupying lesions. 2. Stable appearance of multifocal areas of encephalomalacia involving right and left cerebral lobes and left cerebellum. Also stable lacunar infarct is seen within the right basal ganglia. 3. No acute depressed skull fractures. 4. Postoperative changes as detailed above. ACT 112: Negative or not required by law. The above report was generated using voice recognition software. It may contain grammatical, syntax o r spelling errors. Electronically signed by: Larissa Rodriguez DO 05/12/2021 8:41 PM
[2021-05-12] MEDS: LATANOPROST 0.005% OP SOLN 2.5 ML BTL OPR SCH (21:20)
[2021-05-13] MEDS: AMPICILLIN 1,000 MG in SODIUM CHLOR 0.9% AD-VAN 50 ML IV SCH ×4 (02:19→20:22)
[2021-05-13] MEDS: LEVOTHYROXINE SODIUM 25 MCG TABLET PO SCH (05:41)
[2021-05-13] MEDS: HEPARIN SOD 5,000 UNIT/0.5 ML VIAL SQ SCH ×2 (09:01→20:22)
[2021-05-13] MEDS: CHOLECALCIFEROL 1,000 UNITS 25 MCG TAB PO SCH (09:02)
[2021-05-13] MEDS: ASPIRIN 81 MG ECTAB PO SCH (09:02)
[2021-05-13] MEDS: LOSARTAN POTASSIUM 50 MG TAB PO SCH (09:02)
[2021-05-13] MEDS: ESCITALOPRAM OXALATE 10 MG TAB PO SCH (09:02)
--- NOTE | 2021-05-13 20:14 | Hospitalist Progress Note ---
Date of Service May 13, 2021 Assessment & Plan (1) Acute UTI: Plan: CT Abd/Pelvis bladder wall thickening and markedly enlargement of prostate, consider prostatitis , may need at least 2 weeks treatment Now growing multi-resistant enterococcus faecalis Continue ampicillin for now and will consult ID regarding duration of antibiotics (2) Indwelling Henry catheter present: Plan: Chronic henry catheter - suspect related to BPH. Failed TWOC as outpatient with urology in March. Will follow up on Wednesday. (3) Stroke-like symptoms: Plan: Ruled out. Neurology consult cancelled Head CT : No acute intracranial findings. No change in appearance of the brain with numerous old infarcts. Head CTA 1. No change since CTA of March 07, 2021. 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 2. Moderate plaque within the intracranial vessels with multifocal stenoses, as described above. 3. Previous aneurysm clipping. 4. Multifocal encephalomalacia. Neck CTA Moderate plaque within the bilateral carotid bifurcations. No significant stenosis within the major vessels of the neck. (4) Metabolic encephalopathy: Plan: pt with metabolic encephalopathy from enterococcus catheter associated uti poa, changed to daptomycin pending sensitivities (5) Chronic arterial ischemic stroke, multifocal, multiple vascular territories: Plan: Stable CT (6) Occlusion of posterior cerebral artery: Plan: Stable CTA (7) Pneumonia: Plan: Small right lower lobe infiltrate noted on imaging. Patient without any overt symptoms, pneumonia ruled out CTA 1. No pulmonary emboli identified. 2. Mild groundglass opacities within the right lower lobe which favor a mild infectious process, has very little pneumonia sx, so feel infection is urine and pneumonia is ruled out (8) High cholesterol: Plan: Continue atorvastatin 80 mg daily, aspirin 81 mg daily (9) Hypertension: Plan: Continue losartan 25 mg daily (10) Depression: Plan: Continue Lexapro 5 mg daily (11) Hypothyroid: Plan: Continue levothyroxine 25 mcg daily Admission and Anticipated Discharge Date Admission Date: May 12, 2021 Subjective Unable to get any significant history from the patient. Discussed care with his daughter at bedside. Reports syncopal episode related to physical therapy as main reason he was sent in. Similar sounding episode in March. Chronic henry catheter, recently followed up with urology as outpatient and failed trial without. Unfortunately due to syncopal episodes tamsulosin was discontinued during March admission therefore likelihood of passing another. Fall overnight related to wet floor in bathroom. Daughter concerned he still remains confused and off his baseline to return home but improving everyday despite the fall he appears to be better today than yesterday. Review of Systems Review of Systems: Unobtainable due to cognitive status Denies any pain Physical Exam Constitutional: WD/WN, vitals as above no acute distress Eyes: + anicteric sclerae; normal pupil size Respiratory: normal respiratory effort, lungs clear to auscultation Cardiovascular: Rate/Rhythm: regular rate and regular rhythm Heart Sounds: + murmur (systolic) Gastrointestinal (Abdomen): Inspection/Auscultation: normal bowel sounds Percussion/Palpation: abdomen soft; abdomen nontender and no guarding Musculoskeletal: no cyanosis or clubbing, extremities motor strength 5/5 Skin: no rashes, warm and dry Neurologic: moves all extremities, awake and + confused (exacerbated by his poor hearing) Psychiatric: Orientation: alert, oriented to person, oriented to place and oriented to time (year) Genitourinary: no CVA tenderness Results & Data Results & Data ([facility]) Vital Signs (Past 12 Hours) Vital Signs Temp Pulse Pulse Resp BP Pulse Ox 05/13/21 19:18 36.6 C 60 18 123/58 L 97 05/13/21 15:35 36.5 C 53 L 18 100/56 L 97 05/13/21 14:30 63 05/13/21 12:14 36.3 C L 55 L 20 128/69 96 05/13/21 08:26 36.4 C L 77 18 123/69 94 PG Care Time/CCT Total # of Minutes Spent Total Time Spent with Patient: Total time spent is greater than 50% in coordination of care (as documented) at patient's floor/unit and/or counseling patient: Coding Level of Care Code 18747 Subseq Hosp Care Lvl 2 Diagnoses Stroke-like symptoms R29.90 Metabolic encephalopathy G93.41 Chronic arterial ischemic stroke, multifocal, multiple vascular territories I69.30 Occlusion of posterior cerebral artery I66.29 Indwelling Henry catheter present Z97.8 Acute UTI N39.0 Pneumonia J18.9 High cholesterol E78.00 Hypertension I10 Hypertension type: essential hypertension Depression F32.9 Hypothyroid E03.9 Hypothyroidism type: unspecified (1) Hypothyroid Hypothyroidism type: unspecified Qualified Code(s): E03.9 - Hypothyroidism, unspecified (2) Hypertension Hypertension type: essential hypertension Qualified Code(s): I10 - Essential (primary) hypertension
[2021-05-13] MEDS: LATANOPROST 0.005% OP SOLN 2.5 ML BTL OPR SCH (20:21)
[2021-05-14] MEDS: AMPICILLIN 1,000 MG in SODIUM CHLOR 0.9% AD-VAN 50 ML IV SCH ×4 (01:54→20:07)
[2021-05-14] MEDS: LEVOTHYROXINE SODIUM 25 MCG TABLET PO SCH (05:20)
[2021-05-14] MEDS: CHOLECALCIFEROL 1,000 UNITS 25 MCG TAB PO SCH (09:04)
[2021-05-14] MEDS: ASPIRIN 81 MG ECTAB PO SCH (09:04)
[2021-05-14] MEDS: ESCITALOPRAM OXALATE 10 MG TAB PO SCH (09:04)
[2021-05-14] MEDS: LOSARTAN POTASSIUM 50 MG TAB PO SCH (09:05)
[2021-05-14] MEDS: HEPARIN SOD 5,000 UNIT/0.5 ML VIAL SQ SCH ×2 (09:05→20:04)
[2021-05-14] MEDS: ATORVASTATIN 40 MG TAB PO SCH (10:47)
--- NOTE | 2021-05-14 18:34 | Hospitalist Progress Note ---
Date of Service May 14, 2021 Assessment & Plan (1) Acute UTI: Plan: CT Abd/Pelvis bladder wall thickening and markedly enlargement of prostate, consider prostatitis , may need at least 2 weeks treatment Now growing multi-resistant enterococcus faecalis Continue ampicillin for now and convert to amoxicillin on discharge for full 7 day course (2) Indwelling Henry catheter present: Plan: Chronic henry catheter - suspect related to BPH. Failed TWOC as outpatient with urology in March. Will follow up on Wednesday. (3) Stroke-like symptoms: Plan: Ruled out. Neurology consult cancelled Head CT : No acute intracranial findings. No change in appearance of the brain with numerous old infarcts. Head CTA 1. No change since CTA of March 07, 2021. 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 2. Moderate plaque within the intracranial vessels with multifocal stenoses, as described above. 3. Previous aneurysm clipping. 4. Multifocal encephalomalacia. Neck CTA Moderate plaque within the bilateral carotid bifurcations. No significant stenosis within the major vessels of the neck. (4) Metabolic encephalopathy: Plan: pt with metabolic encephalopathy from enterococcus catheter associated uti poa, changed to daptomycin pending sensitivities (5) Chronic arterial ischemic stroke, multifocal, multiple vascular territories: Plan: Stable CT (6) Occlusion of posterior cerebral artery: Plan: Stable CTA (7) Pneumonia: Plan: Small right lower lobe infiltrate noted on imaging. Patient without any overt symptoms, pneumonia ruled out CTA 1. No pulmonary emboli identified. 2. Mild groundglass opacities within the right lower lobe which favor a mild infectious process, has very little pneumonia sx, so feel infection is urine and pneumonia is ruled out (8) High cholesterol: Plan: Continue atorvastatin 80 mg daily, aspirin 81 mg daily (9) Hypertension: Plan: Continue losartan 25 mg daily (10) Depression: Plan: Continue Lexapro 5 mg daily (11) Hypothyroid: Plan: Continue levothyroxine 25 mcg daily Admission and Anticipated Discharge Date Admission Date: May 12, 2021 Subjective Unable to get any significant history from patient. Discussed with daughter and at bedside. They feel he will be ready for discharge tomorrow. Confusion improving daily. No evidence of henry cath changed in ER therefore will do this now. ID consult recommend macrobid as unclear represents true infection. Review of Systems Review of Systems: Unobtainable due to cognitive status Physical Exam Constitutional: WD/WN, vitals as above no acute distress Eyes: + anicteric sclerae; normal pupil size Respiratory: normal respiratory effort, lungs clear to auscultation Cardiovascular: Rate/Rhythm: regular rate and regular rhythm Heart Sounds: + murmur (systolic) Gastrointestinal (Abdomen): Inspection/Auscultation: normal bowel sounds Percussion/Palpation: abdomen soft; abdomen nontender and no guarding Musculoskeletal: no cyanosis or clubbing, extremities motor strength 5/5 Skin: no rashes, warm and dry Neurologic: moves all extremities, awake and + confused (exacerbated by his poor hearing) Genitourinary: no CVA tenderness Results & Data Results & Data ([facility]) Vital Signs (Past 12 Hours) Vital Signs Temp Pulse Resp BP Pulse Ox 05/14/21 15:33 36.4 C L 57 L 16 93/56 L 96 05/14/21 07:59 36.4 C L 100 H 18 134/80 94 PG Care Time/CCT Total # of Minutes Spent Total Time Spent with Patient: Total time spent is greater than 50% in coordination of care (as documented) at patient's floor/unit and/or counseling patient: Coding Level of Care Code 08966 Subseq Hosp Care Lvl 1 Diagnoses Acute UTI N39.0 Indwelling Henry catheter present Z97.8 Stroke-like symptoms R29.90 Metabolic encephalopathy G93.41 Chronic arterial ischemic stroke, multifocal, multiple vascular territories I69.30 Occlusion of posterior cerebral artery I66.29 Pneumonia J18.9 High cholesterol E78.00 Hypertension I10 Hypertension type: essential hypertension Depression F32.9 Hypothyroid E03.9 Hypothyroidism type: unspecified (1) Hypothyroid Hypothyroidism type: unspecified Qualified Code(s): E03.9 - Hypothyroidism, unspecified (2) Hypertension Hypertension type: essential hypertension Qualified Code(s): I10 - Essential (primary) hypertension
[2021-05-14] MEDS: LATANOPROST 0.005% OP SOLN 2.5 ML BTL OPR SCH (21:12)
[2021-05-15] MEDS: AMPICILLIN 1,000 MG in SODIUM CHLOR 0.9% AD-VAN 50 ML IV SCH ×2 (01:27→08:25)
[2021-05-15] MEDS: LEVOTHYROXINE SODIUM 25 MCG TABLET PO SCH (05:58)
[2021-05-15] MEDS: ASPIRIN 81 MG ECTAB PO SCH (08:26)
[2021-05-15] MEDS: CHOLECALCIFEROL 1,000 UNITS 25 MCG TAB PO SCH (08:26)
[2021-05-15] MEDS: ATORVASTATIN 40 MG TAB PO SCH (08:26)
[2021-05-15] MEDS: ESCITALOPRAM OXALATE 10 MG TAB PO SCH (08:27)
[2021-05-15] MEDS: LOSARTAN POTASSIUM 50 MG TAB PO SCH (08:28)
[2021-05-15] MEDS: HEPARIN SOD 5,000 UNIT/0.5 ML VIAL SQ SCH (08:28)
--- NOTE | 2021-05-15 10:50 | Discharge Summary ---
Date of Service May 15, 2021 Admission HPI Per Admitting Provider The patient is a 10-year-old male with a past medical history including hypertensive urgency, diabetes mellitus, occlusion the posterior cerebral artery, elevated troponin, acute encephalopathy, cardiac dysrhythmia, pacemaker, syncope, acute UTI, hypothyroidism, hypertension, hypercholesterolemia, history of CVA and chronic indwelling Mancuso catheter. The patient presents to the emergency department with history as noted above, however, upon arrival he had significantly improved and was alert to self and would follow commands. Family notes that his generalized weakness, mild aphasia and left sided neglect that we re initially present from his previous stroke, were more severe as was his confusion. The patient himself is unable to contribute significantly to his HPI Admission Exam Per Admitting Provider The patient is awake, alert, normocephalic and atraumatic, lying in bed and in no acute distress. HEENT--PERRL, EOMI, mucous membranes and oropharynx dry. Neck--supple. No JVD. No bruits. Thyroid normal, trachea midline, no adenopathy. Heart--normal S1 and S2. No murmurs, rubs or gallops. Lungs--clear bilaterally, no respiratory distress, no accessory muscle use. Abdomen--normal bowel sounds and soft. Nontender. Nondistended. Extremities--no cyanosis or clubbing. No edema. Dermatologic--skin is dry Neurologic--cranial nerves II through XII grossly intact. Rheumatologic--normal range of motion. Psychiatric--normal affect. Principal Diagnosis Acute catheter associated UTI Syncope related to dehydration and physical therapy Discharge Exam Constitutional WD/WN, vitals as above no acute distress Eyes + anicteric sclerae; normal pupil size Respiratory normal respiratory effort, lungs clear to auscultation Cardiovascular Rate/Rhythm: regular rate and regular rhythm Heart Sounds: + murmur (systolic) Gastrointestinal (Abdomen) Inspection/Auscultation: normal bowel sounds Percussion/Palpation: abdomen soft; abdomen nontender and no guarding Musculoskeletal no cyanosis or clubbing, extremities motor strength 5/5 Skin no rashes, warm and dry Neurologic moves all extremities, awake and + confused (exacerbated by his poor hearing) Psychiatric Orientation: alert, oriented to person, oriented to place and oriented to time (year) Discharge Data Allergies Allergy/AdvReac Type Severity Reaction Status Date / Time morphine AdvReac Severe HALLICINATIONS, Verified 05/09/21 19:47 BEHAVIOR CHANGES Penicillins AdvReac Unknown tolerates Verified 05/15/21 10:44 multiple penicillins sulfor AdvReac Unknown Unknown Uncoded 05/09/21 19:47 Consultations 05/09/21 19:19 ED Decision to Admit Stat 05/13/21 12:45 Consult Infectious Diseases Routine Ordered Studies 05/09/21 16:55 CT abd pelvis IV con only Stat IMPRESSION: 1. No bowel obstruction. No bowel wall thickening. 2. Bladder wall thickening which could be correlated with urinalysis. Marked enlargement of the prostate. CT angio chest PE protocol Stat IMPRESSION: 1. No pulmonary emboli identified. 2. Mild groundglass opacities within the right lower lobe which favor a mild infectious process. CT angio head w con Stat IMPRESSION: 1. No change since CTA of March 07, 2021. 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 2. Moderate plaque within the intracranial vessels with multifocal stenoses, as described above. 3. Previous aneurysm clipping. 4. Multifocal encephalomalacia. CT angio neck with con Stat IMPRESSION: Moderate plaque within the bilateral carotid bifurcations. No significant stenosis within the major vessels of the neck. CT head/brain wo con Stat IMPRESSION: No acute intracranial findings. No change in appearance of the brain with numerous old infarcts. 05/12/21 20:04 CT head/brain wo con Stat IMPRESSION: 1. No acute intracranial hemorrhage, no midline shift or space occupying lesions. 2. Stable appearance of multifocal areas of encephalomalacia involving right and left cerebral lobes and left cerebellum. Also stable lacunar infarct is seen within the right basal ganglia. 3. No acute depressed skull fractures. 4. Postoperative changes as detailed above. Hospital Course (1) Acute UTI: (2) Indwelling Mancuso catheter present: (3) Stroke-like symptoms: (4) Metabolic encephalopathy: (5) Chronic arterial ischemic stroke, multifocal, multiple vascular territories: (6) Occlusion of posterior cerebral artery: (7) Pneumonia: (8) High cholesterol: (9) Hypertension: (10) Depression: (11) Hypothyroid: Stevan Madrid is an 89 year old male admitted to [facility] from May 09-2020 due to acute confusion and syncopal episode. He was diagnosed with a catheter-associated UTI and dehydration. This was treated with IV fluids and antibiotics as an inpatient and will be switched to oral amoxicillin on discharge. Noted prior penicillin allergy however no reaction to ampicillin as in inpatient. Total Time Total Time Spent Total Time Spent (In Minutes): 35 Discharge Plan Discharge Items Patient Disposition: Home - Home Health Services Reason For Visit: SYNCOPOE, STROKE-LIKE SYMPTOMS Discharge Diagnosis: Acute catheter associated UTI Syncope related to dehydration and physical therapy Activity: Resume your previous activity Non-emergency contact: Primary Care Provider Call non-emergency contact if: you have any medication questions and your symptoms worsen Follow-up/Referrals: Radha Leon MD [Primary Care Provider] - 05/28/21 11:30 am Diet: Regular Addtl Attending Provider Instructions: You were admitted to [facility] from May 09-2020 due to acute confusion and syncopal episode. You were diagnosed with a catheter- associated UTI and dehydration. This was treated with intravenous fluids and antibiotics as an inpatient and will be switched to oral amoxicillin on discharge. It has been noted you have a prior penicillin allergy although you have tolerated ampicillin (a type of penicillin) during your inpatient stay without any side effects. Please stop the medication if you do have any side effects. Pending Studies at Discharge: No Stand-Alone Forms: My [facility], Smoking Cessation Medications and DC Order Prescriptions: Continued aspirin [Aspirin Low Dose] 81 mg tablet,delayed release (DR/EC) 81 mg PO QAM Qty: 90 RF: 1 atorvastatin 80 mg tablet 80 mg PO QAM Qty: 90 RF: 1 escitalopram oxalate [Lexapro] 5 mg tablet 5 mg PO QAM Qty: 90 RF: 1 losartan 25 mg tablet 25 mg PO QAM Qty: 90 RF: 1 levothyroxine [Synthroid] 25 mcg tablet 25 mcg PO DAILYBB Qty: 90 RF: 1 latanoprost 0.005 % Drops 1 drp OPR HS RF: 0 cholecalciferol (vitamin D3) [Vitamin D3] 25 mcg (1,000 unit) Tablet 25 mcg PO QAM RF: 0 docusate sodium 100 mg Capsule 100 mg PO BID PRN (Reason: Constipation) RF: 0 fluticasone propionate 50 mcg/actuation spray,suspension 2 spray INTRANASAL QAM PRN (Reason: seasonal allergies) RF: 0 nystatin 100,000 unit/gram Powder 1 applic TOPICAL BID PRN (Reason: groin redness) RF: 0 acetaminophen [Tylenol Extra Strength] 500 mg Tablet 1,000 mg PO Q8H PRN (Reason: Pain) RF: 0 Discharge Orders: Discharge Order (Routine); Ordered 05/15/21 Ordered By: Felice Gupta/Other Patient Handouts: Preventing Deep Vein Thrombosis Admission Data Admit Date/Time: 05/12/21 16:12 Attending Provider: Felice Chou Admit Provider: Bakari Herrera Primary Care Provider: Radha Leon Other Providers: [facility],Referral Center ; Bakari Herrera ; Eagle Ansari ; Man Suresh ; Martin Benjamin I. ; George Marcus II ; Ruby Gregory ; Delmer Woo Other Interventions: Discharge Summary Assessment (RN) Last Done: 05/15/21 11:15 Coding Level of Care Code D/C DAY MANAGEMENT >30 MINS Diagnoses Acute UTI N39.0 Indwelling Mancuso catheter present Z97.8 Stroke-like symptoms R29.90 Metabolic encephalopathy G93.41 Chronic arterial ischemic stroke, multifocal, multiple vascular territories I69.30 Occlusion of posterior cerebral artery I66.29 Pneumonia J18.9 High cholesterol E78.00 Hypertension I10 Hypertension type: essential hypertension Depression F32.9 Hypothyroid E03.9 Hypothyroidism type: unspecified
== END 2021-05-15 12:32 | disposition home health service (06) | DRG 698 ==
LOC: ED 16:49 → 2S 16:49 → SUATTDRO 20:21 → 2S 21:52 → SUATTDRO 05-12 16:12 → 3N 05-13 22:23